=== PATIENT | female | born 1995 | race Caucasian/White ===

== ENCOUNTER → 2019-11-12 | Outpatient (REF) | payer OTHER | LOC: M SFHCLERA 16:02 | PROVIDERS: ATTEND Nurse Practitioner Family | DX: R53.81 Other malaise (principal) ==

== ENCOUNTER → 2020-08-23 | Outpatient (CLI) | payer OTHER ==
--- NOTE | 2020-08-23 16:02 | REP ---
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 TECHNIQUE: PA and lateral. FINDINGS: The mediastinum and cardiac silhouette are normal. The lung padilla are clear and without acute consolidation, effusion, or pneumothorax. The skeletal structures are intact and normal. IMPRESSION: No acute cardiopulmonary process. <Electronically signed by Arturo Cleveland > 08/23/20 [id number]
--- NOTE | 2020-08-23 16:30 | REPVR ---
PROCEDURE INFORMATION: Exam: CT Thoracic Spine Without Contrast Exam date and time: 08/23/2020 3:55 PM Age: 25 years old Clinical indication: Pain in thoracic spine; Additional info: Benign neoplasm of prph nerves and autonm nervous sys, unsp TECHNIQUE: Imaging protocol: Computed tomography images of the thoracic spine without contrast. Axial, coronal and sagittal reformatted images were created and reviewed. Radiation optimization: All CT scans at this facility use at least one of these dose optimization techniques: automated exposure control; mA and/or kV adjustment per patient size (includes targeted exams where dose is matched to clinical indication); or iterative reconstruction. COMPARISON: No relevant prior studies available. FINDINGS: Vertebrae: Normal thoracic kyphosis. Alignment anatomic. No CT evidence of acute fracture, dislocation or subluxation. Vertebral body heights maintained. Discs/Spinal canal/Neural foramina: Intervertebral disc spaces preserved. Soft tissue enlargement of the left C7-T1 neural foramen with associated osseous remodeling, suggestive of a peripheral nerve sheath tumor. Remaining neural foramina patent. No significant spinal canal stenosis. Soft tissues: Unremarkable. 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 Electronically signed by: Alex Hall On 08/23/2020 16:30:47 PM
--- NOTE | 2020-08-23 16:30 | REPVR ---
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 Axial, coronal and sagittal reformatted images were created and reviewed. Radiation optimization: All CT scans at this facility use at least one of these dose optimization techniques: automated exposure control; mA and/or kV adjustment per patient size (includes targeted exams where dose is matched to clinical indication); or iterative reconstruction. COMPARISON: No relevant prior studies available. FINDINGS: Bones/joints: Straightening of the normal cervical lordosis. No CT evidence of acute fracture, dislocation or subluxation. Alignment anatomic. Vertebral body heights maintained. Discs/Spinal canal/Neural foramina: Intervertebral disc spaces preserved. Soft tissue enlargement of the left C7-T1 neural foramen with associated osseous remodeling, suggestive of a peripheral nerve sheath tumor. Remaining neural foramina patent. No significant spinal canal stenosis. Lungs: Grossly unremarkable. Soft tissues: Grossly unremarkable. 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 Electronically signed by: Alex Hall On 08/23/2020 16:30:37 PM
== END ==
LOC: M RAD 15:40
PROVIDERS: ATTEND Neurological Surgery
DX: D36.10 Benign neoplasm of peripheral nerves and autonomic nervous system, unspecified (principal)

== ENCOUNTER → 2020-09-23 | Outpatient (CLI) | payer OTHER ==
[~2020-09-23] MED LIST: ISOVUE-370 76% 100ML VIAL As Ordered ONE
--- NOTE | 2020-09-23 08:44 | REP ---
INDICATION: SOB, RO PE COMPARISON: None. TECHNIQUE: Axial contrast enhanced images from the thoracic inlet to the upper abdomen using pulmonary embolus technique with multiplanar re-formations. 75 ml Isovue 370 intravenous contrast material administered without complication. This CT examination was performed using the following dose reduction techniques: Automated exposure control, adjustment of mA and/or kv according to the patient's size, and use of iterative reconstruction technique. FINDINGS: Satisfactory enhancement of the pulmonary vasculature is achieved and no filling defects are identified to suggest pulmonary embolus. Further evaluation of the mediastinum demonstrates normal thoracic aorta, heart and pericardium. The bilateral lung padilla are well aerated and clear without consolidation pleural effusion or pneumothorax. Tracheobronchial tree is patent. No nodule or mass lesion is identified. No adenopathy noted. Surrounding musculoskeletal structures intact IMPRESSION: No evidence for pulmonary embolus. No acute mediastinal or pleural parenchymal process. <Electronically signed by Arturo Cleveland > 09/23/20 0844
== END ==
LOC: M RAD 07:48
PROVIDERS: ATTEND Physician Assistant Medical
DX: R06.02 Shortness of breath (principal); R07.81 Pleurodynia
CPT/HCPCS: 71275; Q9967

== ENCOUNTER → 2020-11-07 | Outpatient (CLI) | payer OTHER ==
--- NOTE | 2020-11-07 11:27 | REP ---
INDICATION: SCHWANNOMA. COMPARISON: None. TECHNIQUE: AP, lateral, swimmer's views of the cervical spine. FINDINGS: Stevenson rods are identified extending from C4 caudally. There is mild reversal of normal lordosis at the C3-4 level which is nonspecific. The vertebral bodies are intact and without acute fracture/compression injury, acute subluxation, or degenerative change. IMPRESSION: As above. <Electronically signed by Arturo Cleveland > 11/07/20 [id number]
--- NOTE | 2020-11-07 11:28 | REP ---
INDICATION: SCHWANNOMA. COMPARISON: None. TECHNIQUE: AP, lateral, swimmer's views of the thoracic spine. FINDINGS: Stevenson rods are identified extending from C4 through upper thoracic level. Thoracic spine demonstrates normal alignment and kyphosis. No acute fracture/compression injury or subluxation. No significant degenerative changes. IMPRESSION: Relatively normal thoracic spine radiographs. <Electronically signed by Arturo Cleveland > 11/07/20 [id number]
== END ==
LOC: M RAD 10:49
DX: D36.10 Benign neoplasm of peripheral nerves and autonomic nervous system, unspecified (principal)

== ENCOUNTER 2021-06-24 23:33 | Emergency (ER) | payer OTHER ==
[~2021-06-24] VITALS: Ht 170.2 cm; Wt 77.3 kg
[2021-06-24 23:34] VITALS: BP 129/81
--- OUTSIDE RECORDS SUMMARY | 2021-06-24 23:40 | CCD | Summary of Care ---
Author Author [facility] Organization [facility] Address Unknown Phone Unavailable Care Team Providers Care Boiler Fireman Name Role Phone Michael Banegas MD PCP Reason for Referral * Rehabilitation (Routine) Referred By Contact Referred To Contact Status Reason Specialty Diagnoses / Procedures Fina Diana PA [address] [facility] [address] [place] [phone] Email: [email or web address] Vale James MD [address] [place] [address] Email: [email or web address] Authorized Specialty Services Physical Diagnoses Required Medicine and Schwannoma Rehabilitation Fusion of spine of cervicothoracic region Acute midline thoracic back pain Electronically signed by Fina UGALDE at * Physical Therapy (Routine) Referred By Contact Referred To Contact Status Reason Specialty Diagnoses / Procedures Fina Diana PA [address] [place] [phone] Email: [email or web address] Authorized Diagnoses Schwannoma Fusion of spine of cervicothoracic region Acute midline thoracic back pain P rocedures Physical Therapy Electronically signed by Fina UGALDE at Reason for Visit * Reason Comments Follow-up new pain mid back xrays german or Encounter Details Care Team Description Date Type Department Alex Escobar MD [address] [place] [phone] Schwannoma (Primary Dx); Fusion of spine of cervicothoracic region; Acute midline thoracic back pain; Atrophic scar 04/04/2021 Office Visit [facility] [address] [phone] Allergies Comments Active Allergy Reactions Severity Noted Date Dizziness, insomnia, exacerbation of tics Amphetamine-Dextroampheta Nausea Only 08/23/2020 mine Iodinated Diagnostic Shortness Of High 1 Agents Breath, Itching Exacerbation of tic, dizziness, insomnia and nausea Dexmethylphenidate Hcl Other (See 08/23/2020 Comments) documented as of this encounter (statuses as of 04/04/2021) Medications End Date Status Medication Sig Dispensed Refills Start Date Active Loratadine 10 MG Oral Take 10 mg by 0 Tablet (CLARITIN) mouth every morning Active Fluticasone Propionate 50 1 spray by 0 MCG/ACT Nasal Suspension Nasal route (FLONASE) as needed for Rhinitis Active Vitamin D Take 50,000 0 (Ergocalciferol) 1.25 MG Units by (96413 UT) Oral Capsule mouth every 7 (ERGOCALCIFEROL) (seven) days On tuesdays09/07/2021 Active Calcium Carbonate Antacid Chew 1 tablet 0 500 MG Oral Tablet by Mouth 1 Chewable (TUMS) Three times daily as needed Additional Information Patient not taking. Reported on 04/04/2021 09/12/2021 Active Venlafaxine HCl ER 150 MG Take 1 30 capsule 0 Oral Capsule Extended capsule by 1 Release 24 Hour mouth every (EFFEXOR-XR) morning Active Albuterol Sulfate HFA 108 Inhale 2 1 each 0 (90 Base) MCG/ACT puffs into 1 Inhalation Aerosol the lungs Solution (Ventolin HFA) every 6 (six) hours as needed for Wheezing Additional Information Patient not taking. Reported on 04/04/2021 Active Gabapentin 400 MG Oral Take 1 90 capsule 1 Capsule (Neurontin) capsule by 1 mouth Three times daily Active Lisdexamfetamine Take 40 mg by 0 Dimesylate 40 MG Oral mouth every Capsule (VYVANSE) morning documented as of this encounter (statuses as of 04/04/2021) Active Problems Problem Noted Date Other skin changes 09/05/2020 Overview: Formatting of this note might be differ ent from the original. 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 Added automatically from request for [facility] [id number] documented as of this encounter (statuses as of 04/04/2021) Social History Date Tobacco Use Types Packs/Day Years Used Never Smoker Smokeless Tobacco: Never Used Comments Alcohol Use Standard Drinks/Week infrequently Yes 0 (1 standard drink = 0.6 o z pure alcohol) Sex Assigned at Date Recorded Not on file Date Recorded COVID-19 Exposure Response 04/04/2021 2:49 PM EDT In the last month, have you been in contact with No / Unsure someone who was confirmed or suspected to have Coronavirus / COVID-19? documented as of this encounter Last Filed Vital Signs Reading Time Taken Comments Vital Sign 110/80 04/04/2021 3:30 PM EDT Blood Pressure 98 04/04/2021 3:30 PM EDT Pulse - - Temperature - - Respiratory Rate 100% 04/04/2021 3:30 PM EDT Oxygen Saturation - - Inhaled Oxygen Concentration - - Weight - - Height - - Body Mass Index documented in this encounter Progress Notes * Fina Diana PA - 04/04/2021 3:00 PM EDT Jeanne Jj presents for follow up with xrays. she is a 26 y.o. year old female, with known history of a left C7 lesion initial ly found 5 years ago. The initially experienced left arm numbness and tingling extending to her 4th and 5th digits in the C8 distribution. She was managed con servatively, but over the past year, has developed increasing left upper extremi ty weakness and proximal left lower extremity weakness that has slowly worsened. She also now complains of bowel and bladder incontinence. Dr. Escobar perform ed a C4-T3 posterior instrumentation and fusion with C6-T1 laminectomy for resec tion of intradural and extradural tumor on 09/01/2020. Pathology consistent wit h schwannoma. Patient is here alone for follow up, her mother is on speaker phone. Patient st hern[facility] she had improvement at first but has worsened. She continues to have left hand numbness primarily in the lateral aspect of the hand and into the fourth an d fifth digits. She admits to weakness and now has a tremor into the left hand. Approximately a month and a half ago she was in the car for a longer period of time and experienced a severe sharp pain through the middle of her scar. Since then she has had spontaneous episodes of this type pain not precipitated by any thing in particular. She also still has baseline upper neck and back pain where she cannot do daily activities. She denies any shooting arm pain. She also is concerned about her scar and has widened since her surgery. Current Outpatient Medications Medication Sig Dispense Refill Lisdexamfetamine Dimesylate 40 MG Oral Capsule (VYVANSE) Take 40 mg by mo uth every morning Venlafaxine HCl ER 150 MG Oral Capsule Extended Release 24 Hour (EFFEXOR- XR) Take 1 capsule by mouth every morning 30 capsule 0 Albuterol Sulfate HFA 108 (90 Base) MCG/ACT Inhalation Aerosol Solution ( Ventolin HFA) Inhale 2 puffs into the lungs every 6 (six) hours as needed for W heezing (Patient not taking: Reported on 04/04/2021) 1 each 0 Calcium Carbonate Antacid 500 MG Oral Tablet Chewable (TUMS) Chew 1 table t by Mouth Three times daily as needed (Patient not taking: Reported on 04/04/2021 ) Fluticasone Propionate 50 MCG/ACT Nasal Suspension (FLONASE) 1 spray by N kristen route as needed for Rhinitis (Patient not taking: Reported on 04/04/2021) Gabapentin 400 MG Oral Capsule (Neurontin) Take 1 capsule by mouth Three times daily 90 capsule 1 Loratadine 10 MG Oral Tablet (CLARITIN) Take 10 mg by mouth every morning (Patient not taking: Reported on 04/04/2021) Vitamin D (Ergocalciferol) 1.25 MG (15486 UT) Oral Capsule (ERGOCALCIFERO L) Take 50,000 Units by mouth every 7 (seven) days On tuesdays (Patient not taki ng: Reported on 04/04/2021) No current facility-administered medications for this visit. Past Medical History: Diagnosis Date Anxiety Asthma Depression GERD (gastroesophageal reflux disease) Low back pain Neuromuscular disorder Past Surgical History: Procedure Laterality Date WISDOM TOOTH EXTRACTION Blood pressure 110/80, pulse 98, SpO2 100 %, not currently . Physical Exam: General Appearance: well developed, well nourished female in no acute distress Wound: well approximated, dry, intact, significant widening of the scar with atr ophy in the center. There is no gross openings. HEENT: Head is normocephalic Neck and back: Tenderness along the scar as well as mid to upper thoracic spine. Ext: tremor noted in left Neurological Exam Mental status: awake, alert, and oriented x 3, thought content appropriate Speech: fluent and comprehension is excellent. 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 Schwannoma Physical Therapy Referral to Physical Medicine Rehab 2. Fusion of spine of cervicothoracic region Physical Therapy Referral to Physical Medicine Rehab 3. Acute midline thoracic back pain Physical Therapy Referral to Physical Medicine Rehab 4. Atrophic scar Unfortunately some of her left arm numbness and weakness is likely residual from the schwannoma and nerve compression. She would greatly benefit from PT. Plan: Physical therapy script written and handed to the patient. Dr. Escobar has also seen the patient and discussed above. Referral to Dr. James for pain management F/u in 12 weeks We may need to refer to plastics for her wound Fina Diana PA-C [facility] documented in this encounter Plan of Treatment Care Team Description Date Type Specialty Alex Escobar MD [address] [place] [address] 05/30/2021 Office Visit Neurosurgery Order Schedule Name Type Priority Associated Diag noses Ordered: 04/04/2021 Referral to Physical Outpatient Routine Schwannom a Medicine Rehab Referral Fusion of spine of cervicothoracic region Acute midline thoracic back pain Health Maintenance Due Date Last Done Comments MMR Vaccines (1 of - 1998 Standard series) Varicella Vaccines (1 of 1998 2 - 2-dose childhood series) DTaP,Tdap,and Td Vaccines 02/06/2004 (1 - Tdap) HPV Vaccines (1 - 2-dose 02/06/2008 series) HIV Screening 2010 Chlamydia Screening 2013 Cervical Cancer Screening 2018 3 years Influenza Vaccine 06/02/2021 Pneumococcal Vaccine: 65+ 2062 Years (1 of 1 - PPSV23) HIB Vaccines Aged Out No longer eligible based on patient's age to complete this topic Hepatitis A Vaccines Aged Out No longer eligibl e based on patient's age to complete this topic Hepatitis B Vaccines Aged Out No longer eligibl e based on patient's age to complete this topic IPV Vaccines Aged Out No longer eligible based on patient's age to complete this topic Pneumococcal Vaccine: Aged Out No longer eligib le based on patient's age to Pediatrics (0 to 5 Years) complete this topic and At-Risk Patients (6 to 64 Years) documented as of this encounter Implants Device Identifier Shelf Expiration Date Model / Serial / L ot Implanted Type Area Manufactur er 09/07/2026 [id number] / / [id number] Screw Spnl L30mm Dia5.5mm - N/A: Spine [employer] [id number] Cervical INC Implanted: Qty: 1 on 09/01/2020 by Alex Escobar MD at OR 5E 06/29/2023 [id number] / [id number] / [id number] Putty Bone Allergen 10cc - N/A: Spine [employer] [id number] Cervical INC Implanted: Qty: 1 on 09/01/2020 by Alex Escobar MD at [facility] 5E 10/05/2024 [id number] / [id number] / [id number] Bone Cancellous Crushed 30cc - N/A: Spine LIFENE T [id number] Cervical TISSUE Implanted: Qty: 1 on 09/01/2020 by Alex Luciano MD at OR [facility] [id number] / / Mateo Spnl L100mm Dia3.5mm Cocr - N/A: Spine [employer] [id number] Cervical INC Implanted: Qty: 2 on 09/01/2020 by Alex Escobar MD at OR [facility] [id number] / / Connector Spnl 10mm - [id number] N/A: Spine MEDT RONIC Implanted: Qty: 3 on 09/01/2020 by Cervical IN C Alex Escobar MD at OR 5E 09/07/2026 [id number] / / [id number] Screw Spnl L30mm Dia5.5mm - N/A: Spine [employer] [id number] Cervical INC Implanted: Qty: 1 on 09/01/2020 by Alex Escobar MD at OR [facility] [id number] / / Screw Spnl L35mm Dia5.5mm - N/A: Spine [employer] [id number] Cervical INC Implanted: Qty: 2 on 09/01/2020 by Alex Escobar MD at OR 5E [id number] / / Screw Spnl L30mm Dia4.5mm - N/A: Spine [employer] [id number] Cervical INC Implanted: Qty: 2 on 09/01/2020 by Alex Escobar MD at OR [facility] [id number] / / Screw Spnl L14mm Dia4mm - N/A: Spine [employer] [id number] Cervical INC Implanted: Qty: 6 on 09/01/2020 by Alex Escobar MD at OR 5E [id number] / / Set Scr Spnl Std - [id number] N/A: Spine [employer] IC Implanted: Qty: 12 on 09/01/2020 by Cervical I Alex Amezquita MD at OR 5E 03/01/2023 [id number] / / Graft Dural Onlay [id number] - N/A: Spine INTEGR A [id number] Cervical L[employer]CI[employer] Implanted: Qty: 1 on 09/01/2020 by ES SURG. Alex Escobar MD at OR 5E PRO 05/25/2023 [id number] / [id number] / [id number] Putty Bone Allergen 10cc - N/A: Spine [employer] [id number] Cervical INC Implanted: Qty: 1 on 09/01/2020 by Alex Escobar MD at OR 5E 06/29/2023 [id number] / [id number] / [id number] Putty Bone Allergen 10cc - N/A: Spine [employer] [id number] Cervical INC Implanted: Qty: 1 on 09/01/2020 by Alex Escobar MD at OR [facility] documented as of this encounter Results Not on filedocumented in this encounter Visit Diagnoses Diagnosis Schwannoma - Primary Other benign neoplasm of connective and other soft tissue of unspecified site Fusion of spine of cervicothoracic gisselle on Congenital fusion of spine (vertebra) Acute midline thoracic back pain Atrophic scar Scar condition and fibrosis of skin documented in this encounter
--- OUTSIDE RECORDS SUMMARY | 2021-06-24 23:42 | CCD ---
Author Author [facility] Organization [facility] Address Unknown Phone Unavailable Care Team Providers Care Marketing Admin Name Role Phone Jona Womack MD Unavailable Unavailable Jona Womack MD Unavailable Unavailable Jona Womack MD Unavailable Unavailable Jona Womack MD Unavailable Unavailable Jona Womack MD Unavailable Unavailable Jona Womack MD Unavailable Unavailable Jona Womcak MD Unavailable Unavailable Jona Womack MD Unavailable Unavailable Jona Womack MD Unavailable Unavailable Jona Womack MD Unavailable Unavailable Jona Womack MD Unavailable Unavailable Jona Womack MD Unavailable Unavailable Jona Womack MD Unavailable Unavailable Jona Womack MD Unavailable Unavailable Jona Womack MD Unavailable Unavailable Jona Womack MD Unavailable Unavailable Jona Womack MD Unavailable Unavailable Jona Womack MD Unavailable Unavailable Jona Womack MD Unavailable Jona Uribe MD Unavailable Jona Uribe MD Unavailable Unavailable Jona Womack MD Unavailable Unavailable Jona Womack MD Unavailable Unavailable Jona Womack MD Unavailable Unavailable Jona Womack MD Unavailable Unavailable Jona Womack MD Unavailable Unavailable Jona Womack MD Unavailable Unavailable Jona Womack MD Unavailable Unavailable Jona Womack MD Unavailable Unavailable Jona Womack MD Unavailable Unavailable Jona Womack MD Unavailable Unavailable Jona Womack MD Unavailable Unavailable Shanta, Jona Summers MD Unavailable Unavailable Shanta, Jona Summers MD Unavailable Unavailable Shanta, Jona Summers MD Unavailable Unavailable Shanta, Jona Summers MD Unavailable Unavailable Shanta, Jona Summers MD Unavailable Unavailable Shanta, Jona Summers MD Unavailable Unavailable Shanta, Jona Summers MD Unavailable Unavailable Shanta, Jona Summers MD Unavailable Unavailable Shanta, Jona Summers MD Unavailable Unavailable Shanta, Jona Summers MD Unavailable Unavailable Shanta, Jona Summers MD Unavailable Unavailable Shanta, Jona Summers MD Unavailable Unavailable Shanta, Jona Summers MD Unavailable Unavailable Shanta, Jona Summers MD Unavailable Unavailable Shanta, Jona Summers MD Unavailable Unavailable Shanta, Jona Summers MD Unavailable Unavailable Shanta, Jona Summers MD Unavailable Unavailable Shanta, Jona Summers MD Unavailable Unavailable Shanta, Jona Summers MD Unavailable Unavailable Shanta, Jona Summers MD Unavailable Unavailable Shanta, Jona Summers MD Unavailable Unavailable Shanta, Jona Summers MD Unavailable Unavailable Shanta, Jona Summers MD Unavailable Unavailable Shanta, Jona Summers MD Unavailable Unavailable Shanta, Jona Summers MD Unavailable Unavailable Koutalianos, Glynn Unavailable Koutalianos, Glynn Unavailable Koutalianos, Owen Unavailable Koutalianos, Owen Unavailable Koutalianos, Glynn Unavailable Koutalianos, Owen Unavailable Koutalianos, Glynn Unavailable Sin, M Jj PA Unavailable Unavailable Sin, M Jj PA Unavailable Unavailable Sin, M Jj PA Unavailable Unavailable Sin, M Jj PA Unavailable Unavailable Sin, M Jj PA Unavailable Unavailable Sin, M Jj PA Unavailable Unavailable Sin, M Jj PA Unavailable Unavailable Sin, M Jj PA Unavailable Unavailable Sin, M Jj PA Unavailable Unavailable Sin, M Jj PA Unavailable Unavailable Sin, M Jj PA Unavailable Unavailable Sin, M Jj PA Unavailable Unavailable Sin, M Jj PA Unavailable Unavailable Sin, M Jj PA Unavailable Unavailable Sin, M Jj PA Unavailable Unavailable Sin, M Jj PA Unavailable Unavailable Sin, M Jj PA Unavailable Unavailable Sin, M Jj PA Unavailable Unavailable Sin, M Jj PA Unavailable Unavailable Sin, M Jj PA Unavailable Unavailable Sin, M Jj PA Unavailable Unavailable Sin, M Jj PA Unavailable Unavailable Sin, M Jj PA Unavailable Unavailable Sin, M Jj PA Unavailable Unavailable Sin, M Jj PA Unavailable Unavailable Sin, M Jj PA Unavailable Unavailable Sin, M Jj PA Unavailable Unavailable Sin, M Jj PA Unavailable Unavailable Sin, M Jj PA Unavailable Unavailable Sin, M Jj PA Unavailable Unavailable Sin, M Jj PA Unavailable Unavailable Sin, M Jj PA Unavailable Unavailable Sin, M Jj PA Unavailable Unavailable Sin, M Jj PA Unavailable Unavailable Sin, M Jj PA Unavailable Unavailable Sin, M Jj PA Unavailable Unavailable Sin, M Jj PA Unavailable Unavailable Sin, M Jj PA Unavailable Unavailable Sin, M Jj PA Unavailable Unavailable Sin, M Jj PA Unavailable Unavailable Sin, M Jj PA Unavailable Unavailable Sin, M Jj PA Unavailable Unavailable Sin, M Jj PA Unavailable Unavailable Sin, M Jj PA Unavailable Unavailable Sin, M Jj PA Unavailable Unavailable Sin, M Jj PA Unavailable Unavailable Sin, M Jj PA Unavailable Unavailable Sin, M Jj PA Unavailable Unavailable Sin, M Jj PA Unavailable Unavailable Krish PENNY Unavailable Unavailable CIPRO, M. TANNER PA Unavailable Unavailable CIPRO, M. TANNER PA Unavailable Unavailable CIPRO, M. TANNER PA Unavailable Unavailable Zabrina Sin MD Unavailable Unavailable Zabrina Sin MD Unavailable Unavailable Zabrina Sin MD Unavailable Unavailable Zabrina Sin MD Unavailable Unavailable Zabrina Sin MD Unavailable Unavailable Zabrina Sin MD Unavailable Unavailable Zabrina Sin MD Unavailable Unavailable Zabrina Sin MD Unavailable Unavailable Zabrina Sin MD Unavailable Unavailable Zabrina Sin MD Unavailable Unavailable Zabrina Sin MD Unavailable Unavailable Maring, Tres PA Unavailable Unavailable Maring, Tres PA Unavailable Unavailable Maring, Tres PA Unavailable Unavailable Maring, Tres PA Unavailable Unavailable Maring, Tres PA Unavailable Unavailable Maring, Tres PA Unavailable Unavailable Maring, Tres PA Unavailable Unavailable Maring, Tres PA Unavailable Unavailable Maring, Tres PA Unavailable Unavailable Maring, Tres PA Unavailable Unavailable Maring, Tres PA Unavailable Unavailable Maring, Tres PA Unavailable Unavailable Maring, Tres PA Unavailable Unavailable Maring, Tres PA Unavailable Unavailable Maring, Tres PA Unavailable Unavailable Maring, Tres PA Unavailable Unavailable ESTELA ACUÑA MD Unavailable Unavailable ESTELA ACUÑA MD Unavailable Unavailable ESTELA ACUÑA MD Unavailable Unavailable ESTELA ACUÑA MD Unavailable Unavailable Zabrina ALSTON Unavailable Unavailable GALGANOFRANDY MD Unavailable Unavailable GALGANOFRANDY MD Unavailable Unavailable GALGANOFRANDY MD Unavailable Unavailable GALGANOFRANDY MD Unavailable Unavailable GALGANOFRANDY MD Unavailable Unavailable GALGANOFRANDY MD Unavailable Unavailable GALGANOFRANDY MD Unavailable Unavailable GALGANOFRANDY MD Unavailable Unavailable GALGANOFRANDY MD Unavailable Unavailable GALGANOFRANDY MD Unavailable Unavailable GALGANOFRANDY MD Unavailable Unavailable GALGANORFANDY MD Unavailable Unavailable GALGANOFRANDY MD Unavailable Unavailable GALGANOFRANDY MD Unavailable Unavailable GALGANOFRANDY MD Unavailable Unavailable GALGANOFRANDY MD Unavailable Unavailable GALGANOFRANDY MD Unavailable Unavailable GALGANO, FRANDY LUCERO Unavailable Unavailable GALGANO, FRANDY LUCERO Unavailable Unavailable GALGANO, FRANDY LUCERO Unavailable Unavailable GALGANOFRANDY MD Unavailable Unavailable GALGANOFRANDY MD Unavailable Unavailable GALGANOFRANDY MD Unavailable Unavailable GALGANOFRANDY MD Unavailable Unavailable GALGANOFRANDY MD Unavailable Unavailable GALGANOFRANDY MD Unavailable Unavailable GALGANOFRANDY MD Unavailable Unavailable GALGANOFRANDY MD Unavailable Unavailable GALGANOFRANDY MD Unavailable Unavailable GALGANOFRANDY MD Unavailable Unavailable GALGANOFRANDY MD Unavailable Unavailable GALGANOFRANDY MD Unavailable Unavailable GALGANOFRANDY MD Unavailable Unavailable GALGANOFRANDY MD Unavailable Unavailable GALGANOFRANDY MD Unavailable Unavailable GALGANFRANDY Benz MD Unavailable Unavailable GALGANFRANDY Benz MD Unavailable Unavailable GALGANFRANDY Benz MD Unavailable Unavailable GALGANFRANDY Benz MD Unavailable Unavailable GALFRANDY LAZAR MD Unavailable Unavailable Stuck, K Fina PA Unavailable Unavailable Stuck, K Fina PA Unavailable Unavailable Stuck, K Fina PA Unavailable Unavailable Stuck, K Fina PA Unavailable Unavailable Stuck, K Fina PA Unavailable Unavailable Stuck, K Fina PA Unavailable Unavailable Stuck, K Fina PA Unavailable Unavailable Stuck, K Fina PA Unavailable Unavailable Stuck, K Fnia PA Unavailable Unavailable Stuck, K Fina PA Unavailable Unavailable Stuck, K Fina PA Unavailable Unavailable Stuck, K Fina PA Unavailable Unavailable Stuck, K Fina PA Unavailable Unavailable Stuck, K Fina PA Unavailable Unavailable Stuck, K Fina PA Unavailable Unavailable Stuck, K Fina PA Unavailable Unavailable Stuck, K Fina PA Unavailable Unavailable Stuck, K Fina PA Unavailable Unavailable Stuck, K Fina PA Unavailable Unavailable Stuck, K Fina PA Unavailable Unavailable Stuck, K Fina PA Unavailable Unavailable Stuck, K Fina PA Unavailable Unavailable Stuck, K Fina PA Unavailable Unavailable Stuck, K Fina PA Unavailable Unavailable Stuck, K Fina PA Unavailable Unavailable Stuck, K Fina PA Unavailable Unavailable Stuck, K Fina PA Unavailable Unavailable Stuck, K Fina PA Unavailable Unavailable Stuck, K Fina PA Unavailable Unavailable Stuck, K Fina PA Unavailable Unavailable Stuck, K Fina PA Unavailable Unavailable Stuck, K Fina PA Unavailable Unavailable Stuck, K Fina PA Unavailable Unavailable Stuck, K Fina PA Unavailable Unavailable Stuck, K Fina PA Unavailable Unavailable Stuck, K Fina PA Unavailable Unavailable Stuck, K Fina PA Unavailable Unavailable Stuck, K Fina PA Unavailable Unavailable Stuck, K Fina PA Unavailable Unavailable Stuck, K Fina PA Unavailable Unavailable Stuck, K Fina PA Unavailable Unavailable Stuck, K Fina PA Unavailable Unavailable OWEN KING MD Unavailable Unavailable Jacquelyn Isaacs MD Unavailable Unavailable Jacquelyn Isaacs MD Unavailable Unavailable Jacquelyn Isaacs MD Unavailable Unavailable Jacquelyn Isaacs MD Unavailable Unavailable Jacquelyn Isaacs MD Unavailable Unavailable Jacquelyn Isaacs MD Unavailable Unavailable Jacquelyn Isaacs MD Unavailable Unavailable Jacquelyn Isaacs MD Unavailable Unavailable Jacquelyn Isaacs MD Unavailable Unavailable Jacquelyn Isaacs MD Unavailable Unavailable Jacquelyn Isaacs MD Unavailable Unavailable Jacquelyn Isaacs MD Unavailable Unavailable Jacquelyn Isaacs MD Unavailable Unavailable Jacquelyn Isaacs MD Unavailable Unavailable Jacquelyn Isaacs MD Unavailable Unavailable Jacquelyn Isaacs MD Unavailable Unavailable Jacquelyn Isaacs MD Unavailable Unavailable Jacquelyn Isaacs MD Unavailable Unavailable Jacquelyn Isaacs MD Unavailable Unavailable Jacquelyn Isaacs MD Unavailable Unavailable Jacquelyn Isaacs MD Unavailable Unavailable Jacquelyn Isaacs MD Unavailable Unavailable Jacquelyn Isaacs MD Unavailable Unavailable Jacquelyn Isaacs MD Unavailable Unavailable Jacquelyn Isaacs MD Unavailable Unavailable Re-disclosure Warning The records that you are about to access may contain information from federally-assisted alcohol or drug abuse programs. If such information is present, then the following federally mandated warning applies: This information has been disclosed to you from records protected by federal confidentiality rules (42 CFR part 2). The federal rules prohibit you from making any further disclosure of this information unless further disclosure is expressly permitted by the written consent of the person to whom it pertains or as otherwise permitted by 42 CFR part 2. A general authorization for the release of medical or other information is NOT sufficient for this purpose. The Federal rules restrict any use of the information to criminally investigate or prosecute any alcohol or drug abuse patient.The records that you are about to access may contain highly sensitive health information, the redisclosure of which is protected by Article 27-F of the [facility] Public Health law. If you continue you may have access to information: Regarding HIV / AIDS; Provided by facilities licensed or operated by the [facility] Office of Mental Health; or Provided by the [facility] Office for People With Developmental Disabilities. If such information is present, then the following [facility] mandated warning applies: This information has been disclosed to you from confidential records which are protected by state law. State law prohibits you from making any further disclosure of this information without the specific written consent of the person to whom it pertains, or as otherwise permitted by law. Any unauthorized further disclosure in violation of state law may result in a fine or half-way sentence or both. A general authorization for the release of medical or other information is NOT sufficient authorization for further disc losure. Allergies and Adverse Reactions Type Description Substance Reaction Status Data Source(s ) Propensity to adverse reactions IODINATED DIAGNOSTIC AGENTS IODINATED DIAGNOSTIC AGENTS [facility] Drug allergy DEXMETHYLPHENIDATE HCL DEXMETHYLPHENIDATE HCL [facility] Drug allergy AMPHETAMINE-DEXTROAMPHETAMINE AMPHETAMINE-DEXTRO AMPHETAMINE [facility] Encounters Encounter Providers Location Date Indications Data Source(s ) Outpatient Attender: FRANDY MAY MD 08/29/2021 12:00:0 0 AM [facility] Outpatient Attender: Kellee Isaacs MD 1 03:33:45 PM EDT - 06/22/2021 04:51:18 PM EDT [facility] ([facility]) Outpatient Attender: FRANDY MAY MD [id number] [facility] OWEN GARCIA MDAttender: Owen WhitlocksReferrer: Fina UGALDE [facility] Tres UGALDE 04/15/20 21 10:35:56 AM EDT - 04/15/2021 11:04:47 AM EDT [facility] ([facility] ) Outpatient Attender: FRANDY MAY MD [id number] 10/2020 12:00:00 AM EDT - [facility]04[facility] ESTELA ACUÑA MD 04/04/2021 12:0 0:00 AM [facility] Outpatient Attender: FRANDY MAY MD [id number] 09/2020 12:00:00 AM EDT - 01/31/2021 01:07:04 PM EDT Benign neoplasm of peripheral nerves and autonomic nervous system, unspecF [facility] Benign neoplasm of peripheral nerves and autonomic nervous system, unspecified Outpatient Referrer: FRANDY MAY MD 01/17/2021 1 2:00:00 AM EDT Benign neoplasm of peripheral nerves and autonomic nervous system, [facility] Benign neoplasm of peripheral nerves and autonomic nervous system, unspecified Outpatient Attender: FRANDY MAY MD [id number] 11/08/2020 1 2:00:00 AM EST Benign neoplasm of peripheral nerves and autonomic nervous system, [facility] Benign neoplasm of peripheral nerves and autonomic nervous system, unspecified Outpatient Attender: FRANDY MAY MD 11/01/2020 12:00:0 0 AM [facility] Outpatient Attender: Tres UGALDE 10/19/19 01:47:02 PM EST - 10/19/2020 02:32:57 PM EST [facility] ([facility] ) Outpatient Attender: FRANDY MAY MD 10/18/2020 12:00:0 0 AM [facility] Outpatient Attender: FRANDY MAY MD 09/27/2020 12:00:0 0 AM [facility] Outpatient Attender: Magui Sin MD 09/26/2020 12:00:00 AM [facility] Outpatient 09/26/2020 12:00:00 AM [facility] Outpatient Referrer: Fina UGALDE 09/20/2020 12:23 :43 PM EST Shortness of breath [facility] Shortness of breath Outpatient Attender: FRANDY MAY MD [id number] 12:00:00 AM EST - 09/20/2020 12:29:45 PM EST Benign neoplasm of peripheral nerves and autonomic nervous system, unspecified [facility] Benign neoplasm of peripheral nerves and autonomic nervous system, unspecified Inpatient Attender: Kristopher Womack MDAdm itter: Kristopher Womack MDConsultant: Kristopher Womack MD [id number] 09/08/2020 12:00:00 AM EST - 09/13/2020 11:57:00 AM EST Cervical Spine Tumor [facility] Cervical Spine Tumor Patient discharged. Outpatient Attender: TANNER UGALDE 09/05/2020 12:00:00 AM [facility] Outpatient 09/05/2020 12:00:00 AM [facility] In[facility] FRANDY VORA MD [id number] 09/01/2020 12:00:00 AM EST - 09/08/2020 12:00:00 AM EST Neoplasm of unspecified behavior of bone, soft tissue, and skin [facility] Neoplasm of unspecified behavior of bone , soft tissue, and skin Patient discharged. Outpatient Attender: CHON Shavererrer: FRANDY HACKETT MD [id number] 08/29/2020 12:00:00 AM [facility] Outpatient Attender: TANNER Moreiraerrer: FRANDY WHITLEY MD 08/29/2020 12:00:00 AM EST Benign neoplasm of peripheral nerves and autonomic nervous system, unspecified [facility] Benign neoplasm of peripheral nerves and autonomic nervous system, unspecified Outpatient Attender: FRANDY MAY MD [id number] 07/26/2020 1 2:00:00 AM EST Benign neoplasm of peripheral nerves and autonomic nervous system, unspecified [facility] Benign neoplasm of peripheral nerves and autonomic nervous system, unspecified Outpatient Attender: Jj UGALDE 07/18 02:05:00 PM EST - 07/18/2020 02:05:00 PM EST [facility] Outpatient Attender: VICENTE MENDEZonsultant: VICENTE PENNY 06/09/2020 01:15:00 PM EDT - 06/09/2020 02:15:00 PM EDT [facility] Immunizations Vaccine Date Status Description Data Source(s) COVID-19 VACCINE Pfizer 05/22/2021 12:00:00 AM EDT completed [facility] Vaccine Series Complete: YESThis Data wa s Submitted to [facility] Via [employer]. COVID-19 VACCINE Pfizer 04/24/2021 12:00:00 AM EDT completed [facility] Vaccine Series Complete: NOThis Data was Submitted to [facility] Via [employer]. Medications Medication Brand Name Start Date Product Form Dose Route Admi nistrative Instructions Pharmacy Instructions Status Indications Reaction Description Data Source(s) gabapentin 400 MG Oral Capsule Gabapentin 400 MG Oral Capsule (Neurontin) Gabapentin 400 MG Oral Capsule (Neurontin) 11/16/2020 12:00:00 AM EDT 400 mg Oral active Take 1 capsule by [facility] Three times daily [facility] gabapentin 400 MG Oral Capsule Gabapentin 400 MG Oral Capsule (NEURONTIN) Gabapentin 400 MG Oral Capsule (NEURONTIN) 11/08/2020 12:00:00 AM EST 400 mg Oral active Take 1 capsule by [facility] Three times daily [facility] 24 HR venlafaxine 150 MG Extended Releas e Oral Capsule Venlafaxine HCl ER 150 MG Oral Capsule Extended Release 24 Hour (EFFEXOR-XR) Venlafaxine HCl ER 150 MG Oral Capsule Extended Release 24 Hour (EFFEXOR-XR) 09/13/2020 12:00:00 AM EST 150 mg Oral active Take 1 capsule by mouth every morning [facility] Albuterol Sulfate HFA 108 (90 Base) MCG/ ACT Inhalation Aerosol Solution (Ventolin HFA) 9123-2792-68 09/13/2020 12:00:00 AM EST 2 {puff} Inhal ation active Inhale 2 puffs i nto the lungs every 6 (six) hours as needed for Wheezing [facility] Cephalexin 500 MG Oral Capsule cephALEXin (KEFLEX) cap miller 500 mg cephALEXin (KEFLEX) capsule 500 mg 09/12/2020 05:00:00 PM EST 500 mg Oral active 500 mg, Oral, Three Times Daily Standard, First dose on Sat09/12/20 at 1700, For 7 days [facility] Medication administered onsite gabapentin 400 MG Oral Capsule Gabapentin 400 MG Oral Capsule (NEURONTIN) Gabapentin 400 MG Oral Capsule (NEURONTIN) 09/12/2020 12:00:00 AM EST 400 mg Oral aborted Take 1 capsule by [facility] Three times daily [facility] Bisacodyl 10 MG Rectal Suppository Bisac odyl 10 MG Rectal Suppository (DULCOLAX) Bisacodyl 10 MG Rectal Suppository (DULCOLAX) 09/12/2020 12:00:0 0 AM EST [address] 1 grewal ppository rectally daily as needed for Constipation for up to 10 days [facility] Oxycodone Hydrochloride 5 MG Oral Tablet oxyCODONE HCl 5 MG Oral Tablet (ROXICODONE) oxyCODONE HCl 5 MG Oral Tablet (ROXICODONE) 09/12/2020 12:00:00 AM EST 5 mg Oral active Take 1 t ablet by mouth daily as needed for up to 5 days, Max Daily Dose: 5 mg [facility] Methocarbamol 500 MG Oral Tablet Methocarbamol 500 MG Oral Tablet (ROBAXIN) Methocarbamol 500 MG Oral Tablet (ROBAXIN) 09/12/2020 12:00:00 AM EST 500 mg Oral active Take 1 tablet by [facility] Three times daily as needed [facility] Magnesium Hydroxide 80 MG/ML Oral Suspen isamar Magnesium Hydroxide 400 MG/5ML Oral Suspension (MILK OF MAGNESIA) Magnesium Hydroxide 400 MG/5ML Oral Susp ension (MILK OF MAGNESIA) 09/12/2020 12:00:00 AM EST 45 mL Oral active Take 45 mLs by mouth nightly as needed for Constipation for up to 10 days [facility] Cephalexin 500 MG Oral Capsule Cephalexin 500 MG Oral Capsule (KEFLEX) Cephalexin 500 MG Oral Capsule (KEFLEX) 09/12/2020 12:00:00 AM EST 500 mg Oral active Take 1 capsule by [facility] Three times daily for 6 days [facility] Acetaminophen 325 MG Oral Tablet Acetaminophen 325 MG Oral T ablet 09/12/2020 12:00:00 AM EST 975 mg Oral active Take 3 tablets by mouth every 8 (eight) hours [facility] sennosides, MCFP 8.6 MG Oral Tablet Senna 8.6 MG Oral T ablet Senna 8.6 MG Oral Tablet 09/12/2020 12:00:00 AM EST 2 {tbl} Oral active Take 2 tablets by mouth nightly [facility] gabapentin 400 MG Oral Capsule gabapentin (NEURONTIN) capsule 400 mg gabapentin (NEURONTIN) capsule 400 mg 09/10/2020 02:00:00 PM EST 400 mg Oral active 400 mg, Oral, Three Times D aily Standard, First dose (after last modification) on 09/10/20 at 1400, For 15 doses [facility] Medication administered onsite POLYETHYLENE GLYCOL 3350 142 MG/ML Oral Solution polyethylene glycol (MIRALAX) packet 17 g polyethylene glycol (MIRALAX) packet 17 g 09/10/2020 1 1:15:00 AM EST 17 g Oral active 17 g, Or al, Daily PRN, if no BM in 2 days, Starting 09/10/20 at 1115, For 480 hours
Mix in 8 ounces of water, juice or milk. Avoid use in patients who require thickened liquids due to potential increased risk for aspiration.
[facility] Medication administered onsite Bisacodyl 10 MG Rectal Suppository bisacodyl (DULCOLAX ) suppository 10 mg bisacodyl (DULCOLAX) suppository 10 mg 09/10/2020 11:15:00 AM EST 10 mg Rectal active 10 mg, Rectal, Daily PRN, Constipation, Starting 09/10/20 at 1115, For 30 doses
Hold if patient has had BM within the past 2 days.
[facility] Medication administered onsite 24 HR venlafaxine 150 MG Extended Releas e Oral Capsule venlafaxine (EFFEXOR-XR) 24 hr capsule 150 mg venlafaxine (EFFEXOR-XR) 24 hr capsule 150 mg 09/09/19 09:00:00 AM EST 150 mg Oral active 150 mg, Oral, Every morning, First dose (after last modification) on 09/09/20 at 0900, For 23 doses
Do not crush or chew
[facility] Medication administered onsite Magnesium Hydroxide 80 MG/ML Oral Suspen isamar magnesium hydroxide (MILK OF MAGNESIA) 400 MG/5ML suspension 45 mL magnesium hydroxide (MILK OF MAGNESIA) 4 00 MG/5ML suspension 45 mL 09/09/2020 08:15:00 AM EST 45 mL Oral active 45 mL, Oral, Nightly PRN, Constipation, Starting Sat09/09/20 at 0815, For 720 hours
If serum creatinine > 2 notify provider before administering.
[facility] Medication administered onsite Bisacodyl 10 MG Rectal Suppository Bisac odyl 10 MG Rectal Suppository (DULCOLAX) Bisacodyl 10 MG Rectal Suppository (DULCOLAX) 09/09/2020 12:00:0 0 AM EST [address] 1 suppository rect ally daily for 10 days [facility] sennosides, MCFP 8.6 MG Oral Tablet senna tablet 2 tablet sen na tablet 2 tablet 09/08/2020 10:00:00 PM EST 2 {tbl} Oral active 2 tablet, Oral, Nightly, First dose (after last modification) on [facility] 09/08/20 at 2200, For 27 doses [facility] Medication administered onsite heparin (porcine) 5000 UNIT/ML injection 5,000 Units [id number] 09/08/2020 09:00:00 PM EST 5000 U Subcutaneous active 5,000 Units, Subcutaneous, 2 Times Daily, First dose (after last modification) on [facility] 09/08/20 at 2100, For 50 doses [facility] Medication administered onsite Acetaminophen 325 MG Oral Tablet acetaminophen (TYLENO L) tablet 975 mg acetaminophen (TYLENOL) tablet 975 mg 09/08/2020 08:15:00 PM EST 97 5 mg Oral active 975 mg, Oral, E very 8 hours, First dose (after last modification) on [facility] 09/08/20 at 2015, For 95 doses
Maximum daily dose of acetaminophen is 3,000 mg from all sources in 24 hours.
[facility] Medication administered onsite gabapentin 300 MG Oral Capsule gabapentin (NEURONTIN) capsule 300 mg gabapentin (NEURONTIN) capsule 300 mg 09/08/2020 05:00:00 PM EST 300 mg Oral aborted 300 mg, Oral, Three Times D aily Standard, First dose (after last modification) on [facility] 09/08/20 at 1700, For 15 doses [facility] Medication administered onsite Methocarbamol 500 MG Oral Tablet methocarbamol (ROBAXI N) tablet 500 mg methocarbamol (ROBAXIN) tablet 500 mg 09/08/2020 04:27:27 PM EST 50 0 mg Oral active 500 mg, Oral, F our Times Daily-PRN, Muscle spasms, Starting [facility] 09/08/20 at 1627, For 30 days [facility] Medication administered onsite potassium chloride (K-DUR) dissolvable tablet 40 mEq [id number] 09/08/2020 03:45:00 PM EST 40 meq Oral completed 40 mEq, Oral, 2 Times Daily, First dose on [facility] 09/08/20 at 1545, For 2 doses
May be dissolved in water for patients with a G-Tube or unable to swallow
[facility] Medication administered onsite albuterol (PROVENTIL HFA) inhaler 2 puff [id number] 09/08/2020 03:27:11 PM EST 2 {puff} Inhalation active 2 pu ff, Inhalation, Every 6 hours PRN, Wheezing, Starting [facility] 09/08/20 at 1527, For 6 days 16 hours
Shake the inhaler well before each spray.
[facility] Medication administered onsite oxyCODONE (ROXICODONE) immediate release tablet 10 mg 09/08/2020 03:26:37 PM EST 10 mg Oral active [Order 1 Start] Name: oxyCODONE (ROXICODONE) immediate release tablet 10 mg Signed Summary: 10 mg, Oral, Every 4 hours PRN, Severe Pain (Pain Scale Score 7-10), Starting [facility] 09/08/20 at 1526, For 6 days 17 hours
Oxycodone immediate release is limited to 10 mg per dose. Higher doses ([facility] only) require Pain Service consultation and approval.
[Order 1 End] [Order 2 Start] Name: oxyCODONE (ROXICODONE) immediate release tablet 5 mg Signed Summary: 5 mg, Oral, Every 4 hours PRN, Moderate Pain (Pain Scale Score 4-6), Starting [facility] 09/08/20 at 1526, For 6 days 17 hours
Oxycodone immediate release is limited to 10 mg per dose. Higher doses ([facility] only) require Pain Service consultation and approval.
[Order 2 End] [facility] Medication administered onsite Ondansetron 4 MG Oral Tablet ondansetron (ZOFRAN) tabl et 4 mg ondansetron (ZOFRAN) tablet 4 mg 09/08/2020 03:26:21 PM EST 4 mg Oral active 4 mg, Oral, Every 8 hours PRN, Nausea, Vomiting, Starting Krista 09/08/20 at 1526, For 30 days [facility] Medication administered onsite fluticasone (FLONASE) 50 MCG/ACT nasal spray 1 spray [id number] 09/08/2020 03:26:21 PM EST 1 {spray} Nasal active 1 spray, Nasal, Three Times Daily-PRN, Other, Runny nose, Starting [facility] 09/08/20 at 1526, For 6 days 16 hours
Shake well before use
[facility] Medication administered onsite alginic acid 200 MG / Calcium Carbonate 80 MG / magnesium trisilicate 20 MG / Sodium Bicarbonate 70 MG Oral Tablet calcium carbonate (TUMS) chewable tablet 500 mg calcium carbonate (TUMS) chewable tablet 500 mg 2020 03:26:20 PM EST 500 mg Oral active 500 mg, Oral, Three Times Daily-PRN, Indigestion, Heartburn, Starting [facility] 09/08/20 at 1526, For 26 days [facility] Medication administered onsite Acetaminophen 325 MG Oral Tablet Acetaminophen 325 MG Oral T ablet 09/08/2020 12:00:00 AM EST 975 mg Oral aborted Take 3 tablets by mouth every 8 (eight) hours for 10 days [facility] Calcium Carbonate 500 MG Chewable Tablet Calcium Carbonate Antacid 500 MG Oral Tablet Chewable (TUMS) Calcium Carbonate Antacid 500 MG Oral Ta blet Chewable (TUMS) 09/08/2020 12:00:00 AM EST 500 mg Oral active Chew 1 tablet by Mouth Three times daily as needed [facility] Carisoprodol 350 MG Oral Tablet Carisoprodol 350 MG Or al Tablet (SOMA) Carisoprodol 350 MG Oral Tablet (SOMA) 09/08/2020 12:00:00 AM EST 3 50 mg Oral aborted Take 1 tablet b y mouth Three times daily as needed for up to 10 days, Max Daily Dose: 1,050 mg [facility] Docusate Sodium 100 MG Oral Capsule Docu sate Sodium 100 MG Oral Capsule (COLACE) Docusate Sodium 100 MG Oral Capsule (COLACE) 09/08/2020 12:00:00 AM EST 100 mg Oral aborted Take 1 capsule by mouth Two Times Daily for 10 days [facility] gabapentin 300 MG Oral Capsule Gabapentin 300 MG Oral Capsule (NEURONTIN) Gabapentin 300 MG Oral Capsule (NEURONTIN) 09/08/2020 12:00:00 AM EST 300 mg Oral aborted Take 1 capsule by mo [facility] Three times daily [facility] Heparin Sodium (Porcine) 5000 UNIT/ML Injection Solution [id number] 09/08/2020 12:00:00 AM EST 5000 U Subcutaneous aborted Inject 1 mL into the skin Two Times Daily [facility] Oxycodone Hydrochloride 5 MG Oral Tablet oxyCODONE HCl 5 MG Oral Tablet (ROXICODONE) oxyCODONE HCl 5 MG Oral Tablet (ROXICODONE) 09/08/2020 12:00:00 AM EST 10 mg Oral aborted Take 2 t ablets by mouth every 4 (four) hours as needed for up to 3 days, Max Daily Dose: 60 mg [facility] Oxycodone Hydrochloride 5 MG Oral Tablet oxyCODONE HCl 5 MG Oral Tablet (ROXICODONE) oxyCODONE HCl 5 MG Oral Tablet (ROXICODONE) 09/08/2020 12:00:00 AM EST 5 mg Oral aborted Take 1 t ablet by mouth every 4 (four) hours as needed for up to 3 days, Max Daily Dose: 30 mg [facility] sennosides, MCFP 8.6 MG Oral Tablet Senna 8.6 MG Oral T ablet Senna 8.6 MG Oral Tablet 09/08/2020 12:00:00 AM EST 2 {tbl} Oral aborted Take 2 tablets by mouth nightly [facility] Cephalexin 250 MG Oral Capsule cephalexin (KEFLEX) cap miller 500 mg cephalexin (KEFLEX) capsule 500 mg 09/07/2020 12:00:00 PM EST 500 mg Oral aborted 500 mg, Oral, Every 6 hours Standard (4 times per day), First dose on Sat09/07/20 at 1200, For 5 days [facility] Medication administered onsite magnesium sulfate in dextrose 5 % infusion (premix) 1 g [id number] 09/06/2020 07:45:00 PM EST 1 g Intravenous completed 1 g, Intravenous, Administer over 20 Minutes, Once, 1/5/21 at 1945, For 1 dose [facility] Medication administered onsite Acetaminophen 10 MG/ML Injectable Soluti on acetaminophen (OFIRMEV) infusion 1,000 mg acetaminophen (OFIRMEV) infusion 1,000 mg 09/06/2020 07:30:00 PM EST 1000 mg Intravenous completed 1,000 mg , Intravenous, Once, Sat09/06/20 at 1930, For 1 dose
Maximum daily dose of acetaminophen from all sources 3,000 mg daily.
[facility] Medication administered onsite sodium chloride 0.9 % bolus 1,000 mL [id number] 09/06/2020 07:30: 00 PM EST 1000 mL Intravenous completed 1,000 mL , Intravenous, Once, Sat09/06/20 at 1930, For 1 dose [facility] Medication administered onsite Lactulose 667 MG/ML Oral Solution lactulose (CHRONULAC ) solution 40 mL lactulose (CHRONULAC) solution 40 mL 09/06/2020 05:15:00 PM EST 40 mL Oral completed 40 mL, Oral, Once, Sat09/06/20 at 1715, For 1 dose [facility] Medication administered onsite Bisacodyl 10 MG Rectal Suppository bisacodyl (DULCOLAX ) suppository 10 mg bisacodyl (DULCOLAX) suppository 10 mg 09/06/2020 05:15:00 PM EST 10 mg Rectal aborted 10 mg, Rectal, Daily Standard, First dose (after last modification) on Sat09/06/20 at 1715, For 5 doses
Hold if patient has had BM within the past 2 days.
[facility] Medication administered onsite morphine pediatric syringe 2 mg [id number]# 09/06/2020 08:06:30 AM EST 2 mg Intravenous aborted 2 mg, In travenous, Every 2 hours PRN, breakthrough, Starting Sat09/06/20 at 0806, For 3 days [facility] Medication administered onsite oxyCODONE (ROXICODONE) immediate release tablet 10 mg 09/06/2020 08:03:18 AM EST 10 mg Oral aborted [Order 1 Start] Name: oxyCODONE (ROXICODONE) immediate release tablet 10 mg Signed Summary: 10 mg, Oral, Every 4 hours PRN, Severe Pain (Pain Scale Score 7-10), Starting Sat09/06/20 at 0803, For 3 days
Oxycodone immediate release is limited to 10 mg per dose. Higher doses ( only) require Pain Service consultation and approval.
[Order 1 End] [Order 2 Start] Name: oxyCODONE (ROXICODONE) immediate release tablet 5 mg Signed Summ carmen: 5 mg, Oral, Every 4 hours PRN, Moderate Pain (Pain Scale Score 4-6), Starting Sat09/06/20 at 0803, For 3 days
Oxycodone immediate release is limited to 10 mg per dose. Higher doses ([facility] only) require Pain Service consultation and approval.
[Order 2 End] [facility] Medication administered onsite diphenhydrAMINE (BENADRYL) injection 25 mg [id number] 09/05/2020 11:25:18 PM EST 25 mg Intravenous aborted 25 m g, Intravenous, Nightly PRN, Other, sleep, Starting Sat09/05/20 at 2325, For 2 days 16 hours [facility] Medication administered onsite sennosides, MCFP 8.6 MG Oral Tablet senna tablet 2 tablet sen na tablet 2 tablet 09/05/2020 10:00:00 PM EST 2 {tbl} Oral aborted 2 tablet, Oral, Nightly, First dose (after last modification) on Sat09/05/20 at 2200, For 30 days [facility] Medication administered onsite POLYETHYLENE GLYCOL 3350 142 MG/ML Oral Solution polyethylene glycol (MIRALAX) packet 17 g polyethylene glycol (MIRALAX) packet 17 g 09/05/2020 0 9:00:00 PM EST 17 g Oral aborted 17 g, Or al, 2 Times Daily, First dose (after last modification) on Sat09/05/20 at 2100, For 7 days
Mix in 8 ounces of water, juice or milk. Avoid use in patients who require thickened liquids due to p otential increased risk for aspiration.
[facility] Medication administered onsite vancomycin (VANCOCIN) 1500 mg in NaCl 0.9 % 512 mL (premix) [id number] 09/05/2020 05:24:59 PM EST 1500 mg Intravenous aborted 1,500 mg, Intravenous, Administer over 90 Minutes, Every 8 hours, First dose (after last modification) on Sat09/05/20 at 1730, For 4 days [facility] Medication administered onsite Acetaminophen 325 MG Oral Tablet acetaminophen (TYLENO L) tablet 975 mg acetaminophen (TYLENOL) tablet 975 mg 09/05/2020 01:00:00 PM EST 97 5 mg Oral aborted 975 mg, Oral, E very 8 hours, First dose (after last modification) on Sat09/05/20 at 1300, For 16 doses
Maximum daily dose of acetaminophen is 3,000 mg from all sources in 24 hours.
[facility] Medication administered onsite Carisoprodol 350 MG Oral Tablet carisoprodol (SOMA) ta blet 350 mg carisoprodol (SOMA) tablet 350 mg 09/05/2020 11:45:00 AM EST 350 mg Oral aborted 350 mg, Oral, Three Times Daily-PRN, Other, muscle spasms, Starting Sat09/05/20 at 1145, For 240 hours [facility] Medication administered onsite NaCl infusion 0.9 % [id number] 09/05/2020 08:00:00 AM EST Intravenous aborted at 5 mL/hr, Intraven ous, Continuous, Starting Sat09/05/20 at 0800, For 30 days [facility] Medication administered onsite Diazepam 5 MG Oral Tablet diazePAM (VALIUM) tablet 5 m g diazePAM (VALIUM) tablet 5 mg 09/05/2020 02:15:28 AM EST 5 mg Oral aborted 5 mg, Oral, Every 6 hours PRN, Anxiety, Starting Sat09/05/20 at 0215, For 3 days [facility] Medication administered onsite morphine INFECTIOUS DISEASES PHYSICIAN 1 mg/mL 09/04/2020 12:00:00 PM EST Intraven ous aborted Intravenous, Continuous, Starting 11/20 at 1200, For 117 hours
Self administer
[facility] Medication administered onsite alginic acid 200 MG / Calcium Carbonate 80 MG / magnesium trisilicate 20 MG / Sodium Bicarbonate 70 MG Oral Tablet calcium carbonate (TUMS) chewable tablet 500 mg calcium carbonate (TUMS) chewable tablet 500 mg 2020 04:17:37 AM EST 500 mg Oral aborted 500 mg, Oral, Three Times Daily-PRN, Indigestion, Heartburn, Starting 09/04/20 at 0417, For 30 days [facility] Medication administered onsite heparin (porcine) 5000 UNIT/ML injection 5,000 Units [id number] 09/03/2020 09:00:00 PM EST 5000 U Subcutaneous aborted 5,000 Units, Subcutaneous, 2 Times Daily, First dose on 09/03/20 at 2100, For 30 days [facility] Medication administered onsite gabapentin 300 MG Oral Capsule gabapentin (NEURONTIN) capsule 300 mg gabapentin (NEURONTIN) capsule 300 mg 09/03/2020 05:00:00 PM EST 300 mg Oral aborted 300 mg, Oral, Three Times D aily Standard, First dose on 09/03/20 at 1700, For 10 days [facility] Medication administered onsite 2 ML Midazolam 1 MG/ML Injection midazolam (PF) (VERSE D) injection midazolam (PF) (VERSED) injection 09/03/2020 10:15:00 AM EST completed Code/Trauma Medication, Starting 09/03/20 at 1015 [facility] Medication administered onsite cefepime in NaCl 0.9 % 50 mL infusion 2 g 09/03/2020 08:15 :00 AM EST 2 g Intravenous aborted 2 g, Intraven ous, Administer over 30 Minutes, Every 8 hours, First dose on 09/03/20 at 0815, For 7 days [facility] Medication administered onsite vancomycin (VANCOCIN) 1500 mg in NaCl 0.9 % 512 mL (premix) [id number] 09/03/2020 08:15:00 AM EST 1500 mg Intravenous aborted 1,500 mg, Intravenous, Administer over 90 Minutes, Every 12 hours, First dose on 09/03/20 at 0815, For 7 days [facility] Medication administered onsite Prochlorperazine 5 MG/ML Injectable Solu tion prochlorperazine (COMPAZINE) injection 10 mg prochlorperazine (COMPAZINE) injection 10 mg 07:13:09 AM EST 10 mg Intravenous aborted 10 m g, Intravenous, Every 6 hours PRN, Nausea, Vomiting, Starting 09/03/20 at 0713, For 30 days
For IV use: Prepare in 50 mL NS and infuse over 15 minutes.
[facility] Medication administered onsite 2 ML Metoclopramide 5 MG/ML Prefilled Sy ringe metoclopramide (REGLAN) injection 5 mg metoclopramide (REGLAN) injection 5 mg 09/03/2020 05:26:53 AM EST 5 mg Intravenous aborted 5 mg, Intrave nous, Every 6 hours PRN, Heartburn, Nausea, Starting 09/03/20 at 0526, For 30 days [facility] Medication administered onsite morphine bolus from bag 2 mg 09/03/2020 12:20:36 AM EST 2 mg Intravenous aborted 2 mg, Intravenou s, Every 2 hours PRN, breakthrough pain, Starting 09/03/20 at 0020, For 3 days 8 hours [facility] Medication administered onsite Magnesium Hydroxide 80 MG/ML Oral Suspen isamar magnesium hydroxide (MILK OF MAGNESIA) 400 MG/5ML suspension 45 mL magnesium hydroxide (MILK OF MAGNESIA) 4 00 MG/5ML suspension 45 mL 09/02/2020 10:00:00 PM EST 45 mL Oral aborted 45 mL, Oral, Nightly, First dose on Sat09/02/20 at 2200, For 30 days
If serum creatinine > 2 notify provider before administering.
[facility] Medication administered onsite 0.4 ML Enoxaparin sodium 100 MG/ML Prefi lled Syringe enoxaparin sodium (LOVENOX) injection 40 mg enoxaparin sodium (LOVENOX) injection 40 mg 09/02/2020 09:00:00 PM EST 40 mg Subcutaneous aborted 40 mg, Subcutaneous, Every evening, First dose on Sat09/02/20 at 2100, For 30 days [facility] Medication administered onsite gadobutrol (GADAVIST) contrast injection 9 mL [id number] 12:30:00 PM EST 0.1 mL/kg Intravenous completed 9 mL (ro unded from 9.21 mL = 0.1 mL/kg 92.1 kg), Intravenous, 1 TIME IMAGING, Sat09/02/20 at 1230, For 1 dose
Do not mix or administer in the same IV line with other medications.
[facility] Medication administered onsite sodium chloride (preservative free) 0.9 % flush 3 mL [id number] 86-09/02/2020 11:15:00 AM EST 3 mL Intravenous aborted 3 mL, Intravenous, Every 8 hours, First dose on Sat09/02/20 at 1115, For 30 days, Pre-op
Saline Lock. Flush Q8H and after each use to Saline Lock.
[facility] Medication administered onsite sodium chloride (preservative free) 0.9 % flush 3 mL [id number] -09/02/2020 11:00:00 AM EST 3 mL Intravenous aborted 3 mL, Intravenous, PRN, Line Care, Starting Sat09/02/20 at 1100, For 30 days, Pre-op
Saline Lock. Flush Q8H and after each use to Saline Lock.
[facility] Medication administered onsite morphine INFECTIOUS DISEASES PHYSICIAN 1 mg/mL 09/02/2020 09:45:00 AM EST Intraven ous aborted Intravenous, Continuous, Starting 09/22 at 0945, For 7 days
Self administer
[facility] Medication administered onsite Docusate Sodium 100 MG Oral Capsule docusate sodium (C OLACE) capsule 100 mg docusate sodium (COLACE) capsule 100 mg 09/02/2020 09:00:00 AM EST 100 mg Oral aborted 100 mg, Oral, 2 Times Daily, First dose on Sat09/02/20 at 0900, For 30 days [facility] Medication administered onsite 24 HR venlafaxine 150 MG Extended Releas e Oral Capsule venlafaxine (EFFEXOR-XR) 24 hr capsule 150 mg venlafaxine (EFFEXOR-XR) 24 hr capsule 150 mg 09/02/19 09:00:00 AM EST 150 mg Oral aborted 150 mg, Oral, Every morning, First dose on Sat09/02/20 at 0900, For 30 days
Do not crush or chew
[facility] Medication administered onsite Diazepam 5 MG Oral Tablet diazePAM (VALIUM) tablet 5 m g diazePAM (VALIUM) tablet 5 mg 09/02/2020 06:00:00 AM EST 5 mg Oral completed 5 mg, Oral, Once, Sat09/02/20 at 0600, For 1 dose [facility] Medication administered onsite sodium chloride 0.9 % bolus 500 mL [id number] 09/02/2020 01:30:00 AM EST 500 mL Intravenous completed 500 mL, Intravenous, Once, Sat09/02/20 at 0145, For 1 dose [facility] Medication administered onsite Diazepam 5 MG Oral Tablet diazePAM (VALIUM) tablet 5 m g diazePAM (VALIUM) tablet 5 mg 09/02/2020 01:20:33 AM EST 5 mg Oral completed 5 mg, Oral, Every 6 hours PRN, Anxiety, Starting Sat09/02/20 at 0120, For 3 days [facility] Medication administered onsite Cefazolin 2000 MG Injection ceFAZolin (ANCEF) IVPB 2 g in dextrose (premix) ceFAZolin (ANCEF) IVPB 2 g in dextrose (premix) 09/02/2020 12:15:00 AM EST 2 g Intravenous completed 2 g, Int ravenous, Administer over 30 Minutes, Every 8 hours, First dose on Sat09/02/20 at 0015, For 16 hours
3 gram for patients weighing >/= to 120 kg
[facility] Medication administered onsite fluticasone (FLONASE) 50 MCG/ACT nasal spray 1 spray [id number] 09/01/2020 11:00:52 PM EST 1 {spray} Nasal aborted 1 spray, Nasal, Three Times Daily-PRN, Other, Runny nose, Starting Krista 09/01/20 at 2300, For 6 days 17 hours
Shake well before use
[facility] Medication administered onsite sennosides, MCFP 8.6 MG Oral Tablet senna tablet 2 tablet sen na tablet 2 tablet 09/01/2020 11:00:13 PM EST 2 {tbl} Oral aborted 2 tablet, Oral, Nightly PRN, Constipation, Starting Krista 09/01/20 at 2300, For 30 days [facility] Medication administered onsite sennosides, MCFP 35.2 MG/ML Oral Solution senna (SENOKO T) syrup 10 mL senna (SENOKOT) syrup 10 mL 09/01/2020 11:00:13 PM EST 10 mL Oral aborted 10 mL, Oral, Nightly PRN, Constipation, Starting Krista 09/01/20 at 2300, For 30 days [facility] Medication administered onsite ondansetron (ZOFRAN) injection 4 mg 09/01/2020 11:00:13 PM EST 4 mg Intravenous aborted [Order 1 Star t] Name: ondansetron (ZOFRAN) injection 4 mg Signed Summary: 4 mg, Intravenous, Every 8 hours PRN, Nausea, Vomiting, Starting Krista 09/01/20 at 2300, For 7 days
Administer if unable to tolerate PO.
[Order 1 End] [Order 2 Start] Name: ondansetron (ZOFRAN) tablet 4 mg Signed Summary: 4 mg, Oral, Every 8 hours PRN, Nausea, Vomiting, Starting Krista 09/01/20 at 2300, For 7 days
Administer if able to tolerate PO.
[Order 2 End] [facility] Medication administered onsite Oxycodone Hydrochloride 5 MG Oral Tablet oxyCODONE (ROXICODONE) immediate release tablet 10 mg oxyCODONE (ROXICODONE) immediate release tablet 10 mg 09/01/2020 11:00:13 PM EST 10 mg Oral completed 10 mg, Oral, Every 4 hours PRN, Severe Pain (Pain Scale Score 7-10), Starting Krista 09/01/20 at 2300, For 3 days
If no INFECTIOUS DISEASES PHYSICIAN or when INFECTIOUS DISEASES PHYSICIAN has been D/Cd.
Oxycodone immediate release is limited to 10 mg per dose. Higher doses ( only) require Pain Service consultation and approval.
[facility] Medication administered onsite fentaNYL (SUBLIMAZE) (PF) injection 25 mcg [id number] 09/01/2020 11:00:13 PM EST 25 ug Intravenous completed 25 mcg, Intravenous, Every 2 hours PRN, Other, breakthrough pain, Starting Krista 09/01/20 at 2300, For 3 days [facility] Medication administered onsite Bisacodyl 10 MG Rectal Suppository bisacodyl (DULCOLAX ) suppository 10 mg bisacodyl (DULCOLAX) suppository 10 mg 09/01/2020 11:00:12 PM EST 10 mg Rectal aborted 10 mg, Rectal, Every 72 hours PRN, Constipation, Starting Krista 09/01/20 at 2300, For 30 days
Hold if patient has had BM within the past 2 days.
[facility] Medication administered onsite Acetaminophen 325 MG Oral Tablet acetaminophen (TYLENO L) tablet 650 mg acetaminophen (TYLENOL) tablet 650 mg 09/01/2020 11:00:12 PM EST 65 0 mg Oral aborted 650 mg, Oral, E very 6 hours PRN, Mild Pain (Pain Scale Score 1- 3), Headaches, Fever, Starting Krista 09/01/20 at 2300, For 30 days
Maximum daily dose of acetaminophen is 3,000 mg from all sources in 24 hours.
[facility] Medication administered onsite NaCl infusion 0.9 % [id number] 09/01/2020 09:00:00 PM EST Intravenous aborted at 100 mL/hr, Intrav enous, Continuous, Starting Krista 09/01/20 at 2100, For 30 days
Hold for good PO intake.
[facility] Medication administered onsite morphine sulfate (PF) injection 2 mg [id number] 09/01/2020 07:51: 43 PM EST 2 mg Intravenous aborted 2 mg, In travenous, Every 5 min PRN, Severe Pain (Pain Scale Score 7-10), Starting Krista 09/01/20 at 195, For 5 doses, [facility] Medication administered onsite fentaNYL (SUBLIMAZE) (PF) injection 12.5 mcg [id number] 09/01/2020 07:51:43 PM EST 12.5 ug Intravenous aborted 12.5 mcg, Intravenous, Every 5 min PRN, Moderate Pain (Pain Scale Score 4-6), Starting Krista 09/01/20 at 195, For 10 doses, [facility] Medication administered onsite ondansetron (ZOFRAN) injection 4 mg [id number] 09/01/2020 07:51:4 3 PM EST 4 mg Intravenous completed 4 mg, In travenous, Once PRN, Nausea, Vomiting, Starting [facility] 09/01/20 at 195, For 1 dose, [facility] Medication administered onsite Albuterol Sulfate HFA 108 (90 Base) MCG/ ACT Inhalation Aerosol Solution (Ventolin HFA) [id number] 2 {puff} Inhalation aborted Inhale 2 puffs into the lungs every 6 (six) hours as needed for Wheezing [facility] 24 HR venlafaxine 150 MG Extended Releas e Oral Capsule Venlafaxine HCl ER 150 MG Oral Capsule Extended Release 24 Hour (EFFEXOR-XR) Venlafaxine HCl ER 150 MG Oral Capsule Extended Release 24 Hour (EFFEXOR-XR) 150 mg Oral aborted Take 150 mg by mouth every morning [facility] Insurance Providers Payer name Policy type / Coverage type Policy ID Covered libertarian ID Covered libertarian's relationship to fierro Policy [employer] Plan Information / [id number] Spouse 01 [id number] U [id number] Self [id number] U [id number] Self [id number] U [id number] [place] - O/P [id number] [place] [id number] [facility] [id number] [facility] [place] [id number] Problems, Conditions, and Diagnoses Code Display Name Description Problem Type Effective Dates Data Source(s) 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 , soft tissue, and skin Neoplasm of unspecified behavior of bone, soft tissue, and skin Diagnosis 07/27/2020 03:53:47 PM [facility] 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, unspecified Benign neoplasm of peripheral nerves and autonomic nervous system, unspecified Diagnosis 06/09/2020 01:15:00 PM EDT [facility] [id number] Spinal stenosis, cervicothoracic region Spinal stenosis, cervicothoracic region Diagnosis 06/09/2020 01:15:00 PM [facility] Surgeries/Procedures Procedure Description Date Indications Data Source(s) BASIC METABOLIC PANEL CALCIUM TOTAL <td>BASIC METABOLI C PANEL</td><td>Routine</td><td>09/09/2020 5:02 AM EST</td><td></td><td> </td> 09/09/2020 05:02:00 AM [facility] BLOOD COUNT COMPLETE AUTO&AUTO DIFRNTL WBC COUNT <td>C BC AND DIFFERENTIAL</td><td>Routine</td><td>09/09/2020 5:02 AM EST</td><td></td><td> </td> 09/09/2020 05:02:00 AM [facility] COVID-19 PCR <td>COVID-19 PCR</td><td>Rou jayla</td><td>09/08/2020 10:08 AM EST</td><td></td><td> </td> 09/08/2020 10:08:00 AM [facility] RESPIRATORY PATHOGEN PANEL <td>RESPIRATORY PATHOGEN PANEL</td><td>Routine</td><td>09/08/2020 10:08 AM EST</td><td></td><td> </td> 09/08/2020 10:08:00 AM [facility] BASIC METABOLIC PANEL CALCIUM TOTAL <td>BASIC METABOLI C PANEL</td><td>Routine</td><td>09/08/2020 4:53 AM EST</td><td></td><td> </td> 09/08/2020 04:53:00 AM [facility] BLOOD COUNT COMPLETE AUTOMATED <td>CBC</td><td>Routine </td><td>09/08/2020 4:53 AM EST</td><td></td><td> </td> 09/08/2020 04:53:00 AM [facility] RADEX SPINE THORACIC 2 VIEWS <td>XR THORACIC SPINE AP AND LATERAL</td><td>Routine</td><td>09/07/2020 1:34 PM EST</td><td></td><td> </td> 09/07/2020 01:34:33 PM [facility] RADEX SPINE CERVICAL 2/3 VIEWS <td>XR SPINE CERV 2-3 V IEWS [address]</td><td>Routine</td><td>09/07/2020 1:33 PM EST</td><td></td><td> </td> 09/07/2020 01:33:47 PM [facility] BASIC METABOLIC PANEL CALCIUM TOTAL <td>BASIC METABOLI C PANEL</td><td>Routine</td><td>09/07/2020 5:25 AM EST</td><td></td><td> </td> 09/07/2020 05:25:00 AM [facility] BLOOD COUNT COMPLETE AUTOMATED <td>CBC</td><td>Routine </td><td>09/07/2020 5:25 AM EST</td><td></td><td> </td> 09/07/2020 05:25:00 AM [facility] CT HEAD/BRAIN W/O CONTRAST MATERIAL <td>CT HEAD WITHOU T CONTRAST 46087</td><td>STAT</td><td>09/06/2020 8:53 PM EST</td><td></td><td> </td> 09/06/2020 08:53:19 PM [facility] BASIC METABOLIC PANEL CALCIUM TOTAL <td>BASIC METABOLI C PANEL</td><td>Routine</td><td>09/06/2020 5:31 AM EST</td><td></td><td> </td> 09/06/2020 05:31:00 AM [facility] BLOOD COUNT COMPLETE AUTOMATED <td>CBC</td><td>Routine </td><td>09/06/2020 5:31 AM EST</td><td></td><td> </td> 09/06/2020 05:31:00 AM [facility] GLUCOSE BODY FLUID OTHER THAN BLOOD <td>GLUCOSE, CSF</td><td>Routine</td><td>09/05/2020 11:25 AM EST</td><td></td><td> </td> 09/05/2020 11:25:00 AM [facility] PROTEIN TOTAL XCPT REFRACTOMETRY OTH SRC <td>PROTEIN, CSF</td><td>Routine</td><td>09/05/2020 11:25 AM EST</td><td></td><td> </td> 09/05/2020 11:25:00 AM [facility] CUL BACT XCPT URINE BLOOD/STOOL AEROBIC ISOL <td>BODY FLUID CULTURE AND GRAM STAIN</td><td>Routine</td><td>09/05/2020 11:25 AM EST</td><td></td><td></td> 09/05/2020 11:25:00 AM [facility] CELL COUNT, CSF <td>CELL COUNT, CSF</td><td> STAT</td><td>09/05/2020 11:25 AM EST</td><td></td><td> </td> 09/05/2020 11:25:00 AM [facility] BASIC METABOLIC PANEL CALCIUM TOTAL <td>BASIC METABOLI C PANEL</td><td>Routine</td><td>09/05/2020 9:19 AM EST</td><td></td><td> </td> 09/05/2020 09:19:00 AM [facility] DRUG SCREEN QUALITATIVE VANCOMYCIN <td>VANCOMYCIN, TROUGH</td><td>Routine</td><td>09/05/2020 9:19 AM EST</td><td></td><td> </td> 09/05/2020 09:19:00 AM [facility] BASIC METABOLIC PANEL CALCIUM TOTAL <td>BASIC METABOLI C PANEL</td><td>Routine</td><td>09/05/2020 5:49 AM EST</td><td></td><td> </td> 09/05/2020 05:49:00 AM [facility] BASIC METABOLIC PANEL CALCIUM TOTAL <td>BASIC METABOLI C PANEL</td><td>Routine</td><td>09/05/2020 4:25 AM EST</td><td></td><td> </td> 09/05/2020 04:25:00 AM [facility] BLOOD COUNT COMPLETE AUTOMATED <td>CBC</td><td>Routine </td><td>09/05/2020 4:25 AM EST</td><td></td><td> </td> 09/05/2020 04:25:00 AM [facility] BASIC METABOLIC PANEL CALCIUM TOTAL <td>BASIC METABOLI C PANEL</td><td>Routine</td><td>09/04/2020 4:12 AM EST</td><td></td><td> </td> 09/04/2020 04:12:00 AM [facility] BLOOD COUNT COMPLETE AUTOMATED <td>CBC</td><td>Routine </td><td>09/04/2020 4:12 AM EST</td><td></td><td> </td> 09/04/2020 04:12:00 AM [facility] RADEX HUMERUS MINIMUM 2 VIEWS <td>XR HUMERUS AP LATERA L 62019</td><td>Routine</td><td>09/03/2020 9:55 AM EST</td><td></td><td> </td> 09/03/2020 09:55:27 AM [facility] RADEX ELBOW 2 VIEWS <td>XR ELBOW 2 VIEWS 22586</td><td>Routine</td><td>09/03/2020 9:55 AM EST</td><td></td><td> </td> 09/03/2020 09:55:27 AM [facility] RADEX FOREARM 2 VIEWS <td>XR FOREARM 2 VIEWS 46271</td><td>Routine</td><td>09/03/2020 9:55 AM EST</td><td></td><td> </td> 09/03/2020 09:55:27 AM [facility] RADEX HAND 2 VIEWS <td>XR HAND 2 VIEWS 62943</t d><td>Routine</td><td>09/03/2020 9:55 AM EST</td><td></td><td> </td> 09/03/2020 09:55:27 AM [facility] RADEX SHOULDER COMPLETE MINIMUM 2 VIEWS <td>XR SHOULDE R COMPLETE 95022</td><td>Routine</td><td>09/03/2020 9:55 AM EST</td><td></td><td> </td> 09/03/2020 09:55:27 AM [facility] RADEX WRIST 2 VIEWS <td>XR WRIST 2 VIEWS 73843</td><td>Routine</td><td>09/03/2020 9:55 AM EST</td><td></td><td> </td> 09/03/2020 09:55:27 AM [facility] BASIC METABOLIC PANEL CALCIUM TOTAL <td>BASIC METABOLI C PANEL</td><td>Routine</td><td>09/03/2020 4:04 AM EST</td><td></td><td> </td> 09/03/2020 04:04:00 AM [facility] BLOOD COUNT COMPLETE AUTOMATED <td>CBC</td><td>Routine </td><td>09/03/2020 4:04 AM EST</td><td></td><td> </td> 09/03/2020 04:04:00 AM [facility] 3D RENDER W/INTERP CT/MRI/US/OTH JULIO W/POSTPROC <td>C T 3D RECON INDEPENDENT 15768</td><td>Routine</td><td>09/02/2020 6:00 PM EST</td><td></td><td> </td> 09/02/2020 06:00:36 PM [facility] MRI SPINAL CANAL CERVICAL W/O & W/CONTR MATRL <td>MR C ERVICAL SPINE WITH AND WITHOUT CONTRAST 07469</td><td>Routine</td><td>09/02/2020 1:00 PM EST</td><td></td><td> </td> 09/02/2020 01:00:35 [address] [facility] CT CERVICAL SPINE W/O CONTRAST MATERIAL <td>CT CERVICA L SPINE WITHOUT CONTRAST 59789</td><td>Routine</td><td>09/02/2020 11:26 AM EST</td><td></td><td> </td> 09/02/2020 11:26:33 AM [facility] CT THORACIC SPINE W/O CONTRAST MATERIAL <td>CT THORACI C SPINE WITHOUT CONTRAST 95309</td><td>Routine</td><td>09/02/2020 11:26 AM EST</td><td></td><td> </td> 09/02/2020 11:26:33 AM [facility] COVID-19 PCR <td>COVID-19 PCR</td><td>Rou jayla</td><td>09/02/2020 5:00 AM EST</td><td></td><td> </td> 09/02/2020 05:00:00 AM [facility] BASIC METABOLIC PANEL CALCIUM TOTAL <td>BASIC METABOLI C PANEL</td><td>Routine</td><td>09/02/2020 1:27 AM EST</td><td></td><td> </td> 09/02/2020 01:27:00 AM [facility] MAGNESIUM <td>MAGNESIUM LEVEL</td><td> Routine</td><td>09/02/2020 1:27 AM EST</td><td></td><td> </td> 09/02/2020 01:27:00 AM [facility] PHOSPHORUS INORGANIC <td>PHOSPHORUS LEVEL</td><td >Routine</td><td>09/02/2020 1:27 AM EST</td><td></td><td> </td> 09/02/2020 01:27:00 AM [facility] BLOOD COUNT COMPLETE AUTOMATED <td>CBC</td><td>Routine </td><td>09/02/2020 1:27 AM EST</td><td></td><td> </td> 09/02/2020 01:27:00 AM [facility] CT CERVICAL SPINE W/O CONTRAST MATERIAL <td>O-ARM CT S PINE-CERVICAL W/O IN OR</td><td>Routine</td><td>09/01/2020 7:00 PM EST</td><td> Cervical spine tumor</td><td> </td> 09/01/2020 07:00:00 PM EST Cervical spine tumor [facility] Cervical spine tumor BLOOD GASES ANY COMBINATION PH PCO2 PO2 CO2 HCO3 <td>P OCT ISTAT ARTERIAL CG8</td><td>Routine</td><td>09/01/2020 6:23 PM EST</td><td></td><td> </td> 09/01/2020 06:23:00 PM [facility] BLOOD GASES ANY COMBINATION PH PCO2 PO2 CO2 HCO3 <td>P OCT ISTAT ARTERIAL CG8</td><td>Routine</td><td>09/01/2020 1:05 PM EST</td><td></td><td> </td> 09/01/2020 01:05:00 PM [facility] BLOOD GASES ANY COMBINATION PH PCO2 PO2 CO2 HCO3 <td>P OCT ISTAT ARTERIAL CG8</td><td>Routine</td><td>09/01/2020 8:47 AM EST</td><td></td><td> </td> 09/01/2020 08:47:00 AM [facility] POSTERIOR SPINAL FUSION/INSTRUMENTATION <td>POSTERIOR SPINAL FUSION/INSTRUMENTATION</td><td></td><td>09/01/2020 7:35 AM EST</td><td> Cervical spine tumor</td><td></td> 09/01/2020 07:35:00 AM EST - 09/01/2020 08:42:00 PM EST Cervical spine tumor [facility] Cervical spine tumor GONADOTROPIN CHORIONIC QUANTITATIVE <td>POCT ISTAT BHCG</td><td>Routine</td><td>09/01/2020 6:54 AM EST</td><td></td><td> </td> 09/01/2020 06:54:00 AM [facility] GONADOTROPIN CHORIONIC QUANTITATIVE <td>POCT ISTAT BHCG</td><td>Routine</td><td>09/01/2020 6:39 AM EST</td><td></td><td> </td> 09/01/2020 06:39:00 AM [facility] NEUROSURGICAL PATHOLOGY <td>NEUROSURGICAL PATHOLOGY</td><td>Routine</td><td>09/01/2020 12:00 AM EST</td><td></td><td> </td> 09/01/2020 12:00:00 AM [facility] BLOOD TYPING ABO <td>TYPE AND SCREEN</td><td> Routine</td><td>08/29/2020 9:38 AM EST</td><td> [place]</td><td> </td> 08/29/2020 09:38:00 AM EST [facility] [place] URNLS DIP STICK/TABLET REAGENT AUTO MICROSCOPY <td>URI NALYSIS WITH MICROSCOPIC</td><td>Routine</td><td>08/29/2020 9:38 AM EST</td><td> [place]</td><td> </td> 08/29/2020 09:38:00 AM EST [facility] [place] PROTHROMBIN TIME <td>PROTIME INR</td><td>Rout ine</td><td>08/29/2020 9:37 AM EST</td><td> [place]</td><td> </td> 08/29/2020 09:37:00 AM EST [facility] [place] PARTIAL THROMBOPLASTIN TIME (PTT) <td>PARTIAL THROMBOP LASTIN TIME (PTT)</td><td>Routine</td><td>08/29/2020 9:37 AM EST</td><td> [place]</td><td> </td> 08/29/2020 09:37:00 AM EST [facility] [place] LAB RESULTS (OUTSIDE/HISTORICAL) <td>LAB RESULTS (OUTSIDE/HISTORICAL)</td><td></td><td>08/23/2020 2:50 PM EST</td><td></td><td></td> 08/23/2020 02:50:09 PM EST [facility] CARDIAC REPORT <td>CARDIAC REPORT</td><td>< /td><td>08/23/2020 2:48 PM EST</td><td></td><td></td> 08/23/2020 02:48:34 PM EST [facility] Results ID Date Data Source [id number] 05/30/2021 05:10:20 PM EDT [facility] Name Value Range Interpretation Code Description Data Nereida rce(s) Supporting Document(s) Progress Note [facility] WMQMZc4sTdLVVoVi27/OPMnpYWHlo0IlOPgoMAa1GLrcXDQfM8GwMVJ7hA8hFXA3PKeSPiAzMtHkXTX0 lbm [file] 6jDKQWPr9+AOuimBBvjZcxOPIFBuO3YJvvXJeeHZSIPu3A ID Date Data Source [id number] 04/04/2021 05:09:54 PM EDT [facility] XR SPINE CERV 2-3 VIEWS [id number] RESUL TInterpreted by:Lin Russell MDORDERING CLINICAL INFORMATION: s/p cervical fusionTECHNIQUE: Multiple views of the cervical spine were obtainedCOMPARISON: X-ray cervical spine dated 09/07/2020FINDINGS/IMPRESSION:The odontoid view and view of the lower cervical vertebral bodies are suboptimal secondary to overlying structures.Straightening of the cervical curvature is noted.There is redemonstration of posterior fusion hardware noted from C4 to T3 level. No obvious dislocation or fracture of the hardware is seen.There is no evidence of acute fracture or dislocation of the cervical spine.The prevertebral soft tissues are unremarkable.This document has been electronically signed by Lin Russell MD on 04/04/2021 5:07 PM Name Value Range Interpretation Code Description Data Nereida rce(s) Supporting Document(s) ID Date Data Source [id number] 04/04/2021 04:58:25 PM EDT [facility] Name Value Range Interpretation Code Description Data Nereida rce(s) Supporting Document(s) Progress Note [facility] DAXITi4hJxHMCoWm59/FDTmhMWDyu3YtPDdgMEz9MKjtUFYrO4ZaTBX1yY1bLYO0WIiSLyHqKmVuKXCx m [file] CiAgICAgICAgICAgICAgICAgICAgICAgICAgICAgICAgICAgICAgICAgICAgICAgICAgICAgICAgICAg ICAgICAgICAgICAgICAgICAgICAgICAgICAgICAgICAgICAgICAgICANCiAgICAgICAgICAgICAgICAg ICAgICAgICAgICAgICAgICAgICAgICAgICAgICAgIC AgICAgICAgICAgICAgICAgICAgICAgICAgICAgICAgICAgICAgICAgICAgICAgICAgICANCiAgICAgIC AgICAgICAgICAgICAgICAgICAgICAgICAgICAgICAgICAgICAgICAgICAgICAgICAgICAgICAgICAgIC AgICAgICAgICAgICAgICAgICAgICAgICAgICAgICAg ICANCiAgICAgICAgICAgICAgICAgICAgICAgICAgICAgICAgICAgICAgICAgICAgICAgICAgICAgICAg ICAgICAgICAgICAgICAgICAgICAgICAgICAgICAgICAgICAgICAgICAgICANCiAgICAgICAgICAgICAg ICAgICAgICAgICAgICAgICAgICAgICAgICAgICAgIC AgICAgICAgICAgICAgICAgICAgICAgICAgICAgICAgICAgICAgICAgICAgICAgICAgICAgICANCiAgIC AgICAgICAgICAgICAgICAgICAgICAgICAgICAgICAgICAgICAgICAgICAgICAgICAgICAgICAgICAgIC AgICAgICAgICAgICAgICAgICAgICAgICAgICAgICAg ICAgICANCiAgICAgICAgICAgICAgICAgICAgICAgICAgICAgICAgICAgICAgICAgICAgICAgICAgICAg ICAgICAgICAgICAgICAgICAgICAgICAgICAgICAgICAgICAgICAgICAgICAgICANCiAgICAgICAgICAg ICAgICAgICAgICAgICAgICAgICAgICAgICAgICAgIC AgICAgICAgICAgICAgICAgICAgICAgICAgICAgICAgICAgICAgICAgICAgICAgICAgICAgICAgICANCi AgICAgICAgICAgICAgICAgICAgICAgICAgICAgICAgICAgICAgICAgICAgICAgICAgICAgICAgICAgIC AgICAgICAgICAgICAgICAgICAgICAgICAgICAgICAg ICAgICAgICANCiAgICAgICAgICAgICAgICAgICAgICAgICAgICAgICAgICAgICAgICAgICAgICAgICAg ICAgICAgICAgICAgICAgICAgICAgICAgICAgICAgICAgICAgICAgICAgICAgICAgICANCjw/zAPhL7mr dYNxomG6Y3fsRf1FBw6LXM9zh4HoDCKmBUguhoZmJl nXTjGfRBSzUugGUyp5OAodSE6GhWEfF3AgL4TaOQjwSD9KKKKhJSHxoSOhHNGcBLNyRoI9XXYbYHvvGQ 9NcOAmRLbnYUYxBFOuYmBqBKWjBWVqNQFkQK5SGNTaC885wdYpMa2KLh7FDkOtCK1dom3LUkYtHPCgOo jUCjr0YEqeVH3BnYAqaMAcDAEpVPPLEwFtJ0alp2Zr TvExRRCAGFsdUM3Sh0DuuQJrVGg+Jc6MTC3ek0FzIJodFVCzMH4zty0SWIzFFeMxG7NfjHopHSBva2xo NLGaIW1itKGlUJU6XUA8m9HzJRzuT9B8Z3vtJHDJGFM9JOcvKf5hNHIiBEUeMfRbCWEXXQ7WTXNwNSKr oDMdQAWpBQTKUM7FYHxsUUF0NFHribWddUVjVTniMV 9QYXJlbnQgMjMgMCBSDQo+Xo6HFJ9mk0LsDYpaGAMkTL8ftq9YYThZNjMpE8D3gLHhL3F8HYtiQn4BTU GaNRKsVvQyAHYESHcdDJ9EBI7sqlH1JO0QjCKmKYUuZGMibBZxYLu3Z09tjJIlRHvrUT7VDEZ+Darío+Pg 9UVAUaOASkUAQcAgYlTBIAMfRtH5AaU7RMp5IpD3Wi XD67dWilfqEqEBelBV0IEW0aBESaTNFKTO4KaGElbW2shyLdKyZcHPOURaLhD51seDEcNWKgQQJfRDVj Df9TYMRwQ6PsboXuzZmvsfSqUUYxBQWMQN9AOLbgkbRxhNFjuQjxDS47jBdxCQ7DEa8ZVbYgCD9wuo5Q hWGsVj4WUAVwMp7GOWKtRVZuLXOeNPX2IFZqErDkKS jiNIDiLYAcUPP4EPVhPUGpKU6TDhRoTFUbZyD8YTCnFBJuJHZroz8ODOVyNKRfRmVkYAAaYRJfQBOtHO vsMUCmFZFeZWI2CKUuCIKmIA5YWjChJLIxVXDeOPocVYWkGFKqhx3JMZMzXCLdSUY3JLEoXJKfWJDnDC jzGXBeVOY8CSK5CBUcWBYpHX0JGlLeDOPtKPb9MjUa QDCtTLOmbf6LWLDwJOEtPUUtPFOvYMTxJZUbEWgnGCIfFYDxTaE6GMErOODyLZ6ZOlJtMCJoPSP8XUWb GINyECGdim6ZKXJhUIRvXNu8KNPmAMPcBJDdFGplMQReISPqZUh2QKWiBJYdYP6DZvEpVSYkCLH0GyHq ORAwVOPelw6JULHiELGhGrOeOMNtQHNzRUMnMJbaDF YvHCLnHqTnGOFqDLIcDD8DRhInGJYrOaX2QZSxMNXyYEGqvx7PTZPvWHTpRNP3JPIyEPMwHYItLKskFS AtEFH4Haj1UWOlHMNiDP6OWuItAEBcVyX2EpkhSKRlLSBtxy3QZXRhRNExPKJ1KoLpEDNfMPKvVKdpYL GjFSW8BRw8VLGdJVLtLD1VNlRvNCVaScv8EpZbWNEc JAImsk8MLIDrJBEeKoInPCUfGTOaOJNaUKfgHCYhXPE2RcKyNMAfRWXhFG8HDcAnCEawPKHOUuh9SKve S4s9BIGdBs5PW1Zjr0XlGlCrVEFVUGxjSL5vwvBcBHWyAw3HH1pVKhfrWDd6EZB7OHS2YaVgAIYkBmC5 ONr7JLu7SMExPOM5DD3qITJrVEejZbW5RPIzCPPfVd E1ILxkWsHtFmF2WBKdOcCtBvPsYG8RVw8QQrY8COB2qMYhEq0RQpp3ZFHTYxIjFA7PGIt= ID Date Data Source [id number] 01/31/2021 12:41:45 PM EDT [facility] Name Value Range Interpretation Code Description Data Nereida rce(s) Supporting Document(s) Progress Note [facility] VQYGEp7bBnHMXoBq49/LYOqsLVXig4ZfKBblKZm5YNznZSIkJ7AiHHK9gC5bGFQ0IXqMNhFsSyWrJiOu lbm [file] ICAgICAgICAgICAgICAgICAgICAgICAgICAgICAgICAgICAgICAgICAgICAgICAgICAgICAgICAgICAg ICAgICAgICAgICAgICAgICAgICAgICAgICAgICAgDQ ogICAgICAgICAgICAgICAgICAgICAgICAgICAgICAgICAgICAgICAgICAgICAgICAgICAgICAgICAgIC AgICAgICAgICAgICAgICAgICAgICAgICAgICAgICAgICAgICAgICAgDQogICAgICAgICAgICAgICAgIC AgICAgICAgICAgICAgICAgICAgICAgICAgICAgICAg ICAgICAgICAgICAgICAgICAgICAgICAgICAgICAgICAgICAgICAgICAgICAgICAgICAgDQogICAgICAg ICAgICAgICAgICAgICAgICAgICAgICAgICAgICAgICAgICAgICAgICAgICAgICAgICAgICAgICAgICAg ICAgICAgICAgICAgICAgICAgICAgICAgICAgICAgIC AgDQogICAgICAgICAgICAgICAgICAgICAgICAgICAgICAgICAgICAgICAgICAgICAgICAgICAgICAgIC AgICAgICAgICAgICAgICAgICAgICAgICAgICAgICAgICAgICAgICAgICAgDQogICAgICAgICAgICAgIC AgICAgICAgICAgICAgICAgICAgICAgICAgICAgICAg ICAgICAgICAgICAgICAgICAgICAgICAgICAgICAgICAgICAgICAgICAgICAgICAgICAgICAgDQogICAg ICAgICAgICAgICAgICAgICAgICAgICAgICAgICAgICAgICAgICAgICAgICAgICAgICAgICAgICAgICAg ICAgICAgICAgICAgICAgICAgICAgICAgICAgICAgIC AgICAgDQogICAgICAgICAgICAgICAgICAgICAgICAgICAgICAgICAgICAgICAgICAgICAgICAgICAgIC AgICAgICAgICAgICAgICAgICAgICAgICAgICAgICAgICAgICAgICAgICAgICAgDQogICAgICAgICAgIC AgICAgICAgICAgICAgICAgICAgICAgICAgICAgICAg ICAgICAgICAgICAgICAgICAgICAgICAgICAgICAgICAgICAgICAgICAgICAgICAgICAgICAgICAgDQog ICAgICAgICAgICAgICAgICAgICAgICAgICAgICAgICAgICAgICAgICAgICAgICAgICAgICAgICAgICAg ICAgICAgICAgICAgICAgICAgICAgICAgICAgICAgIC DpHHZzMLJcXXr3U4lnELQhKPAjZG4fYRt0Ii9+GGxJAjIjAMG3ecQwzI1FJW6ff2KsNHkmLSSwc3HvBN t7WS6CNBBhZMkjEE4BNYippc6RPEJcPDHcgVGVm2ckQvNsZXR3RXFwTgthXV3PYLSpE4zbubWhEEUbYO CNMYacDVOWCR8DVaJuC0UcuB90BACYNn2+DQplbmRv IheRQvV0RXPgr8AgIPx8SB1QWEQqJozse3AsFsCtXVAUZSawXK7XPLJ0MTY4DSGyTn6OEVViW097maUh IX2RZv2TGaPrND1zcv1TNkPfONDpMmiCPyq0NJinYL6RcAGdGNtTut0xptXexrQYi6SrxoEglDTEHGAn mvO5WK2hK21mdTfaUJMDJPN9NYHwXF3kFCByFASfRl EdGJAMGL7SUWVrUBSnwIVuIIIlZQPRMA2TSLolOBN7HGJzyiFwkDQfQCrfVK8LFZDvcrTpUdRuVPUUCX o+Uk8RWO0mm0PeJWqqTzEgZK5bri0DAGzTSpBrF5C0eOVeL3K4IUfrIx7TNEFaRRKrPmGpCLLUNCgyBV 7MHO7ntqY3SR5UjRBwLCLuLEBjvNFaMVo7B54tnMQi FAjyKU1BZOJ+Darío+Lc9QCXVpJTCgPHPjTjLwECWLArAcA1VpL5VMw6RjR8SsMH27cEzfyyKdYVvxPO4S OP6yVVOnPNOAQN5ZeMVucP0klcPqDJWoPLIIDtQqF40puIDxUNZuCNUnTTBzIp2XFOLqC9ZxkvSwxRco bkCjLTXjHRHYNZ0KYAdvxnLeaQTelIocGK16dCjbCN 2RLp8XXcSeSX8nvd4FwKQwTp1HYEJfVt1BWKZyTZUyGJFcOBC5ATHqRpWlCYmkMGDsLAXnVZX6TBTcAE NdEK8EOcChAJIrTiG5NuQbBAExXAToqx0EMHBqAFCeDXF3BFQaMHNuOXEnJRxuKVBbSGUwVKG9EHNnUR GrPN1XEnVaSVAePOH2MZPgXKWgABJxng3WSWYlXNXk MGCmCCMyRIQnBWSxRCztTNUmZAV4FfMcEXIiXLEvTY8FWsDkTQNqQNa9XEggMWVzTJCsap1RASJcBFBm AUHrNpReNOUvTMUyYIjrEDSgJGY0VvNiBJHwNUThJW9VXePnAMUgOYx1CCOnRRFaOROaec3HYUBjTPYr JNm0BiGoOQOcEQNrTYftCIPrZRCmAYU6DIJdSZGnQL 4BAoPcLHRpVFAfTQUbJNHlCCGhzt2EUTLlFUAdHZW6RfZoNCDlHKLhGPnsLTEhLIDrNSq9OAMpPAOpWO 2LWyByBLBgCiKiMMRqSRWzEAFger3QWESlTMEfCvJ5UlIgOEHiBLViODabEZTgNQAjHzBfBFFeONEkMM 3GDeEnYVPqNjN1DPEmLMQrAVAhnz2XLJJdUBGxUjiw DkHiKEOpQAEpXIryMAVfTFRwQEd9MNGsYDEfWD0MPjPeNASfIxFoLSQxJFXjZTDkfa2SHBQeIIZgHXf7 AYZlTZQiQVQxLProMHXjGCN2QZBtXDUjFVOsYB1JErSiUVVdSiU9TatkKZBsPUGoru0PxFYdnOvvay7G ADzFVk3GhFzrKWD2GFevHv0duNUcAyJuBRSLNu0Flz FiTNClAHTHZKcfSCUkUDNbL5CrYtAtF3CaYlHpIdU0WBNcVQMcOHC5PMK4QQYbZlE9UNHwBgWrLnG2R1 JdUAU5DNi1SKYmWnE8QASvIdDsLtG+SO6bBCf+Bf2An5BjciV8ikBlCYskRrFkIi0PGZPOO6CNSw== ID Date Data Source [id number] 01/17/2021 07:54:57 PM EDT [facility] MR CERVICAL SPINE WITHOUT CONTRAST [id number] FINAL RESULTInterpreted by:Nelson Fuchs MDEXAMINATION: MR CERVICAL SPINE WITHOUT CONTRAST [id number] INDICATION: Evaluation for recurrent schwannoma.TECHNIQUE: Axial and sagittal T1 and T2- weighted, and sagittal STIR, diffusion weighted, and apparent diffusion coefficient images of the cervical spine were obtained on our Siemens 3.0 [employer] [facility] MRI scanner at [place] [address] without intravenous contrast administration.COMPARISON: MRI of the cervical spine dated 09/02/2020.FINDINGS: Susceptibility artifact secondary to the presence of transpedicular screws and posterior spinal fusion rods post C4-T3 posterior spinal fusion with instrumentation is again shown. Laminectomy defects are present at C5-T1. Expansion of the left C7-T1 neural foramina secondary to previous presence of a large avidly enhancing mass consistent with patient's history of schwannoma shown on the comparison study dated 06/09/2020 is present. There is no discrete mass shown within the left C7-T1 neural foramen nor in the left side of the spinal canal posterior aspect of the spinal canal at the C7 level also corresponding to the region of the previously shown schwannoma. Vertebral body and disc heights and vertebral marrow signal is normal. Disc signal is normal throughout the cervical spine. There is no spondylolisthesis. C2-C3: No disc herniation, disc bulge, spinal canal or neural foraminal stenosis, nor spinal cord or nerve root impingement is present. C3-C4: No disc herniation, disc bulge, spinal canal or neural foraminal stenosis, nor spinal cord or nerve root impingement is present. C4-C5: No disc herniation, disc bulge, spinal canal or neural foraminal stenosis, nor spinal cord or nerve root impingement is present. C5-C6: No disc herniation, disc bulge, spinal canal or neural foraminal stenosis, nor spinal cord or nerve root impingement is present. C6-C7: No disc herniation, disc bulge, spinal canal or neural foraminal stenosis, nor spinal cord or nerve root impingement is present. C7-T1: No disc herniation, disc bulge, spinal canal or right neural foraminal stenosis, nor spinal cord or nerve root impingement is present. Spinal cord signal and caliber is normal. There are no discrete intradural or extradural masses from C2-C3 through C6-C7. The cerebellar tonsils are normally positioned. Postsurgical scarring related to the posterior spinal fusion and laminectomies present from C3 through T4.IMPRESSION: 1. There is no discrete evidence of schwannoma recurrence however, the examination was performed without intravenous contrast administration which limits definitive evaluation for recurrence. 2. Postsurgical changes post C4-T3 posterior spinal fusion with instrumentation and C5-T1 laminectomies.This document has been electronically signed by Nelson Fuchs MD on 01/17/2021 7:52 PM Name Value Range Interpretation Code Description Data Nereida rce(s) Supporting Document(s) ID Date Data Source [id number] 11/08/2020 09:58:14 AM EST [facility] Name Value Range Interpretation Code Description Data Nereida rce(s) Supporting Document(s) Progress Note [facility] [id number]/[id number]AnA7NgCNA3aZ4uCZM7FXpVLlYuWtOoLkW6 lbm [file] DQo= ID Date Data Source [id number] 09/21/2020 08:36:38 AM [facility] XR CHEST FRONTAL AND LATERAL [id number] RESULTInterpreted by:Jeremie Hou MDINDICATION: 25-year-old female presenting for initial radiographic evaluation of shortness of breath.TECHNIQUE: PA and lateral views of the chest were obtained.Comparison: Chest radiograph dated radiograph of thoracic spine dated 09/07/2020.FINDINGS: Lines, Devices, Tubes: Partial visualization of cervical and upper thoracic spinal fusion hardware.Heart: The cardiomediastinal silhouette is normal.Lungs: Mild left basilar subsegmental atelectasis. The lungs are otherwise clear.Pleura: No evidence of pleural disease.Bones: The visualized osseous structures are intact.IMPRESSION: No acute disease.This document has been electronically signed by Aaron Overton MD on 09/21/2020 8:34 AM Name Value Range Interpretation Code Description Data Nereida rce(s) Supporting Document(s) ID Date Data Source [id number] 09/20/2020 12:37:11 PM [facility] Name Value Range Interpretation Code Description Data Nereida rce(s) Supporting Document(s) Progress Note [facility] CULBMj1kQkRIEpIp13/XEYvoLFJqv2UkRTrjLWj3SGxuYUCcN4MnHNT6jC3yAMX7JRwYRaZuGnMgIII0 lbm [file] ICAgICAgICAgICAgICAgICAgICAgICAgICAgICAgICAgICAgICAgICAgICAgICAgICAgICAgICAgICAg ICAgICAgICAgICAgICAgICAgICAgICANCiAgICAgIC AgICAgICAgICAgICAgICAgICAgICAgICAgICAgICAgICAgICAgICAgICAgICAgICAgICAgICAgICAgIC AgICAgICAgICAgICAgICAgICAgICAgICAgICAgICAgICANCiAgICAgICAgICAgICAgICAgICAgICAgIC AgICAgICAgICAgICAgICAgICAgICAgICAgICAgICAg ICAgICAgICAgICAgICAgICAgICAgICAgICAgICAgICAgICAgICAgICAgICANCiAgICAgICAgICAgICAg ICAgICAgICAgICAgICAgICAgICAgICAgICAgICAgICAgICAgICAgICAgICAgICAgICAgICAgICAgICAg ICAgICAgICAgICAgICAgICAgICAgICAgICANCiAgIC AgICAgICAgICAgICAgICAgICAgICAgICAgICAgICAgICAgICAgICAgICAgICAgICAgICAgICAgICAgIC AgICAgICAgICAgICAgICAgICAgICAgICAgICAgICAgICAgICANCiAgICAgICAgICAgICAgICAgICAgIC AgICAgICAgICAgICAgICAgICAgICAgICAgICAgICAg ICAgICAgICAgICAgICAgICAgICAgICAgICAgICAgICAgICAgICAgICAgICAgICANCiAgICAgICAgICAg ICAgICAgICAgICAgICAgICAgICAgICAgICAgICAgICAgICAgICAgICAgICAgICAgICAgICAgICAgICAg ICAgICAgICAgICAgICAgICAgICAgICAgICAgICANCi AgICAgICAgICAgICAgICAgICAgICAgICAgICAgICAgICAgICAgICAgICAgICAgICAgICAgICAgICAgIC AgICAgICAgICAgICAgICAgICAgICAgICAgICAgICAgICAgICAgICANCiAgICAgICAgICAgICAgICAgIC AgICAgICAgICAgICAgICAgICAgICAgICAgICAgICAg ICAgICAgICAgICAgICAgICAgICAgICAgICAgICAgICAgICAgICAgICAgICAgICAgICANCiAgICAgICAg ICAgICAgICAgICAgICAgICAgICAgICAgICAgICAgICAgICAgICAgICAgICAgICAgICAgICAgICAgICAg ICAgICAgICAgICAgICAgICAgICAgICAgICAgICAgIC ANCjw/pXDjE4cflVOlliM5C8wsZg9ZQg9SBI4om5WdBXUeGNhihaMsNwpTWkBzBXCiZdcNMwo0WKyyHX 6KiVUvN1KbL6GkNSmsAQ9GDGEoJZFtyVPoSYWbDKEaYkD6QLYtJYamBC0FcATlHVpdFFDxVRObXvJeXD YuNMDpMWXnAJHcQWGCCE7DWeTqA7YicP86UHAOPb7+ EUcpoaSoGmkOAkR1AYSit8VcHQt1RB9VJSNoSssfh4QzQfSnRSKMYXytND5TCJI0MXG9HJChYf7CQSKr F365ldPoKQ0OGt6CPyBpGT1jdx7QChYfRWEcMcsGNwq8ECleWL1ViEQhROnGkd0elqCddjRMx7WjoaZn wCPLxEOixuFIVCB9bSWjVHAZYKNifPXwFqN3UoTaOg CzZCA8VTIpVG4nAKhpJB6IEBH9NGtdDJFnREBgV0bBGtMfMUUaMNCzaRayDC9HCuPhT0EwgaBbwIFaIP AwIFINCj4+MVbfyuFhNgtTDuL5JPHla8JnONm4AT8ZHZPjSApjMF1CVGYqbO7aFQwnZX1YGfQcXdSkKW RDFoTsE61ukSAqZHt1W1TaEhThNGKiPbsuHCAaKKdd TmFtZXMgWyBdDQogID4+ID4+LXuwRM7DKCjxscUxANGfUw3QPKOwISTnII5uAEVdLKJlS4D7nKzoDAGG IwQqT7ngqnjnBM1jGBHvQ621hDknwgRpPLN9YAAuZq8JAYQmJPG6QXVixHGwOeLwQWGJOFbjDU3XsPIp HLK7fS7pJNzqMRXbURXeG4dETqPsuAxsXM10tVpazz VsbCBdDQo+Nd8LRX3ho1KuEWm4ieRuAEayGTQ8YJxyLOTlYZFjDZEmUIG6WWU0CRYLNaEiSWTlYOWoZA wwFWVlRFYvwd1PBYZuQFKpOBN8DRVjUXWgPZCcXPhxKWUsATQhVZpsXKEhSJMoUN0OLzPmAGBbGQRmJR lkZBDkHNZndw9LRTQvDEOuXMJeEjGuJPDpOHGsNQtr HDSfRKD0NrUxGYVdVFPeGW8TOsBdFCZmQVsjGSUqUDGtQAPxps3CRWCdUWGzMIDsOhIxHVJhKDEfUGnv VBRyHLWlZLe7OVLxPHGlHP5RLpEaLBRuYFE1CAIuEIZtAXLeif2CLBFqIJVpKyY7FmRtHYBcJFCuLQdh XABeMZSyYMFbMYLeFIJxQI8NRmDbVANgPTZcKqVuDD CdCVOddk5EDCTdDBUdHUN1XLDnKOQzGLUfCPopOGWxHKI1JkEjRDEoXFIpHN4ISzHxVBMqJNC4EGBwWC GsBVMftm1GCTMzVJEeLApuVSGyDTAdVNUqJQugMLKsQJC6NRtlFCGkVQMbMZ3GHnDgVHAjBrn5CeUfVA NvNGSirt5LRBBdECQoBwy7LrYzWLCkCGDqDGavPEDz HJA4PMC4WJAgDFDkYZ0OUpFuTILdYxaqZVHqEIQpRJNeuh8ZUKNwIGZoSOI3TbQiNXElTWRoFBhrGKEv KCU6KLCzGOJvKZXsKD3YScYdIRGpSeMcKTNjEEWqKQNtdv9KHNHsVNYnWBS4VRMqBRRwJLSoCXkaZCOq TZQsZWX0OAJgAAEySH0HPnGgNAkaSZNFVun8SQtdE6 y8VOLlSD2SZ7Klz0ZqHufiYFHCHHskVV0vwlQsSKZmKx8CL8zTJdpeXcgyRPRqHBUuGKRvIvFsUFMhSB V5TQJeBsIrBSbkFm8yWOLwRgE6NIK0YIVtJMZjWPOcNHR5KCe5PdO0QIQ0BUTdAkDbWB7LEu2UNwW7IB W2dVSkYo1GGmZ6KnTUWhXlJQ6JSOs= ID Date Data Source [id number] 09/13/2020 02:44:34 PM EST [facility] Name Value Range Interpretation Code Description Data Nereida rce(s) Supporting Document(s) Discharge Summary [facility] ZUDTEn1tCoBWGqPn15/STTvjEIJkg5SkCIdhFQo8WLgeWBRiR7BzVVV6xU0yXPJ6TKeXTtEvXiFzOJRh lbm [file] ICAgICAgICAgICAgICAgICAgICAgICAgICAgICAgICAgICAgICAgICAgICAgICAgICAgICAgICAgICAg ICAgDQogICAgICAgICAgICAgICAgICAgICAgICAgIC AgICAgICAgICAgICAgICAgICAgICAgICAgICAgICAgICAgICAgICAgICAgICAgICAgICAgICAgICAgIC AgICAgICAgICAgICAgDQogICAgICAgICAgICAgICAgICAgICAgICAgICAgICAgICAgICAgICAgICAgIC AgICAgICAgICAgICAgICAgICAgICAgICAgICAgICAg ICAgICAgICAgICAgICAgICAgICAgICAgDQogICAgICAgICAgICAgICAgICAgICAgICAgICAgICAgICAg ICAgICAgICAgICAgICAgICAgICAgICAgICAgICAgICAgICAgICAgICAgICAgICAgICAgICAgICAgICAg ICAgICAgDQogICAgICAgICAgICAgICAgICAgICAgIC AgICAgICAgICAgICAgICAgICAgICAgICAgICAgICAgICAgICAgICAgICAgICAgICAgICAgICAgICAgIC AgICAgICAgICAgICAgICAgDQogICAgICAgICAgICAgICAgICAgICAgICAgICAgICAgICAgICAgICAgIC AgICAgICAgICAgICAgICAgICAgICAgICAgICAgICAg ICAgICAgICAgICAgICAgICAgICAgICAgICAgDQogICAgICAgICAgICAgICAgICAgICAgICAgICAgICAg ICAgICAgICAgICAgICAgICAgICAgICAgICAgICAgICAgICAgICAgICAgICAgICAgICAgICAgICAgICAg ICAgICAgICAgDQogICAgICAgICAgICAgICAgICAgIC AgICAgICAgICAgICAgICAgICAgICAgICAgICAgICAgICAgICAgICAgICAgICAgICAgICAgICAgICAgIC AgICAgICAgICAgICAgICAgICAgDQogICAgICAgICAgICAgICAgICAgICAgICAgICAgICAgICAgICAgIC AgICAgICAgICAgICAgICAgICAgICAgICAgICAgICAg ICAgICAgICAgICAgICAgICAgICAgICAgICAgICAgDQogICAgICAgICAgICAgICAgICAgICAgICAgICAg ICAgICAgICAgICAgICAgICAgICAgICAgICAgICAgICAgICAgICAgICAgICAgICAgICAgICAgICAgICAg LOBuYLGhNAThPTIkVGk6E7quLTUqANPeXU6oBCo4Lz 8+ZTxZSbWyGEH0fuLrvI6QHR6ad6LfOVnpSJTez2TnGRq3WC0AZWOpKHnzAE7CTTyzgs1PIOWiFSDhbU OTb9ovMcKfHHU4WUBbBodgZT3UWQFvH2uqeoSdHJQxANYBXVmmZMOZFSzlSNIANJJmYJSoAvRrUvYtJE RvLZIaJIWEYKI7LKOwLnStWPVfJWYpTqNxARQFOMUi WRCrVfOrTDczHO6Te2NxbPXiRQ7OMs0AWlHlXU5vnq1MVMMaQHMrMbrTSri4YYmeUA5YkOYcjPM1SpEa WSQCQuKiY8gce0XwQMzoWWBEUQwfOP0Az4UvpYKaVXr+Aj7DAN0yk6WpJHl6QaVwKP4ygi4BYXhMJjKm K5BjvPosCVJfj1JlSACsBMNKuW4lASZ6XHL7GJaeoQ hqcZ7iTvZmx7SmdLcwMF5FXLA3QPYkZFHtYwUjHDHaASq3UqQVFMnYBcSxN9Wjb4OcIqD3LESwGzPqKK tqFLYmRhS3TO25yHlxLC4QVJMvVBNhXU61CQV9MZPwVh2GIg6LKoYcHA8eun2BLTxcFAZeTvpXQsv6GN puPF0YpFYxH1MtaGEbh6bOPlKuX9RHITO3SPHzVi8V YHBkKgMzAYZqEOczYI0xONFoUNIIfRdtljL6TV3GTR0iaeFpRB9RSlJnNj5kQv4YLiMlU2BiF5LuRLVz VBOFGKzmKX8LYQqqEW6qWF5Tp0ROgHTaeD8agd1MTVTgOXJmSmrfaz3BAsskI1W4qWwlRTAfHJHaLLAD PWlhND2LSLUdENV1ZMK5OCKmZFBIAbZbX82zGM6WT2 Hhb11jAcT1AHYqEnGcAEdiSG03rZzkxeOszERxvYsoUS9HJa7+DQplbmRvYmoNCnhyZWYNCjAgNDkNCj RuOSAnHMXoSHCsFyX8SqWdMx7PNAEeNNXtLAHtZyFmCXTeMOWaWGyiKDXeEBB0FUl5NEEdSYOdNX7MVp DbIXHyIMhgEzMaXWEyVAEvzn8IHTUnEIClCBR4NbKw XGOcCEZzRUgeYUHzPLVqZGd3WBIqJPSzHT2FZpQeRXZlGLTaGBrsAMGeCNVxkn1NVCBrJLUpCnP1VxGn RZIyBQTuVVyzLHPeRXL7WlvhENBlESNqQS8HFcQdUBXxZZL6WYTgKBEjGHAymg6RZSWqDNTeTPd7WQTr KUOfMSHrQIzjCOEtURB2ALRpNNZiIALfDV8FUlYgEJ YiYCI9QmdxIFCkGTFnoj0QABZdMTYfLOJ7OePeRCEbINLsZGtoCTUjLUX7JNshZNWzJWKdXK2WJxPbNZ ZyNxGwGWVtBWKlAVRnnr8HPASmNDWcGxR5AcWtXSIaCTGbGKurKOFtLST4KEi4SEEfVYOaVD2AXgHvTK YnPhVpAAFiSMZpZZMfab0ISBKqTTZpKJqkUFVzAMQj KQHsEOjiXIYqPJK8YENwMGKpNNBxQG4VIwXrIZHwHvLbYKnpXMWeLCTyno0KOBRcAFSeGBH6NBFeDWBr RHPjFBiqLJVzXEH3DJY1LFNiKZQwFM9JQqKqBKJaAtIqYDCcZRLdMONqfh0ZTINcFQNtQYr8AdZgIQEg CESaDVmzJIXoSGF6ZPY7BLTaSOWgBE2LMcNaJGFwBd RpZOIuOUXuOYGkza5GTVIkVKMyUsOgLOOvLWTkGVOeHIrgTONvMNO6YHJpLNIjHBUxLH3BFeGwVEEnNf f3METuCIWwOYKmni9KFMZcLSSbZAM5IEQpVREvFURcHYcyDIRpEMO8QSElMZKkQYTjVS0ZCoJcUIRaDq ctEWEbRBBuBYYouj6LCWKhKOF4PCTsDHSaTSLyZCEz LXmcXSMxHVJvMyD4AHQsQVIfEU5EIxWxPGVqECGjMHHoNSRcVTUtgm0RKVLaCGA5CZX0BsCbXIUuDRGx EGudFZTjWVZ2QDI1VNLbPIVrAC8RKuXnTMPcYMJ8VfOeZUGxOKVwzk9QOQFdGIL1YvWzDcCkAHLjLHPj PIylBNQjYOK3VTJoZFIzEAIgPM1MWvGnSFVuEPmlJY xoNGBkEUWnkl2NKEDrWJC9BvF7KGIrAEQnSOVtAUptYINhWSD7HPjnBBAfLXMjOF8VOxXxAWPnBAq6St SzMNHpPDUlal3BIFNdMOF0CEWvPpEaQYDhRIJhPAalZCXnAMN1WCkmPQVcCZMlTX2BWvXjXKVuEHn7UO oeQQFqUCFqpf3RcOZohAjqjf0KOGeSPv9OzNmsMFX7 OIudNh0cnDC3NVJwIXHGBy9RohQqSMRrZVMQKKifSCTbTWt0QKJlAFrxQGQfKpuqKZlpTmZzJxh4UFHp PTOcEmA1VyM7Dog1EeN6Q6NdKIMwIXJfRJNsMBKrLkzcH3E9HHLrUoH+IE9cUPe+Jj8Jm0XfmbM2ezWf MDh9NGf4YV6OALKIF0ZSEm== ID Date Data Source [id number] 09/12/2020 01:05:41 PM [facility] Name Value Range Interpretation Code Description Data Nereida rce(s) Supporting Document(s) Consultation [facility] MWEBUh5yVjGLLtMb14/VHTkiZOYps7SuXUedFNo5HEwaRSPjZ8SrHWI4aT5aVRC1RQzNJeRgAxLvRDIi lbm [file] QL0NLSPBZ4TMJs== ID Date Data Source [id number] 09/09/2020 07:02:43 AM [facility] Name Value Range Interpretation Code Description Data Nereida rce(s) Supporting Document(s) Leukocytes [#/volume] in Blood by Automated count 10.2 10*3/uL 4-10 H [facility] Erythrocytes [#/volume] in Blood by Automated count 3.94 10*6/uL 4.1- 5.3 L [facility] Hemoglobin [Mass/volume] in Blood 12.2 g/dL 11.5-15.5 [facility] Hematocrit [Volume Fraction] of Blood by Automated count 36.6 % 3 6-45 [facility] Erythrocyte mean corpuscular volume [Entitic volume] by Auto mated count 92.8 fL 80-96 [facility] Erythrocyte mean corpuscular hemoglobin [Entitic mass] by Automated count 31.0 pg 27-33 [facility] Erythrocyte mean corpuscular hemoglobin concentration [Mass/volume] by Automated count 33.4 g/dL 32.0-36.0 [facility] E[facility]th[facility] distribution width [Ratio] by Automated count 13.3 % 11.5-14.5 [facility] Platelets [#/volume] in Blood by Automated count 306 10*3/uL 150-400 [facility] Differential cell count method - Blood [facility] Neutrophils/100 leukocytes in Blood by Automated count 69 % [facility] Lymphocytes/100 leukocytes in Blood by Automated count 20 % [facility] Monocytes/100 leukocytes in Blood by Automated count 11 % [facility] Eosinophils/100 leukocytes in Blood by Automated count 0 % [facility] Basophils/100 leukocytes in Blood by Automated count 0 % [facility] Neutrophils [#/volume] in Blood by Automated count 6.93 10*3/uL 1.8-7 .0 [facility] Lymphocytes [#/volume] in Blood by Automated count 2.07 10*3/uL 1.2-4 .0 [facility] Monocytes [#/volume] in Blood by Automated count 1.14 10*3/uL 0-0.8 H [facility] Eosinophils [#/volume] in Blood by Automated count 0.01 10*3/uL 0-0.5 [facility] Basophils [#/volume] in Blood by Automated count 0.02 10*3/uL 0-0.2 [facility] Nucleated erythrocytes/100 leukocytes [Ratio] in Blood by Automated count 0 /100{WBCs} 0-0 [facility] ID Date Data Source [id number] 09/09/2020 08:09:13 AM [facility] Name Value Range Interpretation Code Description Data Nereida rce(s) Supporting Document(s) Bicarbonate [Moles/volume] in Serum 24 mmol/L 22-29 [facility] Chloride [Moles/volume] in Serum or Plasma 105 mmol/L 98-107 [facility] Creatinine [Mass/volume] in Serum or Plasma 0.49 mg/dL 0.50-0.90 L [facility] Glucose [Mass/volume] in Serum or Plasma 75 mg/dL 70-140 [facility] Potassium [Moles/volume] in Serum or Plasma 4.1 mmol/L 3.4-5.1 [facility] Sodium [Moles/volume] in Serum or Plasma 138 mmol/L 136-145 [facility] Urea nitrogen [Mass/volume] in Serum or Plasma 8 mg/dL 6-20 [facility] Anion gap 3 in Serum or Plasma 9 mmol/L 8-15 [facility] Osmolality of Serum or Plasma by calculation 284 mosm/kg 275-300 [facility] Creatinine/Urea nitrogen [Mass Ratio] in Serum or Plasma 17 [facility] Calcium [Mass/volume] in Serum or Plasma 9.2 mg/dL 8.6-10.0 [facility] Glomerular filtration rate/1.73 sq M pre dicted among non-blacks [Volume Rate/Area] in Serum or Plasma by Creatinine-based formula (MDRD) >6 0 [facility] Glomerular filtration rate/1.73 sq M pre dicted among blacks [Volume Rate/Area] in Serum or Plasma by Creatinine-based formula (MDRD) >60 [facility] ID Date Data Source [id number] 09/08/2020 09:14:10 PM [facility] Name Value Range Interpretation Code Description Data Nereida rce(s) Supporting Document(s) History and Physical [facility] OSENFk1iUbZORgXi83/JCJyfRTOex4RxZRbrQIf3FQboMNOxC4AhNKK0aO7nRLS9HMxAGbVrIbPpJNW4 lbm [file] AgICAgICAgICAgICAgICAgICAgICAgICAgICAgICAg ICAgICAgICAgICAgICAgICAgICAgICAgICAgICAgICAgICAgICAgICAgICAgICAgICAgDQogICAgICAg ICAgICAgICAgICAgICAgICAgICAgICAgICAgICAgICAgICAgICAgICAgICAgICAgICAgICAgICAgICAg ICAgICAgICAgICAgICAgICAgICAgICAgICAgICAgIC AgDQogICAgICAgICAgICAgICAgICAgICAgICAgICAgICAgICAgICAgICAgICAgICAgICAgICAgICAgIC AgICAgICAgICAgICAgICAgICAgICAgICAgICAgICAgICAgICAgICAgICAgDQogICAgICAgICAgICAgIC AgICAgICAgICAgICAgICAgICAgICAgICAgICAgICAg ICAgICAgICAgICAgICAgICAgICAgICAgICAgICAgICAgICAgICAgICAgICAgICAgICAgICAgDQogICAg ICAgICAgICAgICAgICAgICAgICAgICAgICAgICAgICAgICAgICAgICAgICAgICAgICAgICAgICAgICAg ICAgICAgICAgICAgICAgICAgICAgICAgICAgICAgIC AgICAgDQogICAgICAgICAgICAgICAgICAgICAgICAgICAgICAgICAgICAgICAgICAgICAgICAgICAgIC AgICAgICAgICAgICAgICAgICAgICAgICAgICAgICAgICAgICAgICAgICAgICAgDQogICAgICAgICAgIC AgICAgICAgICAgICAgICAgICAgICAgICAgICAgICAg ICAgICAgICAgICAgICAgICAgICAgICAgICAgICAgICAgICAgICAgICAgICAgICAgICAgICAgICAgDQog ICAgICAgICAgICAgICAgICAgICAgICAgICAgICAgICAgICAgICAgICAgICAgICAgICAgICAgICAgICAg ICAgICAgICAgICAgICAgICAgICAgICAgICAgICAgIC AgICAgICAgDQogICAgICAgICAgICAgICAgICAgICAgICAgICAgICAgICAgICAgICAgICAgICAgICAgIC AgICAgICAgICAgICAgICAgICAgICAgICAgICAgICAgICAgICAgICAgICAgICAgICAgDQogICAgICAgIC AgICAgICAgICAgICAgICAgICAgICAgICAgICAgICAg ICAgICAgICAgICAgICAgICAgICAgICAgICAgICAgICAgICAgICAgICAgICAgICAgICAgICAgICAgICAg XZj7U4zpWLIzOKTtUL9gYNz1Kc6+RRtBStSuOUU2rsDsrL8JDP3vq1WfEOdzKXFrk2XcFIa2XV6SOPXw ZAvkYG0JEPghvi8SDBJrMZTirZMBb5svLlZsAFR2TD JyBvzoFP1GNXCpN3yhxxMwRNDaOGPOCTzpMPZWRJvjLOMLSHVzERMzGzIjWlFmZIQfCCVlYPFKAUW4UP HzUqRbEVEjCVCtWxRuKWTLWGHdFYPgBdDrQUDsYTEgLnwyMMMNVOS1BJMoScVcPHSjBQOgGC6LJPSyU8 54ewZuNWIBPi5+AEujaqYeFyqIJcNyPMZvm9RdYVt7 JT9NJMMxXkkpr7OwOAHcBNFNITayFW3GNJZ5MJR9CAFsHb4LMAGtJ670prHfHR9PKe3QMtMrEL4zuj7G QPGoSKZyLjyCIlh6RIlbRT5RdCEnUFyNRrXeAiwjBBY8eTShZLKUEG76UJViEB4FABD4QSDqQl4tMQPz VYWiRiJ6TQJBLI0ZCCGpIAAgwRMlDBQcIILEPJ2FWF dnLVI2XUEeieRgxECnBVqaEN7KCGVwspDkSTQvMLAAZXb+Wz1JNL1kn8QcQUx9ASPpOV3ufi0HZQmLCs WgB4N0sLSwM3F3BDmhCx9UECYnCOTbESXaSGZKOHhvNP4VUH2afsK2QX6MvRXwAZQeZPQzcKWzYHa2I0 3ldKFeNKquNL2XVOK+Darío+Uo2ZUJNaKAFsFISeAwMs GNGOFrTaB8ImV5KMf6EbA7VdOS55tWyemlBeGWziCI1NOD7pNFXfTPWCNV2NoPOwlV3msrL6DjXxRQTW FvKkG39xbBBrDEHwPDRgXOMwPo9CXINyP1TddhWzxLbcrqDpFNJyWOTKCS6WDKcmfgFnqOOavHxmKK59 uQkyVA9JCu4KDtUjMI3hux0ByBWtKo0BVLE8Yg7XJJ QgNPKxPEOsAKY4MTMoQnWlPCxnFQHkPBTpCYS0FUDnFGJrXQ3HWyUwDUDjGvW0AQRjQAOoJEMrax8XPR DnGIT0NIU5IxQtBTVfMWOuYZiqAAFqHTZkTLW8VNFaXNErOQ4GBgElOVIjWYPjZIAsGAMbWUMmog6ULT VxEYSyZZA4QOOzLTGyUEQuISaxPRFjWXA9HGI1HWUc YBKzZE7TQpUjODEsUMlhPcMeVBCrREQjsx1MBGKdGOMfBFJ6QmPmIKQcXXApLVtkVUJsQAOwTYI3PJKc PVQaDT6YIhIcYCPqVIX0AfZaCBEtPOSotu0GKYWaNIUkTRQuRcSmCSSiFOFqLXyrQBAtFPZ9KvP0MDYi WJKnPB9BFaUkEVSzBUh7IHVhRHBmTICifz7VADQwPT CcTZo1OFUjPYEtCMWiTGywJKYkGBWjAId3QITdGXArOW6QPxLfNXJyJtO4ShxsNTZsCRUbxq5ZYOKmFS FqEjF8LPJfUWCtTLZgSJeoTGTqSOR8PqdeLPAjURQcLT2NGjTxMLLiZds1SiAqRQNdABSmmo2IHVNfPH ApIrE7LFXtKPQiAYUrFFjpBCGdCLItIFttFVBvNWBd BT0HTpWrRMRzChG2TMUsPFBdIUErsr9CSYSxYJJrLHsaWgPtUMJwHBVrYJpdKRNlZWW2MgK4FBAyWOGx SE3UEoAcWIOjQmh2BAOgOCHoMXGcmj3YBUSgPLK8WyWwMXIjNNHcXSAcYCjhEUNwMRBwYeXpZGIeSTXy HM2KZzYsEFOlWDj0FkviWGBaEVMhkb1SFDFtGUQ2EH P3WCQqFWVwIUOpNDfoVNBrOJEiZOw4DOJcSMUoOJ5DCcAaRVXwBNT0TUSvDMOyLWKiyt9VFCEiBIM4VP q9UUVnDQBnWONmIRfiRGFzPWZxVFS7UMWgQPFfQG0YFxQyFWNqMKMnAXUdXFNhLUUfbk9XFXEoWAE6Nl L4PYFvBZNlWVZrFDwgTUDmYRGsUxJuAADcOAIvTZ9A WdOyMDAlKVO4ZWqbBFNdZTKkpz9CIOYmVOS1NRd6VJShZCTwRYDyDCzhENVyXKX4ZGmhYYLgEIOyCK5B JaLvKUUnHkO5IGCaWGApFFSvei6PFYYcEWX3UGC3MZZnDZRcZWImXCzzMTRfVGQ3Yhm6REAbDKFoIQ6M KzHqFIShRpG5TeWzUKRmCSOoib9PGSSiZWT8SqlnNB GrMUSiFXJrVXusKALzSCR5KUd3QWVoIOXrKF7KZiKoUPBaZrB2RLWrTZDmCZRbnu5JWLLuSRX9WtO1MG LpRYDpIJWuETfgVGWhJNgyJHdlCCSuFJEqZW5TQlSvXBMqXdW5MfXcHUMzXILwxe1YRXRqFRP8Xfe4IQ XnRDZlOGKuFOqpHXLnZIzpKgJtDPGoPUGwEN8PIyRa PNVeXfU6PrXfRVKtHBHejz8NGJBbHIU8UJliNFMbFDTgCLPsCBvpBGDjOZk9QUY1GSOgULAeVJ9DUyPf ZAbsAMFBVah4EXpzR9v5KQG3Dn7YV4Nzl5QaWFWoHRPUOTmrBE4hswXrDGYaHl6RV1cNMujyZwMmUxLe OvyaHJNcQFY5LuF1MWIzXRNlNgFeXHFhMX9kJPU7LQ B3WwKmGfCxIlGmGqY0CcfdPXQtIzB0JwQ9KFDoTeAqNB8TEo9CAbK1KVI6mVOhUa1YCaFxSZCIAeRfYH 9GDQo= ID Date Data Source [id number] 09/08/2020 01:18:24 PM EST [facility] Name Value Range Interpretation Code Description Data Nereida rce(s) Supporting Document(s) Discharge Summary [facility] TDBPWa1nQnYAOmVk35/GJCcfFQZsd6HsBClvTBu4EClrJWLzB6TtDCA3mP6cRYM6DXhIFqCdPpQeYZA0 lbm [file] ID Date Data Source [id number] 09/08/2020 11:24:51 AM EST [facility] Name Value Range Interpretation Code Description Data Nereida rce(s) Supporting Document(s) Consultation [facility] YHFKDo4zJyYTIdEn44/UMZmdTXTux5PhKVerDQq8FIkwOVRvW7JpOGT0qB1pBJB7AFaOTaBoQhIaGJG0 lbm [file] AgICAgICAgICAgICAgICAgICAgICAgICAgICAgICAg ICAgICAgICAgICAgICAgICAgICAgICAgICAgICAgICAgICAgICAgICAgICAgICAgICAgICAgICAgICAg ICAgICAgDQogICAgICAgICAgICAgICAgICAgICAgICAgICAgICAgICAgICAgICAgICAgICAgICAgICAg ICAgICAgICAgICAgICAgICAgICAgICAgICAgICAgIC AgICAgICAgICAgICAgICAgDQogICAgICAgICAgICAgICAgICAgICAgICAgICAgICAgICAgICAgICAgIC AgICAgICAgICAgICAgICAgICAgICAgICAgICAgICAgICAgICAgICAgICAgICAgICAgICAgICAgICAgDQ ogICAgICAgICAgICAgICAgICAgICAgICAgICAgICAg ICAgICAgICAgICAgICAgICAgICAgICAgICAgICAgICAgICAgICAgICAgICAgICAgICAgICAgICAgICAg ICAgICAgICAgDQogICAgICAgICAgICAgICAgICAgICAgICAgICAgICAgICAgICAgICAgICAgICAgICAg ICAgICAgICAgICAgICAgICAgICAgICAgICAgICAgIC AgICAgICAgICAgICAgICAgICAgDQogICAgICAgICAgICAgICAgICAgICAgICAgICAgICAgICAgICAgIC AgICAgICAgICAgICAgICAgICAgICAgICAgICAgICAgICAgICAgICAgICAgICAgICAgICAgICAgICAgIC AgDQogICAgICAgICAgICAgICAgICAgICAgICAgICAg ICAgICAgICAgICAgICAgICAgICAgICAgICAgICAgICAgICAgICAgICAgICAgICAgICAgICAgICAgICAg ICAgICAgICAgICAgDQogICAgICAgICAgICAgICAgICAgICAgICAgICAgICAgICAgICAgICAgICAgICAg ICAgICAgICAgICAgICAgICAgICAgICAgICAgICAgIC AgICAgICAgICAgICAgICAgICAgICAgDQogICAgICAgICAgICAgICAgICAgICAgICAgICAgICAgICAgIC AgICAgICAgICAgICAgICAgICAgICAgICAgICAgICAgICAgICAgICAgICAgICAgICAgICAgICAgICAgIC AgICAgDQogICAgICAgICAgICAgICAgICAgICAgICAg ICAgICAgICAgICAgICAgICAgICAgICAgICAgICAgICAgICAgICAgICAgICAgICAgICAgICAgICAgICAg PZVtMIQpLAKwBGZhVUPnMHi0H1kfMQRlKUVyAH1mLZn4Gv8+FRcQPeQoWQP3jjIcqU8LGR4ms0FtVWpf IDDod9SqUHq6MB8YFVOuWKfnUT2SDJffdl1VCBPxLA FwuIADl7doRvZwGQM5ZIQwBlitOD4JRFPuS0hrleNgBCZpYYLJMJrvMGDCPNkgRZNUKBXvFXTfYxHcIv VxIPSgHBHdCCSSNDI7LRYiKaIpYDPuEKAsMpIrDSTIJCApSXImVyEwDHJcJJFaFnxzMVYJMM0VGhHnS3 OhcG45QYXxOIg+Rb8DUT8dd6KpBZl0MgVcWG8iif1R AEjZOtXlW7XlmkB2LRHaLEYvEr4KZNMtPIDreEN8OeYxVRNMRiYeS4DfvK01UZQAVb0+DQplbmRvYmoN NiUdIOPwd0GtBOj0ZM5PTASaSMv6vJCaL77ju0LtzUIuNntzT4GwyShpzlwjYMuiPBCqIZo6xpTxQVRI AGX4CVQbRx1qDGBxXLA3AwByVHCRVU3YPJGzZENrnD YoBXJhTLEIOG2ECRwbIGP0VZPcnpHatNTkSBcfYQ2OQGIlzgDlVOYpNRQOYXm+Wc6UMX0ja2MnRMm4QK IfUB1ksa4NAKtGVrClJ6Q1xTEaA7G9NEvuEd9PKUOxMFUjKFAeRLIXKSeeAS4CPH9mnjE8DI7JxZOeYI IgEHJneVMmWVu1M26xqYCjPFyoJY2CBST+Darío+Pg0K ZJWoXFMtGAYrSvHyIHFWVsFbQ7YkR1GFp0MtT0GhRQ79cDujudZgTZuiAY8QCK3aNNEwZLWJPD7GrJKq uN3hnhX2PzWlHSSSRtNoC88paMDfJBSyKYRfWQJrUi8PPYVjT7SivuZfoYjqocVkMEOcECMXRK1VHUzl egByoAChlAncDM27iObzWN1CBy6OOyJaWG7ttg1LxW ZkHd0XAHO8TE6MHHJuHAYyWSStXSU5CALcGnHhZLwsYVStAOIaZCW0KXPnMXIwDE5LUcDwRZRjLkB1Qs JdJRLyATXjsv4GKQAiIUO7KqYsDoAbLZPbSZBqXDjpYERyYLCqQSX2USLqISJbXB7OSoPkDJOdXUVfJE ydBVZhTBCetd6VGMTxWMRgTGPlNcStIBFjXZHxMEja KTZpUUX9BCwjMFViMUSsEX7ZFhOeTNHfCJfsWCknDNRvLMYbhk4ZBYAtLUYfVcNbUMIyEMXhFUYcSGov CXUzTNNbYFF2LOXsRHAwVU1YFhHnVFKvHLB1DGZhFYLhQNLsdh7QPUOrCRQvXaHrBDHzAOMmKFVqFEkc LGGaYWCgWPG5LBSiQMMmRI9IKuAmANHjEtLwJrOkEI NkVREbmt8KHVThXYVqKMA1DtGdSXPhXCTrVKulKKZfDXB7FJpfUVBqANOxKD8HLhYyJWTpCxb8ASFxAS FpXOWkgn1BYJUxFFDgHgf5CaKcRJMgZNVhRTxmXNNdQQMvLZVxFJMcOXDeDO7FChAqWRNyXrBeFbtbHT UtHUXfel4MWGYpVDRdGXajZFYuCEDbIHLoSEigSPLw YKX6FVA3YFDrSZPbKG5MGvEwYOPyWcnuSlOiILLwXIXzcd8ZJWOxECJeUYW5DFWmJWMxBAFzSQqhPKFg XJMxTWx4ALMgLZFgCL4ZBuIlKQKnGVDyZJLkOQIsLYPmzm4GWHRjSPK5MzbfCZHkQDQlMXWjGCpsFLWr ADP8BBQ1KFNeGSOjFF5WAjLpKQYwLVw3JPFuJXKnUT Bxeo3JYVUwTGX0PBP8JbFqOXNpCCErAAsfZDElXVG3Bch2BMYuILFbAY5ATuPcQNTrHQfdAdXwFWRgDN Toig2KQJGjOFA3GKFoQeMpOOXqYJIkEKcrKLLhVTM4AmQ7MNKpTZAfFN0WUaFhTSUdEPQ6WKGhVFPzHG Wdqe5QFGCzQFP8EXs4QcBuUIZgBBBtNBzdENKnDSOp YXZ9TPEwJSIfZP1CCyLzRZZnCHR5VwEbDGSjVLQhac2DUREaCKJ0NlAxMIMgUQBtMSRlDXtmZNMuIWI5 PMRkAMNdFBRiMP8PTkOyYZTsFAD5XOItYZJgKSMktj3BSWTzDWC5JvuvFeAjDJWfJWZlVCxlXYArEOG1 QsOpPMOgMNYgST0PUqLtFRAiHdh1GLKbHZQpNNXdvq 4UULGfEJC3CXm2JEIhTVKePBFbNBwhBTRiUFI3ESg0BFMhBWQzVG6AEgMaXPHxXyrcWfYwFMRnIAQmlz 0OQCUpKHQ8ZRO2IBByHKGnIFPrUWvdHCNaMTuvPmV6KIIbYAAoSW3EVqFcHHIjIjT3FZGqWZEnVQVepd 9ZVPJkWTS4PZn2RjWwNXNlLMUaEBckDNLhXFdnOJK9 PIFoJXDpAP9EVoJgTNNwSiD3IlqtTODeZRWmgw4MBYYcFXM4XdUtAhMxBPVbYPSrCVl8qsTofEGcWFk6 LE2AJ2KlqoQkPJCAXi9Mu180FIA7INRmOc5EP9ezGv0eNSPuKAFHVr6WUOe9AiP3SgBwEKf7REUuVxF7 VUmfBKAqN4J0IEJ2LIYuPxV+YSbbETMjRRL4PkcuCt U4GKNrBPOnCKLzDKO2YjU7SFF1AL0vBZFZTu6+OPiyjMKhePowEVIFMbznRXgvNVpxDOJEAd3T ID Date Data Source [id number] 09/08/2020 11:34:43 AM [facility] Name Value Range Interpretation Code Description Data Nereida rce(s) Supporting Document(s) Specimen source [Identifier] of Unspecified specimen [facility] SARS-CoV-2 RNA 2019 nCoV Real-Time RT-PCR: NOT DETECTED [facility] Assay Performed [facility] Patients first test for [facility] 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[facility] Patient has symptoms related to [facility] When did you start to experience these symptoms [Date and time] [Phen X] [facility] Patient was hospitalized because of this condition [facility] patient was admitted to ICU for [facility] Patient resides in a congregate care setting [facility] status [facility] ID Date Data Source [id number] 09/08/2020 11:34:59 AM [facility] Service Cmnt XXX-Imp : NoneRespiratory P CR Panel : PCR ResultsMicroorganism XXX Cult : See Labs Tab for 2019 nCoV RT-PCR resultsHAdV DNA QI ENA+non-probe : Not DetectedHCoV [id number] Nph QI ENA+non-probe : Not DetectedHCoV [id number] Nph QI ENA+non-probe : Not [id number] RNA Nph QI ENA+non-probe : Not [id number] RNA Upper resp QI ENA+probe : Not DetectedhMPV RNA Nph QINAA+non-probe : Not DetectedRV+EV RNA Nph QI ENA+non-probe : Not DetectedFLUAV RNA Nph QI ENA+ non-probe : Not DetectedFLUBV RNA Nph QI ENA+non-probe : Not DetectedHPIV1 RNA NphQINAA+non-probe : Not DetectedHPIV2 RNA Nph QINAA+non-probe : Not DetectedHPVI3 RNA Nph ENA+non-probe : Not DetectedHPIV4 RNA Nph Q EAN+non-probe : Not DetectedRSV RNA Nph Q ENA+non-probe : Not DetectedB pert.PT PrmtNph Q ENA+non-probe : Not DetectedC pneum DNA Nph Q ENA+non-probe : Not DetectedM pneum DNA Nph Q NEA+non-probe : Not DetectedB [id number] DNA Nph ENA+non-probe : Not Detected Name Value Range Interpretation Code Description Data Nereida rce(s) Supporting Document(s) ID Date Data Source [id number] 09/08/2020 10:08:00 AM EST [facility] Name Value Range Interpretation Code Description Data Nereida rce(s) Supporting Document(s) SARS-CoV-2 RNA 2019 nCoV Real-Time RT-PCR: NOT DETECTED [facility] This lab was ordered by [facility] and reported by [facility]. ID Date Data Source [id number] 09/08/2020 05:34:46 AM [facility] Name Value Range Interpretation Code Description Data Nereida rce(s) Supporting Document(s) Leukocytes [#/volume] in Blood by Automated count 11.1 10*3/uL 4-10 H [facility] Erythrocytes [#/volume] in Blood by Automated count 3.81 10*6/uL 4.1- 5.3 L [facility] Hemoglobin [Mass/volume] in Blood 11.8 g/dL 11.5-15.5 [facility] Hematocrit [Volume Fraction] of Blood by Automated count 34.2 % 3 6-45 L [facility] Erythrocyte mean corpuscular volume [Entitic volume] by Auto mated count 89.9 fL 80-96 [facility] Erythrocyte mean corpuscular hemoglobin [Entitic mass] by Automated count 31.0 pg 27-33 [facility] Erythrocyte mean corpuscular hemoglobin concentration [Mass/volume] by Automated count 34.5 g/dL 32.0-36.0 [facility] [facility] Erythrocyte distribution width [Ratio] by Automated count 13.1 % 11.5-14.5 [facility] Platelets [#/volume] in Blood by Automated count 279 10*3/uL 150-400 [facility] ID Date Data Source [id number] 09/08/2020 05:54:04 AM [facility] Name Value Range Interpretation Code Description Data Nereida rce(s) Supporting Document(s) Bicarbonate [Moles/volume] in Serum 24 mmol/L 22-29 [facility] Chloride [Moles/volume] in Serum or Plasma 104 mmol/L 98-107 [facility] Creatinine [Mass/volume] in Serum or Plasma 0.42 mg/dL 0.50-0.90 L [facility] Glucose [Mass/volume] in Serum or Plasma 88 mg/dL 70-140 [facility] Potassium [Moles/volume] in Serum or Plasma 3.2 mmol/L 3.4-5.1 L [facility] Sodium [Moles/volume] in Serum or Plasma 139 mmol/L 136-145 [facility] Urea nitrogen [Mass/volume] in Serum or Plasma 5 mg/dL 6-20 L [facility] Anion gap 3 in Serum or Plasma 11 mmol/L 8-15 [facility] Osmolality of Serum or Plasma by calculation 284 mosm/kg 275-300 [facility] Creatinine/Urea nitrogen [Mass Ratio] in Serum or Plasma 13 [facility] Calcium [Mass/volume] in Serum or Plasma 8.9 mg/dL 8.6-10.0 [facility] Glomerular filtration rate/1.73 sq M pre dicted among non-blacks [Volume Rate/Area] in Serum or Plasma by Creatinine-based formula (MDRD) >6 0 [facility] Glomerular filtration rate/1.73 sq M pre dicted among blacks [Volume Rate/Area] in Serum or Plasma by Creatinine-based formula (MDRD) >60 [facility] ID Date Data Source [id number] 09/07/2020 05:47:49 PM [facility] XR SPINE CERV 2-3 VIEWS [id number] RESUL TInterpreted by:PATRICIA Sarahlinical Indication: Post fusion and resection of epidural tumor.Frontal and lateral views of the cervical spine, obtained through a hard collar, were submitted for interpretation.Comparison: CT scan dated 09/02/20Findings/Impression: Compared to the sagittal reconstructions from the recent CT scan, there is now a slight gibbus deformity at C3-4. This may however be due to slight angulation of the lateral view. Alignment is otherwise normal. Posterior fusion hardware is noted from C4 to T3. It appears intact. Disc space heights are normal. The prevertebral soft tissues are normal.This document has been electronically signed by Yanni Lenz MD on 09/07/2020 5:45 PM Name Value Range Interpretation Code Description Data Nereida rce(s) Supporting Document(s) ID Date Data Source [id number] 09/07/2020 04:03:38 PM [facility] XR THORACIC SPINE AP AND LATERALFINAL RE SULTInterpreted by:Moises Hook, Isabelle Rosales MDINDICATION: S/p surgery upright x-rays. Post resection of epidural/intradural tumor.TECHNIQUE: 2 views of the thoracic spine were obtained.COMPARISON: CT thoracic spine dated 09/02/2020.FINDINGS: Attenuation from the shoulder limits evaluation of the lower cervical and upper thoracic spine.The patient is post resection of epidural tumor with posterior decompression.Mateo and screws fixating the lower cervical and upper thoracic spine are partially visualized. There is no screw at the left T1 and C7 levels.There is no evidence of acute fracture. No significant listhesis is present. There is no significant spondylosis of the thoracic spine.There may be small bilateral pleural effusions. No large airspace disease is identified within [id number].IMPRESSION:1. Visualized hardware intact and described above.2. No evidence of acute fracture or significant listhesis. Postsurgical changes better appreciated on recent cross-sectional imaging.This document has been electronically signed by Moises Hook MD on 09/07/2020 4:01 PM Name Value Range Interpretation Code Description Data Nereida rce(s) Supporting Document(s) ID Date Data Source [id number] 09/07/2020 12:47:21 PM [facility] Name Value Range Interpretation Code Description Data [facility] rce(s) Supporting Document(s) Operative Note [facility] PYSBXa4eKwZNDvJi90/ICXaqGXZau9EoEDzeZJw4THbwUPCuX3TrQXJ8uE2lBPT7XXdNCnXfUvImWGD9 lbm [file] KAYLAN+ZQxxPYapaJk7xLRcVPEhVa6UDSFhVHSlHJUvSBUzYWYsOXEeBBLxWXIbVDCaXWRuTFFaBOPmQQOc ICAgICAgICAgICAgICAgICAgICAgICAgICAgICAgICAgICAgICAgICAgICAgICAgICAgICAgICAgICAg JV9ZIKLxLSFxRHUjLYFeWZXnTRQlAXPjQDIzJVHjXF AgICAgICAgICAgICAgICAgICAgICAgICAgICAgICAgICAgICAgICAgICAgICAgICAgICAgICAgICAgIC KcHJKaYLHdSGJlOW0XSUIuTSIbUADmRQLhEIFdWKBzGXTrXTUlRRUhNVBaOPEyZUCmPDMtUOOaKGLeUD AgICAgICAgICAgICAgICAgICAgICAgICAgICAgICAg UZBhNRInWCFbEANvKMGxCYFjUEIvBL7KYUBePHCjFBAbGZGaEIDuIQMiKXAcBKJiNYYtYXYxMZZnWJHx ICAgICAgICAgICAgICAgICAgICAgICAgICAgICAgICAgICAgICAgICAgICAgICAgICAgICAgICAgICAg IDDqNA9LAURiDBIkDTQsVEFxLADfHHUlASGkJFGsCI AgICAgICAgICAgICAgICAgICAgICAgICAgICAgICAgICAgICAgICAgICAgICAgICAgICAgICAgICAgIC TyRGMeHXEyWWEvEDFbLI6UIESyBLRmSEFxRVVcFBCpXNVwIENhRJFcHLTlTXTeSVVnVRCuQNBtEXZoDS AgICAgICAgICAgICAgICAgICAgICAgICAgICAgICAg QTNeJRMpJJNtXNPqQGIwTYCdTRRgPPDcPK7NIQXiJGCnNRKaAFSaSHWoJYQfXJZlCXLnIRIvZPMzTEJy ICAgICAgICAgICAgICAgICAgICAgICAgICAgICAgICAgICAgICAgICAgICAgICAgICAgICAgICAgICAg VDKmFKDwRG4VYVKuVQKgFVOxBLYeKZMuUNKeKYEeMU AgICAgICAgICAgICAgICAgICAgICAgICAgICAgICAgICAgICAgICAgICAgICAgICAgICAgICAgICAgIC FfYBSxJMAmJGRnYUTwDCCgAJ3IOMZqAOFhENXlMYErLPHwJEUgROIjWTZuESVjVVQvADHpYSGxODRdRC AgICAgICAgICAgICAgICAgICAgICAgICAgICAgICAg RTVwZYKfLSFsCTSdRQIwIDLmSTIoVPZvINEnLQ3BVPBdXYJeVQTsZWUeUFIlYUZzILPgCFKbFWBcYOHd ICAgICAgICAgICAgICAgICAgICAgICAgICAgICAgICAgICAgICAgICAgICAgICAgICAgICAgICAgICAg YJPzXREzQFQvQE5KGB75jORry6O4RKZhEO8mkwe/Pg 9WSHzhniNvcYEjUG5HElDmNU7yqc4BXnNwIU7prn7BMIcHCfMdN1F7kROtUIJjQKWXUlXdJ58hZRrdIo 82HGktPRMpFcDvNWn1Vd6YHhGrN8luORGvGxX2VONhPiL6URZqAbC3KDMvDkOpIMEiYHDgCSYeKXLVME T8BDJqJqCoNUuaOJ6Vn1AvgIX1WAx+He1TJH7qu1Qt SSndRhFfJF8rxb2AEWcYSpWmW9YcjgK8EWL4HDGxHj1ZRGVhXCLozSOaXJGqJGXKZxNmW4DjfZ57WDFT Cj4+UYixxhVtCaxBZzB3IESom1ZhCPp0JB2CTMRcVPy5eLSsF5GrlhS4yEOiKW1zbXZbLiwxB2ftr12b GnAbHKQPGWNzxJDeHh9bBM1lCKHsQCS3KxTyGYZBSJ 2HLVCgRGTczLEpRBJsGTGEPH2HEMbbSLD2ELLgdkGiaAIdODptYF2FQUJxitXbZykeZFYAPBw+Pg0KZW 9fp8QrHPpkLQLtYW4ons6JKQcYDbChX1A4vUFqI8O2IZzbBc9ZVENjGNQaKbFuULDQWDyiNP1KOF2out A2FH4NtTThQFJiRKLzxSFzBIy9J69loVSnPNdbWY5U ICA+Darío+Cm0WKNCpHMLrHDJgNyQxTDLQToIfF0TfX1DRe4MrO6SvUZ17dIypbeMbQFxpKO0YFB3tWVRd VHNHOS2SmCLufQ1pkpRnYgBzUECIDiUaR00aoOCbEEUfGIK5TTDbNo0IDYUdN5JelsRehKgcpuRkLCAn ENMGBV2VASeyrlEqvJDuaBnxSA25cKwtAC1FCk8RQo FyCP3ckk2KxNBnYq0MPWAuQO2ERWWgQDBbCSHwDLM3OUKkYnNlNIvwJEGcXDUmLJV6LUJnHLAzEF9JBy CjDIDwWtCmCZmbGPAvLDXmyx0TJEWmZTDnPphdWMEiJRZiOAElKClpCNKmLBJhHIA4JZApQITgEP0TRz AgTRQzXEI1SbwkDKSpDKOwhk6KZILnCNGiUtd6NWJo SQRaSERwOOkcFRXiFFX4HVR5NRAjBFEiYR4CHsPdJZIhCDM2WYChBCPmFFHmwa1LPTIoNNKzVOAcEEHi VYGhWZCwRTmhPLVlKLD1SMAnQRAzWBLkXS2INpPpRHGdPBN3THTwOCByKFPsyo0ZWCFsRMLvNQL8UUJq TTOsNYQaZNsdYYGuIWD6WpDtZVSyQGCaPT3LLdVhVU HvDXe9KIeeJCKcQBVlqc8YVETnMACpYWi2ZLLeFCCjNDEvXXrnFBVrUTYyTXT5EGCiUWRiMT9LZxBvCX OvJeKnVZByJQShPHXnce0CKFMpITUeIjBvHsYbPDSxGUOdKBnxMHWdAWVdZdq2MIWbKKUkWD1HAjJkMD BuUkNkUFZuZNUbGHVvdd3PULXoUFXkMrO5XfJyQKNu BBYeOOxzQPRzYARnXbB9AHMcJLQeRC5AMiFjUZJrYjZ2FXElYVAxRHKggk2TUUXeIUEvDDc8ThGzBUFp CYGaQGxeVLOwJQC0DRq4VTUkWYUeST5ZSbBuUCTvUyM2XHbrOKCxJWLbxy2LJNVxBCGaQal8BHSlZEIc WNBrKCkcBOUeVWN1ZTNnHJGlWAChUC7NAmPzGYJbCt hdEYDqXSFoQTDenv1PbJTkzGghrt7YTJsRDa5JxOzuKWXzZSliHz9rsBRbWJCvFVQFWp8OpoXmLYArTY SPRRafYGNdSQW4UiDsFGTlFiA7DGu1HsVpDHNkOuSgIKUpG9MlN5O2GmS5EOAuCZDjXdAaJam2LlA3ML S6PVXlKxW3ZvBlNtL7SqZ+MC6cRBa+Kf9Bv7XhmtU1wuAfIIxdTnFnET4VQLUPX3TDIj== ID Date Data Source [id number] 09/07/2020 05:41:58 AM [facility] Name Value Range Interpretation Code Description Data Nereida rce(s) Supporting Document(s) Leukocytes [#/volume] in Blood by Automated count 10.7 10*3/uL 4-10 H [facility] Erythrocytes [#/volume] in Blood by Automated count 3.71 10*6/uL 4.1- 5.3 L [facility] Hemoglobin [Mass/volume] in Blood 11.6 g/dL 11.5-15.5 [facility] Hematocrit [Volume Fraction] of Blood by Automated count 34.0 % 3 6-45 L [facility] Erythrocyte mean corpuscular volume [Entitic volume] by Auto mated count 91.6 fL 80-96 [facility] Erythrocyte mean corpuscular hemoglobin [Entitic mass] by Automated count 31.2 pg 27-33 [facility] Erythrocyte mean corpuscular hemoglobin concentration [Mass/volume] by Automated count 34.1 g/dL 32.0-36.0 [facility] Erythrocyte distribution width [Ratio] by Automated count 12.7 % 11.5-14.5 [facility] Platelets [#/volume] in Blood by Automated count 249 10*3/uL 150-400 [facility] ID Date Data Source [id number] 09/07/2020 06:08:23 AM [facility] Name Value Range Interpretation Code Description Data Nereida rce(s) Supporting Document(s) Bicarbonate [Moles/volume] in Serum 24 mmol/L 22-29 [facility] Chloride [Moles/volume] in Serum or Plasma 106 mmol/L 98-107 [facility] Creatinine [Mass/volume] in Serum or Plasma 0.42 mg/dL 0.50-0.90 L [facility] Glucose [Mass/volume] in Serum or Plasma 97 mg/dL 70-140 [facility] Potassium [Moles/volume] in Serum or Plasma 3.5 mmol/L 3.4-5.1 [facility] Sodium [Moles/volume] in Serum or Plasma 141 mmol/L 136-145 [facility] Urea nitrogen [Mass/volume] in Serum or Plasma 4 mg/dL 6-20 L [facility] Anion gap 3 in Serum or Plasma 10 mmol/L 8-15 [facility] Osmolality of Serum or Plasma by calculation 289 mosm/kg 275-300 [facility] Creatinine/Urea nitrogen [Mass Ratio] in Serum or Plasma 9 [facility] Calcium [Mass/volume] in Serum or Plasma 8.4 mg/dL 8.6-10.0 L [facility] Glomerular filtration rate/1.73 sq M pre dicted among non-blacks [Volume Rate/Area] in Serum or Plasma by Creatinine-based formula (MDRD) >6 0 [facility] Glomerular filtration rate/1.73 sq M pre dicted among blacks [Volume Rate/Area] in Serum or Plasma by Creatinine-based formula (MDRD) >60 [facility] ID Date Data Source [id number] 09/06/2020 10:25:33 PM [facility] CT HEAD WITHOUT CONTRAST [id number] RESU LTInterpreted by:Qian Daly MBBSCLINICAL INDICATION: sudden headaches. R/o overdrainage from LD TECHNIQUE: Contiguous axial CT images of the head were acquired from the base of the skull to the vertex without intravenous contrast administration. Images were viewed in brain, subdural and bone windows. Coronal and sagittal reformatted images were also obtained. Automated dose lowering techniques and/or adjustment according to patient size were utilized for this exam.COMPARISON: None available at time of dictationFINDINGS: There is no evidence of acute intracranial hemorrhage or large territorial infarct. There is no evidence of edema or midline shift. There are no extra axial fluid collections.The ventricles and cerebral sulci are normal. Basal cisterns and foramen magnum are patent.The imaged paranasal sinuses and mastoid air cells are clear. Calvaria are intact. The imaged portions of orbits are grossly normal.IMPRESSION: No acute intracranial hemorrhage, or other acute intracranial disease process.Addendum by attending: Over the left frontal region there is a dural based calcified lesion measuring approximately 0.7 5.3 cm possibly representing a small meningioma.This document has been electronically signed by Terry Escobedo MD on 09/06/2020 10:23 PM Name Value Range Interpretation Code Description Data Nereida rce(s) Supporting Document(s) ID Date Data Source [id number] 09/06/2020 05:59:04 AM [facility] Name Value Range Interpretation Code Description Data Nereida rce(s) Supporting Document(s) Leukocytes [#/volume] in Blood by Automated count 10.5 10*3/uL 4-10 H [facility] Erythrocytes [#/volume] in Blood by Automated count 3.61 10*6/uL 4.1- 5.3 L [facility] Hemoglobin [Mass/volume] in Blood 11.2 g/dL 11.5-15.5 [facility] Hematocrit [Volume Fraction] of Blood by Automated count 33.3 % 3 6-45 L [facility] Erythrocyte mean corpuscular volume [Entitic volume] by Auto mated count 92.4 fL 80-96 [facility] Erythrocyte mean corpuscular hemoglobin [Entitic mass] by Automated count 31.1 pg 27-33 [facility] Erythrocyte mean corpuscular hemoglobin concentration [Mass/volume] by Automated count 33.7 g/dL 32.0-36.0 [facility] Erythrocyte distribution width [Ratio] by Automated count 12.8 % 11.5-14.5 [facility] Platelets [#/volume] in Blood by Automated count 236 10*3/uL 150-400 [facility] ID Date Data Source [id number] 09/06/2020 06:21:42 AM [facility] Name Value Range Interpretation Code Description Data Nereida rce(s) Supporting Document(s) Bicarbonate [Moles/volume] in Serum 24 mmol/L 22-29 [facility] Chloride [Moles/volume] in Serum or Plasma 107 mmol/L 98-107 [facility] Creatinine [Mass/volume] in Serum or Plasma 0.39 mg/dL 0.50-0.90 L [facility] Glucose [Mass/volume] in Serum or Plasma 95 mg/dL 70-140 [facility] Potassium [Moles/volume] in Serum or Plasma 3.5 mmol/L 3.4-5.1 [facility] Hemolyzed Sodium [Moles/volume] in Serum or Plasma 136 mmol/L 136-145 [facility] Urea nitrogen [Mass/volume] in Serum or Plasma 4 mg/dL 6-20 L [facility] Anion gap 3 in Serum or Plasma 6 mmol/L 8-15 L [facility] Osmolality of Serum or Plasma by calculation 279 mosm/kg 275-300 [facility] Creatinine/Urea nitrogen [Mass Ratio] in Serum or Plasma 11 [facility] Calcium [Mass/volume] in Serum or Plasma 7.9 mg/dL 8.6-10.0 L [facility] Glomerular filtration rate/1.73 sq M pre dicted among non-blacks [Volume Rate/Area] in Serum or Plasma by Creatinine-based formula (MDRD) >6 0 [facility] Glomerular filtration rate/1.73 sq M pre dicted among blacks [Volume Rate/Area] in Serum or Plasma by Creatinine-based formula (MDRD) >60 [facility] ID Date Data Source [id number] 09/05/2020 04:59:36 PM [facility] Name Value Range Interpretation Code Description Data Nereida rce(s) Supporting Document(s) Consultation [facility] ZEPMRy4pReUGJiEc20/LSRlzIEVlk5CwVSvmRQl1UZraQHHlN5AbOIG4pZ0pUAV9MWsVUxEtRrCdHAB0 lbm [file] ICAgICAgICAgICAgICAgICAgICAgICAgICAgICAgIC BfMGUeUMYdBBYxCCFoNZEyXNCiTTFaSMPtTTIbNWJsEPWlFVRpGGLkMSGwXJZwSAFbPHZlSBUhAX3EKT AgICAgICAgICAgICAgICAgICAgICAgICAgICAgICAgICAgICAgICAgICAgICAgICAgICAgICAgICAgIC AgICAgICAgICAgICAgICAgICAgICAgICAgICAgICAg MPOxKIOhVY3QMXSzDXNrSFHhEQMrISTiVHHxXCHaYWIwCDFmXFQjJYClFGQpDQQfZSNzJHLlTRQmSPMz RYNyPWQxHYDqXHNdPEOmXKXcXDBhJKMsHEAbLIUbVTFcDRWrYBSaQUTiHYUfTBKyLM0ASKJpQLLcCFIb ICAgICAgICAgICAgICAgICAgICAgICAgICAgICAgIC AgICAgICAgICAgICAgICAgICAgICAgICAgICAgICAgICAgICAgICAgICAgICAgICAgICAgICAgICAgIA 0KICAgICAgICAgICAgICAgICAgICAgICAgICAgICAgICAgICAgICAgICAgICAgICAgICAgICAgICAgIC AgICAgICAgICAgICAgICAgICAgICAgICAgICAgICAg DNUsJWRwFRAiEX8NLKFlWZMgAIOgVPOxNQChHZLvNZEcPNCrSGSwAGQeJVLlFBXvOOLrPPZvNJFiIEBa LQUbMCFmHMRtXAUnUYFhZFBhYIHgQXBjKNFcPMQgMLPbNNYfWXKbISDyGHQjWUMqKXTdUQ3GZJVlISZd ICAgICAgICAgICAgICAgICAgICAgICAgICAgICAgIC AgICAgICAgICAgICAgICAgICAgICAgICAgICAgICAgICAgICAgICAgICAgICAgICAgICAgICAgICAgIC WgFG2GKFLuEQWtDLOgVOCxNWVqOJTfJBUtVLCmMZIkTGHbDRZkRTCkRDEiOPQnUBUuHMUhKOGeWRUrWC AgICAgICAgICAgICAgICAgICAgICAgICAgICAgICAg KKHwJPBeJFYcYSWcCK8ICEOpMHCmBFVpPXXyISBpNJPhXNYqPYSaPQXaWFFdCEImLMRqDLEzSQJbKYNp TGVnIMCyBKYdFUDhCGGeYWXfIXXwDCUvYRDuSEXoQLKmEHNdQPIhUKZiEMBhSYHzSJRmETOkZG5MAO47 jXJjx0U9ZEOkUD3gpbf/Ba2DXQrerbAjwIWiTZ3SMc CuAL0dae8OAmEaKB4xfm4UMJtPHoQdU3T8tNWqXSSoQNFQYpEqK16yWTszQv71VNgnMZBcApSfOQb2Or 0CRgCwZ0vqSOUjZzV3DGOoQvN0LIQwCcJ2PIDpMjCwFTKoKOBhDBJlZQXPLYF5OKJoNjYsBcOpYJNwPM xhHAASLKAsUEFoClKoAvVaXHPdXY7AGJIhU682fgKc MTANCj4+KPbjdiHsPntXWvZvIZOdg1RlQPm6PD9PMEUmLqfyj0VzUFTmTMWQBExjPQ8LAXP9HJBlRQLk Cg5UBPUfL572bmTuFS3LCl3CFvGiBE9spj2KSUOnWAXfSieZPvn6KSfdAM4XqIImNKeTi70zuHp8lnKh xCIZtWApiwO5VGoxNZScyB1dUpvhCX5xAOChIB33Zo MpXkIiYPL9FCXoBU9aGQmnMX0MBLA9PRqgXJQqNLAvJ2sCUaMvGQVzPPAlfZvjGY2EBrKqY9QmsuHjuR N8UONyIINVJg9+DVeijbPfOhxBQxIfBWRvn5ZjIEf2UJ4OYPLjYCthAZ3IYZZqhW0yPDujHJ2WEuZuYL ZvVBXXDwCdU66kpRPuKCc1E7XaJpUnZFRbRmoiPSSv PDwvTmFtZXMgWyBdDQogID4+ID4+XJxkUH6CYLuxwfPiSKVlLi6SSLRyGGEjAU8oYWLzJAYzE9W3tGws DCCSSaJnU4vomlwqFE1cELHiK869eLuifkAjGHCpWGJqFl8JUCKrOTM2FZZoiICvJyeoAIXGZHrlEZ2F bCArPWX1wM2dBOtiORZvNZLfE1oJBzQtoKhiHT62lJ wgbnVsbCBdDQo+Te2MWL8ag7CsFYy6lwLqKCdtONMbVFheCYGvNHDgSYRzSZI9ANH0PBMYZdZeGQZbIT McFNxjYKKoFGOjpt9APTFsZQC9KrN5XUDiNSHeOMVeZFlkLCUrRQY8Ffk0XPBvCKCxJK7HIkRcEGBaQB EmSWpzBEGxTENjvh5YRYDmDHNaNoutQrNmVUTvTFXy OSquVNBbPYZ8JZYvUPBaWHLzMD4JWdRfTQZpZCeoJHDbLIPyMBXwdm0ERYRrFODpVOE6IiMtWYPkPYPy RSgpBBMkLQGiZxe2AUJuSCMuIL6WUdUpTWJuOJQ8YARvQSDfBEJwry2XFLDrPYPtLIjaNuQsVDCxHIRi FJqqDCCuHVT3WJO1INKsYPFkXQ0VGtIcHUNbCKhiVZ JxBPUhFMAztw9DALSrHWNdAEGpWjUgNZViNPBcOYblFUNjASVoJHX0VOGxXHGrDF9VAeRmVACnHrP1Rd VhANHsSSMces7RRYNcHOFzSwFcNIEcTCSoUYSmMOpsYYDlFYP4KVU7EEHyQXObCM1PPxDtQOPrJlR1Sc VwEBYzABPbpo0BEEKnPHNnEHzsJTImAQUiJQPuVXtx AMGrDGE6NoewJKQjWNHdCU5CSoDeGPEfCvE1LgncWCBuRAPtin0GTBMaAIEeMsIxAbYbXUKqUAKlKCek SJFdOAD6LmFuXFSkIVYtFW5WYdCbHXPzKjypWLYrFBAzHHHobi6SFAIzUOMwDeSlQGHbIVMhPTTjSZcl IUNuCNW9FpsgINQgXEFyNI6IOcIfGQPnVos7ZLIzKY CsMIEfra1VFOGsZVUkFUs4CLOnOQTzVLOmJYktIGMvJYV9UUFgUGPiYGVgQA2BUlMcWOKrXML5HQqzJH UhYLAqxi4QBBViFVC9WWanLBCjDLXyILXgHSukBOExCJXyRTP0YZEhPIXzSS0JYfQbOZFoFHLzEYAkYP VyMUHpdd1WBWDfWTW2BVSuBTVnHTSpVBSfOIvsWYLk NPKjCjdxSCQqUGKgQE2PImYkOCGePUK4NoDdIIBtDINvju9HRTByUZC7CsDtOQWsRDPhSBDpQIfqZALv GTKwPUD1JKKvTEHjEN7OQsMcQSVxUPB8PEUyIQNbJHLuqe5RVHEpSVZ0OUTnQeTtXFCrAHFsXXfoPEHv TFG8MivpPIBfCLKkVN1EMbQqBFjtPMSEStk4XIzzS7 i4BMA3Ma3KM7Bul2ChJEViABKWYNryPF1zdwPuQRTmGr8UH8oEWjolTOA8HUKeVwYsEYPvCek9EQybEb OgXJE2GKQuWVG5It7rWVQfMsXpB7YyPMTqGsKkJde3FEQ3HAH6GqIuZUL6JpjuMtGaVX5RBv5LRnP9II C2xQGlGj0KEJTbNKHPIoTlKL7CWWs= ID Date Data Source [id number] 09/05/2020 03:20:21 PM [facility] Name Value Range Interpretation Code Description Data Nereida rce(s) Supporting Document(s) Consultation [facility] [id number]/BFXoxZYKku6XlFAmdTNu4JOlmIMUtW0NaASG4fJ0sUFZ7PSnFKaPdDvUrPIU3 lbm [file] Cg== ID Date Data Source [id number] 09/05/2020 12:38:18 PM [facility] Value Range Interpretation Code Description Data Nereida rce(s) Supporting Document(s) Glucose [Mass/volume] in Cerebral spinal fluid 61 mg/dL 40-70 [facility] ID Date Data Source [id number] 09/05/2020 12:38:18 PM [facility] Name Value Range Interpretation Code Description Data Nereida rce(s) Supporting Document(s) Protein [Mass/volume] in Cerebral spinal fluid 42 mg/dl 15-45 [facility] ID Date Data Source [id number] 09/05/2020 01:03:52 PM [facility] Value Range Interpretation Code Description Data Nereida rce(s) Supporting Document(s) Color of Cerebral spinal fluid [facility] Erythrocytes [#/volume] in Cerebral spinal fluid by Manual count 381 /uL <2 H [facility] Nucleated cells [#/volume] in Cerebral spinal fluid by Manual count 9 /uL <5 H [facility] Microscopic observation [Identifier] in Cerebral spinal fluid [facility] Cell count and Differential panel - Cerebral spinal fluid [facility] Neutrophils/100 leukocytes in Cerebral spinal fluid 14 % [facility] Monocytes+Macrophages/100 leukocytes in Cerebral spinal fluid 22 % [facility] Lymphocytes/100 leukocytes in Cerebral spinal fluid 64 % [facility] ID Date Data Source [id number] 09/10/2020 12:34:30 PM [facility] Service Cmnt XXX-Imp : NoneGram Stn XXX : 2+WBC'S Seen.No organisms seenSpecimen concentrated prior to staining.Microorganism XXX Cult : No growth 5 days Name Value Range Interpretation Code Description Data Nereida rce(s) Supporting Document(s) ID Date Data Source [id number] 09/05/2020 03:03:36 PM [facility] Value Range Interpretation Code Description Data Nereida rce(s) Supporting Document(s) Bicarbonate [Moles/volume] in Serum 23 mmol/L 22-29 [facility] Chloride [Moles/volume] in Serum or Plasma 100 mmol/L 98-107 [facility] Creatinine [Mass/volume] in Serum or Plasma 0.43 mg/dL 0.50-0.90 L [facility] Glucose [Mass/volume] in Serum or Plasma 135 mg/dL 70-140 [facility] Potassium [Moles/volume] in Serum or Plasma 3.3 mmol/L 3.4-5.1 L [facility] Sodium [Moles/volume] in Serum or Plasma 134 mmol/L 136-145 L [facility] Urea nitrogen [Mass/volume] in Serum or Plasma 4 mg/dL 6-20 L [facility] Anion gap 3 in Serum or Plasma 10 mmol/L 8-15 [facility] Osmolality of Serum or Plasma by calculation 276 mosm/kg 275-300 [facility] Creatinine/Urea nitrogen [Mass Ratio] in Serum or Plasma 8 [facility] Calcium [Mass/volume] in Serum or Plasma 7.9 mg/dL 8.6-10.0 L [facility] Glomerular filtration rate/1.73 sq M pre dicted among non-blacks [Volume Rate/Area] in Serum or Plasma by Creatinine-based formula (MDRD) >6 0 [facility] Glomerular filtration rate/1.73 sq M pre dicted among blacks [Volume Rate/Area] in Serum or Plasma by Creatinine-based formula (MDRD) >60 [facility] ID Date Data Source [id number] 09/05/2020 03:03:36 PM [facility] Name Value Range Interpretation Code Description Data Nereida rce(s) Supporting Document(s) Vancomycin [Mass/volume] in Serum or Plasma --trough 10.0- 20.0 L [facility] ID Date Data Source [id number] 09/05/2020 06:36:13 AM [facility] Name Value Range Interpretation Code Description Data Nereida rce(s) Supporting Document(s) Bicarbonate [Moles/volume] in Serum 22 mmol/L 22-29 [facility] Chloride [Moles/volume] in Serum or Plasma 102 mmol/L 98-107 [facility] Creatinine [Mass/volume] in Serum or Plasma 0.44 mg/dL 0.50-0.90 L [facility] Glucose [Mass/volume] in Serum or Plasma 85 mg/dL 70-140 [facility] Potassium [Moles/volume] in Serum or Plasma 3.7 mmol/L 3.4-5.1 [facility] Hemolyzed Sodium [Moles/volume] in Serum or Plasma 131 mmol/L 136-145 L [facility] Urea nitrogen [Mass/volume] in Serum or Plasma 3 mg/dL 6-20 L [facility] Anion gap 3 in Serum or Plasma 7 mmol/L 8-15 L [facility] Osmolality of Serum or Plasma by calculation 268 mosm/kg 275-300 L [facility] Creatinine/Urea nitrogen [Mass Ratio] in Serum or Plasma 8 [facility] Calcium [Mass/volume] in Serum or Plasma 7.9 mg/dL 8.6-10.0 L [facility] Glomerular filtration rate/1.73 sq M pre dicted among non-blacks [Volume Rate/Area] in Serum or Plasma by Creatinine-based formula (MDRD) >6 0 [facility] Glomerular filtration rate/1.73 sq M pre dicted among blacks [Volume Rate/Area] in Serum or Plasma by Creatinine-based formula (MDRD) >60 [facility] ID Date Data Source [id number] 09/05/2020 05:09:19 AM [facility] Name Value Range Interpretation Code Description Data Nereida rce(s) Supporting Document(s) Leukocytes [#/volume] in Blood by Automated count 11.6 10*3/uL 4-10 H [facility] Erythrocytes [#/volume] in Blood by Automated count 3.69 10*6/uL 4.1- 5.3 L [facility] Hemoglobin [Mass/volume] in Blood 11.6 g/dL 11.5-15.5 [facility] Hematocrit [Volume Fraction] of Blood by Automated count 33.7 % 3 6-45 L [facility] Erythrocyte mean corpuscular volume [Entitic volume] by Auto mated count 91.4 fL 80-96 [facility] Erythrocyte mean corpuscular hemoglobin [Entitic mass] by Automated count 31.4 pg 27-33 [facility] Erythrocyte mean corpuscular hemoglobin concentration [Mass/volume] by Automated count 34.3 g/dL 32.0-36.0 [facility] Erythrocyte distribution width [Ratio] by Automated count 12.7 % 11.5-14.5 [facility] Platelets [#/volume] in Blood by Automated count 291 10*3/uL 150-400 [facility] ID Date Data Source [id number] 09/05/2020 05:34:58 AM [facility] Name Value Range Interpretation Code Description Data Nereida rce(s) Supporting Document(s) Bicarbonate [Moles/volume] in Serum 22-29 [facility] TALKED TO MELANY SMITH RN ON AT 05 34 [id number] BY 1849 Chloride [Moles/volume] in Serum or Plasma 98-107 [facility] Creatinine [Mass/volume] in Serum or Plasma 0.50-0.90 [facility] Glucose [Mass/volume] in Serum or Plasma 70-140 [facility] Potassium [Moles/volume] in Serum or Plasma 3.3-5.1 [facility] Sodium [Moles/volume] in Serum or Plasma 133-145 [facility] Urea nitrogen [Mass/volume] in Serum or Plasma 6-20 [facility] Anion gap 3 in Serum or Plasma 8-15 [facility] Osmolality of Serum or Plasma by calculation 275-300 [facility] Creatinine/Urea nitrogen [Mass Ratio] in Serum or Plasma [facility] Calcium [Mass/volume] in Serum or Plasma 8.6-10.0 [facility] Glomerular filtration rate/1.73 sq M pre dicted among non-blacks [Volume Rate/Area] in Serum or Plasma by Creatinine-based formula (MDRD) >6 0 [facility] Glomerular filtration rate/1.73 sq M pre dicted among blacks [Volume Rate/Area] in Serum or Plasma by Creatinine-based formula (MDRD) >60 [facility] ID Date Data Source [id number] 09/04/2020 05:53:11 AM [facility] Name Value Range Interpretation Code Description Data Nereida rce(s) Supporting Document(s) Bicarbonate [Moles/volume] in Serum 22 mmol/L 22-29 [facility] Chloride [Moles/volume] in Serum or Plasma 106 mmol/L 98-107 [facility] Creatinine [Mass/volume] in Serum or Plasma 0.45 mg/dL 0.50-0.90 L [facility] Glucose [Mass/volume] in Serum or Plasma 66 mg/dL 70-140 L [facility] Potassium [Moles/volume] in Serum or Plasma 3.5 mmol/L 3.4-5.1 [facility] Sodium [Moles/volume] in Serum or Plasma 138 mmol/L 136-145 [facility] Urea nitrogen [Mass/volume] in Serum or Plasma 5 mg/dL 6-20 L [facility] Anion gap 3 in Serum or Plasma 10 mmol/L 8-15 [facility] Osmolality of Serum or Plasma by calculation 281 mosm/kg 275-300 [facility] Creatinine/Urea nitrogen [Mass Ratio] in Serum or Plasma 11 [facility] Calcium [Mass/volume] in Serum or Plasma 7.6 mg/dL 8.6-10.0 L [facility] Glomerular filtration rate/1.73 sq M pre dicted among non-blacks [Volume Rate/Area] in Serum or Plasma by Creatinine-based formula (MDRD) >6 0 [facility] Glomerular filtration rate/1.73 sq M pre dicted among blacks [Volume Rate/Area] in Serum or Plasma by Creatinine-based formula (MDRD) >60 [facility] ID Date Data Source [id number] 09/04/2020 06:28:42 AM [facility] Name Value Range Interpretation Code Description Data Nereida rce(s) Supporting Document(s) Leukocytes [#/volume] in Blood by Automated count 15.4 10*3/uL 4-10 H [facility] Erythrocytes [#/volume] in Blood by Automated count 3.63 10*6/uL 4.1- 5.3 L [facility] Hemoglobin [Mass/volume] in Blood 11.4 g/dL 11.5-15.5 [facility] Hematocrit [Volume Fraction] of Blood by Automated count 33.9 % 3 6-45 L [facility] Erythrocyte mean corpuscular volume [Entitic volume] by Auto mated count 93.3 fL 80-96 [facility] Erythrocyte mean corpuscular hemoglobin [Entitic mass] by Automated count 31.5 pg 27-33 [facility] Erythrocyte mean corpuscular hemoglobin concentration [Mass/volume] by Automated count 33.7 g/dL 32.0-36.0 [facility] Erythrocyte distribution width [Ratio] by Automated count 12.6 % 11.5-14.5 [facility] Platelets [#/volume] in Blood by Automated count 167 10*3/uL 150-400 [facility] Confirmed ID Date Data Source [id number] 09/03/2020 10:09:17 AM [facility] XR FOREARM 2 VIEWS [id number] RESULTInte rpreted by:Harpal Dietrich, MDPROCEDURE INFORMATION: Exam: XR Left Forearm Exam date and time: 09/03/2020 9:07 AM Age: 25 years old Clinical indication: Neoplasm of unspecified behavior of bone, soft tissue, and skin; Other: Left arm pain TECHNIQUE: Imaging protocol: XR Left forearm. Views: 2 views. COMPARISON: O-ARM CT SPINE-CERVICAL W/O IN OR 09/01/2020 8:31 AM FINDINGS: Bones/joints: Normal. Soft tissues: Normal. IMPRESSION: No acute findings. THIS DOCUMENT HAS BEEN ELECTRONICALLY SIGNED BY HARPAL DIETRICH MDThihenry document has been electronically signed by Harpal Dietrich MD on 09/03/2020 10:09 AM Name Value Range Interpretation Code Description Data Nereida rce(s) Supporting Document(s) ID Date Data Source [id number] 09/03/2020 10:08:17 AM [facility] XR HAND 2 VIEWS [id number] RESULTInterpr eted by:CABRERA Roldan INFORMATION: Exam: XR Left Hand Exam date and time: 09/03/2020 9:07 AM Age: 25 years old Clinical indication: Neoplasm of unspecified behavior of bone, soft tissue, and skin; Other: Left arm pain TECHNIQUE: Imaging protocol: XR Left hand. Views: 1 or 2 views. COMPARISON: No relevant prior studies available. FINDINGS: Bones/joints: It is difficult to tell whether an opacity dorsal to the wrist is an old triquetrum fracture or related to the hardware overlying the wrist. There is no acute bone abnormality. Soft tissues: Normal. IMPRESSION: 1. It is difficult to tell whether an opacity dorsal to the wrist is an old triquetrum fracture or related to the hardware overlying the wrist. 2. There is no acute bone abnormality. THIS DOCUMENT HAS BEEN ELECTRONICALLY SIGNED BY HARPAL DIETRICH MDThis document has been electronically signed by Harpal Dietrich MD on 09/03/2020 10:08 AM Name Value Range Interpretation Code Description Data Nereida rce(s) Supporting Document(s) ID Date Data Source [id number] 09/03/2020 10:06:52 AM [facility] XR WRIST 2 VIEWS [id number] RESULTInterp reted by:CABRERA Roldan INFORMATION: Exam: XR Left Wrist Exam date and time: 09/03/2020 9:07 AM Age: 25 years old Clinical indication: Neoplasm of unspecified behavior of bone, soft tissue, and skin; Other: Left arm pain TECHNIQUE: Imaging protocol: XR Left wrist. Views: 1 or 2 views. COMPARISON: No relevant prior studies available. FINDINGS: Bones/joints: There is no acute bone abnormality. Soft tissues: Normal. IMPRESSION: There is no acute bone abnormality. THIS DOCUMENT HAS BEEN ELECTRONICALLY SIGNED BY HARPAL DIETRICH MDThihenry document has been electronically signed by Harpal Dietrich MD on 09/03/2020 10:06 AM Name Value Range Interpretation Code Description Data Nereida rce(s) Supporting Document(s) ID Date Data Source [id number] 09/03/2020 10:06:17 AM [facility] XR ELBOW 2 VIEWS [id number] RESULTInterp reted by:CABRERA Roldan INFORMATION: Exam: XR Left Elbow Exam date and time: 09/03/2020 9:07 AM Age: 25 years old Clinical indication: Neoplasm of unspecified behavior of bone, soft tissue, and skin; Other: Left arm pain TECHNIQUE: Imaging protocol: XR Left elbow. Views: 1 or 2 views. COMPARISON: O-ARM CT SPINE-CERVICAL W/O IN OR 09/01/2020 8:31 AM FINDINGS: Bones/joints: There is no acute bone abnormality. Soft tissues: Normal. IMPRESSION: There is no acute bone abnormality. THIS DOCUMENT HAS BEEN ELECTRONICALLY SIGNED BY HARPAL DIETRICH MDThis document has been electronically signed by Harpal Dietrich MD on 09/03/2020 10:06 AM Name Value Range Interpretation Code Description Data Nereida rce(s) Supporting Document(s) ID Date Data Source [id number] 09/03/2020 10:05:47 AM [facility] XR HUMERUS AP LATERAL [id number] RESULTI nterpreted by:CABRERA Roldan INFORMATION: Exam: XR Left Humerus Exam date and time: 09/03/2020 9:07 AM Age: 25 years old Clinical indication: Neoplasm of unspecified behavior of bone, soft tissue, and skin; Other: Left arm pain TECHNIQUE: Imaging protocol: XR Left humerus Views: 2 or more views. COMPARISON: O-ARM CT SPINE-CERVICAL W/O IN OR 09/01/2020 8:31 AM FINDINGS: Bones/joints: There is no acute bone abnormality. Soft tissues: Normal. IMPRESSION: There is no acute bone abnormality. THIS DOCUMENT HAS BEEN ELECTRONICALLY SIGNED BY HARPAL DIETRICH MDThis document has been electronically signed by Harpal Dietrich MD on 09/03/2020 10:05 AM Name Value Range Interpretation Code Description Data Nereida rce(s) Supporting Document(s) ID Date Data Source [id number] 09/03/2020 10:02:32 AM [facility] XR SHOULDER COMPLETE [id number] RESULTIn terpreted by:Harpal Dietrich MDPROCEDURE INFORMATION: Exam: XR Left Shoulder Exam date and time: 09/03/2020 9:07 AM Age: 25 years old Clinical indication: Neoplasm of unspecified behavior of bone, soft tissue, and skin; Other: Shoulder pain TECHNIQUE: Imaging protocol: XR Left shoulder. Views: 2 or more views. COMPARISON: No relevant prior studies available. FINDINGS: Bones/joints: There is a spine fixation device in the cervical spine with what appears to be bone abnormality the left side of the cervical spine at the level of C7 and this should be correlated to clinical history. In the left shoulder the AC joint is slightly widened but not depressed. No acute bone abnormality in the left shoulder. Soft tissues: Normal. IMPRESSION: 1. There is a spine fixation device in the cervical spine with what appears to be bone abnormality the left side of the cervical spine at the level of C7 and this should be correlated to clinical history. 2. In the left should er the AC joint is slightly widened but not depressed. 3. No acute bone abnormality in the left shoulder. THIS DOCUMENT HAS BEEN ELECTRONICALLY SIGNED BY HARPAL DIETRICH MDThis document has been electronically signed by Harpal Dietrich MD on 09/03/2020 10:02 AM Name Value Range Interpretation Code Description Data Nereida rce(s) Supporting Document(s) ID Date Data Source [id number] 09/03/2020 04:38:33 AM [facility] Name Value Range Interpretation Code Description Data Nereida rce(s) Supporting Document(s) Leukocytes [#/volume] in Blood by Automated count 19.0 10*3/uL 4-10 H [facility] Erythrocytes [#/volume] in Blood by Automated count 4.00 10*6/uL 4.1- 5.3 L [facility] Hemoglobin [Mass/volume] in Blood 12.3 g/dL 11.5-15.5 [facility] Hematocrit [Volume Fraction] of Blood by Automated count 37.2 % 3 6-45 [facility] Erythrocyte mean corpuscular volume [Entitic volume] by Auto mated count 93.1 fL 80-96 [facility] Erythrocyte mean corpuscular hemoglobin [Entitic mass] by Automated count 30.8 pg 27-33 [facility] Erythrocyte mean corpuscular hemoglobin concentration [Mass/volume] by Automated count 33.1 g/dL 32.0-36.0 [facility] Erythrocyte distribution width [Ratio] by Automated count 12.9 % 11.5-14.5 [facility] Platelets [#/volume] in Blood by Automated count 190 10*3/uL 150-400 [facility] ID Date Data Source [id number] 09/03/2020 05:00:16 AM [facility] Name Value Range Interpretation Code Description Data Nereida rce(s) Supporting Document(s) Bicarbonate [Moles/volume] in Serum 25 mmol/L 22-29 [facility] Chloride [Moles/volume] in Serum or Plasma 106 mmol/L 98-107 [facility] Creatinine [Mass/volume] in Serum or Plasma 0.46 mg/dL 0.50-0.90 [facility] Glucose [Mass/volume] in Serum or Plasma 124 mg/dL 70-140 [facility] Potassium [Moles/volume] in Serum or Plasma 3.4 mmol/L 3.4-5.1 [facility] Hemolyzed Sodium [Moles/volume] in Serum or Plasma 140 mmol/L 136-145 [facility] Urea nitrogen [Mass/volume] in Serum or Plasma 5 mg/dL 6-20 L [facility] Anion gap 3 in Serum or Plasma 9 mmol/L 8-15 [facility] Osmolality of Serum or Plasma by calculation 288 mosm/kg 275-300 [facility] Creatinine/Urea nitrogen [Mass Ratio] in Serum or Plasma 10 [facility] Calcium [Mass/volume] in Serum or Plasma 7.5 mg/dL 8.6-10.0 [facility] Glomerular filtration rate/1.73 sq M pre dicted among non-blacks [Volume Rate/Area] in Serum or Plasma by Creatinine-based formula (MDRD) >6 0 [facility] Glomerular filtration rate/1.73 sq M pre dicted among blacks [Volume Rate/Area] in Serum or Plasma by Creatinine-based formula (MDRD) >60 [facility] ID Date Data Source [id number] 09/02/2020 06:25:[address] [facility] CT THORACIC SPINE WITHOUT CONTRAST [id number] FINAL RESULTInterpreted by:PATRICIA Sarahlinical Indication:Post resection of epidural tumor.Multiple axial images were obtained through the cervical spine and thoracic without contrast. Bone windows, and sagittal and coronal reformations were submitted for interpretation. In addition, 3-D reformations were obtained on an independent workstation and archived to PACS. Automated dose lowering techniques and/or adjustment according to patient size were utilized for this exam.Comparison:Outside CT scan dated 08/21 10/22 from [facility].CT CERVICAL AND THORACIC:Compared to the prior study, there have been laminectomies from C4 to T3. Pedicle screws are noted within the bilateral C4 to C6, right T1, and bilateral T2 to T3 vertebral bodies with intervening rods. There is remodeling of the posterior and left neural foramen at C7, unchanged. Air is noted within and around the spinal canal at the C7 level. Bone graft is noted on the left side at C7. A stimulator lead is noted within the posterior spinal canal from C5-6 to T1-T2. Please see report of the postoperative MRIs for this soft tissue findings.The height of the vertebral bodies is within normal limits. Alignment is normal within the cervical region. There is a mild rightward curvature in the midthoracic region.. Disc space height is maintained. There is no evidence of fracture. There is no evidence of spinal or foraminal stenosis. The prevertebral soft tissues are normal.3D REFORMATIONS:3-D reformations from C4 to T3 are degraded by the metallic artifact. Above and below these levels the bones appear normal.Impression: Post cervical and thoracic fusion for resection of tumor.This document has been electronically signed by Yanni Lenz MD on 09/02/2020 6:22 PM Name Value Range Interpretation Code Description Data Nereida rce(s) Supporting Document(s) ID Date Data Source [id number] 09/02/2020 06:25:00 [address] [facility] CT 3D RECON INDEPENDENT [id number] RESUL TInterpreted by:PATRICIA Sarahlinical Indication:Post resection of epidural tumor.Multiple axial images were obtained through the cervical spine and thoracic without contrast. Bone windows, and sagittal and coronal reformations were submitted for interpretation. In addition, 3-D reformations were obtained on an independent workstation and archived to PACS. Automated dose lowering techniques and/or adjustment according to patient size were utilized for this exam.Comparison:Outside CT scan dated 08/21 10/22 from [facility].CT CERVICAL AND THORACIC:Compared to the prior study, there have been laminectomies from C4 to T3. Pedicle screws are noted within the bilateral C4 to C6, right T1, and bilateral T2 to T3 vertebral bodies with intervening rods. There is remodeling of the posterior and left neural foramen at C7, unchanged. Air is noted within and around the spinal canal at the C7 level. Bone graft is noted on the left side at C7. A stimulator lead is noted within the posterior spinal canal from C5-6 to T1-T2. Please see report of the postoperative MRIs for this soft tissue findings.The height of the vertebral bodies is within normal limits. Alignment is normal within the cervical region. There is a mild rightward curvature in the midthoracic region.. Disc space height is maintained. There is no evidence of fracture. There is no evidence of spinal or foraminal stenosis. The prevertebral soft tissues are normal.3D REFORMATIONS:3-D reformations from C4 to T3 are degraded by the metallic artifact. Above and below these levels the bones appear normal.Impression: Post cervical and thoracic fusion for resection of tumor.This document has been electronically signed by Yanni Lenz MD on 09/02/2020 6:22 PM Name Value Range Interpretation Code Description Data Nereida rce(s) Supporting Document(s) ID Date Data Source [id number] 09/02/2020 06:25:[address] [facility] CT CERVICAL SPINE WITHOUT CONTRAST [id number] FINAL RESULTInterpreted by:PATRICIA Sarahlinical Indication:Post resection of epidural tumor.Multiple axial images were obtained through the cervical spine and thoracic without contrast. Bone windows, and sagittal and coronal reformations were submitted for interpretation. In addition, 3-D reformations were obtained on an independent workstation and archived to PACS. Automated dose lowering techniques and/or adjustment according to patient size were utilized for this exam.Comparison:Outside CT scan dated 08/21 10/22 from [facility].CT CERVICAL AND THORACIC:Compared to the prior study, there have been laminectomies from C4 to T3. Pedicle screws are noted within the bilateral C4 to C6, right T1, and bilateral T2 to T3 vertebral bodies with intervening rods. There is remodeling of the posterior and left neural foramen at C7, unchanged. Air is noted within and around the spinal canal at the C7 level. Bone graft is noted on the left side at C7. A stimulator lead is noted within the posterior spinal canal from C5-6 to T1-T2. Please see report of the postoperative MRIs for this soft tissue findings.The height of the vertebral bodies is within normal limits. Alignment is normal within the cervical region. There is a mild rightward curvature in the midthoracic region.. Disc space height is maintained. There is no evidence of fracture. There is no evidence of spinal or foraminal stenosis. The prevertebral soft tissues are normal.3D REFORMATIONS:3-D reformations from C4 to T3 are degraded by the metallic artifact. Above and below these levels the bones appear normal.Impression: Post cervical and thoracic fusion for resection of tumor.This document has been electronically signed by Yanni Lenz MD on 09/02/2020 6:22 PM Name Value Range Interpretation Code Description Data Nereida rce(s) Supporting Document(s) ID Date Data Source [id number] 09/02/2020 05:24:07 PM [facility] MR CERVICAL SPINE WITH AND WITHOUT CONTR AST [id number] RESULTInterpreted by:PATRICIA Sarahlinical indication:C7 tumor resection.Sagittal and axial T1 and T2 weighted images, sagittal STIR images, and post contrast sagittal and axial T1 weighted images were submitted for interpretation.Comparison: MRI of the cervical spine dated 06/09/20 from [facility].Compared to the prior study, there has been laminectomy and placement of posterior fusion hardware from C4 to T3 for resection of the epidural tumor extending from the left C7-T1 neural foramen into the spinal canal. There is no longer cord compression. There is persistent remodeling of the left side of the C7 vertebral body and the left C7-T1 neural foramen.Vertebral body height is normal. The marrow signal intensity is normal. The alignment is normal. There is no disc bulge or protrusion. The spinal canal and neural foramina are patent. The spinal cord is normal in contour and signal intensity. The intervertebral discs are normal in height. There is enhancement of the posterior spinal soft tissues and a fluid collection measuring 1.4 x 2.8 x 5.5 cm extending from C5-6 to T2.Impression:Post resection of epidural tumor with resolution of cord compression. Postoperative changes. No residual tumor identified.This document has been electronically signed by Yanni Lenz MD on 09/02/2020 5:21 PM Name Value Range Interpretation Code Description Data Nereida rce(s) Supporting Document(s) ID Date Data Source [id number] 09/02/2020 05:00:00 AM EST [facility] Name Value Range Interpretation Code Description Data Nereida rce(s) Supporting Document(s) [facility] lab was ordered by [facility] and reported by [facility]. 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[facility] Patient has symptoms related to [facility] When did you start to experience these symptoms [Date and time] [Phen X] [facility] Patient was hospitalized because of this condition [facility] patient was admitted to ICU for [facility] Patient resides in a congregate care setting [facility] status [facility] ID Date Data Source [id number] 09/02/2020 02:11:56 AM [facility] Name Value Range Interpretation Code Description Data Nereida rce(s) Supporting Document(s) Leukocytes [#/volume] in Blood by Automated count 22.9 10*3/uL 4-10 H [facility] Erythrocytes [#/volume] in Blood by Automated count 4.07 10*6/uL 4.1- 5.3 L [facility] Hemoglobin [Mass/volume] in Blood 12.4 g/dL 11.5-15.5 [facility] Hematocrit [Volume Fraction] of Blood by Automated count 37.6 % 3 6-45 [facility] Erythrocyte mean corpuscular volume [Entitic volume] by Auto mated count 92.5 fL 80-96 [facility] Erythrocyte mean corpuscular hemoglobin [Entitic mass] by Automated count 30.5 pg 27-33 [facility] Erythrocyte mean corpuscular hemoglobin concentration [Mass/volume] by Automated count 33.0 g/dL 32.0-36.0 [facility] Erythrocyte distribution width [Ratio] by Automated count 12.9 % 11.5-14.5 [facility] Platelets [#/volume] in Blood by Automated count 225 10*3/uL 150-400 [facility] ID Date Data Source [id number] 09/02/2020 02:16:38 AM [facility] Name Value Range Interpretation Code Description Data Nereida rce(s) Supporting Document(s) Bicarbonate [Moles/volume] in Serum 24 mmol/L 22-29 [facility] Chloride [Moles/volume] in Serum or Plasma 107 mmol/L 98-107 [facility] Creatinine [Mass/volume] in Serum or Plasma 0.66 mg/dL 0.50-0.90 [facility] Glucose [Mass/volume] in Serum or Plasma 139 mg/dL 70-140 [facility] Potassium [Moles/volume] in Serum or Plasma 3.5 mmol/L 3.4-5.1 [facility] Sodium [Moles/volume] in Serum or Plasma 137 mmol/L 136-145 [facility] Urea nitrogen [Mass/volume] in Serum or Plasma 5 mg/dL 6-20 L [facility] Anion gap 3 in Serum or Plasma 6 mmol/L 8-15 L [facility] Osmolality of Serum or Plasma by calculation 284 mosm/kg 275-300 [facility] Creatinine/Urea nitrogen [Mass Ratio] in Serum or Plasma 8 [facility] Calcium [Mass/volume] in Serum or Plasma 8.4 mg/dL 8.6-10.0 L [facility] Glomerular filtration rate/1.73 sq M pre dicted among non-blacks [Volume Rate/Area] in Serum or Plasma by Creatinine-based formula (MDRD) >6 0 [facility] Glomerular filtration rate/1.73 sq M pre dicted among blacks [Volume Rate/Area] in Serum or Plasma by Creatinine-based formula (MDRD) >60 [facility] ID Date Data Source [id number] 09/02/2020 02:16:38 AM [facility] Name Value Range Interpretation Code Description Data Nereida rce(s) Supporting Document(s) Phosphate [Mass/volume] in Serum or Plasma 2.9 mg/dL 2.5-4.5 [facility] ID Date Data Source [id number] 09/02/2020 02:16:38 AM [facility] Name Value Range Interpretation Code Description Data Nereida rce(s) Supporting Document(s) Magnesium [Mass/volume] in Serum or Plasma 1.9 mg/dL 1.6-2.6 [facility] ID Date Data Source [id number] 09/01/2020 07:28:21 PM [facility] O-ARM CT SPINE-CERVICAL W/O IN ORFINAL R ESULTThis statement is intended for documentation purposes only.This exam was performed in the Operating Room by the Surgeon and a Radiologist was not present. Please refer to the Operative note in EPIC. Name Value Range Interpretation Code Description Data Nereida rce(s) Supporting Document(s) ID Date Data Source [id number] 09/01/2020 06:31:04 PM [facility] Name Value Range Interpretation Code Description Data Nereida rce(s) Supporting Document(s) pH of Arterial blood 7.40 7.38-7.44 [facility] Carbon dioxide [Partial pressure] in Arterial blood 35 mmHg 35-40 [facility] Oxygen [Partial pressure] in Arterial blood 280 mmHg 95-100 H [facility] Base excess standard in Arterial blood by calculation [facility] Oxygen saturation Calculated from oxygen partial press ure in Arterial blood 100 % 94-100 [facility] Bicarbonate [Moles/volume] in Arterial blood 23 mmol/L [facility] Sodium [Moles/volume] in Blood 147 mmol/L 136-145 H [facility] Potassium [Moles/volume] in Blood 4.2 mmol/L 3.4-5.1 [facility] Calcium.ionized [Moles/volume] in Blood 1.12 mmol/L 1.13-1.32 L [facility] Glucose [Mass/volume] in Blood 98 mg/dL 70-140 [facility] Hematocrit [Volume Fraction] of Blood 31 % 36-45 L [facility] Hemoglobin [Mass/volume] in Blood by calculation 10.5 g/dL 11.5-15.5 [facility] ID Date Data Source [id number] 09/01/2020 01:10:54 PM [facility] Name Value Range Interpretation Code Description Data Nereida rce(s) Supporting Document(s) pH of Arterial blood 7.38 7.38-7.44 [facility] Carbon dioxide [Partial pressure] in Arterial blood 41 mmHg 35-40 H [facility] Oxygen [Partial pressure] in Arterial blood 288 mmHg 95-100 H [facility] Base excess standard in Arterial blood by calculation [facility] Oxygen saturation Calculated from oxygen partial press ure in Arterial blood 100 % 94-100 [facility] Bicarbonate [Moles/volume] in Arterial blood 26 mmol/L [facility] Sodium [Moles/volume] in Blood 141 mmol/L 136-145 [facility] Potassium [Moles/volume] in Blood 3.8 mmol/L 3.4-5.1 [facility] Calcium.ionized [Moles/volume] in Blood 1.20 mmol/L 1.13-1.32 [facility] Glucose [Mass/volume] in Blood 103 mg/dL 70-140 [facility] Hematocrit [Volume Fraction] of Blood 35 % 36-45 L [facility] Hemoglobin [Mass/volume] in Blood by calculation 11.9 g/dL 11.5-15.5 [facility] ID Date Data Source [id number] 09/01/2020 08:55:07 AM [facility] Name Value Range Interpretation Code Description Data Nereida rce(s) Supporting Document(s) pH of Arterial blood 7.40 7.38-7.44 [facility] Carbon dioxide [Partial pressure] in Arterial blood 36 mmHg 35-40 [facility] Oxygen [Partial pressure] in Arterial blood 215 mmHg 95-100 H [facility] Base excess standard in Arterial blood by calculation [facility] Oxygen saturation Calculated from oxygen partial press ure in Arterial blood 100 % 94-100 [facility] Bicarbonate [Moles/volume] in Arterial blood 23 mmol/L [facility] Sodium [Moles/volume] in Blood 139 mmol/L 136-145 [facility] Potassium [Moles/volume] in Blood 3.6 mmol/L 3.4-5.1 [facility] Calcium.ionized [Moles/volume] in Blood 1.17 mmol/L 1.13-1.32 [facility] Glucose [Mass/volume] in Blood 93 mg/dL 70-140 [facility] Hematocrit [Volume Fraction] of Blood 36 % 36-45 [facility] Hemoglobin [Mass/volume] in Blood by calculation 12.2 g/dL 11.5-15.5 [facility] ID Date Data Source [id number] 09/01/2020 07:33:03 AM [facility] Name Value Range Interpretation Code Description Data Nereida e(s) Supporting Document(s) History and Physical [facility] GIDWDu6dMjZGKwPe28/RCEaiUFAja7WnPLefWSz0IFimGYWrD8UuEOZ5iM2vJFN1JQeYCnDpCiWoNmWy lbm [file] ICAgICAgICAgICAgICAgICAgICAgICAgICAgICAgIC DzUKQmKKOsUSKjKUSyXRNoZRGbRTVzAHLkLJNzXSCcWFSxRT2XGLMmCYFbFHAkLYElRWKsUCReCCXwRC AgICAgICAgICAgICAgICAgICAgICAgICAgICAgICAgICAgICAgICAgICAgICAgICAgICAgICAgICAgIC MrXXXqYWKaWAEbMNLvBAOeZJ1QFGAcFZNjHZDnEWCo ICAgICAgICAgICAgICAgICAgICAgICAgICAgICAgICAgICAgICAgICAgICAgICAgICAgICAgICAgICAg BLLkCRQjBCPyPLLkKNYnQIPbAPVnHZDjISGmOJ9VNLCwIAXrEBEtDONaZQZwGDNoFUSrSHMaEMEuBKIa ICAgICAgICAgICAgICAgICAgICAgICAgICAgICAgIC DkIIYyKTRyCOEqDDKwDHSsOCHsNNRrFAMpMKAxZJCyBIZmVDZbJA2JGJGuYAUlIJFwPLYsTJDzLKVkBR AgICAgICAgICAgICAgICAgICAgICAgICAgICAgICAgICAgICAgICAgICAgICAgICAgICAgICAgICAgIC EmNKJhPTOfDISzKWSuVSPkDSAqWR7TPCFbSNZlKNSy ICAgICAgICAgICAgICAgICAgICAgICAgICAgICAgICAgICAgICAgICAgICAgICAgICAgICAgICAgICAg GTOwUZUnQMChDQBxZHSoRUXjUHWrICHoZUTtVCOyUT1TSERcAIBcUMNkDRTnKVPrLIObLEMiKXOnGOQa ICAgICAgICAgICAgICAgICAgICAgICAgICAgICAgIC KwVLPjZVXjILAtNBBjBQZyIKXoGNHpBHBcERXhTUUsETOdKHMnDDDfMA4TESZzKZHoOJYwWLSpCQIkPS AgICAgICAgICAgICAgICAgICAgICAgICAgICAgICAgICAgICAgICAgICAgICAgICAgICAgICAgICAgIC AnJGZxYRNjJVAuCBNoRNQcVADdYEQcKY1SCNIsQUVj ICAgICAgICAgICAgICAgICAgICAgICAgICAgICAgICAgICAgICAgICAgICAgICAgICAgICAgICAgICAg GJWgLUAfCWVuRHMhMGHaWPQiFQAfDOUtFGEqRCSpITCsGC5EGHTaMFFjOLShGEFdQZDqNECsTRBbCZJc ICAgICAgICAgICAgICAgICAgICAgICAgICAgICAgIC DcOHJaAJWqYTAmLGGvOZTrIMHcJBLtNPAySPMfCHChDODpXIKmKMEtMMVbSW9VXX44wLYvl1L2NMVhHY 0ndyc/Pd1SXSesqbNteRGrWO4YUzYdNL4erd9NDfMaDW6cve8POPlWDoEfF7X1xUMpCQVfZUQVZlCuL8 9eCMwiYm90IHiqAXCiCaSaSQm4Nf9OAuFoJ9chOPGa JuW6IBNqXfO1CKCxEzO7BPSjVsLrRWYmXOTaIL2PMTRuM731rtKoGJ0YTc3IHwKpHS1rdp5BRzZyAJOy AmzKIll2ISxzQM2MhYEfmJViKjRcLWGJXcZrE9msh2HrAfDeWEQYEGfxUT1Dx9MhxVNgYYn+Mt3SRZ8e d2ExUZmaUvLnIJ8lmk4GOFrROiKsB8KbdPrcYYdxTU SalMDFfjOqHA9pSR5kM6gsn2rlq29iXXVCCQMqlHTvRs5wHT1fAAHiQFL4FgEdYTJVLU5PXQPdWWAllO OtCTSuCRJRBK8HNMmyJMV1TPBmppIqrCAsCPtfSY0GFEBaypUbLqXgAVPPCCd+Ut6UDL2fz9MiOFntHo NcYG4ecr4YNNtPAeHaJ9G9jEUrN5V4OMfoGg3PRXSz OLHyLdapZOXFRVlgPF7LRR9ohsH7ZY7FhUAvWZFqHFGcjYSlQVt5L59daWUqXQhiNH2OSKP+Darío+Pg0K CBKxAETcTEKvJlOvYFZPXdRsC6LiU8EUk4QhP4NzOT76hPizdvBbVYzlUT2QSZ0jWMQhATJUUI1NvZLr jQ4gtlUwPQGhPRBIUoIzX55ymVJsDMPiOQZvPJRvPc 3EMERaA5SovgPirFwdvgCoIMCySKMATN3NVFtxljOvhSCqrRsbMB92yUclQR6NGh9TXyWgTW4dbn5LvG AsRj6GKSPsAH8ITGFoEJHdOUFlLLI0UAYvJsJjOQtxNRZcYWQwRXU4GEZkPNGlTB5ISrDpMDLoJmWrVZ GhBTUlQIAzea4XFUEpCIZsMUk9WwXnVGQaEYVvPYip WGWqKLCqNZL2FICnDQXvQL9GLfWuLJVoWBNhTtjsAGJsAMIctt2BSZBsNLNlZxO6LKCqFXVaFQMgKJwx BGAiSNR2LYofYSVbZROnMA8PEuMrEVSdPYL8DEXaEDUiLTFete9FEYZkEUGfRJX9KgCdIQEiINKwUNsh WXLjDBInBLE8SQArNDYhTR5JFyLdXIMjSRCqOtyiKC MkCPTeiw7IODHwNRMjBsS3RsRdUJXqAQKzFOgtHEGaDRTnXuNeDMCeAZCyYK4PKfGoZSNdFWI1WCSfVR XnRDMzzt7NXRKzSFMpAeQ8QnJfUXQdKDItGTqrTCChCUS7DuGuNITjPBIoQJ7QSuFbRSJxLUI2HLWgDB FiYUUhrw4GQDYjMNZbUGCrOjKvOGDhOTZdWNexTKCr IOW0VPneCBNyHCMzDE7PDwDsPVElOGYkSUknRHKrDFGnvg6AEUTmKPPoRcZ5TtHoKAFpKVYrVLtiTDEs KWO4FkN1WZVgBYZeIR8ZNxBoLJYwGrtmZcUaNNTrWRCjmg9VHWTpANHhIQB2YNAiGYYoASUlMDniFIBx WME3FWFyDRJuVCOgQH4CYgSuDCEiWts3WzopWFLrAS Hycx0ZTTWlUCAaXOYcYhDlXLMnOFYsTKerUFSqBGO8CFUuZSEaRMAwPA5ZVnTmMCZfTco5MqdyMZLcBR Lmax4HOKSmRJGxUHRrQiUrLWGmMXMvONscBYXjQKCpCGQ7IVKqQBWqPR4VMlJmZUWhQbQ8QGJiSISjJY Dsas2NWXAcUJEsPyE5ESMhXMQeGEUuKLz1hrDvcWNa PPa3EN3JT5BigdPfRjUOMk4Fp588INNgAWWoPi5HO6nsWz9bFMUzTEMISe8ZEPc5JUCkPqMuVrJwN6Dn YIReJwQjGJYdXbJ0KUM4QopvXKL+XOl6OGPkW4UdNlUwXnBoNLVlPjTuQ2HhAkemWhf5S8KnQP4rRPLO Cj4+XRqvxUHdaOrhDTOPVuZlRwF5MHirPPZKZb2E ID Date Data Source [id number] 09/01/2020 07:05:57 AM [facility] Name Value Range Interpretation Code Description Data Nereida rce(s) Supporting Document(s) Choriogonadotropin.beta subunit free [Units/volume] in Serum or Plasm a <5 [facility] (NOTE)Levels between 5 and 25 [IU]/L may indicate earlypregnancy and should be repeated after 48 hours. ID Date Data Source [id number] 09/01/2020 06:53:37 AM [facility] Name Value Range Interpretation Code Description Data Nereida rce(s) Supporting Document(s) Choriogonadotropin.beta subunit free [Units/volume] in Serum or Plasma 6 [IU]/L <5 H [facility] (NOTE)Levels between 5 and 25 [IU]/L may indicate earlypregnancy and should be repeated after 48 hours. ID Date Data Source [id number] 09/07/2020 06:54:00 PM [facility] Neuropathology ReportName: RANDI JJMRN: [id number] Number: [id number] Date: 09/01/2020 00:00Received Date: 09/01/2020 13:49Physician(s): FRANDY MAY MD GALGANO, MICHAEL A,KENDRICKpecimen(s) ReceivedA: C7 tumor FSB: C7 tumorClinical HistoryC7 tumor. DiagnosisA, B) C7 TUMOR, SPECIMENS #1 AND #2, BIOPSY AND EXCISION: SCHWANNOMA. (See Microscopic Description). /pwsElectronically Signed By Nikita Kay MD; Attending Pathologist 09/07/2020 18:54:50 Intraoperative Consultation TPA/FSA) C7 tumor: Schwannoma. Per Dr. Pierre on 09/01/20.TA/GDR/pmwThe attending pathologist named above attests that he/she has personallyexamined the frozen section preparation and rendered the diagnosis.Gross DescriptionThe specimen is received in two parts.Part A is received fresh for frozen section labeled with the patient'sname "Jeanne Jj" and "C7 tumor". It consists of a toussaint-pink softtissue specimen measuring approximately 0.4 x 0.2 x 0.1 cm. A portion ofthe specimen is used to make two touch preps and half of the specimen issubmitted for frozen section in one block and the thawed remainder issubmitted in one cassette as A1. The unfrozen remainder is submitted inanother cassette as A2.TA/pmwPart B is received in formalin labeled with the patient's name "Erica" and "C7 tumor". It consists of a 2.2 x 1.1 x 1.0 cm darkred-brown firm nodule, along with a 1.1 x 0.9 x 0.9 cm aggregate ofmultiple fragments of toussaint soft tissue. Sectioning of the larger red-brownfragment reveals a semi-solid and semi-cystic cut surface consisting oftan-white friable material surrounded by a rim of red- brown soft tissue. [employer] Technician sections are submitted as follows:B1-2 - high school admissions representative larger red-brown fragmentB3 -high school admissions representative toussaint soft tissue fragmentsKW/pmwMicroscopic DescriptionSections from both specimens show a low- grade spindle cell neoplasm withprominent Verocay bodies and occasional scattered hyalinized bloodvessels. No increased mitotic activity or necrosis is identified. Thespindle cells are positive for S-100 and SOX10 but are negative for EMAand neurofilament. A Ki-67 immunostain, a marker of proliferation,highlights 1 - 5% of the tumor cells. The overall features fit withschwannoma. This report may include one or more immunohistochemical stain results thatuse analyte specific reagents. All positive and negative controls havebeen reviewed by the attending pathologist and are satisfactory. The testswere developed and their performance characteristics determined by [facility] Pathology department. They have not been cleared or approved by the USFood and Drug Administration. The FDA has determined that such clearanceor approval is not necessary. Name Value Range Interpretation Code Description Data Nereida rce(s) Supporting Document(s) ID Date Data Source [id number] 08/29/2020 10:09:46 [facility] Name Value Range Interpretation Code Description Data [facility] rce(s) Supporting Document(s) Progress Note [facility] AFKYWd2sAqGCObIj61/GPEziZHVhz9UlLWimFJv7WCqxHGKoB5JpZCO4gH7fGBV4YSsSAlVlWxWnNeJ6 [facility] [file] AMvpKBDxNQJuZHGrVGtwRrIiHvSfVJ7OLm6VRrR6PAW6sEHoXh6BBJw9MCPMYwTzFB1MKIi= ID Date Data Source [id number] 08/29/2020 09:31:51 PM [facility] Name Value Range Interpretation Code Description Data Nereida rce(s) Supporting Document(s) Specimen source [Identifier] of Unspecified specimen [facility] SARS-CoV-2 RNA 2018 nCoV Real-Time RT-PCR: NOT DETECTED [facility] Assay Performed [facility] Patients first test for condition [facility] 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[facility] Patient has symptoms related to [facility] When did you start to experience these symptoms [Date and time] [Phen X] [facility] Patient was hospitalized because of this condition [facility] patient was admitted to ICU for condition [facility] Patient resides in a congregate care setting [facility] status [facility] ID Date Data Source [id number] 08/29/2020 10:09:00 AM EST [facility] Name Value Range Interpretation Code Description Data Nereida rce(s) Supporting Document(s) SARS-CoV-2 RNA [facility] This lab was ordered by [facility] and reported by [facility]. ID Date Data Source [id number] 08/29/2020 02:02:40 PM [facility] Name Value Range Interpretation Code Description Data Nereida rce(s) Supporting Document(s) Color of Urine [facility] Clarity of Urine [facility] Specific gravity of Urine by Refractometry automated 1.024 1.003 -1.030 [facility] pH of Urine by Automated test strip 6.0 5.0-8.0 [facility] Protein [Mass/volume] in Urine by Automated test strip Neg [facility] Glucose [Mass/volume] in Urine by Automated test strip Neg [facility] Ketones [Mass/volume] in Urine by Automated test strip Neg [facility] Bilirubin.total [Presence] in Urine by Automated test strip Negative [facility] Hemoglobin [Presence] in Urine by Automated test strip Neg [facility] Leukocyte esterase [Presence] in Urine by Automated test strip Negative [facility] Nitrite [Presence] in Urine by Automated test strip Negati [facility] Leukocytes [#/area] in Urine sediment by Automated count 4 /HPF 0 -5 [facility] Erythrocytes [#/area] in Urine sediment by Automated count 3 /HPF 0-3 [facility] Epithelial cells.squamous [#/area] in Urine sediment by Auto mated count 23 /HPF None [facility] Mucus [#/area] in Urine sediment by Microscopy low power field None [facility] ID Date Data Source [id number] 08/29/2020 03:19:46 PM [facility] Name Value Range Interpretation Code Description Data Nereida rce(s) Supporting Document(s) ABO and Rh group [Type] in Blood [facility] Blood group antibody screen [Presence] in Serum or Plasma [facility] Blood bank comment [facility] ID Date Data Source [id number] 08/29/2020 01:33:39 PM [facility] Name Value Range Interpretation Code Description Data Nereida rce(s) Supporting Document(s) Prothrombin time (PT) 13.5 s 12.5-14.9 [facility] INR in Platelet poor plasma by Coagulation assay 1.02 [facility] Routine intensity oral anticoagulation I NR is typically 2.0-3.0. Target INR must be clinically individualized. ID Date Data Source [id number] 08/29/2020 01:33:39 PM [facility] Name Value Range Interpretation Code Description Data Nereida rce(s) Supporting Document(s) aPTT in Platelet poor plasma by Coagulation assay 33.2 s 24.0-33. 0 H [facility] ID Date Data Source [id number] 07/26/2020 10:43:13 AM [facility] Name Value Range Interpretation Code Description Data Nereida rce(s) Supporting Document(s) Progress Note [facility] GHHZXd5dEyMIQyGp94/QCNapYTFba0GuDPtnFPu4OOhsJEXgZ5ReDDY9sZ1hYMV5OUsYQmSaRzMdGJK5 m [file] RiLBL4GcD5YJyfRjKrXD1LMl4QQeH5DMI9xTPqPj3IOwBpIeOMIbZrIP1ADCc= ID Date Data Source [id number] 06/24/2020 12:00:00 AM EDT [facility] Name Value Range Interpretation Code Description Data Nereida rce(s) Supporting Document(s) SARS coronavirus 2 RNA [Presence] in Res piratory specimen by ENA with probe detection [facility] This lab was ordered by [facility] and reported by [facility] [facility] [employer] ID Date Data Source [id number] 06/14/2020 11:43:00 [place] [address] PHONE: [phone] FAX: [phone] Name .................. : MESHA Warnert Number.................. : [id number] ROOM. ................. : MR Number ................... : [id number] Stay type ............. : O/P Discharge Date......... ... : 06/09/20 Admit Date ......... : 06/09/20 Admit Phys .................... : ZOHAIB LAINEZ Date of ....... : 1995 Family Phys ................... : ZOHAIB LAINEZ Phone .................. : [phone] Age ................................ : 25 Film# .................. .:[id number] Sex ................................. : F Unsigned transcriptions are preliminary reports and do not represent a medical or legal document MRI THORACIC SPINE W&W/O CON [id number] COMPLETE:06/09/20 15:26 [facility] [address] (SPINE PROC REASON: HX SPINAL SCHWANNOMA, NUMBN ESS,WEAKNESS MRI OF THE THORACIC SPINE WITH AND WITHOUT CONTRAST: INDICATION: History of cervical schwannoma, numbness and weakness left arm. TECHNIQUE: A total of 8.5 mL of Gadovist was utilized. COMPARISON: No prior examination available for comparison. FINDINGS: Multiple imaging of the thoracic spine submitted for evaluation. There is a small syrinx identified at the T8 level measuring 11 x 3 mm. Enhancing schwannoma identified on the left at C7-T1 level, as seen on the MRI cervical spine. No fracture. Normal kyphosis. Disc heights preserved. Disc signal preserved. IMPRESSION: There is an 11 x 3 mm syrinx identified at the T8 level. No evidence of any significant spinal stenosis or foraminal encroachment involving the thoracic spine. Enhancing schwannoma on the left at C7-T1 level. Normal kyphosis. Normal fracture. Electronically Reviewed and Signed By Manpreet Stapleton MD , 06/14/20 11:43, BARRY Transcribe Initials: AMARILIS , Transcribe Date: 06/09/20 23:40, Dictation Date: Page [address] [facility] [address] [place] [address] PHONE: [phone] FAX: [phone] Name .................. : MESHA Cote Acct Number.................. : [id number] ROOM. ................. : Number ................... : [id number] Stay type ............. : O/P Discharge Date......... ... : 06/09/20 Admit Date ......... : 06/09/20 Admit Phys ..... ............... : ZOHAIB LAINEZ Date of ....... : 1995 Family Phys ................... : ZOHAIB LAINEZ Phone .................. : [phone] Age ................................ : 25 Film# .................. .:[id number] Sex ................................. : F Unsigned transcriptions are preliminary reports and do not represent a medical or legal document MRI THORACIC SPINE W&W/O CON [id number] COMPLETE:06/09/20 15:26 [facility] [address] (SPINE PROC REASON: HX SPINAL SCHWANNOMA, NUMBNESS,WEAKNESS Copy for: ZOHAIB Rutherford Copy for: 710 MED REC Page 2 of 2 Name Value Range Interpretation Code Description Data Nereida rce(s) Supporting Document(s) ID Date Data Source [id number] 06/14/2020 11:41:00 AM EDT [facility] [address] [place] [address] PHONE: [phone] FAX: [phone] Name .................. : MESHA Cote Acct Number.................. : [id number] ROOM. ................. : MR Number ................... : [id number] Stay type ............. : O/P Discharge Date......... ... : 06/09/20 Admit Date ......... : 06/09/20 Admit Phys .................... : ZOHAIB LAINEZ Date of ....... : 1995 Family Phys ................... : [employer] Phone .................. : [phone] Age ................................ : 25 Film# .................. .:[id number] Sex ................................. : F Unsigned transcriptions are preliminary reports and do not represent a medical or legal document MRI CERV SPINE W&W/O CONTRAST [id number] COMPLETE:06/09/20 15:26 [facility] [address] (SPINE PROC REASON: HX SPINAL SCHWANNOMA, NUMBN ESS,WEAKNESS MRI OF THE CERVICAL SPINE WITH AND WITHOUT CONTRAST: INDICATION: Spinal schwannoma, numbness and weakness. COMPARISON: No prior examination available for comparison. TECHNIQUE: A total of 8.5 mL of Gadovist was utilized. FINDINGS: Multiple imaging of the cervical spine was acquired utilizing multiple pulses sequences. Normal cervical lordosis. No fracture to the cervical vertebral bodies. No cerebellar herniation. No abnormal cord signal. There is a left C7-T1 schwannoma measuring 2.2 x 1.6 x 2.7 cm, causing some canal stenosis and foraminal encroachment on the left. Other cervical disc levels are unremarkable. IMPRESSION: Large schwannoma involving the left C7-T1 neural foramina measuring 2.2 x 1.6 x 2.7 cm, causing spinal stenosis and left foraminal encroachment. No abnormal cord signal. Electronically Reviewed and Signed By Manpreet Stapleton MD , 06/14/20 11:41, BARRY Transcribe Initials: AMARILIS , Transcribe Date: 06/09/20 23:35, Dictation Date: Page 1 of 2 [place] [address] PHONE: [phone] FAX: [phone] Name .................. : MESHA Cote Acct Number.................. : [id number] ROOM. ................. : MR Number ................... : [id number] Stay type ............. : O/P Discharge Date......... ... : 06/09/20 Admit Date ......... : 06/09/20 Admit Phys .................... : ZOHAIB LAINEZ Date of ....... : 1995 Family Phys ................... : ZOHAIB LAINEZ Phone .................. : [phone] Age ................................ : 25 Film# .................. .:[id number] Sex ................................. : F Unsigned transcriptions are preliminary reports and do not represent a medical or legal document MRI CERV SPINE W&W/O CONTRAST [id number] COMPLETE:06/09/20 15:26 [facility] [address] (SPINE PROC REASON: HX SPINAL SCHWANNOMA, NUMBNESS,WEAKNESS Copy for: ZOHAIB Rutherford Copy for: [facility] REC Page 2 of 2 Name Value Range Interpretation Code Description Data Nereida rce(s) Supporting Document(s) Procedure Social History Code Duration Value Status Description Data Source(s ) Alcohol intake 04/04/2021 12:00:00 AM EDT Current drinker of al cohol (finding) completed Current drinker of alcohol (finding) [facility] Tobacco use and exposure 04/04/2021 12:00:00 AM EDT Never used co mpleted Never used [facility] Smoking 04/04/2021 12:00:00 AM EDT Never smoker completed Never s [facility] Alcohol intake 09/20/2020 12:00:00 AM EST Ex-drinker (finding) comp leted Ex- drinker (finding) [facility] Alcohol intake 09/01/2020 12:00:00 AM EST Ex-drinker (finding) comp leted Ex- drinker (finding) [facility] Alcohol intake 08/29/2020 12:00:00 AM EST Ex-drinker (finding) comp leted Ex- drinker (finding) [facility] Vital Signs ID Date Data Source UNK Name Value Range Interpretation Code Description Data Source(s) Body surface area Derived from formula 2.00 m2 2.00 m2 [facility] ([facility]) Body mass index (BMI) [Ratio] 30.7 kg/m2 30.7 k g/m2 [facility] Body height 67 [in_i] 67 [in_i] [facility] ([facility]) 5'7" Body weight 88.906 kg 88.906 kg [facility] ([facility]) Body weight 196.00 [lb_av] 196.00 [lb_av] [facility] T ([facility]) Oxygen saturation in Arterial blood by Pulse oximetry 97 % 97 % [facility] Respiratory rate 16 /min 16 /min [facility] ( [facility]) Body temperature 97.7 [degF] 97.7 [degF] [facility] ([facility]) Heart rate 86 /min 86 /min [facility] ([facility]) Diastolic blood pressure 80 mm[Hg] 80 mm[Hg] [facility] ([facility]) Systolic blood pressure 124 mm[Hg] 124 mm[Hg] M [facility] ([facility]) ID Date Data Source [id number] 12/09/2020 03:25:31 PM [facility] Name Value Range Interpretation Code Description Data Source(s) WEIGHT RECORDED 194 lb 194 lb [facility] Body height Measured 67.91 in 67.91 in [facility] ID Date Data Source [id number] 09/13/2020 02:44:34 PM [facility] Value Range Interpretation Code Description Data Source(s) WEIGHT RECORDED 194.9 lb 194.9 lb [facility] TRANSFER FROM [facility] ID Date Data Source [id number] 09/10/2020 12:34:38 PM [facility] Value Range Interpretation Code Description Data Source(s) WEIGHT RECORDED 203.04 lb 203.04 lb [facility] Body height Measured 67.91 in 67.91 in [facility] WEIGHT RECORDED 203 lb 203 lb [facility] ID Date Data Source [id number] 08/29/2020 03:19:56 PM [facility] Value Range Interpretation Code Description Data Source(s) WEIGHT RECORDED 200.62 lb 200.62 lb [facility] Body height Measured 67.91 in 67.91 in [facility] Patient Treatment Plan of Care Planned Activity Planned Date Details Description Data Source (s) gabapentin 400 MG Oral Capsule 11/16/2020 12:00:00 AM [facility] gabapentin 400 MG Oral Capsule 11/08/2020 12:00:00 AM [facility] Albuterol Sulfate HFA 108 (90 Base) MCG/ ACT Inhalation Aerosol Solution (Ventolin HFA) 09/13/2020 12:00:00 AM [facility] 24 HR venlafaxine 150 MG Extended Release Oral Capsule 09/13/2020 12:00:00 AM [facility] Magnesium Hydroxide 80 MG/ML Oral Suspension 09/12/2020 12:00:00 AM [facility] Methocarbamol 500 MG Oral Tablet 09/12/2020 12:00:00 AM [facility] Oxycodone Hydrochloride 5 MG Oral Tablet 09/12/2020 12:00:00 AM [facility] Cephalexin 500 MG Oral Capsule 09/12/2020 12:00:00 AM [facility] sennosides, MCFP 8.6 MG Oral Tablet 09/12/2020 12:00:00 AM [facility] Acetaminophen 325 MG Oral Tablet 09/12/2020 12:00:00 AM [facility] Bisacodyl 10 MG Rectal Suppository 09/12/2020 12:00:00 AM [facility] gabapentin 400 MG Oral Capsule 09/12/2020 12:00:00 AM [facility] POLYETHYLENE GLYCOL 3350 142 MG/ML Oral Solution 09/10/2020 11:15:0 0 AM [facility] Bisacodyl 10 MG Rectal Suppository 09/10/2020 11:15:00 AM [facility] Magnesium Hydroxide 80 MG/ML Oral Suspension 09/09/2020 08:15:00 AM [facility] Bisacodyl 10 MG Rectal Suppository 09/09/2020 12:00:00 AM [facility] heparin (porcine) 5000 UNIT/ML injection 5,000 Units 09:00:00 PM [facility] albuterol (PROVENTIL HFA) inhaler 2 puff 09/08/2020 03:27:11 PM [facility] Ondansetron 4 MG Oral Tablet 09/08/2020 03:26:21 PM [facility] fluticasone (FLONASE) 50 MCG/ACT nasal spray 1 spray 03:26:21 PM [facility] Calcium Carbonate 500 MG Chewable Tablet 09/08/2020 12:00:00 AM [facility] Acetaminophen 325 MG Oral Tablet 09/08/2020 12:00:00 AM [facility] Carisoprodol 350 MG Oral Tablet 09/08/2020 12:00:00 AM [facility] Docusate Sodium 100 MG Oral Capsule 09/08/2020 12:00:00 AM [facility] gabapentin 300 MG Oral Capsule 09/08/2020 12:00:00 AM [facility] Heparin Sodium (Porcine) 5000 UNIT/ML Injection Soluti on 09/08/2020 12:00:00 AM [facility] Oxycodone Hydrochloride 5 MG Oral Tablet 09/08/2020 12:00:00 AM [facility] Oxycodone Hydrochloride 5 MG Oral Tablet 09/08/2020 12:00:00 AM [facility] sennosides, MCFP 8.6 MG Oral Tablet 09/08/2020 12:00:00 AM [facility] Prochlorperazine 5 MG/ML Injectable Solution 09/03/2020 07:13:09 AM [facility] fluticasone (FLONASE) 50 MCG/ACT nasal spray 1 spray 020 11:00:52 PM [facility] sennosides, MCFP 35.2 MG/ML Oral Solution 09/01/2020 11:00:13 PM [facility] 24 HR venlafaxine 150 MG Extended Release Oral Capsule [facility] Albuterol Sulfate HFA 108 (90 Base) MCG/ ACT Inhalation Aerosol Solution (Ventolin HFA) [facility]
[2021-06-25] MEDS ORDERED: GABA-1171 PO (00:09)
[2021-06-25] MEDS ORDERED: EFFE75CA2 PO (00:09)
[2021-06-25] MEDS ORDERED: ALBU8.5H INH (00:09)
[2021-06-25] MEDS ORDERED: VYVA20CA PO (00:09)
--- OUTSIDE RECORDS SUMMARY | 2021-06-25 01:32 | CCD ---
Author Author [facility] Organization [facility] Address Unknown Phone Unavailable Care Team Providers Care Supervisor Fusing Room Name Role Phone Jona Womack MD Unavailable [...] Jona Summers MD Unavailable Unavailable Shanta, Jona Summres MD Unavailable Unavailable Shanta, Jona Summers MD [...] Shanta, Jona Summers MD Unavailable Unavailable Koutalianos, Osage Unavailable Koutalianos, Osage Unavailable Koutalianos, Owen Unavailable Koutalianos, Owen Unavailable Koutalianos, Osage Unavailable Koutalianos, Owen Unavailable Koutalianos, Osage Unavailable Sin, M Jj PA Unavailable Unavailable [...] is protected by Article 27-F of the [facility] Public Health law. If you continue you may have access to information: Regarding HIV / AIDS; Provided by facilities licensed or operated by the [facility] Office of Mental Health; or Provided by the [facility] Office for People With Developmental Disabilities. If such information is present, then the following [facility] mandated warning applies: This information has been [...] law may result in a fine or senior care sentence or both. A general authorization for the release of medical or other information is NOT sufficient authorization for further disc losure. Allergies and Adverse Reactions Type Description Substance Reaction Status Data Source(s ) Propensity to adverse reactions IODINATED DIAGNOSTIC AGENTS IODINATED DIAGNOSTIC AGENTS Sob High Itching [facility] Drug allergy DEXMETHYLPHENIDATE HCL DEXMETHYLPHENIDATE HCL [facility] Drug allergy AMPHETAMINE-DEXTROAMPHETAMINE AMPHETAMINE-DEXTRO AMPHETAMINE [facility] Encounters Encounter Providers Location Date Indications Data Source(s ) Outpatient Attender: FRANDY MAY MD 08/29/2021 12:00:0 0 AM [facility] Outpatient Attender: Kellee Isaacs MD 1 03:33:45 PM EDT - 06/22/2021 04:51:18 PM EDT [facility] ([facility]) Outpatient Attender: FRANDY MAY MD [id number] [facility] OWEN GARCIA MDAttender: Owen WhitlocksReferrer: Fina UGALDE [facility]02[facility] Tres UGALDE 04/15/20 21 10:35:56 AM EDT - 04/15/2021 11:04:47 AM EDT [facility] ([facility] ) Outpatient Attender: FRANDY MAY MD [id number] 10/2020 12:00:00 AM EDT - 04[facility]04[facility]2021 [facility]: ESTELA ACUÑA MD 04/04/2021 12:0 0:00 AM [facility] Outpatient Attender: FRANDY MAY MD [id number] 09/2020 12:00:00 AM EDT - 01/31/2021 01:07:04 PM EDT [facility] nerves and autonomic nervous system, unspecified Outpatient Referrer: FRANDY MAY MD 01/17/2021 1 2:00:00 AM EDT Benign neoplasm of peripheral nerves and autonomic nervous system, [facility] Benign neoplasm of peripheral nerves and autonomic nervous system, unspecified Outpatient Attender: FRANDY MAY MD [id number] 11/08/2020 1 2:00:00 AM EST Benign neoplasm of peripheral nerves and autonomic nervous system, [facility] Benign neoplasm of peripheral nerves and autonomic nervous system, unspecified Outpatient Attender: FRANDY MAY MD 11/01/2020 12:00:0 0 AM [facility] Outpatient Attender: Tres UGALDE 10/19/19 01:47:02 PM EST - 10/19/2020 02:32:57 PM EST [facility] ([facility] ) Outpatient Attender: FRANDY MAY MD 10/18/2020 12:00:0 0 AM [facility] Outpatient Attender: FRANDY MAY MD 09/27/2020 12:00:0 0 AM [facility] Outpatient Attender: Magui Sin MD 09/26/2020 12:00:00 AM [facility] Outpatient 09/26/2020 12:00:00 AM [facility] Outpatient Referrer: Fina UGALDE 09/20/2020 12:23 :43 PM EST Shortness of breath [facility] Shortness of breath Outpatient Attender: FRANDY MAY MD [id number] 12:00:00 AM EST - 09/20/2020 12:29:45 PM EST Benign neoplasm of peripheral nerves and autonomic nervous system, unspecified [facility] Benign neoplasm of peripheral nerves and autonomic nervous system, unspecified Inpatient Attender: Kristopher Womack MDAdm itter: Kristopher Womack MDConsultant: Kristopher Womack MD [id number] 09/08/2020 12:00:00 AM EST - 09/13/2020 11:57:00 AM EST Cervical Spine Tumor [facility] Cervical Spine Tumor Patient discharged. Outpatient Attender: TANNER UGALDE 09/05/2020 12:00:00 AM [facility] Outpatient 09/05/2020 12:00:00 AM [facility] Inpatient Attender: [facility]Y [facility]: FRANDY VORA MD [id number] 09/01/2020 12:00:00 AM EST - 09/08/2020 12:00:00 AM EST Neoplasm of unspecified behavior of bone, soft tissue, and skin [facility] Neoplasm of unspecified behavior of bone , soft tissue, and skin Patient discharged. Outpatient Attender: CHON Shavererrer: FRANDY HACKETT MD [id number] 08/29/2020 12:00:00 AM [facility] Outpatient Attender: TANNER Moreiraerrer: FRANDY WHITLEY MD 08/29/2020 12:00:00 AM EST Benign neoplasm of peripheral nerves and autonomic nervous system, unspecified [facility] Benign neoplasm of peripheral nerves and autonomic nervous system, unspecified Outpatient Attender: FRANDY MAY MD [id number] 07/26/2020 1 2:00:00 AM EST Benign neoplasm of peripheral nerves and autonomic nervous system, unspecified [facility] Benign neoplasm of peripheral nerves and autonomic nervous system, unspecified Outpatient Attender: Jj UGALDE 07/18 02:05:00 PM EST - 07/18/2020 02:05:00 PM EST [facility] Outpatient Attender: VICENTE MENDEZonsultant: VICENTE PENNY 06/09/2020 01:15:00 PM EDT - 06/09/2020 02:15:00 PM EDT [facility] Immunizations Vaccine Date Status Description Data Source(s) COVID-19 VACCINE Pfizer 05/22/2021 12:00:00 AM EDT completed [facility] Vaccine Series Complete: YESThis Data wa s Submitted to [facility] Via [employer]. COVID-19 VACCINE Pfizer 04/24/2021 12:00:00 AM EDT completed [facility] Vaccine Series Complete: NOThis Data was Submitted to [facility] [employer]. Medications Medication Brand Name Start Date Product Form Dose Route Admi nistrative Instructions Pharmacy Instructions Status Indications Reaction Description Data Source(s) gabapentin 400 MG Oral Capsule Gabapentin 400 MG Oral Capsule (Neurontin) Gabapentin 400 MG Oral Capsule (Neurontin) 11/16/2020 12:00:00 AM EDT 400 mg Oral active Take 1 capsule by [facility] Three times daily [facility] gabapentin 400 MG Oral Capsule Gabapentin 400 MG Oral Capsule (NEURONTIN) Gabapentin 400 MG Oral Capsule (NEURONTIN) 11/08/2020 12:00:00 AM EST 400 mg Oral active Take 1 capsule by [facility] Three times daily [facility] 24 HR venlafaxine 150 MG Extended Releas e Oral Capsule Venlafaxine HCl ER 150 MG Oral Capsule Extended Release 24 Hour (EFFEXOR-XR) Venlafaxine HCl ER 150 MG Oral Capsule Extended Release 24 Hour (EFFEXOR-XR) 09/13/2020 12:00:00 AM EST 150 mg Oral active Take 1 capsule by mouth every morning [facility] Albuterol Sulfate HFA 108 (90 Base) MCG/ ACT Inhalation Aerosol Solution (Ventolin HFA) [id number] 09/13/2020 12:00:00 AM EST 2 {puff} Inhal ation active Inhale 2 puffs i nto the lungs every 6 (six) hours as needed for Wheezing [facility] Cephalexin 500 MG Oral Capsule cephALEXin (KEFLEX) cap miller 500 mg cephALEXin (KEFLEX) capsule 500 mg 09/12/2020 05:00:00 PM EST 500 mg Oral active 500 mg, Oral, Three Times Daily Standard, First dose on Sat09/12/20 at 1700, For 7 days [facility] Medication administered onsite gabapentin 400 MG Oral Capsule Gabapentin 400 MG Oral Capsule (NEURONTIN) Gabapentin 400 MG Oral Capsule (NEURONTIN) 09/12/2020 12:00:00 AM EST 400 mg Oral aborted Take 1 capsule by [facility] Three times daily [facility] Bisacodyl 10 MG Rectal Suppository Bisac odyl 10 MG Rectal Suppository (DULCOLAX) Bisacodyl 10 MG Rectal Suppository (DULCOLAX) 09/12/2020 12:00:0 0 AM EST [address] 1 grewal ppository rectally daily as needed for Constipation for up to 10 days [facility] Oxycodone Hydrochloride 5 MG Oral Tablet oxyCODONE HCl 5 MG Oral Tablet (ROXICODONE) oxyCODONE HCl 5 MG Oral Tablet (ROXICODONE) 09/12/2020 12:00:00 AM EST 5 mg Oral active Take 1 t ablet by mouth daily as needed for up to 5 days, Max Daily Dose: 5 mg [facility] Methocarbamol 500 MG Oral Tablet Methocarbamol 500 MG Oral Tablet (ROBAXIN) Methocarbamol 500 MG Oral Tablet (ROBAXIN) 09/12/2020 12:00:00 AM EST 500 mg Oral active [facility] daily as needed [facility] Magnesium Hydroxide 80 MG/ML Oral Suspen isamar Magnesium Hydroxide 400 MG/5ML Oral Suspension (MILK OF MAGNESIA) Magnesium Hydroxide 400 MG/5ML Oral Susp ension (MILK OF MAGNESIA) 09/12/2020 12:00:00 AM EST 45 mL Oral active Take 45 mLs by mouth nightly as needed for Constipation for up to 10 days [facility] Cephalexin 500 MG Oral Capsule Cephalexin 500 MG Oral Capsule (KEFLEX) Cephalexin 500 MG Oral Capsule (KEFLEX) 09/12/2020 12:00:00 AM EST 500 mg Oral active Take 1 capsule by [facility] Three times daily for 6 days [facility] Acetaminophen 325 MG Oral Tablet Acetaminophen 325 MG Oral T ablet 09/12/2020 12:00:00 AM EST 975 mg Oral active Take 3 tablets by mouth every 8 (eight) hours [facility] sennosides, FPC 8.6 MG Oral Tablet Senna 8.6 MG Oral T ablet Senna 8.6 MG Oral Tablet 09/12/2020 12:00:00 AM EST 2 {tbl} Oral active Take 2 tablets by mouth nightly [facility] gabapentin 400 MG Oral Capsule gabapentin (NEURONTIN) capsule 400 mg gabapentin (NEURONTIN) capsule 400 mg 09/10/2020 02:00:00 PM EST 400 mg Oral active 400 mg, Oral, Three Times D aily Standard, First dose (after last modification) on 09/10/20 at 1400, For 15 doses [facility] Medication administered onsite POLYETHYLENE GLYCOL 3350 [id number] [...] due to potential increased risk for aspiration.
[facility] Medication administered onsite Bisacodyl 10 MG Rectal Suppository bisacodyl (DULCOLAX ) suppository 10 mg bisacodyl (DULCOLAX) suppository 10 mg 09/10/2020 11:15:00 AM EST 10 mg Rectal active 10 mg, Rectal, Daily PRN, Constipation, Starting 09/10/20 at 1115, For 30 doses
Hold if patient has had BM within the past 2 days.
[facility] Medication administered onsite 24 HR venlafaxine 150 MG Extended Releas e Oral Capsule venlafaxine (EFFEXOR-XR) 24 hr capsule 150 mg venlafaxine (EFFEXOR-XR) 24 hr capsule 150 mg 09/09/19 09:00:00 AM EST 150 mg Oral active 150 mg, Oral, Every morning, First dose (after last modification) on 09/09/20 at 0900, For 23 doses
Do not crush or chew
[facility] Medication administered onsite Magnesium Hydroxide 80 MG/ML Oral Suspen isamar magnesium hydroxide (MILK OF MAGNESIA) 400 MG/5ML suspension 45 mL magnesium hydroxide (MILK OF MAGNESIA) 4 00 MG/5ML suspension 45 mL 09/09/2020 08:15:00 AM EST 45 mL Oral active 45 mL, Oral, Nightly PRN, Constipation, Starting Sat09/09/20 at 0815, For 720 hours
If serum creatinine > 2 notify provider before administering.
[facility] Medication administered onsite Bisacodyl 10 MG Rectal Suppository Bisac odyl 10 MG Rectal Suppository (DULCOLAX) Bisacodyl 10 MG Rectal Suppository (DULCOLAX) 09/09/2020 12:00:0 0 AM EST [address] 1 suppository rect ally daily for 10 days [facility] sennosides, FPC 8.6 MG Oral Tablet senna tablet 2 tablet sen na tablet 2 tablet 09/08/2020 10:00:00 PM EST 2 {tbl} Oral active 2 tablet, Oral, Nightly, First dose (after last modification) on [facility] 09/08/20 at 2200, For 27 doses [facility] Medication administered onsite heparin (porcine) 5000 UNIT/ML injection 5,000 Units [id number] 09/08/2020 09:00:00 PM EST 5000 U Subcutaneous active 5,000 Units, Subcutaneous, 2 Times Daily, First dose (after last modification) on [facility] 09/08/20 at 2100, For 50 doses [facility] Medication administered onsite Acetaminophen 325 MG Oral Tablet acetaminophen (TYLENO L) tablet 975 mg acetaminophen (TYLENOL) tablet 975 mg 09/08/2020 08:15:00 PM EST 97 5 mg Oral active 975 mg, Oral, E very 8 hours, First dose (after last modification) on [facility] 09/08/20 at 2015, For 95 doses
Maximum daily dose of acetaminophen is 3,000 mg from all sources in 24 hours.
[facility] Medication administered onsite gabapentin 300 MG Oral Capsule gabapentin (NEURONTIN) capsule 300 mg gabapentin (NEURONTIN) capsule 300 mg 09/08/2020 05:00:00 PM EST 300 mg Oral aborted 300 mg, Oral, Three Times D aily Standard, First dose (after last modification) on [facility] 09/08/20 at 1700, For 15 doses [facility] Medication administered onsite Methocarbamol 500 MG Oral Tablet methocarbamol (ROBAXI N) tablet 500 mg methocarbamol (ROBAXIN) tablet 500 mg 09/08/2020 04:27:27 PM EST 50 0 mg Oral active 500 mg, Oral, F our Times Daily-PRN, Muscle spasms, Starting [facility] 09/08/20 at 1627, For 30 days [facility] Medication administered onsite potassium chloride (K-DUR) dissolvable tablet 40 mEq [id number] 09/08/2020 03:45:00 PM EST 40 meq Oral completed 40 mEq, Oral, 2 Times Daily, First dose on [facility] 09/08/20 at 1545, For 2 doses
May be dissolved in water for patients with a G-Tube or unable to swallow
[facility] Medication administered onsite albuterol (PROVENTIL HFA) inhaler 2 puff [id number] 09/08/2020 03:27:11 PM EST 2 {puff} Inhalation active 2 pu ff, Inhalation, Every 6 hours PRN, Wheezing, Starting [facility] 09/08/20 at 1527, For 6 days 16 hours
Shake the inhaler well before each spray.
[facility] Medication administered onsite oxyCODONE (ROXICODONE) immediate release tablet 10 mg 09/08/2020 03:26:37 PM EST 10 mg Oral active [Order 1 Start] Name: oxyCODONE (ROXICODONE) immediate release tablet 10 mg Signed Summary: 10 mg, Oral, Every 4 hours PRN, Severe Pain (Pain Scale Score 7-10), Starting [facility] 09/08/20 at 1526, For 6 days 17 hours
Oxycodone immediate release is limited to 10 mg per dose. Higher doses ([facility] only) require Pain Service consultation and approval.
[Order 1 End] [Order 2 Start] Name: oxyCODONE (ROXICODONE) immediate release tablet 5 mg Signed Summary: 5 mg, Oral, Every 4 hours PRN, Moderate Pain (Pain Scale Score 4-6), Starting [facility] 09/08/20 at 1526, For 6 days 17 hours
Oxycodone immediate release is limited to 10 mg per dose. Higher doses ([facility] only) require Pain Service consultation and approval.
[Order 2 End] [facility] Medication administered onsite Ondansetron 4 MG Oral Tablet ondansetron (ZOFRAN) tabl et 4 mg ondansetron (ZOFRAN) tablet 4 mg 09/08/2020 03:26:21 PM EST 4 mg Oral active 4 mg, Oral, Every 8 hours PRN, Nausea, Vomiting, Starting Krista 09/08/20 at 1526, For 30 days [facility] Medication administered onsite fluticasone (FLONASE) 50 MCG/ACT nasal spray 1 spray [id number] 09/08/2020 03:26:21 PM EST 1 {spray} Nasal active 1 spray, Nasal, Three Times Daily-PRN, Other, Runny nose, Starting [facility] 09/08/20 at 1526, For 6 days 16 hours
Shake well before use
[facility] Medication administered onsite alginic acid 200 MG / Calcium Carbonate 80 MG / magnesium trisilicate 20 MG / Sodium Bicarbonate 70 MG Oral Tablet calcium carbonate (TUMS) chewable tablet 500 mg calcium carbonate (TUMS) chewable tablet 500 mg 2020 03:26:20 PM EST 500 mg Oral active 500 mg, Oral, Three Times Daily-PRN, Indigestion, Heartburn, Starting [facility] 09/08/20 at 1526, For 26 days [facility] Medication administered onsite Acetaminophen 325 MG Oral Tablet Acetaminophen 325 MG Oral T ablet 09/08/2020 12:00:00 AM EST 975 mg Oral aborted Take 3 tablets by mouth every 8 (eight) hours for 10 days [facility] Calcium Carbonate 500 MG Chewable Tablet Calcium Carbonate Antacid 500 MG Oral Tablet Chewable (TUMS) Calcium Carbonate Antacid 500 MG Oral Ta blet Chewable (TUMS) 09/08/2020 12:00:00 AM EST 500 mg Oral active Chew 1 tablet by Mouth Three times daily as needed [facility] Carisoprodol 350 MG Oral Tablet Carisoprodol 350 MG Or al Tablet (SOMA) Carisoprodol 350 MG Oral Tablet (SOMA) 09/08/2020 12:00:00 AM EST 3 50 mg Oral aborted Take 1 tablet b y mouth Three times daily as needed for up to 10 days, Max Daily Dose: 1,050 mg [facility] Docusate Sodium 100 MG Oral Capsule Docu sate Sodium 100 MG Oral Capsule (COLACE) Docusate Sodium 100 MG Oral Capsule (COLACE) 09/08/2020 12:00:00 AM EST 100 mg Oral aborted Take 1 capsule by mouth Two Times Daily for 10 days [facility] gabapentin 300 MG Oral Capsule Gabapentin 300 MG Oral Capsule (NEURONTIN) Gabapentin 300 MG Oral Capsule (NEURONTIN) 09/08/2020 12:00:00 AM EST 300 mg Oral aborted Take [address] [facility] Three times daily [facility] Heparin Sodium (Porcine) 5000 UNIT/ML Injection Solution [id number] 09/08/2020 12:00:00 AM EST 5000 U Subcutaneous aborted Inject 1 mL into the skin Two Times Daily [facility] Oxycodone Hydrochloride 5 MG Oral Tablet oxyCODONE HCl 5 MG Oral Tablet (ROXICODONE) oxyCODONE HCl 5 MG Oral Tablet (ROXICODONE) 09/08/2020 12:00:00 AM EST 10 mg Oral aborted Take 2 t ablets by mouth every 4 (four) hours as needed for up to 3 days, Max Daily Dose: 60 mg [facility] Oxycodone Hydrochloride 5 MG Oral Tablet oxyCODONE HCl 5 MG Oral Tablet (ROXICODONE) oxyCODONE HCl 5 MG Oral Tablet (ROXICODONE) 09/08/2020 12:00:00 AM EST 5 mg Oral aborted Take 1 t ablet by mouth every 4 (four) hours as needed for up to 3 days, Max Daily Dose: 30 mg [facility] sennosides, FPC 8.6 MG Oral Tablet Senna 8.6 MG Oral T ablet Senna 8.6 MG Oral Tablet 09/08/2020 12:00:00 AM EST 2 {tbl} Oral aborted Take 2 tablets by mouth nightly [facility] Cephalexin 250 MG Oral Capsule cephalexin (KEFLEX) cap miller 500 mg cephalexin (KEFLEX) capsule 500 mg 09/07/2020 12:00:00 PM EST 500 mg Oral aborted 500 mg, Oral, Every 6 hours Standard (4 times per day), First dose on Sat09/07/20 at 1200, For 5 days [facility] Medication administered onsite magnesium sulfate in dextrose 5 % infusion (premix) 1 g [id number] 09/06/2020 07:45:00 PM EST 1 g Intravenous completed 1 g, Intravenous, Administer over 20 Minutes, Once, 1/5/21 at 1945, For 1 dose [facility] Medication administered onsite Acetaminophen 10 MG/ML Injectable Soluti on acetaminophen (OFIRMEV) infusion 1,000 mg acetaminophen (OFIRMEV) infusion 1,000 mg 09/06/2020 07:30:00 PM EST 1000 mg Intravenous completed 1,000 mg , Intravenous, Once, Sat09/06/20 at 1930, For 1 dose
Maximum daily dose of acetaminophen from all sources 3,000 mg daily.
[facility] Medication administered onsite sodium chloride 0.9 % bolus 1,000 mL [id number] 09/06/2020 07:30: 00 PM EST 1000 mL Intravenous completed 1,000 mL , Intravenous, Once, Sat09/06/20 at 1930, For 1 dose [facility] Medication administered onsite Lactulose 667 MG/ML Oral Solution lactulose (CHRONULAC ) solution 40 mL lactulose (CHRONULAC) solution 40 mL 09/06/2020 05:15:00 PM EST 40 mL Oral completed 40 mL, Oral, Once, Sat09/06/20 at 1715, For 1 dose [facility] Medication administered onsite Bisacodyl 10 MG Rectal Suppository bisacodyl (DULCOLAX ) suppository 10 mg bisacodyl (DULCOLAX) suppository 10 mg 09/06/2020 05:15:00 PM EST 10 mg Rectal aborted 10 mg, Rectal, Daily Standard, First dose (after last modification) on Sat09/06/20 at 1715, For 5 doses
Hold if patient has had BM within the past 2 days.
[facility] Medication administered onsite morphine pediatric syringe 2 mg [id number]# 09/06/2020 08:06:30 AM EST 2 mg Intravenous aborted 2 mg, In travenous, Every 2 hours PRN, breakthrough, Starting Sat09/06/20 at 0806, For 3 days [facility] Medication administered onsite oxyCODONE (ROXICODONE) immediate release [...] Service consultation and approval.
[Order 2 End] [facility] Medication administered onsite diphenhydrAMINE (BENADRYL) injection 25 mg [id number] 09/05/2020 11:25:18 PM EST 25 mg Intravenous aborted 25 m g, Intravenous, Nightly PRN, Other, sleep, Starting Sat09/05/20 at 2325, For 2 days 16 hours [facility] Medication administered onsite sennosides, FPC 8.6 MG Oral Tablet senna tablet 2 tablet sen na tablet 2 tablet 09/05/2020 10:00:00 PM EST 2 {tbl} Oral aborted 2 tablet, Oral, Nightly, First dose (after last modification) on Sat09/05/20 at 2200, For 30 days [facility] Medication administered onsite POLYETHYLENE GLYCOL 3350 142 [...] to p otential increased risk for aspiration.
[facility] Medication administered onsite vancomycin (VANCOCIN) 1500 mg in NaCl 0.9 % 512 mL (premix) [id number] 09/05/2020 05:24:59 PM EST 1500 mg Intravenous aborted 1,500 mg, Intravenous, Administer over 90 Minutes, Every 8 hours, First dose (after last modification) on Sat09/05/20 at 1730, For 4 days [facility] Medication administered onsite Acetaminophen 325 MG Oral Tablet acetaminophen (TYLENO L) tablet 975 mg acetaminophen (TYLENOL) tablet 975 mg 09/05/2020 01:00:00 PM EST 97 5 mg Oral aborted 975 mg, Oral, E very 8 hours, First dose (after last modification) on Sat09/05/20 at 1300, For 16 doses
Maximum daily dose of acetaminophen is 3,000 mg from all sources in 24 hours.
[facility] Medication administered onsite Carisoprodol 350 MG Oral Tablet carisoprodol (SOMA) ta blet 350 mg carisoprodol (SOMA) tablet 350 mg 09/05/2020 11:45:00 AM EST 350 mg Oral aborted 350 mg, Oral, Three Times Daily-PRN, Other, muscle spasms, Starting Sat09/05/20 at 1145, For 240 hours [facility] Medication administered onsite NaCl infusion 0.9 % [id number] 09/05/2020 08:00:00 AM EST Intravenous aborted at 5 mL/hr, Intraven ous, Continuous, Starting Sat09/05/20 at 0800, For 30 days [facility] Medication administered onsite Diazepam 5 MG Oral Tablet diazePAM (VALIUM) tablet 5 m g diazePAM (VALIUM) tablet 5 mg 09/05/2020 02:15:28 AM EST 5 mg Oral aborted 5 mg, Oral, Every 6 hours PRN, Anxiety, Starting Sat09/05/20 at 0215, For 3 days [facility] Medication administered onsite morphine [employer] 1 mg/mL 09/04/2020 12:00:00 PM EST Intraven ous aborted Intravenous, Continuous, Starting 11/20 at 1200, For 117 hours
Self administer
[facility] Medication administered onsite alginic acid 200 MG / Calcium Carbonate 80 MG / magnesium trisilicate 20 MG / Sodium Bicarbonate 70 MG Oral Tablet calcium carbonate (TUMS) chewable tablet 500 mg calcium carbonate (TUMS) chewable tablet 500 mg 2020 04:17:37 AM EST 500 mg Oral aborted 500 mg, Oral, Three Times Daily-PRN, Indigestion, Heartburn, Starting 09/04/20 at 0417, For 30 days [facility] Medication administered onsite heparin (porcine) 5000 UNIT/ML injection 5,000 Units [id number] 09/03/2020 09:00:00 PM EST 5000 U Subcutaneous aborted 5,000 Units, Subcutaneous, 2 Times Daily, First dose on 09/03/20 at 2100, For 30 days [facility] Medication administered onsite gabapentin 300 MG Oral Capsule gabapentin (NEURONTIN) capsule 300 mg gabapentin (NEURONTIN) capsule 300 mg 09/03/2020 05:00:00 PM EST 300 mg Oral aborted 300 mg, Oral, Three Times D aily Standard, First dose on 09/03/20 at 1700, For 10 days [facility] Medication administered onsite 2 ML Midazolam 1 MG/ML Injection midazolam (PF) (VERSE D) injection midazolam (PF) (VERSED) injection 09/03/2020 10:15:00 AM EST completed Code/Trauma Medication, Starting 09/03/20 at 1015 [facility] Medication administered onsite cefepime in NaCl 0.9 % 50 mL infusion 2 g 09/03/2020 08:15 :00 AM EST 2 g Intravenous aborted 2 g, Intraven ous, Administer over 30 Minutes, Every 8 hours, First dose on 09/03/20 at 0815, For 7 days [facility] Medication administered onsite vancomycin (VANCOCIN) 1500 mg in NaCl 0.9 % 512 mL (premix) [id number] 09/03/2020 08:15:00 AM EST 1500 mg Intravenous aborted 1,500 mg, Intravenous, Administer over 90 Minutes, Every 12 hours, First dose on 09/03/20 at 0815, For 7 days [facility] Medication administered onsite Prochlorperazine 5 MG/ML Injectable Solu tion prochlorperazine (COMPAZINE) injection 10 mg prochlorperazine (COMPAZINE) injection 10 mg 07:13:09 AM EST 10 mg Intravenous aborted 10 m g, Intravenous, Every 6 hours PRN, Nausea, Vomiting, Starting 09/03/20 at 0713, For 30 days
For IV use: Prepare in 50 mL NS and infuse over 15 minutes.
[facility] Medication administered onsite 2 ML Metoclopramide 5 MG/ML Prefilled Sy ringe metoclopramide (REGLAN) injection 5 mg metoclopramide (REGLAN) injection 5 mg 09/03/2020 05:26:53 AM EST 5 mg Intravenous aborted 5 mg, Intrave nous, Every 6 hours PRN, Heartburn, Nausea, Starting 09/03/20 at 0526, For 30 days [facility] Medication administered onsite morphine bolus from bag 2 mg 09/03/2020 12:20:36 AM EST 2 mg Intravenous aborted 2 mg, Intravenou s, Every 2 hours PRN, breakthrough pain, Starting 09/03/20 at 0020, For 3 days 8 hours [facility] Medication administered onsite Magnesium Hydroxide 80 MG/ML Oral Suspen isamar magnesium hydroxide (MILK OF MAGNESIA) 400 MG/5ML suspension 45 mL magnesium hydroxide (MILK OF MAGNESIA) 4 00 MG/5ML suspension 45 mL 09/02/2020 10:00:00 PM EST 45 mL Oral aborted 45 mL, Oral, Nightly, First dose on Sat09/02/20 at 2200, For 30 days
If serum creatinine > 2 notify provider before administering.
[facility] Medication administered onsite 0.4 ML Enoxaparin sodium 100 MG/ML Prefi lled Syringe enoxaparin sodium (LOVENOX) injection 40 mg enoxaparin sodium (LOVENOX) injection 40 mg 09/02/2020 09:00:00 PM EST 40 mg Subcutaneous aborted 40 mg, Subcutaneous, Every evening, First dose on Sat09/02/20 at 2100, For 30 days [facility] Medication administered onsite gadobutrol (GADAVIST) contrast injection 9 mL [id number] 12:30:00 PM EST 0.1 mL/kg Intravenous completed 9 mL (ro unded from 9.21 mL = 0.1 mL/kg 92.1 kg), Intravenous, 1 TIME IMAGING, Sat09/02/20 at 1230, For 1 dose
Do not mix or administer in the same IV line with other medications.
[facility] Medication administered onsite sodium chloride (preservative free) 0.9 % flush 3 mL 47203-0 86-09/02/2020 11:15:00 AM EST 3 mL Intravenous aborted 3 mL, Intravenous, Every 8 hours, First dose on Sat09/02/20 at 1115, For 30 days, Pre-op
Saline Lock. Flush Q8H and after each use to Saline Lock.
[facility] Medication administered onsite sodium chloride (preservative free) 0.9 % flush 3 mL 14815-5 -09/02/2020 11:00:00 AM EST 3 mL Intravenous aborted 3 mL, Intravenous, PRN, Line Care, Starting Sat09/02/20 at 1100, For 30 days, Pre-op
Saline Lock. Flush Q8H and after each use to Saline Lock.
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
Self administer
[facility] Medication administered onsite Docusate Sodium 100 MG Oral Capsule docusate sodium (C OLACE) capsule 100 mg docusate sodium (COLACE) capsule 100 mg 09/02/2020 09:00:00 AM EST 100 mg Oral aborted 100 mg, Oral, 2 Times Daily, First dose on Sat09/02/20 at 0900, For 30 days [facility] Medication administered onsite 24 HR venlafaxine 150 MG Extended Releas e Oral Capsule venlafaxine (EFFEXOR-XR) 24 hr capsule 150 mg venlafaxine (EFFEXOR-XR) 24 hr capsule 150 mg 09/02/19 09:00:00 AM EST 150 mg Oral aborted 150 mg, Oral, Every morning, First dose on Sat09/02/20 at 0900, For 30 days
Do not crush or chew
[facility] Medication administered onsite Diazepam 5 MG Oral Tablet diazePAM (VALIUM) tablet 5 m g diazePAM (VALIUM) tablet 5 mg 09/02/2020 06:00:00 AM EST 5 mg Oral completed 5 mg, Oral, Once, Sat09/02/20 at 0600, For 1 dose [facility] Medication administered onsite sodium chloride 0.9 % bolus 500 mL 7045-5423-03 09/02/2020 01:30:00 AM EST 500 mL Intravenous completed 500 mL, Intravenous, Once, Sat09/02/20 at 0145, For 1 dose [facility] Medication administered onsite Diazepam 5 MG Oral Tablet diazePAM (VALIUM) tablet 5 m g diazePAM (VALIUM) tablet 5 mg 09/02/2020 01:20:33 AM EST 5 mg Oral completed 5 mg, Oral, Every 6 hours PRN, Anxiety, Starting Sat09/02/20 at 0120, For 3 days [facility] Medication administered onsite Cefazolin 2000 MG Injection ceFAZolin (ANCEF) IVPB 2 g in dextrose (premix) ceFAZolin (ANCEF) IVPB 2 g in dextrose (premix) 09/02/2020 12:15:00 AM EST 2 g Intravenous completed 2 g, Int ravenous, Administer over 30 Minutes, Every 8 hours, First dose on Sat09/02/20 at 0015, For 16 hours
3 gram for patients weighing >/= to 120 kg
[facility] Medication administered onsite fluticasone (FLONASE) 50 MCG/ACT nasal spray 1 spray [id number] 09/01/2020 11:00:52 PM EST 1 {spray} Nasal aborted 1 spray, Nasal, Three Times Daily-PRN, Other, Runny nose, Starting Krista 09/01/20 at 2300, For 6 days 17 hours
Shake well before use
[facility] Medication administered onsite sennosides, FPC 8.6 MG Oral Tablet senna tablet 2 tablet sen na tablet 2 tablet 09/01/2020 11:00:13 PM EST 2 {tbl} Oral aborted 2 tablet, Oral, Nightly PRN, Constipation, Starting Krista 09/01/20 at 2300, For 30 days [facility] Medication administered onsite sennosides, FPC 35.2 MG/ML Oral Solution senna (SENOKO T) syrup 10 mL senna (SENOKOT) syrup 10 mL 09/01/2020 11:00:13 PM EST 10 mL Oral aborted 10 mL, Oral, Nightly PRN, Constipation, Starting Krista 09/01/20 at 2300, For 30 days [facility] Medication administered onsite ondansetron (ZOFRAN) injection [...] able to tolerate PO.
[Order 2 End] [facility] Medication administered onsite Oxycodone Hydrochloride 5 MG Oral Tablet oxyCODONE (ROXICODONE) immediate release tablet 10 mg oxyCODONE (ROXICODONE) immediate release tablet 10 mg 09/01/2020 11:00:13 PM EST 10 mg Oral completed 10 mg, Oral, Every 4 hours PRN, Severe Pain (Pain Scale Score 7-10), Starting Krista 09/01/20 at 2300, For 3 days
If no [employer] TECHNICIAN or when SOW FARM TECHNICIAN has been D/Cd.
Oxycodone immediate release is limited to 10 mg per dose. Higher doses ( only) require Pain Service consultation and approval.
[facility] Medication administered onsite fentaNYL (SUBLIMAZE) (PF) injection 25 mcg [id number] 09/01/2020 11:00:13 PM EST 25 ug Intravenous completed 25 mcg, Intravenous, Every 2 hours PRN, Other, breakthrough pain, Starting Krista 09/01/20 at 2300, For 3 days [facility] Medication administered onsite Bisacodyl 10 MG Rectal Suppository bisacodyl (DULCOLAX ) suppository 10 mg bisacodyl (DULCOLAX) suppository 10 mg 09/01/2020 11:00:12 PM EST 10 mg Rectal aborted 10 mg, Rectal, Every 72 hours PRN, Constipation, Starting Krista 09/01/20 at 2300, For 30 days
Hold if patient has had BM within the past 2 days.
[facility] Medication administered onsite Acetaminophen 325 MG Oral [...] mg from all sources in 24 hours.
[facility] Medication administered onsite NaCl infusion 0.9 % [id number] 09/01/2020 09:00:00 PM EST Intravenous aborted at 100 mL/hr, Intrav enous, Continuous, Starting Krista 09/01/20 at 2100, For 30 days
Hold for good PO intake.
[facility] Medication administered onsite morphine sulfate (PF) injection 2 mg [id number] 09/01/2020 07:51: 43 PM EST 2 mg Intravenous aborted 2 mg, In travenous, Every 5 min PRN, Severe Pain (Pain Scale Score 7-10), Starting Krista 09/01/20 at 195, For 5 doses, [facility] Medication administered onsite fentaNYL (SUBLIMAZE) (PF) injection 12.5 mcg [id number] 09/01/2020 07:51:43 PM EST 12.5 ug Intravenous aborted 12.5 mcg, Intravenous, Every 5 min PRN, Moderate Pain (Pain Scale Score 4-6), Starting Krista 09/01/20 at 195, For 10 doses, [facility] Medication administered onsite ondansetron (ZOFRAN) injection 4 mg [id number] 09/01/2020 07:51:4 3 PM EST 4 mg Intravenous completed 4 mg, In travenous, Once PRN, Nausea, Vomiting, Starting [facility] 09/01/20 at 195, For 1 dose, [facility] Medication administered onsite Albuterol Sulfate HFA 108 (90 Base) MCG/ ACT Inhalation Aerosol Solution (Ventolin HFA) 8353-9357-06 2 {puff} Inhalation aborted Inhale 2 puffs into the lungs every 6 (six) hours as needed for Wheezing [facility] 24 HR venlafaxine 150 MG Extended Releas e Oral Capsule Venlafaxine HCl ER 150 MG Oral Capsule Extended Release 24 Hour (EFFEXOR-XR) Venlafaxine HCl ER 150 MG Oral Capsule Extended Release 24 Hour (EFFEXOR-XR) 150 mg Oral aborted Take 150 mg by mouth every morning [facility] Insurance Providers Payer name Policy type / Coverage type Policy ID Covered green party ID Covered green party's relationship to fierro Policy [employer]ier[employer] Plan Information / [id number] Spouse 01 [id number] U [id number] Self [id number] U [id number] Self [id number] U [id number] [place] [employer] - O/P [id number] [place] [employer] [id number] [facility] [id number] [facility] [place] [id number] Problems, Conditions, and Diagnoses Code Display Name Description Problem Type Effective Dates Data Source(s) 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, unspecified Benign neoplasm of peripheral nerves and autonomic nervous system, unspecified Diagnosis 01/31/2021 07:55:31 AM [facility] Z98.1 Arthrodesis status Arthrodesis status Diagnosis 09/2020 07:55:31 AM [facility] R06.02 Shortness of breath Shortness of breath Diagnosis 0 01/17/2021 02:51:10 PM [facility] Cervical Spine Tumor Cervical Spine Tumor Diagnosis 09/08/2020 03:09:00 PM [facility] Cervical spine tumor Cervical spine tumor Diagnosis 09/08/2020 03:09:00 PM [facility] C7 tumor C7 tumor Diagnosis 09/01/2020 05:45:00 AM [facility] pretest pretest Diagnosis 08/29/2020 09:12:56 AM [facility] 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 , soft tissue, and skin Neoplasm of unspecified behavior of bone, soft tissue, and skin Diagnosis 07/27/2020 03:53:47 PM [facility] 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, unspecified Benign neoplasm of peripheral nerves and autonomic nervous system, unspecified Diagnosis 06/09/2020 01:15:00 PM EDT [facility] M4803 Spinal stenosis, cervicothoracic region Spinal stenosis, cervicothoracic region Diagnosis 06/09/2020 01:15:00 PM [facility] Surgeries/Procedures Procedure Description Date Indications Data Source(s) BASIC METABOLIC PANEL CALCIUM TOTAL <td>BASIC METABOLI C PANEL</td><td>Routine</td><td>09/09/2020 5:02 AM EST</td><td></td><td> </td> 09/09/2020 05:02:00 AM [facility] BLOOD COUNT COMPLETE AUTO&AUTO DIFRNTL WBC COUNT <td>C BC AND DIFFERENTIAL</td><td>Routine</td><td>09/09/2020 5:02 AM EST</td><td></td><td> </td> 09/09/2020 05:02:00 AM [facility] COVID-19 PCR <td>COVID-19 PCR</td><td>Rou jayla</td><td>09/08/2020 10:08 AM EST</td><td></td><td> </td> 09/08/2020 10:08:00 AM [facility] RESPIRATORY PATHOGEN PANEL <td>RESPIRATORY PATHOGEN PANEL</td><td>Routine</td><td>09/08/2020 10:08 AM EST</td><td></td><td> </td> 09/08/2020 10:08:00 AM [facility] BASIC METABOLIC PANEL CALCIUM TOTAL <td>BASIC METABOLI C PANEL</td><td>Routine</td><td>09/08/2020 4:53 AM EST</td><td></td><td> </td> 09/08/2020 04:53:00 AM [facility] BLOOD COUNT COMPLETE AUTOMATED <td>CBC</td><td>Routine </td><td>09/08/2020 4:53 AM EST</td><td></td><td> </td> 09/08/2020 04:53:00 AM [facility] RADEX SPINE THORACIC 2 VIEWS <td>XR THORACIC SPINE AP AND LATERAL</td><td>Routine</td><td>09/07/2020 1:34 PM EST</td><td></td><td> </td> 09/07/2020 01:34:33 PM [facility] RADEX SPINE CERVICAL 2/3 VIEWS <td>XR SPINE CERV 2-3 V IEWS 00289</td><td>Routine</td><td>09/07/2020 1:33 PM EST</td><td></td><td> </td> 09/07/2020 01:33:47 PM [facility] BASIC METABOLIC PANEL CALCIUM TOTAL <td>BASIC METABOLI C PANEL</td><td>Routine</td><td>09/07/2020 5:25 AM EST</td><td></td><td> </td> 09/07/2020 05:25:00 AM [facility] BLOOD COUNT COMPLETE AUTOMATED <td>CBC</td><td>Routine </td><td>09/07/2020 5:25 AM EST</td><td></td><td> </td> 09/07/2020 05:25:00 AM [facility] CT HEAD/BRAIN W/O CONTRAST MATERIAL <td>CT HEAD WITHOU T CONTRAST 12562</td><td>STAT</td><td>09/06/2020 8:53 PM EST</td><td></td><td> </td> 09/06/2020 08:53:19 PM [facility] BASIC METABOLIC PANEL CALCIUM TOTAL <td>BASIC METABOLI C PANEL</td><td>Routine</td><td>09/06/2020 5:31 AM EST</td><td></td><td> </td> 09/06/2020 05:31:00 AM [facility] BLOOD COUNT COMPLETE AUTOMATED <td>CBC</td><td>Routine </td><td>09/06/2020 5:31 AM EST</td><td></td><td> </td> 09/06/2020 05:31:00 AM [facility] GLUCOSE BODY FLUID OTHER THAN BLOOD <td>GLUCOSE, CSF</td><td>Routine</td><td>09/05/2020 11:25 AM EST</td><td></td><td> </td> 09/05/2020 11:25:00 AM [facility] PROTEIN TOTAL XCPT REFRACTOMETRY OTH SRC <td>PROTEIN, CSF</td><td>Routine</td><td>09/05/2020 11:25 AM EST</td><td></td><td> </td> 09/05/2020 11:25:00 AM [facility] CUL BACT XCPT URINE BLOOD/STOOL AEROBIC ISOL <td>BODY FLUID CULTURE AND GRAM STAIN</td><td>Routine</td><td>09/05/2020 11:25 AM EST</td><td></td><td></td> 09/05/2020 11:25:00 AM [facility] CELL COUNT, CSF <td>CELL COUNT, CSF</td><td> STAT</td><td>09/05/2020 11:25 AM EST</td><td></td><td> </td> 09/05/2020 11:25:00 AM [facility] BASIC METABOLIC PANEL CALCIUM TOTAL <td>BASIC METABOLI C PANEL</td><td>Routine</td><td>09/05/2020 9:19 AM EST</td><td></td><td> </td> 09/05/2020 09:19:00 AM [facility] DRUG SCREEN QUALITATIVE VANCOMYCIN <td>VANCOMYCIN, TROUGH</td><td>Routine</td><td>09/05/2020 9:19 AM EST</td><td></td><td> </td> 09/05/2020 09:19:00 AM [facility] BASIC METABOLIC PANEL CALCIUM TOTAL <td>BASIC METABOLI C PANEL</td><td>Routine</td><td>09/05/2020 5:49 AM EST</td><td></td><td> </td> 09/05/2020 05:49:00 AM [facility] BASIC METABOLIC PANEL CALCIUM TOTAL <td>BASIC METABOLI C PANEL</td><td>Routine</td><td>09/05/2020 4:25 AM EST</td><td></td><td> </td> 09/05/2020 04:25:00 AM [facility] BLOOD COUNT COMPLETE AUTOMATED <td>CBC</td><td>Routine </td><td>09/05/2020 4:25 AM EST</td><td></td><td> </td> 09/05/2020 04:25:00 AM [facility] BASIC METABOLIC PANEL CALCIUM TOTAL <td>BASIC METABOLI C PANEL</td><td>Routine</td><td>09/04/2020 4:12 AM EST</td><td></td><td> </td> 09/04/2020 04:12:00 AM [facility] BLOOD COUNT COMPLETE AUTOMATED <td>CBC</td><td>Routine </td><td>09/04/2020 4:12 AM EST</td><td></td><td> </td> 09/04/2020 04:12:00 AM [facility] RADEX HUMERUS MINIMUM 2 VIEWS <td>XR HUMERUS AP LATERA L 09080</td><td>Routine</td><td>09/03/2020 9:55 AM EST</td><td></td><td> </td> 09/03/2020 09:55:27 AM [facility] RADEX ELBOW 2 VIEWS <td>XR ELBOW 2 VIEWS 75831</td><td>Routine</td><td>09/03/2020 9:55 AM EST</td><td></td><td> </td> 09/03/2020 09:55:27 AM [facility] RADEX FOREARM 2 VIEWS <td>XR FOREARM 2 VIEWS 94900</td><td>Routine</td><td>09/03/2020 9:55 AM EST</td><td></td><td> </td> 09/03/2020 09:55:27 AM [facility] RADEX HAND 2 VIEWS <td>XR HAND 2 VIEWS 60483</t d><td>Routine</td><td>09/03/2020 9:55 AM EST</td><td></td><td> </td> 09/03/2020 09:55:27 AM [facility] RADEX SHOULDER COMPLETE MINIMUM 2 VIEWS <td>XR SHOULDE R COMPLETE 55664</td><td>Routine</td><td>09/03/2020 9:55 AM EST</td><td></td><td> </td> 09/03/2020 09:55:27 AM [facility] RADEX WRIST 2 VIEWS <td>XR WRIST 2 VIEWS 69728</td><td>Routine</td><td>09/03/2020 9:55 AM EST</td><td></td><td> </td> 09/03/2020 09:55:27 AM [facility] BASIC METABOLIC PANEL CALCIUM TOTAL <td>BASIC METABOLI C PANEL</td><td>Routine</td><td>09/03/2020 4:04 AM EST</td><td></td><td> </td> 09/03/2020 04:04:00 AM [facility] BLOOD COUNT COMPLETE AUTOMATED <td>CBC</td><td>Routine </td><td>09/03/2020 4:04 AM EST</td><td></td><td> </td> 09/03/2020 04:04:00 AM [facility] 3D RENDER W/INTERP CT/MRI/US/OTH JULIO W/POSTPROC <td>C T 3D RECON INDEPENDENT 94830</td><td>Routine</td><td>09/02/2020 6:00 PM EST</td><td></td><td> </td> 09/02/2020 06:00:36 PM [facility] MRI SPINAL CANAL CERVICAL W/O & W/CONTR MATRL <td>MR C ERVICAL SPINE WITH AND WITHOUT CONTRAST 37543</td><td>Routine</td><td>09/02/2020 1:00 PM EST</td><td></td><td> </td> 09/02/2020 01:00:35 PM [facility] CT CERVICAL SPINE W/O CONTRAST MATERIAL <td>CT CERVICA L SPINE WITHOUT CONTRAST 48809</td><td>Routine</td><td>09/02/2020 11:26 AM EST</td><td></td><td> </td> 09/02/2020 11:26:33 AM [facility] CT THORACIC SPINE W/O CONTRAST MATERIAL <td>CT THORACI C SPINE WITHOUT CONTRAST 10421</td><td>Routine</td><td>09/02/2020 11:26 AM EST</td><td></td><td> </td> 09/02/2020 11:26:33 AM [facility] COVID-19 PCR <td>COVID-19 PCR</td><td>Rou jayla</td><td>09/02/2020 5:00 AM EST</td><td></td><td> </td> 09/02/2020 05:00:00 AM [facility] BASIC METABOLIC PANEL CALCIUM TOTAL <td>BASIC METABOLI C PANEL</td><td>Routine</td><td>09/02/2020 1:27 AM EST</td><td></td><td> </td> 09/02/2020 01:27:00 AM [facility] MAGNESIUM <td>MAGNESIUM LEVEL</td><td> Routine</td><td>09/02/2020 1:27 AM EST</td><td></td><td> </td> 09/02/2020 01:27:00 AM [facility] PHOSPHORUS INORGANIC <td>PHOSPHORUS LEVEL</td><td >Routine</td><td>09/02/2020 1:27 AM EST</td><td></td><td> </td> 09/02/2020 01:27:00 AM [facility] BLOOD COUNT COMPLETE AUTOMATED <td>CBC</td><td>Routine </td><td>09/02/2020 1:27 AM EST</td><td></td><td> </td> 09/02/2020 01:27:00 AM [facility] CT CERVICAL SPINE W/O CONTRAST MATERIAL <td>O-ARM CT S PINE-CERVICAL W/O IN OR</td><td>Routine</td><td>09/01/2020 7:00 PM EST</td><td> Cervical spine tumor</td><td> </td> 09/01/2020 07:00:00 PM EST Cervical spine tumor [facility] Cervical spine tumor BLOOD GASES ANY COMBINATION PH PCO2 PO2 CO2 HCO3 <td>P OCT ISTAT ARTERIAL CG8</td><td>Routine</td><td>09/01/2020 6:23 PM EST</td><td></td><td> </td> 09/01/2020 06:23:00 PM [facility] BLOOD GASES ANY COMBINATION PH PCO2 PO2 CO2 HCO3 <td>P OCT ISTAT ARTERIAL CG8</td><td>Routine</td><td>09/01/2020 1:05 PM EST</td><td></td><td> </td> 09/01/2020 01:05:00 PM [facility] BLOOD GASES ANY COMBINATION PH PCO2 PO2 CO2 HCO3 <td>P OCT ISTAT ARTERIAL CG8</td><td>Routine</td><td>09/01/2020 8:47 AM EST</td><td></td><td> </td> 09/01/2020 08:47:00 AM [facility] POSTERIOR SPINAL FUSION/INSTRUMENTATION <td>POSTERIOR SPINAL FUSION/INSTRUMENTATION</td><td></td><td>09/01/2020 7:35 AM EST</td><td> Cervical spine tumor</td><td></td> 09/01/2020 07:35:00 AM EST - 09/01/2020 08:42:00 PM EST Cervical spine tumor [facility] Cervical spine tumor GONADOTROPIN CHORIONIC QUANTITATIVE <td>POCT ISTAT BHCG</td><td>Routine</td><td>09/01/2020 6:54 AM EST</td><td></td><td> </td> 09/01/2020 06:54:00 AM [facility] GONADOTROPIN CHORIONIC QUANTITATIVE <td>POCT ISTAT BHCG</td><td>Routine</td><td>09/01/2020 6:39 AM EST</td><td></td><td> </td> 09/01/2020 06:39:00 AM [facility] NEUROSURGICAL PATHOLOGY <td>NEUROSURGICAL PATHOLOGY</td><td>Routine</td><td>09/01/2020 12:00 AM EST</td><td></td><td> </td> 09/01/2020 12:00:00 AM [facility] BLOOD TYPING ABO <td>TYPE AND SCREEN</td><td> Routine</td><td>08/29/2020 9:38 AM EST</td><td> Schwannoma</td><td> </td> 08/29/2020 09:38:00 AM EST [facility] [place] URNLS DIP STICK/TABLET REAGENT AUTO MICROSCOPY <td>URI NALYSIS WITH MICROSCOPIC</td><td>Routine</td><td>08/29/2020 9:38 AM EST</td><td> [place]</td><td> </td> 08/29/2020 09:38:00 AM EST [facility] [place] PROTHROMBIN TIME <td>PROTIME INR</td><td>Rout ine</td><td>08/29/2020 9:37 AM EST</td><td> [place]</td><td> </td> 08/29/2020 09:37:00 AM EST [facility] [place] PARTIAL THROMBOPLASTIN TIME (PTT) <td>PARTIAL THROMBOP LASTIN TIME (PTT)</td><td>Routine</td><td>08/29/2020 9:37 AM EST</td><td> [place]</td><td> </td> 08/29/2020 09:37:00 AM EST [facility] [place] LAB RESULTS (OUTSIDE/HISTORICAL) <td>LAB RESULTS (OUTSIDE/HISTORICAL)</td><td></td><td>08/23/2020 2:50 PM EST</td><td></td><td></td> 08/23/2020 02:50:09 PM EST [facility] CARDIAC REPORT <td>CARDIAC REPORT</td><td>< /td><td>08/23/2020 2:48 PM EST</td><td></td><td></td> 08/23/2020 02:48:34 PM EST [facility] Results ID Date Data Source [id number] 05/30/2021 05:10:20 PM EDT [facility] Name Value Range Interpretation Code Description Data Nereida rce(s) Supporting Document(s) Progress Note [facility] [id number] lbm [file] [id number] ID Date Data Source [id number] 04/04/2021 05:09:54 PM EDT [facility] XR SPINE CERV 2-3 VIEWS [id number] RESUL TInterpreted by:Lin Russell MDORDERING CLINICAL INFORMATION: [...] rce(s) Supporting Document(s) ID Date Data Source [id number] 04/04/2021 04:58:25 PM EDT [facility] Name Value Range Interpretation Code Description Data Nereida rce(s) Supporting Document(s) Progress Note [facility] [id number]/EOHfjTJYsj8IvPDaxHNb6QAgcYLReH5FqFQJ4fR4vXSR2EGdNXtTjDuFmLRUm m [file] CiAgICAgICAgICAgICAgICAgICAgICAgICAgICAgICAgICAgICAgICAgICAgICAgICAgICAgICAgICAg ICAgICAgICAgICAgICAgICAgICAgICAgICAgICAgICAgICAgICAgICANCiAgICAgICAgICAgICAgICAg ICAgICAgICAgICAgICAgICAgICAgICAgICAgICAgIC AgICAgICAgICAgICAgICAgICAgICAgICAgICAgICAgICAgICAgICAgICAgICAgICAgICANCiAgICAgIC AgICAgICAgICAgICAgICAgICAgICAgICAgICAgICAgICAgICAgICAgICAgICAgICAgICAgICAgICAgIC AgICAgICAgICAgICAgICAgICAgICAgICAgICAgICAg ICANCiAgICAgICAgICAgICAgICAgICAgICAgICAgICAgICAgICAgICAgICAgICAgICAgICAgICAgICAg ICAgICAgICAgICAgICAgICAgICAgICAgICAgICAgICAgICAgICAgICAgICANCiAgICAgICAgICAgICAg ICAgICAgICAgICAgICAgICAgICAgICAgICAgICAgIC AgICAgICAgICAgICAgICAgICAgICAgICAgICAgICAgICAgICAgICAgICAgICAgICAgICAgICANCiAgIC AgICAgICAgICAgICAgICAgICAgICAgICAgICAgICAgICAgICAgICAgICAgICAgICAgICAgICAgICAgIC AgICAgICAgICAgICAgICAgICAgICAgICAgICAgICAg ICAgICANCiAgICAgICAgICAgICAgICAgICAgICAgICAgICAgICAgICAgICAgICAgICAgICAgICAgICAg ICAgICAgICAgICAgICAgICAgICAgICAgICAgICAgICAgICAgICAgICAgICAgICANCiAgICAgICAgICAg ICAgICAgICAgICAgICAgICAgICAgICAgICAgICAgIC AgICAgICAgICAgICAgICAgICAgICAgICAgICAgICAgICAgICAgICAgICAgICAgICAgICAgICAgICANCi AgICAgICAgICAgICAgICAgICAgICAgICAgICAgICAgICAgICAgICAgICAgICAgICAgICAgICAgICAgIC AgICAgICAgICAgICAgICAgICAgICAgICAgICAgICAg ICAgICAgICANCiAgICAgICAgICAgICAgICAgICAgICAgICAgICAgICAgICAgICAgICAgICAgICAgICAg ICAgICAgICAgICAgICAgICAgICAgICAgICAgICAgICAgICAgICAgICAgICAgICAgICANCjw/jUZdJ9dr pZWibmY3L6fsPp3NAv3BAB8zs0RiGBEnWVycshAcNv yVKkUlOUVzHagELdj5AKofXC3RxTEpM0NlD5CrGYosTZ7JLKEvPVVoaFAcISGhWCBiIkZ4IZYrSIwvOM 6NkWBjTJuhCUCzBTFqDrAvLTHcPBUpJLFaUM1KDTZzT022niDuSz4FIs8OAoBmZH5xyu1YQvQkYUCrEw pFFns3CExyKU8GzIAvuCHuTICvGLWPFsBdP0bpd4Tm RfWwFFWZXNujLM7Hc7AdtKLoKHn+Hv9YCR8pp8UgSHcgVMPxKU7bat3TTApFFeDwF0XshDgaSLDgv0oc CFFcWF5tmXMzWDB3NIE4u4HoUBjfI0L0C0udCTRBTTZ4RYekZi2qAGFtBYJsUwXdVIBQRE7HRQOjOQQb gEIkXPZmOIVOGV1BJSlvOVM2PEYqcdUniMVbQVpeXR 9QYXJlbnQgMjMgMCBSDQo+Ie7ZMT1ix6UnUTukZWKnVZ1kqi3BZIhEPdGwH8B9iZSwU8B4HXzaVz6GEY ZkSJWuTyXbCZIWCZmxTM5EMS8nlrA4HX2WhBBwFKVdTMRmtFYaAWn9G17imHHhSYqkZJ0XYCD+Darío+Pg 9DTXOlVEKuYGCiNlBrUBKQHaFhT1DxL3ZDh8QhS4Ko HP89vGhqccQxGEjlVQ1NLI3sBRMqHOPVGK6SdMQxvA8tesXnOoWyTVIYJhGmM00sxULuDLFpVUJuXXYt Fp4WUXDqZ1BvuaBaiGvplxZxVTNzOEKZEV2JIFwpjrBzjKTblQpvBA67hExsBW8VLa6UIgVeYO6djv1U kYLpKd1UOSCwFs0KUXKoVOTkFQCxFRI8XATdVsAfRJ bkOOMoNKIpWZW3ZOVyEVIdCA8PSrDbRMKuQmN5BSKwGPGnSVUbtw5ACSQxXOEfKiWdZWDbJORaXOBmPY spANNpGKWgFST8YUKkHEMgKF9HMlTuCSTkLFZdFJwqNOByLCTfrv4ADQEeNGBaIXD2LNLlWGRzAPUcJT qpDMXnYZJ2QOI6TTUtJCQoUJ7LSpGiWLUvZTe2ObPy AXWzRQQcow3HXKKsGXRxPJIyVOCaFPMaUROmNMikNUCaGBKyOnU8FSUxLNDbYJ0PPwHoIDWeQTT6WVIv AKBfCNJtwp6IMOTnHBTiGNv0QSWiCGNnRQJbQFsoTCVlPPYxNPl6ICJoGRAzGN2YZhRgSOWbASR4FbQn OBFkZNSqxn1HNHJlTQJrWoDnSKApWXNfUDPcNLvoAI VhOQCcVeQbTAXzGIBvYU0UAzDyXCXqXlG8RTKlQIOiKCRgde6XBWRmDLTiBPJ6PVViVQAoFVXbCQuvHU TcNYX1Vbu5ERWzICSeXL8DQxUnWLMwUqX9BqbeJKKiGGGsik7PXIDoSTJzLVE5XkIoUAJsHYInZKugKB WgNRZ2DNm7BKNdBTIiZU1CSyUhMGXeAwm8YgZcZSWw PAFudh7YIZKzIMSsRuUeKQCxIWXgTTZwBZekRCKgEEU1YeGcXZNeVLSsOZ3JNhReCDrcLZLWChz9DLuc Q9m8FIFoHo7EH5Zmi6QyZrXqIOWTLUltBK9lmpDsIBDtDo1VU4jTKuuaDJh6SSX1OKH8XvAdXYQaPiV4 QHn2RWd6ZPOxVMV4GB3vFZLjETekJyE1HJCsIHHsAu F5TUhkGcHqObV6KHQsZtRsGzOqFR9RVd1WYwE8CXR7lQUhNx9QVox3KZWPKwKrJU0KHJo= ID Date Data Source [id number] 01/31/2021 12:41:45 PM EDT [facility] Name Value Range Interpretation Code Description Data Nereida rce(s) Supporting Document(s) Progress Note [facility] HXOVCn2rAyYWNjJf78/SKWaqCXOiw2LnLBazMJg8ZIdeHVKnQ4ZfLOQ0lE8yOVC2XKcUTqGpQvVfSxJp lbm [file] ICAgICAgICAgICAgICAgICAgICAgICAgICAgICAgICAgICAgICAgICAgICAgICAgICAgICAgICAgICAg ICAgICAgICAgICAgICAgICAgICAgICAgICAgICAgDQ ogICAgICAgICAgICAgICAgICAgICAgICAgICAgICAgICAgICAgICAgICAgICAgICAgICAgICAgICAgIC AgICAgICAgICAgICAgICAgICAgICAgICAgICAgICAgICAgICAgICAgDQogICAgICAgICAgICAgICAgIC AgICAgICAgICAgICAgICAgICAgICAgICAgICAgICAg ICAgICAgICAgICAgICAgICAgICAgICAgICAgICAgICAgICAgICAgICAgICAgICAgICAgDQogICAgICAg ICAgICAgICAgICAgICAgICAgICAgICAgICAgICAgICAgICAgICAgICAgICAgICAgICAgICAgICAgICAg ICAgICAgICAgICAgICAgICAgICAgICAgICAgICAgIC AgDQogICAgICAgICAgICAgICAgICAgICAgICAgICAgICAgICAgICAgICAgICAgICAgICAgICAgICAgIC AgICAgICAgICAgICAgICAgICAgICAgICAgICAgICAgICAgICAgICAgICAgDQogICAgICAgICAgICAgIC AgICAgICAgICAgICAgICAgICAgICAgICAgICAgICAg ICAgICAgICAgICAgICAgICAgICAgICAgICAgICAgICAgICAgICAgICAgICAgICAgICAgICAgDQogICAg ICAgICAgICAgICAgICAgICAgICAgICAgICAgICAgICAgICAgICAgICAgICAgICAgICAgICAgICAgICAg ICAgICAgICAgICAgICAgICAgICAgICAgICAgICAgIC AgICAgDQogICAgICAgICAgICAgICAgICAgICAgICAgICAgICAgICAgICAgICAgICAgICAgICAgICAgIC AgICAgICAgICAgICAgICAgICAgICAgICAgICAgICAgICAgICAgICAgICAgICAgDQogICAgICAgICAgIC AgICAgICAgICAgICAgICAgICAgICAgICAgICAgICAg ICAgICAgICAgICAgICAgICAgICAgICAgICAgICAgICAgICAgICAgICAgICAgICAgICAgICAgICAgDQog ICAgICAgICAgICAgICAgICAgICAgICAgICAgICAgICAgICAgICAgICAgICAgICAgICAgICAgICAgICAg ICAgICAgICAgICAgICAgICAgICAgICAgICAgICAgIC ZfMCYqLIIvDBn7U8mqLRArXOWjVP4wTRi8Ci4+DPwTSoZyZUK9tqPlpD9DOF0ig1UwSIdjSQJeo6UnJR w4DH8JNEJtJQyaIC6TKRndje5BVBWpNNWvcWZYi5ibInYoOCK3NQIeCkneSV4IPUWpG4ucdtShVEMkDM WVXXlaAHFGLA9CMmNdK9MydE84WLPFIv1+DQplbmRv RqrDYjZ8CHHvy7TxQAe8CI6NRXZoGrqok0LaLaHyTBRFAJhdNY0PQJK4JSZ8PMQfAz5HGBTgN581djSe OP3EWw6YPsGbMI9iwm2CSzQlPEYvGboDFdc0UEagAT5BeHIfCJaAfq4jirLomqGOf1RtqnTuzWSOFIYv uzP2MS3tZ39cmSinHEHHBRE9YXUtGM1iMHEvOFNkDd QuMWTIAN6UQKHsZGTzhIOuVAFjGALDNY3ZFPniJNI6VNBzesCsvCWeJBboKX1VUYQbbsXhNlMjKLOKNR o+Sj5CBZ5bg3OaUUhpOsQtVH2fpp8YSGoTItUvS2D8wOVgR4S9SAbdXt9RJVYfHFIwPiZdBPQFHLztTN 6VZN6pwwQ9ZP4ZtLBqVZLaBLZidQElWUs9T62flBCc JYfmUQ0BFDG+Darío+Iy4DQNJvBUZxANXfUdEbWNFLPhEmP6LsG4TRo8QtJ3SzTJ51pLggohAqYEgkHR6D UC3pKMPoGJVSBP2UyYWlsN5efoXcSFTmFWSRIaIoT25sqVWmUGBqOXJkXOJvSh2LVFZkN2KmkdGtfFft wfNwWTFtNSCRMK2VLFjinjTwyACxjCfnKW36jAkcUZ 1CFv8DFaOcKP7quh9EvNUbZs0HUXUlUk7POALxHPGfKZYsWCX9AKTbEzHsKElrKOTyIUQpMLO4KABlZT OeFE1LBpQvPDHqZcK2DdGmHMMmURPave0YBAEeNJHaSMY2VGWtNAJkWCYqTRfsOTGsWLOxSJR4JWGiEV ZeMK7MLfAvUOBlISV9PRDiXHBwUKKvsd8VPGSfNIHj UQGeLOOhDHApYIUdSHdwKQEwSWB5YuBlSXWvMEJrXB2BMvIrBRJyWPn9GEdkLZBmPVNhrl1XYJYeWJKn RXOcWwGiBFPxNGUyTUasZAOvSOG3FnSpRRCeDUWsVZ9EXoHmKSRcUVz1UODxTPHpIKBmsp2CRYSkTOAy NBh9XgQkJGAgPHPbRPuhONPdCRCcDCO7XICwRFJdFE 7NPvBaOJMlVNVkYKDmRBUqBVRiyj0EBISxUCUwBHR0KfTfFBOsWHNeBAbzYFGiOSSqOPk8EFCbQWVoZT 4VRfOyTEUcWhIrKJYyHJUyICEzhs9ZPBVtJENeIrP3WnQyOMZxHHYhUPeqYENbZWJmCoCjCQKsDMHqUH 3RXkZeVNNlVyO1BWPaMEIrEDTnzo8VRIOoBGAwOmqc PtUsWKXzBNBeTBasELBcTUVgJPs2QXGmSNJrKE9AIiAvCRHnJrBbWJWdBXQqXGHlax6IDAWyDVPjOEv6 ZIPcHKXpUYKzHYfiOQAwZBR4ZALmMSFzHUEvKN2GGtIsSJCbXzH8HhteQWBvONGvbu6KpBHsdSxavu7G XHxSVz2AtCsgYRG7LEnyZj6bqGLnNzXiUNQRPe7Ucm VuEPNrESXCLFccTABwCXEnQ9YcPrUeE7PuKwWjRbT0QZHzYHBoLOW6QXL3NNHbTlI9AXWmUiAgDlQ8E5 AlKNU2UAt7RFIvDlN3SZPxDqYuRrU+EM2cWTq+Nx6Wi6MpuwQ4pnStDMtjIvFqLs6CSHEKS1QIQs== ID Date Data Source [id number] 01/17/2021 07:54:57 PM EDT [facility] MR CERVICAL SPINE WITHOUT CONTRAST [id number] FINAL RESULTInterpreted by:Nelson Fuchs MDEXAMINATION: MR CERVICAL SPINE WITHOUT CONTRAST [id number] INDICATION: Evaluation for recurrent schwannoma.TECHNIQUE: Axial and sagittal T1 and T2- weighted, and sagittal STIR, diffusion weighted, and apparent diffusion coefficient images of the cervical spine were obtained on our Siemens 3.0 [employer] [place] MRI scanner at [place] [address] without intravenous contrast administration.COMPARISON: MRI of the [...] rce(s) Supporting Document(s) ID Date Data Source [id number] 11/08/2020 09:58:14 AM EST [facility] Name Value Range Interpretation Code Description Data Nereida rce(s) Supporting Document(s) Progress Note [facility] GJHMVh1xIeVIXsKr75/PECdpLNXxc1AgTDctBWt1MDynRCToO5YwKVG8aU1hQKQ8ZPbSWkSbYgVqQoN4 lbm [file] DQo= ID Date Data Source [id number] 09/21/2020 08:36:38 AM [facility] XR CHEST FRONTAL AND LATERAL [id number] RESULTInterpreted by:Jeremie Hou MDINDICATION: 25-year-old female presenting [...] rce(s) Supporting Document(s) ID Date Data Source [id number] 09/20/2020 12:37:11 PM [facility] Name Value Range Interpretation Code Description Data Nereida rce(s) Supporting Document(s) Progress Note [facility] TDRNVi0zSpCOOqUo99/OHNvjDRQem6IsBGsmPAm8WNfzZZRxI8RvIVR6xD9tTBS5WArFCmOuBfLhTWD5 lbm [file] ICAgICAgICAgICAgICAgICAgICAgICAgICAgICAgICAgICAgICAgICAgICAgICAgICAgICAgICAgICAg ICAgICAgICAgICAgICAgICAgICAgICANCiAgICAgIC AgICAgICAgICAgICAgICAgICAgICAgICAgICAgICAgICAgICAgICAgICAgICAgICAgICAgICAgICAgIC AgICAgICAgICAgICAgICAgICAgICAgICAgICAgICAgICANCiAgICAgICAgICAgICAgICAgICAgICAgIC AgICAgICAgICAgICAgICAgICAgICAgICAgICAgICAg ICAgICAgICAgICAgICAgICAgICAgICAgICAgICAgICAgICAgICAgICAgICANCiAgICAgICAgICAgICAg ICAgICAgICAgICAgICAgICAgICAgICAgICAgICAgICAgICAgICAgICAgICAgICAgICAgICAgICAgICAg ICAgICAgICAgICAgICAgICAgICAgICAgICANCiAgIC AgICAgICAgICAgICAgICAgICAgICAgICAgICAgICAgICAgICAgICAgICAgICAgICAgICAgICAgICAgIC AgICAgICAgICAgICAgICAgICAgICAgICAgICAgICAgICAgICANCiAgICAgICAgICAgICAgICAgICAgIC AgICAgICAgICAgICAgICAgICAgICAgICAgICAgICAg ICAgICAgICAgICAgICAgICAgICAgICAgICAgICAgICAgICAgICAgICAgICAgICANCiAgICAgICAgICAg ICAgICAgICAgICAgICAgICAgICAgICAgICAgICAgICAgICAgICAgICAgICAgICAgICAgICAgICAgICAg ICAgICAgICAgICAgICAgICAgICAgICAgICAgICANCi AgICAgICAgICAgICAgICAgICAgICAgICAgICAgICAgICAgICAgICAgICAgICAgICAgICAgICAgICAgIC AgICAgICAgICAgICAgICAgICAgICAgICAgICAgICAgICAgICAgICANCiAgICAgICAgICAgICAgICAgIC AgICAgICAgICAgICAgICAgICAgICAgICAgICAgICAg ICAgICAgICAgICAgICAgICAgICAgICAgICAgICAgICAgICAgICAgICAgICAgICAgICANCiAgICAgICAg ICAgICAgICAgICAgICAgICAgICAgICAgICAgICAgICAgICAgICAgICAgICAgICAgICAgICAgICAgICAg ICAgICAgICAgICAgICAgICAgICAgICAgICAgICAgIC ANCjw/jWKzN9brzLRwewO5M7ijPn4PDk6VQA2om8YeOWJcVVleieAiSzyFUxJpELRmGulPExr6JTqmVQ 2XpNXzM6SnQ7LnTVmpME7EXWWgWXVusYFhWBKfPEEiVrR6ADNlMJsxQR3QhQLfLNemLDFfIQQfIhFeEX FlWLXfKEXtIZNfLNZPTH3JYiWwG4JjhB14TGMICz4+ SIzgzuAwLocPShC7HHUqw8FvEJn1US2LICVdVsfgm9SrEjScGDVCFTzsEK3NEBN0FLO2NXYdXr8SBBOo Y985lgLhQF1OTw4JEgSuCG2nbn4XWcTwPDRoMhfHUyv7QOfbBR3KnGIpDYuYkl9yojZdszMXq6VnvtCh iFSGeCTukrJUFCO5nZZqZUNTKPLfcSXwJlV4EtObIy HrFPA9RMCjJZ8vMMqnVA7NJWV3NMrdVWRgGVPrN5oILiJvCKNvSWFddCgfOE9RRlHhQ0WjqrNkuFBfDK AwIFINCj4+WKjlveRjNniBTfL6SEUwn5ToSUo3DN6POJCyIOmvRX9TVLOlhM5fQJbqMS0HTsTaMvUzUN LDYdMxQ16wdMLlAMt8U1QaQnMvPTLpLpeqPOKpFCwh TmFtZXMgWyBdDQogID4+ID4+WAdlZL5TPJftfoNvIRTpQm9DJLQmFRMcHY8hJEDkAMGxY7J2pStpJBWK ZiHyR0yeibwsSK7cYHWlO174kFmkqzGmZGC1IIPaYq0FXHWrHHP7YHFquAPdBjFzHFQJSFtkJA1OgCMx JJA4qS9aOAjjBDPgIWVfX0uUSsAekAqsYN87oTpdlw VsbCBdDQo+Am4SPY6bk9CuCOk6laDlDCmkTKJ3EKwyEGKqWXRgEXEcQSN2AAV5IYJVTlVeHICjPDTwLN ctIRSlCIUbbf3PPZSnSJYjLSQ2TRNlZDWdVROoFCeiJMDxDUXdVVxtVYMrRWLiUY0TZqBdBQOjKHXrND mlDFLpEDVznc8LSUYtNYHwQNWbOgSgIFGyGPXaPVfv GKOwADX3DfOnPJBoGAHlCD9MPzRuGWHcDYxaOQBnFJSyJCIefk4EQGSiADZdTFQeIbEoPJKtXLFbXWlq VYSqILUjJYf4RHPaNDErED5SFbMvRVKbHVT3EFSvLVXiORUeut9EFGUtJOYlIxK1MaIfAIMzNKWvXCvh FFZmCCPfLYIgBOTvGYIxLS6KOrOzHKRiPBFkXgFmVD HdNPEagn8WMGNaVWXaFOE5KMFmIZAjWTMoPInfLSNySKF2MsDxRLLhMIAfLM2GClYxPWBzYPL1OXMnDE HlRTYwid5TRJNmSDDcSJnjPDLzRBXuRXZmOObhTTQtATH4GIvcKHZuDSGmQD6TEdTeIXLfBwd4GeExXF DuBZScrx8MNIZlMMOsVul6JfNvPMThBCAfCGljUJDm CMR2ISA5ZCDcKYBgJB3NDmEkWCDqOjmySXRnKICkLMLtjq2HBVTcDGBzBPX4OdRoPTXbQLZuEFdfHEXu JTH0DOHhVQJqIADbWU9JMgYdPLFsOdXpWWQnAFDcSCUnnb9IXGAgVVJbILA0BYQpXSVoMWEpTQkeMWOc LKYiNAS1DGJvXKDlGI7SMkXjWFabVOWMDps6OXfbF5 s1NGPiJR7QW7Spk1GqGfnoPWLNFUqjCN0olzSoYVLjYs1WT6sVAmdyHicyVORnPSKeNSPtAgFiPQJmKK F8DUWqMyXqYPqjVl2lZCNxBaI1TLY7KKBzLXReWPSsWJB4FUp8VvL3QYO1TGBmTdVqXI4DGu4CDpK3SX J0vAMsKe5KKdG8FkCMLrDqKT9MBLz= ID Date Data Source [id number] 09/13/2020 02:44:34 PM EST [facility] Name Value Range Interpretation Code Description Data Nereida rce(s) Supporting Document(s) Discharge Summary [facility] XREDUw0nMsOZCvPf39/OXDguOGMcm2SdUXlrDEy6BPprYYImQ9QnYVY3nO2cBXK3UTjGWwKaEwPlCZBs lbm [file] YUu9TOl8OG2XPAAXZ7JYUq== ID Date Data Source [id number] 09/12/2020 01:05:41 PM [facility] Name Value Range Interpretation Code Description Data Nereida rce(s) Supporting Document(s) Consultation [facility] PNCAFl3uIfLSGjFj22/ECTdjHHAez2WeJEccFRk7LVgdOHToB7EiOAB5iP9tJXN9AEpVArHsDnJoUIXz lbm [file] [id number]== ID Date Data Source [id number] 09/09/2020 07:02:43 AM [facility] Name Value Range Interpretation Code Description Data Nereida rce(s) Supporting Document(s) Leukocytes [#/volume] in Blood by Automated count 10.2 10*3/uL 4-10 H [facility] Erythrocytes [#/volume] in Blood by Automated count 3.94 10*6/uL 4.1- 5.3 L [facility] Hemoglobin [Mass/volume] in Blood 12.2 g/dL 11.5-15.5 [facility] Hematocrit [Volume Fraction] of Blood by Automated count 36.6 % 3 6-45 [facility] Erythrocyte mean corpuscular volume [Entitic volume] by Auto mated count 92.8 fL 80-96 [facility] Erythrocyte mean corpuscular hemoglobin [Entitic mass] by Automated count 31.0 pg 27-33 [facility] Erythrocyte mean corpuscular hemoglobin concentration [Mass/volume] by Automated count 33.4 g/dL [facility]0-[facility] width [Ratio] by Automated count 13.3 % 11.5-14.5 [facility] Platelets [#/volume] in Blood by Automated count 306 10*3/uL 150-400 [facility] Differential cell count method - Blood [facility] Neutrophils/100 leukocytes in Blood by Automated count 69 % [facility] Lymphocytes/100 leukocytes in Blood by Automated count 20 % [facility] Monocytes/100 leukocytes in Blood by Automated count 11 % [facility] Eosinophils/100 leukocytes in Blood by Automated count 0 % [facility] Basophils/100 leukocytes in Blood by Automated count 0 % [facility] Neutrophils [#/volume] in Blood by Automated count 6.93 10*3/uL 1.8-7 .0 [facility] Lymphocytes [#/volume] in Blood by Automated count 2.07 10*3/uL 1.2-4 .0 [facility] Monocytes [#/volume] in Blood by Automated count 1.14 10*3/uL 0-0.8 H [facility] Eosinophils [#/volume] in Blood by Automated count 0.01 10*3/uL 0-0.5 [facility] Basophils [#/volume] in Blood by Automated count 0.02 10*3/uL 0-0.2 [facility] Nucleated erythrocytes/100 leukocytes [Ratio] in Blood by Automated count 0 /100{WBCs} 0-0 [facility] ID Date Data Source [id number] 09/09/2020 08:09:13 AM [facility] Name Value Range Interpretation Code Description Data Nereida rce(s) Supporting Document(s) Bicarbonate [Moles/volume] in Serum 24 mmol/L 22-29 [facility] Chloride [Moles/volume] in Serum or Plasma 105 mmol/L 98-107 [facility] Creatinine [Mass/volume] in Serum or Plasma 0.49 mg/dL 0.50-0.90 L [facility] Glucose [Mass/volume] in Serum or Plasma 75 mg/dL 70-140 [facility] Potassium [Moles/volume] in Serum or Plasma 4.1 mmol/L 3.4-5.1 [facility] Sodium [Moles/volume] in Serum or Plasma 138 mmol/L 136-145 [facility] Urea nitrogen [Mass/volume] in Serum or Plasma 8 mg/dL 6-20 [facility] Anion gap 3 in Serum or Plasma 9 mmol/L 8-15 [facility] Osmolality of Serum or Plasma by calculation 284 mosm/kg 275-300 [facility] Creatinine/Urea nitrogen [Mass Ratio] in Serum or Plasma 17 [facility] Calcium [Mass/volume] in Serum or Plasma 9.2 mg/dL 8.6-10.0 [facility] Glomerular filtration rate/1.73 sq M pre dicted among non-blacks [Volume Rate/Area] in Serum or Plasma by Creatinine-based formula (MDRD) >6 0 [facility] Glomerular filtration rate/1.73 sq M pre dicted among blacks [Volume Rate/Area] in Serum or Plasma by Creatinine-based formula (MDRD) >60 [facility] ID Date Data Source [id number] 09/08/2020 09:14:10 PM [facility] Name Value Range Interpretation Code Description Data Nereida rce(s) Supporting Document(s) History and Physical [facility] CNBUEj5nYqIXYvLe24/UWRwxCHOvf2IrJQspYGf0UYqsZCVcF3RjGFK5bQ5iXKN7IZhBHnUoPgLkVCZ4 lbm [file] AgICAgICAgICAgICAgICAgICAgICAgICAgICAgICAg ICAgICAgICAgICAgICAgICAgICAgICAgICAgICAgICAgICAgICAgICAgICAgICAgICAgDQogICAgICAg ICAgICAgICAgICAgICAgICAgICAgICAgICAgICAgICAgICAgICAgICAgICAgICAgICAgICAgICAgICAg ICAgICAgICAgICAgICAgICAgICAgICAgICAgICAgIC AgDQogICAgICAgICAgICAgICAgICAgICAgICAgICAgICAgICAgICAgICAgICAgICAgICAgICAgICAgIC AgICAgICAgICAgICAgICAgICAgICAgICAgICAgICAgICAgICAgICAgICAgDQogICAgICAgICAgICAgIC AgICAgICAgICAgICAgICAgICAgICAgICAgICAgICAg ICAgICAgICAgICAgICAgICAgICAgICAgICAgICAgICAgICAgICAgICAgICAgICAgICAgICAgDQogICAg ICAgICAgICAgICAgICAgICAgICAgICAgICAgICAgICAgICAgICAgICAgICAgICAgICAgICAgICAgICAg ICAgICAgICAgICAgICAgICAgICAgICAgICAgICAgIC AgICAgDQogICAgICAgICAgICAgICAgICAgICAgICAgICAgICAgICAgICAgICAgICAgICAgICAgICAgIC AgICAgICAgICAgICAgICAgICAgICAgICAgICAgICAgICAgICAgICAgICAgICAgDQogICAgICAgICAgIC AgICAgICAgICAgICAgICAgICAgICAgICAgICAgICAg ICAgICAgICAgICAgICAgICAgICAgICAgICAgICAgICAgICAgICAgICAgICAgICAgICAgICAgICAgDQog ICAgICAgICAgICAgICAgICAgICAgICAgICAgICAgICAgICAgICAgICAgICAgICAgICAgICAgICAgICAg ICAgICAgICAgICAgICAgICAgICAgICAgICAgICAgIC AgICAgICAgDQogICAgICAgICAgICAgICAgICAgICAgICAgICAgICAgICAgICAgICAgICAgICAgICAgIC AgICAgICAgICAgICAgICAgICAgICAgICAgICAgICAgICAgICAgICAgICAgICAgICAgDQogICAgICAgIC AgICAgICAgICAgICAgICAgICAgICAgICAgICAgICAg ICAgICAgICAgICAgICAgICAgICAgICAgICAgICAgICAgICAgICAgICAgICAgICAgICAgICAgICAgICAg GTz7P5hvWXTdVNHeKI6pXOi6Iu1+GSbISuIbDXE0qeTmiV6TFQ6tm7SkVWqqJRHhq1OeCTi3VA2LMTSz GNaaYO0GSTekzi5AMHOvBCNocUKNc8ryZtNnWMO2EC PtSiqlYB4IARClM2xeeuJyTFTcTRDNKHjvNYWAOJcbRNALBPWvSHXxBeCkMdMuDSJeATDoLOFYSZS5WE SxYyPiYKPwUVZvClGlIANLPHXdNIUsPwCyDXDnCSEeDgmfJKBMTEU0BVDhQzUeVTEqLPTnFH6TNBVpT1 60ehOnCSSIXk4+OZbcdjQrVprAEgDwDDVyg0BhRRv1 BC7FHRLzVxtnw5QoWYSjUCUCBGbqUB6TAWR2WIW2ZPPwQv6ZNTZnV719ohSnHF9ZRd8CBnXlHP0rlz8E QJEzYALpIhfHSax4UPpnLX8EnDSvJNaKFvHvByzkOPZ0eQQdUSGZWN68RVFzLJ9DFAV5TOJlXy8kISEs LEBiHeC4LGDSCL9MSMQnFLRfkLPyKSEhVDLVTE2GFO chWEK9OWTiwvIkcZOkMScdHH3OHLJnqgUoCMQmSARPYVt+Hh1QRF8nt3KgFMk1ALBxHE2pom6QRLbFUh YjE4U0zUFrQ1D0EAouEe8BZXCjQTJtZKNsJFDEJGgwKZ5UIR8jntB9PM4YcPGnTHTxINJwgASeRVd8N0 8vyMKkAOstJB8DTPB+Darío+Gq7AUKBlLPCwJHXaFhOa XWDQAdHrJ9FdH7KLc8DfW2CsAL92eBtlnhBvPToaWW4MPW6nRZUtPSBSSS7WxHAgpY2gwcV7XiHoRIYO LzSbH57irXQwDPCoUIZwPOKyNz7PYMWhL9CzdcVdtZusslInPTCuVUSSXJ2KNLovvgIjhWIrwPuxKP83 qFxqXE1GPs4TEzQtDN1zgt3WnUZxOs7MFOZ8Ma1IAQ GeAJYbRJMyUWT8TETqQjQkCKqdUZImGFFaNMK5VURuPRVtKZ3GOkXnFSEeNlU1GKIuJZEvWNQeet1HVU MvSAT1GTR2NgKrSHFhQWDhFZlcUPFzAASvZJN3PWXiIISbCL7SOiCsMPIzVJShILVbASEjLNLflv1IYI YyYJDgHQL2FMZzHZXePKAvDJefSGRyVOR3NSD9ZUOu NZKlXQ2GSkRcOZLsGVpuIcKsZHFeMGDgvr5QWPRvSNQzLEM8QxOsLCJdDPTsUEyyVYBaICGfWYZ5GGGh MROmXA8SEhHvAGTuUIU4YgQnPMBcSVGmpi9SXEMgURSrIXUbWzAdWNQkBIJdUCpvSQJiTMM9IxN4RKOq CEHsDY4RKuTjNUShYJq6LOCwFTWpZTWhfj4YGJZdRC DyQVl4ZVVpNCGmAPUyIAkvQFJmRYNfHHz6HFPuTXBjUH3EDyChRPPyHqJ1PntvADFnABQvkz0YUFDuHX XfSlF5OJFxPYEjFTQkNYncBVIjSMH1YoifDSKvCRLjNS9GDgMdIPCdFaj8PsHaHZEpOKQywh6UGCKwEA UtEiQ4EKTxYPXbSZHdIYttUANlZHUhWBpmZFHrWGCz RR0VGjFiWYUyWxU3SZFpSEBgGLZwlg3ZJUUyWSGhJYymNjOuEJLcHRJeOLcbOLJdEFM6AgI3PFFcJEDo NA3BOfDuYGYlHvd9SEArKDJmSQMmin3TMGIvAPO0KaYpMYUqWMWsOAReDTsdQRTfAGTxVfXoMRTdWRFh UR4RUxBdVQEbPXz4VstiHQLbWWSyxu2UZWYwUPQ7UF K9UMUfHTVpEXZpYUdaFYBvOXXvHHd5ATKzAPJkQY2BJhRlOGYpNOP1VDMaZHFhNHTzjg8JZSSfJPW0LC r5ZYFiVEIwJLKxISwgVBNzGULfSDD5EHAuRYBrNJ2NWlIzXOGqMDOwJJIiGRHmPNCgvt8MLKOnPUJ2Yc H3YVCnDMMbQLHsPFswATJhKFDcDhUvWOCnRCAyBD5B GpWcSVVlAXP8VLlhOOKtOPVwio5ICISmNXY5MVc4OVVsXUOsPNUuACthGWBqGAC7UVqzAHVoZELqUI8R TvFhOSVpGiJ3QIWdUWJbFLHokp2BLEEiHSL5APS4HKHpXKWuFUOyNUalKULpAVQ7Pfs1BMZwNYCuNC1K AdPnDLBaWkF7SePtNEIfCJThvv1CBGNaNAG1TntxXE EtXYCzLFHyWMdiEOQcGEW9EPj2XYWvXLKeRK2TLfHaCPXtHnM0HLHeFCSiPZCfnk5CUJKoCTU3KuN0LA IsHDRvOYQsGFwiJLYwGQuqNPwePQKoNEToGM7ODhTjLLRcDsB8YpWsYDPqUBUuiq6PVURrHVN7Pos6CB KnOZQrRKYeCZkwTDAxGBrcLpZxVNJfNNGlNE0WAdXy CFYuZuY9CbInTVRaIUYtgf4PKXOeINZ7AIgeMSBjFPSoNKWyWGvyWKJhXSp5QMF8GGIuIVCcVD5BUsEi ZFjfFJWGYwh8YWanQ6m2DIG6Tk8NS9Jbn4SvGOTjWQBQGGasJI0byjOiADPdNe2WH5eSPuveFuAtRgQc WpxwOVSjKAK5BlI6NUMoQVUrHuYnFCYhWH3wBCN3TH Y4PaKlVqWsNpJmImS7IfkyENJwTaF5CyW9YUBdFaXuEF5JTx7SIjN8MUE5kHPtEp3ALdHoPLITAgUrOV 9GDQo= ID Date Data Source [id number] 09/08/2020 01:18:24 PM EST [facility] Name Value Range Interpretation Code Description Data Nereida rce(s) Supporting Document(s) Discharge Summary [facility] QYPJJi1rRuWRNdXm73/MOZrhYFOsu2SqEEbeJAy2JBglNOKhB7QoKSH4xQ7sRBL8RJjITnKlHcIrGID6 lbm [file] ID Date Data Source [id number] 09/08/2020 11:24:51 AM EST [facility] Name Value Range Interpretation Code Description Data Nereida rce(s) Supporting Document(s) Consultation [facility] MNRFYp2cJaPRBpOs50/RGQpmILInn4OlCYgzTYz2UQwfFTIcV7SbKTA8xT3kJAP2GOqEQfYmJmCjKLQ9 lbm [file] AgICAgICAgICAgICAgICAgICAgICAgICAgICAgICAg ICAgICAgICAgICAgICAgICAgICAgICAgICAgICAgICAgICAgICAgICAgICAgICAgICAgICAgICAgICAg ICAgICAgDQogICAgICAgICAgICAgICAgICAgICAgICAgICAgICAgICAgICAgICAgICAgICAgICAgICAg ICAgICAgICAgICAgICAgICAgICAgICAgICAgICAgIC AgICAgICAgICAgICAgICAgDQogICAgICAgICAgICAgICAgICAgICAgICAgICAgICAgICAgICAgICAgIC AgICAgICAgICAgICAgICAgICAgICAgICAgICAgICAgICAgICAgICAgICAgICAgICAgICAgICAgICAgDQ ogICAgICAgICAgICAgICAgICAgICAgICAgICAgICAg ICAgICAgICAgICAgICAgICAgICAgICAgICAgICAgICAgICAgICAgICAgICAgICAgICAgICAgICAgICAg ICAgICAgICAgDQogICAgICAgICAgICAgICAgICAgICAgICAgICAgICAgICAgICAgICAgICAgICAgICAg ICAgICAgICAgICAgICAgICAgICAgICAgICAgICAgIC AgICAgICAgICAgICAgICAgICAgDQogICAgICAgICAgICAgICAgICAgICAgICAgICAgICAgICAgICAgIC AgICAgICAgICAgICAgICAgICAgICAgICAgICAgICAgICAgICAgICAgICAgICAgICAgICAgICAgICAgIC AgDQogICAgICAgICAgICAgICAgICAgICAgICAgICAg ICAgICAgICAgICAgICAgICAgICAgICAgICAgICAgICAgICAgICAgICAgICAgICAgICAgICAgICAgICAg ICAgICAgICAgICAgDQogICAgICAgICAgICAgICAgICAgICAgICAgICAgICAgICAgICAgICAgICAgICAg ICAgICAgICAgICAgICAgICAgICAgICAgICAgICAgIC AgICAgICAgICAgICAgICAgICAgICAgDQogICAgICAgICAgICAgICAgICAgICAgICAgICAgICAgICAgIC AgICAgICAgICAgICAgICAgICAgICAgICAgICAgICAgICAgICAgICAgICAgICAgICAgICAgICAgICAgIC AgICAgDQogICAgICAgICAgICAgICAgICAgICAgICAg ICAgICAgICAgICAgICAgICAgICAgICAgICAgICAgICAgICAgICAgICAgICAgICAgICAgICAgICAgICAg TKHrOUQoMBJiKWGjFDMbTZg8N3wiOFZvBFJxTV5nHJk3Ea8+TXlULxLjRZW0knVcnZ6ZJI5cq0KlWIua RESjk7VwIIq1UJ0VGSNsLNbaIB6JRJvvgi2IIWNxNS QrmDBAx3meZzDqYEU6ZYHcUnnjDV5KYEAcT0fmqvTgORNjVEUFBWrsQKOFZFyuASTLNNRzFKAjEpLnDx ZtNFVgKEIgDPBZKLY6VRHjHiSjGBOfYMHfSvRyYWXRCEIzHRGsFoBuFEEwFLReUhvxODKIKS2YLhZwN3 YlxR27SMZrCCk+Rt5QVI4zc9MmQMj6OqCgJX1xmr8S RWoSAkOaQ6ZscfD6HSWmUZLdOl9HGNQwFLQnjIO1XqNoHLOTPrZzO6PouT12SBPOJg7+DQplbmRvYmoN EbCoTFCij7EaVHi5IX1CNPOaXVv3eTEbH96xg8OcmJVsMehgZ8PjsHrngludYLjaTCRpXOd0pdApXDVN WOS7BAGbQd5rLXImALD4QdBvOKOEVL8BOPQgRWGidH GsYMVwYZNKGM9ECMnbHCN9QGHujdFeiWOaQOmhVX0EMJIusvCgIAEoUNVCFOb+Wo4ZIC5uy3HoEVj0YG DzSK5mgv1FWCrUSlZiZ5H8nASeB6O2WLvdEb4VVEJuWVIzFSAgGVMAMIplOY6DQM4gwaU5ZN8UlNUaZX YxGIHisQGxPJz9J17ltXIlUAeaAG2HKHY+Darío+Pg0K MTDkDIWiAWBbQhDfIYELBwRnH9QxI1AGw2IiW8MfAO00bZjuctRpFYnqUL5TYF9gXPAgBONAIY5JcIYp bL0ufcE7PiEzOLLSJdOrL83myGUpEDVtLKPlRZUzDi9CZSOsD7UxdzAnjBtwcbQuYSJeOABWXR9WTIgm nmYznTThpVnxQJ05bWpqSU4MSe5GWtQmRD6dez5QeQ FhHe3XMIP7UC8KQBApVPOxVLUuZHP1ZQTvUoHuIWboZVJxLMAtFRH3QHXaMBIxTX7TApMjZNYlHaS6Uf JhTLUeRYRljv7IGWPnASL0XqUoGbAfGCNyYNSyKDmlMNSkENNfOAT0AQFrAFQlBG5FJoCkABKlSVKrVE vrUVMfGKFgaq1DKTJlKNIzKYHcErSiJORoHAIdXVjw PCFwRKW6MGbdRRGoPGNpRW2OEmDeKTSfKUttPPctKFPiKHSilm1CCWKyKKSiGjIqXILrKNWfPJDbPOqx NQJuGENdETC1XNJkRGJoEB2HSzGrEMOtSTM7ODOcJSWxNBJpce9JTRJlMOYfXcBdWWOoSOZhXXZfVNom GZYzMYRbHAP6ACEcOWKxET7TYnUuVFUsOvNyRjOmAN RsAGPjjk1KWPUnQLHqCEB0XvTrLNRnCNNyCJygDHArDVG7DUgvQEOaTZMjMD5TDzAkLLDkVcj4KAHdCX MjDVEuti2LFZFxFXWoAxy9ZaTkXUVxWAWzCMupDNIgVSUoWIQyVINgPXDeAH9WNrRiRWEtTeDzKwzkPO UyUQVmdn9ANAFrCMStJZxmNPJkYCCoBTQgXPzyRQLj DFY7WCO8GNIiNIOyMR7VJaAhJTKbLrbkSzBcTLBiJXHegx5YDAXpVETsIES6NXWiGIHuPCIlDLnnUUAq JROeVTr0CKWeGIKwDZ1OIyZkNDUaHHWlFELkBPJsWYWxxh8QHFAmANY6TnolFWFfLZDzNWMzTIspNVDi NHW3AAF7IJFnZXUlTC1JScMzNQXgHGn2CUUbPQDxKY Gktx4IGWNoPVF5FQP2QgHbEQGiCZWkYTnlNBPyGJV7Xrl6ZNCtSLLoZG7ZWtHnMOYuPWxxVmZwPQElDD Yqxg2LOJFaPGR0JRQoJbGpMWNrBOXqMNokEKEdNHJ7DsI9JXDrZBGtDZ0HMjFkXEClQHL5GSDjEDOnYC Vnlq7RIRRrPCN0PMa0HvEjHLAvVJTaJQeyBMSsAKQg EOU9HPMbAUNlYN9DXdZoXRXnBTT8VoOiROLeNOKtxy1OZRJaCPG4YiAlLHVnXHPjVNVpBEobXMCtOIX0 EQNpJXMaHVOvMT5RUdXcHGYiIVE3MDThDRHtXPEzhu5SPKYrKJV8ZhymHsPhGAVyKFJkYDkuZTDhLYZ7 TcSfEFAtXKOxHE0GCgAqBNWjLod5FXRrGONuEYUqgt 9JVZCfJAT9NPq8UNTvJTTsEYBwSKfdQDYuXQM5ZKu3VDGyAYAhZW3BDxMdBTLkLsufDpUdWIMrOFYopm 8PWHQdUEC1IPH4EEAaTVOiTDBbOBbyLFCnLSfgGhQ4OCJyQRSiFE0ZWhPeQHKzIwH7VMMuLZVvGYXjia 7YLVJlOSQ9GNd4EwChAPUhFILhVUbcKJVjUUycPLX6 SADbSGAbAS6OKtKpQTRvWuM1RutdRCHzIEBxwv1OXHEtAKQ9CkPiSnUjCLSfZQCfAIz1jxYobFKrZNg1 PZ0NI1OultYzGGIIWf4Lk466GWV5RRAjJf5BA2daNr0fGXMzJQQDVv1KATf2IrY5NjWjHYo6FBKxNmD5 SFdnMUIaA0A7UHU2JDEnEiU+VVgdOOZdAEO0GanvQy H7IZHzTQWbZJYzZDI3OvE2IAB3VO9nNVGUNw8+YSubtQRudIlcERLWCbryTXnhLKtzTBJGPj9G ID Date Data Source [id number] 09/08/2020 11:34:43 AM [facility] Name Value Range Interpretation Code Description Data Nereida rce(s) Supporting Document(s) Specimen source [Identifier] of Unspecified specimen [facility] SARS-CoV-2 RNA 2019 nCoV Real-Time RT-PCR: NOT DETECTED [facility] Assay Performed [facility] Patients first test for [facility] 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[facility] Patient has symptoms related to [facility] When did you start to experience these symptoms [Date and time] [Phen X] [facility] Patient was hospitalized because of this condition [facility] patient was admitted to ICU for [facility] Patient resides in a congregate care setting [facility] status [facility] ID Date Data Source [id number] 09/08/2020 11:34:59 AM [facility] Service Cmnt XXX-Imp : NoneRespiratory P CR Panel : PCR ResultsMicroorganism XXX Cult : See Labs Tab for 2019 nCoV RT-PCR resultsHAdV DNA QI ENA+non-probe : Not DetectedHCoV 229ERNA Nph QI ENA+non-probe : Not DetectedHCoV BGK2XRP Nph QI ENA+non-probe : Not AoylnzsaCOkZFW22 RNA Nph QI ENA+non-probe : Not WvawlgjwXPzCOC58 RNA Upper resp QI ENA+probe : Not DetectedhMPV RNA Nph QINAA+non-probe : Not DetectedRV+EV RNA Nph QI ENA+non-probe : Not DetectedFLUAV RNA Nph QI ENA+ non-probe : Not DetectedFLUBV RNA Nph QI ENA+non-probe : Not DetectedHPIV1 RNA NphQINAA+non-probe : Not DetectedHPIV2 RNA Nph QINAA+non-probe : Not DetectedHPVI3 RNA Nph ENA+non-probe : Not DetectedHPIV4 RNA Nph Q ENA+non-probe : Not DetectedRSV RNA Nph Q ENA+non-probe : Not DetectedB pert.PT PrmtNph Q ENA+non-probe : Not DetectedC pneum DNA Nph Q ENA+non-probe : Not DetectedM pneum DNA Nph Q ENA+non-probe : Not DetectedB [id number] DNA Nph ENA+non-probe : Not Detected Name Value Range Interpretation Code Description Data Nereida rce(s) Supporting Document(s) ID Date Data Source [id number] 09/08/2020 10:08:00 AM EST [facility] Name Value Range Interpretation Code Description Data Nereida rce(s) Supporting Document(s) SARS-CoV-2 RNA 2019 nCoV Real-Time RT-PCR: NOT DETECTED [facility] This lab was ordered by [facility] and reported by [facility]. ID Date Data Source [id number] 09/08/2020 05:34:46 AM [facility] Name Value Range Interpretation Code Description Data Nereida rce(s) Supporting Document(s) Leukocytes [#/volume] in Blood by Automated count 11.1 10*3/uL 4-10 H [facility] Erythrocytes [#/volume] in Blood by Automated count 3.81 10*6/uL 4.1- 5.3 L [facility] Hemoglobin [Mass/volume] in Blood 11.8 g/dL 11.5-15.5 [facility] Hematocrit [Volume Fraction] of Blood by Automated count 34.2 % 3 6-45 L [facility] Erythrocyte mean corpuscular volume [Entitic volume] by Auto mated count 89.9 fL 80-96 [facility] Erythrocyte mean corpuscular hemoglobin [Entitic mass] by Automated count 31.0 pg 27-33 [facility] Erythrocyte mean corpuscular hemoglobin concentration [Mass/volume] by Automated count 34.5 g/dL 32.0-36.0 [facility] width [Ratio] by Automated count 13.1 % 11.5-14.5 [facility] Platelets [#/volume] in Blood by Automated count 279 10*3/uL 150-400 [facility] ID Date Data Source [id number] 09/08/2020 05:54:04 AM [facility] Name Value Range Interpretation Code Description Data Nereida rce(s) Supporting Document(s) Bicarbonate [Moles/volume] in Serum 24 mmol/L 22-29 [facility] Chloride [Moles/volume] in Serum or Plasma 104 mmol/L 98-107 [facility] Creatinine [Mass/volume] in Serum or Plasma 0.42 mg/dL 0.50-0.90 L [facility] Glucose [Mass/volume] in Serum or Plasma 88 mg/dL 70-140 [facility] Potassium [Moles/volume] in Serum or Plasma 3.2 mmol/L 3.4-5.1 L [facility] Sodium [Moles/volume] in Serum or Plasma 139 mmol/L 136-145 [facility] Urea nitrogen [Mass/volume] in Serum or Plasma 5 mg/dL 6-20 L [facility] Anion gap 3 in Serum or Plasma 11 mmol/L 8-15 [facility] Osmolality of Serum or Plasma by calculation 284 mosm/kg 275-300 [facility] Creatinine/Urea nitrogen [Mass Ratio] in Serum or Plasma 13 [facility] Calcium [Mass/volume] in Serum or Plasma 8.9 mg/dL 8.6-10.0 [facility] Glomerular filtration rate/1.73 sq M pre dicted among non-blacks [Volume Rate/Area] in Serum or Plasma by Creatinine-based formula (MDRD) >6 0 [facility] Glomerular filtration rate/1.73 sq M pre dicted among blacks [Volume Rate/Area] in Serum or Plasma by Creatinine-based formula (MDRD) >60 [facility] ID Date Data Source [id number] 09/07/2020 05:47:49 PM [facility] XR SPINE CERV 2-3 VIEWS [id number] RESUL TInterpreted by:PATRICIA Sarahlinical Indication: Post fusion [...] rce(s) Supporting Document(s) ID Date Data Source [id number] 09/07/2020 04:03:38 PM [facility] XR THORACIC SPINE AP AND LATERALFINAL RE [...] No large airspace disease is identified within [id number].IMPRESSION:1. Visualized hardware intact and described above.2. No evidence of acute fracture or significant listhesis. Postsurgical changes better appreciated on recent cross-sectional imaging.This document has been electronically signed by Moises Hook MD on 09/07/2020 4:01 PM Name Value Range Interpretation Code Description Data Nereida rce(s) Supporting Document(s) ID Date Data Source [id number] 09/07/2020 12:47:21 PM [facility] Name Value Range Interpretation Code Description Data [facility] rce(s) Supporting Document(s) Operative Note [facility] DBMZEp8eVnSJTrWe79/XJKxnBVKat7VeJHnqKKq4ILzrIHWyS6VbSHF7lN2bTLH9EKgCVyLrFuWeFDO1 lbm [file] KAYLAN+OCsoOFdirDu2pNNxKZAtLs8IWJQeSVHhROXjMDTnGVGlYIUuIGSaQSVvKAKiFRNpJXDiZQZaLLIh ICAgICAgICAgICAgICAgICAgICAgICAgICAgICAgICAgICAgICAgICAgICAgICAgICAgICAgICAgICAg HN4TTZZpDUFbRCVmQIQkBCCzTKOjFMZxSOZeFYNeHS AgICAgICAgICAgICAgICAgICAgICAgICAgICAgICAgICAgICAgICAgICAgICAgICAgICAgICAgICAgIC MnJIMbCXLnNHCuAK4ICXOcPMLiNNJuZZUiQRTpBDBhXNSgPMRsZNAoEMLlLKOhNMNhDVFaJGHyBQJlBS AgICAgICAgICAgICAgICAgICAgICAgICAgICAgICAg UFAbNEWqJTTkOLKbMBWtAIWqVBKrEM9CUEBoILTjLTRjYAZiERCpONOkILSwKRUnUNVtAJWcSLRkXCOl ICAgICAgICAgICAgICAgICAgICAgICAgICAgICAgICAgICAgICAgICAgICAgICAgICAgICAgICAgICAg HCRlHR7WDHVhNPFhHROvLVRlKIBqGHIoQZJwJRWjKY AgICAgICAgICAgICAgICAgICAgICAgICAgICAgICAgICAgICAgICAgICAgICAgICAgICAgICAgICAgIC PqYFUrHZKzYZMjDAScDC3UIIXrXRStPPPmAYTsDBQhZEOrHZRyFJQiJWCzSFQpLDOfXVGrVSDxPCNiTM AgICAgICAgICAgICAgICAgICAgICAgICAgICAgICAg XCCxTJByRIWdPWNcHMQmFEFcQDCgNUTmBG0CZEMhFBPzOKXeJLLpUSLdSQOjIRScUZZgEIEgJXSpQOYt ICAgICAgICAgICAgICAgICAgICAgICAgICAgICAgICAgICAgICAgICAgICAgICAgICAgICAgICAgICAg MLZhFENfXZ4TISDrTDLhTIXwMAAfIFGcQXPuDGAhER AgICAgICAgICAgICAgICAgICAgICAgICAgICAgICAgICAgICAgICAgICAgICAgICAgICAgICAgICAgIC GoBASvBGUhSCIuISAcGSHfLR0NFSEvGFUrAIErZUHiLDFqYXRlCCCaLBLaHSIzHJOaJZCmINNyLEMlTC AgICAgICAgICAgICAgICAgICAgICAgICAgICAgICAg BZDlJAYzFUYlBYEsHUQcIJApAXJsDKCxYPGnNK4NSUGaSMPxQIElZHIjLDOtGKGcPLNoZRPjQCZbFOFd ICAgICAgICAgICAgICAgICAgICAgICAgICAgICAgICAgICAgICAgICAgICAgICAgICAgICAgICAgICAg TWOwDRKuFAFhUP9PCI71dIRme7Z5PTTrYU6xslb/Pg 6SVIlbrhJghRTyVG5EQrDtKE6ljn4RZoMqQI0wek3WPLbLZpVoY1L5hUIxIMFqUADNQhCcD93aDQxyKy 58URnnIYMgKiMwNMx4Sl5OCuCxE8mkQXVyHwV7ILHtBmF0JKGxZvV1DJOkBuWtUEMbXJKkWURuZBITBO V7HMNjXuWaCMdfOT9Tc4YsbDG1MWc+Rl5EEH7ec5Ag VFliFdEtGL3nsx7HOBsRVlZuJ1GiugW6SSH1KWHpIk6TVLLkDTDnaHKnEJOoKBLMKhYaT3CucY87JDWZ Cj4+FDpquoIwJmzLWjB2QVTdn2SfMYp0GP4ZUKKxMKq8zXQhF8ScklM6qHDjTQ3roOZwDktnJ6bax96c HnSeBUWCCYEopMBgVe8kJK3lWDVpOVW4LtEeOIJXUZ 3FVFCiZFVsbULbBIApXRGUXG0AJVhiVHM4UBXgulJsqREdDDnnTO2VHXVziyTjHyxfPSUWMCp+Pg0KZW 5bm0JgSDdkFOQrHU7tbc1QKDeLCkLgO7G6wIPwW2E2MTqpDn3FHTJuFONmAtTrTARILHgqGH6MYB8ynb O0PP5PaCDdGMUyJFYelHVdZFh4U69ivBNxQSdrFV8H ICA+Darío+Oc9HZIRtWQRdVXJlUmHrRPEPNxMuM9YxU6XCn4FaO0SoAQ35zUabqvLxYLvcUU6SVN8zERYt EUSVXW4EoKTamH2tmzOeAwCwKVGGFtFbS52fyJGeTGOcAUR5OIAgOg6BOLBfF5FmhzObhRykqlWkYGGw YZMIFM4QEJkndpIprHBqgZnyGN34iWphIJ3SUa6TWf DkBK9ppv6NrLFgUc2JMDAtCJ6HEOCeBGOsFTCvOBE3NJOdLlAlOQxjUVEgSYCfKVJ6KPPnKNYsDZ1YOt WvETNnJzYzIMsgMNEaPMPruu9FQYClQLToJpaeAAQaCRBgTXGmBIirKBZvZLWfFFR6NHYkFXZpET3PEu FaKLEmAZV3MmgkVBQhMHYgfj9BYQElDGTjAuv3BAFx SMOpTVHpRIkcBQOdHHD9QBT1BLYeZQIgML2ISdPnCHXlVUQ6PIIyFIReQNEvjg9KAFLtGSQeJVAsGQQj PVBhNIZsPZchTVQsAVT0JVIbYCFaUBXrQG2OHxVeHXUaIHI3NUAaUWSkSVGuig1FKKNbXCXgHML3FMOl GRHvLOLpOKbzYNAgGEZ4QjRzANNeAXGoTZ6CXcMoBS LfNQa2XHbgOEQkNAKbuy7NPFNlDFDkHIv6FPJqFFFoKRKaNXosJEQyYJFmKSF7KPBwBAYrHE1KVtHaDC SkNcGnKIAeYWJiAKZtwd5QOTZaCJVuWcWtXuFrZHVvACBgQOcoXMYjCWQzOhv4WPPwODGiLT1AUmOfCH AvYgKxCAWcAFCnQSUtvw6JIKPcTEDvGtN4BwPfWSLo UXMnFRlcWFRvJGGuGdQ8CUXeZJTjFV3ERyTgDKXaCkD9KWUwOYJaLEAhqe4HWHNdSLKxBTu4WlBgWPPu RYEhXEkwNICuDUY3SGa4FYTcTIXrTF9TRlMoYKYdMxG4YJsvYAXlUPZnwc0JTAKeAOQlVgn2KKJeQJHc CBBtKUiwCQOcBNL2MXTiVGMsEJUzAJ9LZbLiQOWqIs iiRJYkAFRdXKIkhq2ZwISgiRwjmz8HHYqXAc1HmFihTRSeZHueVq1gqVHrHTAeWISYRz4OifYiKPVtFF VYVFkrMYZaOMK6YpIhEKOrCjL6KRk1AmNrOLTgRpZjKILlL0WhE9Y1FwU1SFYlEDVhRdByIxx1TvY4CQ K3ZZVnHnU4OxCtPgU5LbL+MF4iKWa+Ck8Vm2TzrmQ3qyMiCRwzCsDzPR3KNWAPM5BBCa== ID Date Data Source [id number] 09/07/2020 05:41:58 AM [facility] Name Value Range Interpretation Code Description Data Nereida rce(s) Supporting Document(s) Leukocytes [#/volume] in Blood by Automated count 10.7 10*3/uL 4-10 H [facility] Erythrocytes [#/volume] in Blood by Automated count 3.71 10*6/uL 4.1- 5.3 L [facility] Hemoglobin [Mass/volume] in Blood 11.6 g/dL 11.5-15.5 [facility] Hematocrit [Volume Fraction] of Blood by Automated count 34.0 % 3 6-45 L [facility] Erythrocyte mean corpuscular volume [Entitic volume] by Auto mated count 91.6 fL 80-96 [facility] Erythrocyte mean corpuscular hemoglobin [Entitic mass] by Automated count 31.2 pg 27-33 [facility] Erythrocyte mean corpuscular hemoglobin concentration [Mass/volume] by Automated count 34.1 g/dL 32.0-36.0 [facility]th[facility] distribution width [Ratio] by Automated count 12.7 % 11.5-14.5 [facility] Platelets [#/volume] in Blood by Automated count 249 10*3/uL 150-400 [facility] ID Date Data Source [id number] 09/07/2020 06:08:23 AM [facility] Name Value Range Interpretation Code Description Data Nereida rce(s) Supporting Document(s) Bicarbonate [Moles/volume] in Serum 24 mmol/L 22-29 [facility] Chloride [Moles/volume] in Serum or Plasma 106 mmol/L 98-107 [facility] Creatinine [Mass/volume] in Serum or Plasma 0.42 mg/dL 0.50-0.90 L [facility] Glucose [Mass/volume] in Serum or Plasma 97 mg/dL 70-140 [facility] Potassium [Moles/volume] in Serum or Plasma 3.5 mmol/L 3.4-5.1 [facility] Sodium [Moles/volume] in Serum or Plasma 141 mmol/L 136-145 [facility] Urea nitrogen [Mass/volume] in Serum or Plasma 4 mg/dL 6-20 L [facility] Anion gap 3 in Serum or Plasma 10 mmol/L 8-15 [facility] Osmolality of Serum or Plasma by calculation 289 mosm/kg 275-300 [facility] Creatinine/Urea nitrogen [Mass Ratio] in Serum or Plasma 9 [facility] Calcium [Mass/volume] in Serum or Plasma 8.4 mg/dL 8.6-10.0 L [facility] Glomerular filtration rate/1.73 sq M pre dicted among non-blacks [Volume Rate/Area] in Serum or Plasma by Creatinine-based formula (MDRD) >6 0 [facility] Glomerular filtration rate/1.73 sq M pre dicted among blacks [Volume Rate/Area] in Serum or Plasma by Creatinine-based formula (MDRD) >60 [facility] ID Date Data Source [id number] 09/06/2020 10:25:33 [address] [facility] CT HEAD WITHOUT CONTRAST [id number] RESU LTInterpreted by:Qian Daly MBBSCLINICAL INDICATION: sudden [...] rce(s) Supporting Document(s) ID Date Data Source [id number] 09/06/2020 05:59:04 AM [facility] Name Value Range Interpretation Code Description Data Nereida rce(s) Supporting Document(s) Leukocytes [#/volume] in Blood by Automated count 10.5 10*3/uL 4-10 H [facility] Erythrocytes [#/volume] in Blood by Automated count 3.61 10*6/uL 4.1- 5.3 L [facility] Hemoglobin [Mass/volume] in Blood 11.2 g/dL 11.5-15.5 [facility] Hematocrit [Volume Fraction] of Blood by Automated count 33.3 % 3 6-45 L [facility] Erythrocyte mean corpuscular volume [Entitic volume] by Auto mated count 92.4 fL 80-96 [facility] Erythrocyte mean corpuscular hemoglobin [Entitic mass] by Automated count 31.1 pg 27-33 [facility] Erythrocyte mean corpuscular hemoglobin concentration [Mass/volume] by Automated count 33.7 g/dL 32.0-36.0 [facility] E[facility]th[facility] distribution width [Ratio] by Automated count 12.8 % 11.5-14.5 [facility] Platelets [#/volume] in Blood by Automated count 236 10*3/uL 150-400 [facility] ID Date Data Source [id number] 09/06/2020 06:21:42 AM [facility] Name Value Range Interpretation Code Description Data Nereida rce(s) Supporting Document(s) Bicarbonate [Moles/volume] in Serum 24 mmol/L 22-29 [facility] Chloride [Moles/volume] in Serum or Plasma 107 mmol/L 98-107 [facility] Creatinine [Mass/volume] in Serum or Plasma 0.39 mg/dL 0.50-0.90 L [facility] Glucose [Mass/volume] in Serum or Plasma 95 mg/dL 70-140 [facility] Potassium [Moles/volume] in Serum or Plasma 3.5 mmol/L 3.4-5.1 [facility] Hemolyzed Sodium [Moles/volume] in Serum or Plasma 136 mmol/L 136-145 [facility] Urea nitrogen [Mass/volume] in Serum or Plasma 4 mg/dL 6-20 L [facility] Anion gap 3 in Serum or Plasma 6 mmol/L 8-15 L [facility] Osmolality of Serum or Plasma by calculation 279 mosm/kg 275-300 [facility] Creatinine/Urea nitrogen [Mass Ratio] in Serum or Plasma 11 [facility] Calcium [Mass/volume] in Serum or Plasma 7.9 mg/dL 8.6-10.0 L [facility] Glomerular filtration rate/1.73 sq M pre dicted among non-blacks [Volume Rate/Area] in Serum or Plasma by Creatinine-based formula (MDRD) >6 0 [facility] Glomerular filtration rate/1.73 sq M pre dicted among blacks [Volume Rate/Area] in Serum or Plasma by Creatinine-based formula (MDRD) >60 [facility] ID Date Data Source [id number] 09/05/2020 04:59:36 PM [facility] Name Value Range Interpretation Code Description Data Nereida rce(s) Supporting Document(s) Consultation [facility] QGWGIp0fChZGHgVz60/BJDviOIZna3EdYEkrBYe6UAbnWIZlE3BjREG6kK6kAXV6AFfCFcBdIhRsCCI6 lbm [file] ICAgICAgICAgICAgICAgICAgICAgICAgICAgICAgIC NnSIGvIYDgRKXkFRThPFIwCLYgZVMvUMKxWSZfPORtHDWyMRZaNTMqKKLsYAYyVUShPRWsFCLxPI1EMX AgICAgICAgICAgICAgICAgICAgICAgICAgICAgICAgICAgICAgICAgICAgICAgICAgICAgICAgICAgIC AgICAgICAgICAgICAgICAgICAgICAgICAgICAgICAg YULwGOZsLY7GQLMuFSLrOBQlKDWfMUEtAWXqTCImDPExJCGpCTRfCSEqGWBkVYOqOOVmEEBaPGDgHZNa OWMpIYZbKBVgQUBfBUMmRZGfQABzVQAxNIZoRXXrTXIpZSQlUOFpQQSvOLSrXFQeKV1OAGCzQSVeLRRx ICAgICAgICAgICAgICAgICAgICAgICAgICAgICAgIC AgICAgICAgICAgICAgICAgICAgICAgICAgICAgICAgICAgICAgICAgICAgICAgICAgICAgICAgICAgIA 0KICAgICAgICAgICAgICAgICAgICAgICAgICAgICAgICAgICAgICAgICAgICAgICAgICAgICAgICAgIC AgICAgICAgICAgICAgICAgICAgICAgICAgICAgICAg DYYcOYZiMCJxJT9VFCNiKSReBJQkDZLfMTWmYATqSTOlSUYrKEVtILJpDCZqDRBrSMJdGVZeXKHaBEGu UGOmYEOwHOEkARAzKUKoBMWgGLTiCSXwXYHnHNZuJRZuBBYeFOFlFIXvYXKpEHCrZAEeBY5KLKAaLQPw ICAgICAgICAgICAgICAgICAgICAgICAgICAgICAgIC AgICAgICAgICAgICAgICAgICAgICAgICAgICAgICAgICAgICAgICAgICAgICAgICAgICAgICAgICAgIC CcBS6WLGGpIGQrUPIkIBJfPPVoRMWtPYBoRMXvMTKxTJIdPVYuEAJiMZTuMFCgHOThEKYgYYUkDLSaGN AgICAgICAgICAgICAgICAgICAgICAgICAgICAgICAg IDLgEKKhYQXvZZFeIA5YPMYfDJMtAAJhWRHzKKPfUJDpHGWoBHTuVAPeMRIlCSSiJSHnHITuYRXzWYRw FZWkMDQrCMVrJQJnVSDpRMPsQJKcEEPaDQHeWFNvNMQaQPJmUVUeQTToYOYbORZzUMKzNKQbNX7CGM98 mIIwe3N7DNZgYM6rnqh/Pq3QJAvspaEnrCJgKY2XFq VwYS9yaf5GLoQmJA4zyx4KKVxUDpCdT2F8wMLfDUOnLXGPCsRlL98wVGgkNr65REzkUVKfDzTqVVl2Xc 4ZRcErJ0frRLYkEpL1XPNqJuU5HOMzWtT6ABWeUySdKEKmUKSrFZCuMJGINBQ2EUHjVgAlWxWbOXDxNR qoLIBEXGAjFGWmBtGwKqAzLSDqCI2AJRYtZ819byOh MTANCj4+CWdxevKxZekKNdCqSGOdb5EgNBp2XQ7CAXJoZhfnz4SoNFOkQQCEJArlAL9KLWL4YTRjIFGz My7DUTWtW591tvYuVG7QPp3UHxDeZV9ahq5ZDIQnRLFfBqfMDrh6YIpwJH7LsKHnOCkQx28plEr5vpZz xVKEnBCzdgK2DYucGJUurL9eOuvzJZ0zLLSvLA73Db EoPcIvADJ2MOZuFZ8fERwxMG1NWEV7FWloGTAgHAPzY2eAEdTyYCZiEXLnrYfxLC7ZUbLvD1NtxpJuzS D7SZDzJZSMJh3+TUollkAwRqbIWhQsJQNqp4WyKCc3HY4WIDOeWHdiHN3RFANavZ6pYUppJK1UUwLkQV JbMPBGWfWhL79zqDEfKLd0J3TgNlWqWPMlLaawUQVu PDwvTmFtZXMgWyBdDQogID4+ID4+FFtkFE7DCOuovtQfKOHgFm1PUBZyOGXaVL6bLVOkGZLhV7Q3uTea IPALZdTvA9ptksnvXV3rKCDyU274vMzwbgGaZYUfLRJmOp5FQXLmUIL2BIPhcIZpGntcLEBJVIzpEY7D bCByOLS8kN9oYLcrTOOaMMQuR8nXYqFygKvcDP31aI wgbnVsbCBdDQo+Fs5GUY1av4YeHDw0cdZfXIhyCCEtACafQOPoSNNyLZHnDTR2IZI3BNTTAgZwRCEvLL MgQPkwYBNuUTYask5WUAYeEHL3PoR5XJBaOGBmIXYfPMnpBPHaSIE3Cxb7CAIlHICaXB4MMgJuUATbTW ChCUosLVHtVXDtgz7DWYVvONJpZschOlIeIOUxUSLo DKiwBBEfWUE2WWDxOOIhYAWkDC9KAkMjDIXuYTqhVCOgBNRgDCKkpq6XJFSaJOKbVYQ8IuGvILQiFYFy QTnjPUFtSXSmArm8UKQlYRQdXB4DUiPbHOOiUIK7VNBwZHMuOSAlka3JYQIzSOCcZHpnJkKgFBLrHYAs APpxXHDiLDX6AFC5APJwLXGfMC9PXtOtOTLhEKtfNU AxRGMzKJUkvw5FBWGjVQOpBTNjGtPsWWEmOJRiPCxdJEEgCRKjJVM5YGExISOkDB3XOwKbRLSxBmW1Dh FjNTRhNPBtlb2HDQEdZNCpTrXvDAJvMNBjEJZrKKlxJOIxSJW4SLM4BQVsJUTpNK5TXnHiYTAePlB4Xr WlVJWkZWRnqx9BORThHDRbKRqmBPMrGICsQYQhJJqc SWWxNBF2BvqyOQEcKDOqBH2XUoSnIMWhIzB8JanuAKGrQBQypg8BKSShGGNmNvDcKmQsCLBcNWQaOAad HSUpSFL9NlCoVMKlDZWhIQ3CEzLyUPZnSsqfNPClVVRkCZHikl5KJONuOHNvOhAzIMSsAMClYXZpEGqa VBSyRXJ0LxruTTAxEUTqPM9LVmFfMKAdNqq5WYKeKG QeFRKphx4QFBZnNJUpGMo6MCWoZZSmMCSaRKmsTWFdKHE9WVGlPURnSOCcDW7KWlQxYQCyRYL9LArxSO McPPSoni1WNTUsZBJ9AAqsGXRlUZGaCVDzNMewYFFaLRLzDEC7CKXuYIEzDF7TOzSzJLDtVFJkITRqNE UnXWJsse9NFYFxRVF2ZXGuRIExTXLsBXBcOZceTGUv NWJkAckiNTHdUZMgFX9MZyBxUCWnSNE3DbZuMULcXAWlqj3QVCXuOBA2QxJlAWLrFEIhZDQbUKpnGJOb FTLtWSI0YHHrYSZpXY0QUwNsLFIgXZF0QVYbOQJoRPCiup1UZCByCFJ2PCMlRvKmNQZoLJGmEDqwLYZm HTR9LsbfSYAtTTOvRB6XZaRpBZtdPXKXMan5CFyxP5 f5WYA0Kn8SE7Rux4TtJTWlQTMSRAzjHC3ggaKpWAAbDy2KX2dYLqtoHPD4OYZvXlYrKJOwSkf0ZGnkNt TzPJD6CIAyKKD7Ae0xVMPhYfKiM2JzBCDzFdAuCdc6UWE3BUJ8FwCrGGG6EzgqJgQkSS2ZBz1HUzI1XA Q7yEShUf6IFLOwWGNIObSrMW9YPFc= ID Date Data Source [id number] 09/05/2020 03:20:21 PM [facility] Name Value Range Interpretation Code Description Data Nereida rce(s) Supporting Document(s) Consultation [facility] SFNZLs4kDjFSTmLu57/QPGsqJRTji6QmJBlvYVp9VAtwVBWtA0QcBOG9lF3jZJV9HGaJGlDyFgQdXJR3 lbm [file] Cg== ID Date Data Source [id number] 09/05/2020 12:38:18 PM [facility] Value Range Interpretation Code Description Data Nereida rce(s) Supporting Document(s) Glucose [Mass/volume] in Cerebral spinal fluid 61 mg/dL 40-70 [facility] ID Date Data Source [id number] 09/05/2020 12:38:18 PM [facility] Name Value Range Interpretation Code Description Data Nereida rce(s) Supporting Document(s) Protein [Mass/volume] in Cerebral spinal fluid 42 mg/dl 15-45 [facility] ID Date Data Source [id number] 09/05/2020 01:03:52 PM [facility] Value Range Interpretation Code Description Data Nereida rce(s) Supporting Document(s) Color of Cerebral spinal fluid [facility] Erythrocytes [#/volume] in Cerebral spinal fluid by Manual count 381 /uL <2 H [facility] Nucleated cells [#/volume] in Cerebral spinal fluid by Manual count 9 /uL <5 H [facility] Microscopic observation [Identifier] in Cerebral spinal fluid [facility] Cell count and Differential panel - Cerebral spinal fluid [facility] Neutrophils/100 leukocytes in Cerebral spinal fluid 14 % [facility] Monocytes+Macrophages/100 leukocytes in Cerebral spinal fluid 22 % [facility] Lymphocytes/100 leukocytes in Cerebral spinal fluid 64 % [facility] ID Date Data Source [id number] 09/10/2020 12:34:30 PM [facility] Service Cmnt XXX-Imp : NoneGram Stn XXX : 2+WBC'S Seen.No organisms seenSpecimen concentrated prior to staining.Microorganism XXX Cult : No growth 5 days Name Value Range Interpretation Code Description Data Nereida rce(s) Supporting Document(s) ID Date Data Source [id number] 09/05/2020 03:03:36 PM [facility] Value Range Interpretation Code Description Data Nereida rce(s) Supporting Document(s) Bicarbonate [Moles/volume] in Serum 23 mmol/L 22-29 [facility] Chloride [Moles/volume] in Serum or Plasma 100 mmol/L 98-107 [facility] Creatinine [Mass/volume] in Serum or Plasma 0.43 mg/dL 0.50-0.90 L [facility] Glucose [Mass/volume] in Serum or Plasma 135 mg/dL 70-140 [facility] Potassium [Moles/volume] in Serum or Plasma 3.3 mmol/L 3.4-5.1 L [facility] Sodium [Moles/volume] in Serum or Plasma 134 mmol/L 136-145 L [facility] Urea nitrogen [Mass/volume] in Serum or Plasma 4 mg/dL 6-20 L [facility] Anion gap 3 in Serum or Plasma 10 mmol/L 8-15 [facility] Osmolality of Serum or Plasma by calculation 276 mosm/kg 275-300 [facility] Creatinine/Urea nitrogen [Mass Ratio] in Serum or Plasma 8 [facility] Calcium [Mass/volume] in Serum or Plasma 7.9 mg/dL 8.6-10.0 L [facility] Glomerular filtration rate/1.73 sq M pre dicted among non-blacks [Volume Rate/Area] in Serum or Plasma by Creatinine-based formula (MDRD) >6 0 [facility] Glomerular filtration rate/1.73 sq M pre dicted among blacks [Volume Rate/Area] in Serum or Plasma by Creatinine-based formula (MDRD) >60 [facility] ID Date Data Source [id number] 09/05/2020 03:03:36 PM [facility] Name Value Range Interpretation Code Description Data Nereida rce(s) Supporting Document(s) Vancomycin [Mass/volume] in Serum or Plasma --trough 10.0- 20.0 L [facility] ID Date Data Source [id number] 09/05/2020 06:36:13 AM [facility] Name Value Range Interpretation Code Description Data Nereida rce(s) Supporting Document(s) Bicarbonate [Moles/volume] in Serum 22 mmol/L 22-29 [facility] Chloride [Moles/volume] in Serum or Plasma 102 mmol/L 98-107 [facility] Creatinine [Mass/volume] in Serum or Plasma 0.44 mg/dL 0.50-0.90 L [facility] Glucose [Mass/volume] in Serum or Plasma 85 mg/dL 70-140 [facility] Potassium [Moles/volume] in Serum or Plasma 3.7 mmol/L 3.4-5.1 [facility] Hemolyzed Sodium [Moles/volume] in Serum or Plasma 131 mmol/L 136-145 L [facility] Urea nitrogen [Mass/volume] in Serum or Plasma 3 mg/dL 6-20 L [facility] Anion gap 3 in Serum or Plasma 7 mmol/L 8-15 L [facility] Osmolality of Serum or Plasma by calculation 268 mosm/kg 275-300 L [facility] Creatinine/Urea nitrogen [Mass Ratio] in Serum or Plasma 8 [facility] Calcium [Mass/volume] in Serum or Plasma 7.9 mg/dL 8.6-10.0 L [facility] Glomerular filtration rate/1.73 sq M pre dicted among non-blacks [Volume Rate/Area] in Serum or Plasma by Creatinine-based formula (MDRD) >6 0 [facility] Glomerular filtration rate/1.73 sq M pre dicted among blacks [Volume Rate/Area] in Serum or Plasma by Creatinine-based formula (MDRD) >60 [facility] ID Date Data Source [id number] 09/05/2020 05:09:19 AM [facility] Name Value Range Interpretation Code Description Data Nereida rce(s) Supporting Document(s) Leukocytes [#/volume] in Blood by Automated count 11.6 10*3/uL 4-10 H [facility] Erythrocytes [#/volume] in Blood by Automated count 3.69 10*6/uL 4.1- 5.3 L [facility] Hemoglobin [Mass/volume] in Blood 11.6 g/dL 11.5-15.5 [facility] [facility] [Volume Fraction] of Blood by Automated count 33.7 % 3 6-45 L [facility] Erythrocyte mean corpuscular volume [Entitic volume] by Auto mated count 91.4 fL 80-96 [facility] Erythrocyte mean corpuscular hemoglobin [Entitic mass] by Automated count 31.4 pg 27-33 [facility] Erythrocyte mean corpuscular hemoglobin concentration [Mass/volume] by Automated count 34.3 g/dL 32.0-36.0 [facility] distribution width [Ratio] by Automated count 12.7 % 11.5-14.5 [facility] Platelets [#/volume] in Blood by Automated count 291 10*3/uL 150-400 [facility] ID Date Data Source [id number] 09/05/2020 05:34:58 AM [facility] Name Value Range Interpretation Code Description Data Nereida rce(s) Supporting Document(s) Bicarbonate [Moles/volume] in Serum 22-29 [facility] TALKED TO MELANY SMITH RN ON AT 05 [phone] [id number] BY [id number] Chloride [Moles/volume] in Serum or Plasma 98-107 [facility] Creatinine [Mass/volume] in Serum or Plasma 0.50-0.90 [facility] Glucose [Mass/volume] in Serum or Plasma 70-140 [facility] Potassium [Moles/volume] in Serum or Plasma 3.3-5.1 [facility] Sodium [Moles/volume] in Serum or Plasma 133-145 [facility] Urea nitrogen [Mass/volume] in Serum or Plasma 6-20 [facility] Anion gap 3 in Serum or Plasma 8-15 [facility] Osmolality of Serum or Plasma by calculation 275-300 [facility] Creatinine/Urea nitrogen [Mass Ratio] in Serum or Plasma [facility] Calcium [Mass/volume] in Serum or Plasma 8.6-10.0 [facility] Glomerular filtration rate/1.73 sq M pre dicted among non-blacks [Volume Rate/Area] in Serum or Plasma by Creatinine-based formula (MDRD) >6 0 [facility] Glomerular filtration rate/1.73 sq M pre dicted among blacks [Volume Rate/Area] in Serum or Plasma by Creatinine-based formula (MDRD) >60 [facility] ID Date Data Source [id number] 09/04/2020 05:53:11 AM [facility] Name Value Range Interpretation Code Description Data Nereida rce(s) Supporting Document(s) Bicarbonate [Moles/volume] in Serum 22 mmol/L 22-29 [facility] Chloride [Moles/volume] in Serum or Plasma 106 mmol/L 98-107 [facility] Creatinine [Mass/volume] in Serum or Plasma 0.45 mg/dL 0.50-0.90 L [facility] Glucose [Mass/volume] in Serum or Plasma 66 mg/dL 70-140 L [facility] Potassium [Moles/volume] in Serum or Plasma 3.5 mmol/L 3.4-5.1 [facility] Sodium [Moles/volume] in Serum or Plasma 138 mmol/L 136-145 [facility] Urea nitrogen [Mass/volume] in Serum or Plasma 5 mg/dL 6-20 L [facility] Anion gap 3 in Serum or Plasma 10 mmol/L 8-15 [facility] Osmolality of Serum or Plasma by calculation 281 mosm/kg 275-300 [facility] Creatinine/Urea nitrogen [Mass Ratio] in Serum or Plasma 11 [facility] Calcium [Mass/volume] in Serum or Plasma 7.6 mg/dL 8.6-10.0 L [facility] Glomerular filtration rate/1.73 sq M pre dicted among non-blacks [Volume Rate/Area] in Serum or Plasma by Creatinine-based formula (MDRD) >6 0 [facility] Glomerular filtration rate/1.73 sq M pre dicted among blacks [Volume Rate/Area] in Serum or Plasma by Creatinine-based formula (MDRD) >60 [facility] ID Date Data Source [id number] 09/04/2020 06:28:42 AM [facility] Name Value Range Interpretation Code Description Data Nereida rce(s) Supporting Document(s) Leukocytes [#/volume] in Blood by Automated count 15.4 10*3/uL 4-10 H [facility] Erythrocytes [#/volume] in Blood by Automated count 3.63 10*6/uL 4.1- 5.3 L [facility] Hemoglobin [Mass/volume] in Blood 11.4 g/dL 11.5-15.5 [facility] Hematocrit [Volume Fraction] of Blood by Automated count 33.9 % 3 6-45 L [facility] Erythrocyte mean corpuscular volume [Entitic volume] by Auto mated count 93.3 fL 80-96 [facility] Erythrocyte mean corpuscular hemoglobin [Entitic mass] by Automated count 31.5 pg 27-33 [facility] Erythrocyte mean corpuscular hemoglobin concentration [Mass/volume] by Automated count 33.7 g/dL 32.0-36.0 [facility] Erythrocyte distribution width [Ratio] by Automated count 12.6 % 11.5-14.5 [facility] Platelets [#/volume] in Blood by Automated count 167 10*3/uL 150-400 [facility] Confirmed ID Date Data Source [id number] 09/03/2020 10:09:17 AM [facility] XR FOREARM 2 VIEWS [id number] RESULTInte rpreted by:Harpal Dietrich, MDPROCEDURE INFORMATION: Exam: [...] rce(s) Supporting Document(s) ID Date Data Source [id number] 09/03/2020 10:08:17 AM [facility] XR HAND 2 VIEWS [id number] RESULTInterpr eted by:CABRERA Roldan INFORMATION: Exam: XR [...] rce(s) Supporting Document(s) ID Date Data Source [id number] 09/03/2020 10:06:52 AM [facility] XR WRIST 2 VIEWS [id number] RESULTInterp reted by:CABRERA Roldan INFORMATION: Exam: XR [...] rce(s) Supporting Document(s) ID Date Data Source [id number] 09/03/2020 10:06:17 AM [facility] XR ELBOW 2 VIEWS [id number] RESULTInterp reted by:CABRERA Roldan INFORMATION: Exam: XR [...] rce(s) Supporting Document(s) ID Date Data Source [id number] 09/03/2020 10:05:47 AM [facility] XR HUMERUS AP LATERAL [id number] RESULTI nterpreted by:CABRERA Roldan INFORMATION: Exam: XR [...] rce(s) Supporting Document(s) ID Date Data Source [id number] 09/03/2020 10:02:32 AM [facility] XR SHOULDER COMPLETE [id number] RESULTIn terpreted by:Harpal Dietrich MDPROCEDURE INFORMATION: Exam: [...] Date Data Source [id number] 09/03/2020 04:38:33 AM [facility] Name Value Range Interpretation Code Description Data Nereida rce(s) Supporting Document(s) Leukocytes [#/volume] in Blood by Automated count 19.0 10*3/uL 4-10 H [facility] Erythrocytes [#/volume] in Blood by Automated count 4.00 10*6/uL 4.1- 5.3 L [facility] Hemoglobin [Mass/volume] in Blood 12.3 g/dL 11.5-15.5 [facility] Hematocrit [Volume Fraction] of Blood by Automated count 37.2 % 3 6-45 [facility] Erythrocyte mean corpuscular volume [Entitic volume] by Auto mated count 93.1 fL 80-96 [facility] Erythrocyte mean corpuscular hemoglobin [Entitic mass] by Automated count 30.8 pg 27-33 [facility] Erythrocyte mean corpuscular hemoglobin concentration [Mass/volume] by Automated count 33.1 g/dL 32.0-36.0 [facility] Erythrocyte distribution width [Ratio] by Automated count 12.9 % 11.5-14.5 [facility] Platelets [#/volume] in Blood by Automated count 190 10*3/uL 150-400 [facility] ID Date Data Source [id number] 09/03/2020 05:00:16 AM [facility] Name Value Range Interpretation Code Description Data Nereida rce(s) Supporting Document(s) Bicarbonate [Moles/volume] in Serum 25 mmol/L 22-29 [facility] Chloride [Moles/volume] in Serum or Plasma 106 mmol/L 98-107 [facility] Creatinine [Mass/volume] in Serum or Plasma 0.46 mg/dL 0.50-0.90 [facility] Glucose [Mass/volume] in Serum or Plasma 124 mg/dL 70-140 [facility] Potassium [Moles/volume] in Serum or Plasma 3.4 mmol/L 3.4-5.1 [facility] Hemolyzed Sodium [Moles/volume] in Serum or Plasma 140 mmol/L 136-145 [facility] Urea nitrogen [Mass/volume] in Serum or Plasma 5 mg/dL 6-20 L [facility] Anion gap 3 in Serum or Plasma 9 mmol/L 8-15 [facility] Osmolality of Serum or Plasma by calculation 288 mosm/kg 275-300 [facility] Creatinine/Urea nitrogen [Mass Ratio] in Serum or Plasma 10 [facility] Calcium [Mass/volume] in Serum or Plasma 7.5 mg/dL 8.6-10.0 [facility] Glomerular filtration rate/1.73 sq M pre dicted among non-blacks [Volume Rate/Area] in Serum or Plasma by Creatinine-based formula (MDRD) >6 0 [facility] Glomerular filtration rate/1.73 sq M pre dicted among blacks [Volume Rate/Area] in Serum or Plasma by Creatinine-based formula (MDRD) >60 [facility] ID Date Data Source [id number] 09/02/2020 06:25:[address] [facility] CT THORACIC SPINE WITHOUT CONTRAST [id number] FINAL RESULTInterpreted by:PATRICIA Sarahlinical Indication:Post resection of [...] exam.Comparison:Outside CT scan dated 08/21 10/22 from [facility].CT CERVICAL AND THORACIC:Compared to the prior study, [...] rce(s) Supporting Document(s) ID Date Data Source [id number] 09/02/2020 06:25:[address] [facility] CT 3D RECON INDEPENDENT [id number] RESUL TInterpreted by:PATRICIA Sarahlinical Indication:Post resection of [...] exam.Comparison:Outside CT scan dated 08/21 10/22 from [facility].CT CERVICAL AND THORACIC:Compared to the prior study, [...] rce(s) Supporting Document(s) ID Date Data Source [id number] 09/02/2020 06:25:[address] [facility] CT CERVICAL SPINE WITHOUT CONTRAST [id number] FINAL RESULTInterpreted by:PATRICIA Sarahlinical Indication:Post resection of [...] exam.Comparison:Outside CT scan dated 08/21 10/22 from [facility].CT CERVICAL AND THORACIC:Compared to the prior study, [...] rce(s) Supporting Document(s) ID Date Data Source [id number] 09/02/2020 05:24:07 PM [facility] MR CERVICAL SPINE WITH AND WITHOUT CONTR AST [id number] RESULTInterpreted by:PATRICIA Sarahlinical indication:C7 tumor resection.Sagittal and axial T1 and T2 weighted images, sagittal STIR images, and post contrast sagittal and axial T1 weighted images were submitted for interpretation.Comparison: MRI of the cervical spine dated 06/09/20 from [facility].Compared to the prior study, there has [...] rce(s) Supporting Document(s) ID Date Data Source [id number] 09/02/2020 05:00:00 AM [facility] Name Value Range Interpretation Code Description Data Nereida rce(s) Supporting Document(s) [facility] lab was ordered by [facility] and reported by [facility]. 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[facility] Patient has symptoms related to [facility] When did you start to experience these symptoms [Date and time] [Phen X] [facility] Patient was hospitalized because of this condition [facility] patient was admitted to ICU for [facility] Patient resides in a congregate care setting [facility] status [facility] ID Date Data Source [id number] 09/02/2020 02:11:56 AM [facility] Name Value Range Interpretation Code Description Data Nereida rce(s) Supporting Document(s) Leukocytes [#/volume] in Blood by Automated count 22.9 10*3/uL 4-10 H [facility] Erythrocytes [#/volume] in Blood by Automated count 4.07 10*6/uL 4.1- 5.3 L [facility] Hemoglobin [Mass/volume] in Blood 12.4 g/dL 11.5-15.5 [facility] Hematocrit [Volume Fraction] of Blood by Automated count 37.6 % 3 6-45 [facility] Erythrocyte mean corpuscular volume [Entitic volume] by Auto mated count 92.5 fL 80-96 [facility] Erythrocyte mean corpuscular hemoglobin [Entitic mass] by Automated count 30.5 pg 27-33 [facility] Erythrocyte mean corpuscular hemoglobin concentration [Mass/volume] by Automated count 33.0 g/dL 32.0-36.0 [facility] Erythrocyte distribution width [Ratio] by Automated count 12.9 % 11.5-14.5 [facility] Platelets [#/volume] in Blood by Automated count 225 10*3/uL 150-400 [facility] ID Date Data Source [id number] 09/02/2020 02:16:38 AM [facility] Name Value Range Interpretation Code Description Data Nereida rce(s) Supporting Document(s) Bicarbonate [Moles/volume] in Serum 24 mmol/L 22-29 [facility] Chloride [Moles/volume] in Serum or Plasma 107 mmol/L 98-107 [facility] Creatinine [Mass/volume] in Serum or Plasma 0.66 mg/dL 0.50-0.90 [facility] Glucose [Mass/volume] in Serum or Plasma 139 mg/dL 70-140 [facility] Potassium [Moles/volume] in Serum or Plasma 3.5 mmol/L 3.4-5.1 [facility] Sodium [Moles/volume] in Serum or Plasma 137 mmol/L 136-145 [facility] Urea nitrogen [Mass/volume] in Serum or Plasma 5 mg/dL 6-20 L [facility] Anion gap 3 in Serum or Plasma 6 mmol/L 8-15 L [facility] Osmolality of Serum or Plasma by calculation 284 mosm/kg 275-300 [facility] Creatinine/Urea nitrogen [Mass Ratio] in Serum or Plasma 8 [facility] Calcium [Mass/volume] in Serum or Plasma 8.4 mg/dL 8.6-10.0 L [facility] Glomerular filtration rate/1.73 sq M pre dicted among non-blacks [Volume Rate/Area] in Serum or Plasma by Creatinine-based formula (MDRD) >6 0 [facility] Glomerular filtration rate/1.73 sq M pre dicted among blacks [Volume Rate/Area] in Serum or Plasma by Creatinine-based formula (MDRD) >60 [facility] ID Date Data Source [id number] 09/02/2020 02:16:38 AM [facility] Name Value Range Interpretation Code Description Data Nereida rce(s) Supporting Document(s) Phosphate [Mass/volume] in Serum or Plasma 2.9 mg/dL 2.5-4.5 [facility] ID Date Data Source [id number] 09/02/2020 02:16:38 AM [facility] Name Value Range Interpretation Code Description Data Nereida rce(s) Supporting Document(s) Magnesium [Mass/volume] in Serum or Plasma 1.9 mg/dL 1.6-2.6 [facility] ID Date Data Source [id number] 09/01/2020 07:28:21 PM [facility] O-ARM CT SPINE-CERVICAL W/O IN ORFINAL R ESULTThis statement is intended for documentation purposes only.This exam was performed in the Operating Room by the Surgeon and a Radiologist was not present. Please refer to the Operative note in EPIC. Name Value Range Interpretation Code Description Data Nereida rce(s) Supporting Document(s) ID Date Data Source [id number] 09/01/2020 06:31:04 PM [facility] Name Value Range Interpretation Code Description Data Nereida rce(s) Supporting Document(s) pH of Arterial blood 7.40 7.38-7.44 [facility] Carbon dioxide [Partial pressure] in Arterial blood 35 mmHg 35-40 [facility] Oxygen [Partial pressure] in Arterial blood 280 mmHg 95-100 H [facility] Base excess standard in Arterial blood by calculation [facility] Oxygen saturation Calculated from oxygen partial press ure in Arterial blood 100 % 94-100 [facility] Bicarbonate [Moles/volume] in Arterial blood 23 mmol/L [facility] Sodium [Moles/volume] in Blood 147 mmol/L 136-145 H [facility] Potassium [Moles/volume] in Blood 4.2 mmol/L 3.4-5.1 [facility] Calcium.ionized [Moles/volume] in Blood 1.12 mmol/L 1.13-1.32 L [facility] Glucose [Mass/volume] in Blood 98 mg/dL 70-140 [facility] Hematocrit [Volume Fraction] of Blood 31 % 36-45 L [facility] Hemoglobin [Mass/volume] in Blood by calculation 10.5 g/dL 11.5-15.5 [facility] ID Date Data Source [id number] 09/01/2020 01:10:54 PM [facility] Name Value Range Interpretation Code Description Data Nereida rce(s) Supporting Document(s) pH of Arterial blood 7.38 7.38-7.44 [facility] Carbon dioxide [Partial pressure] in Arterial blood 41 mmHg 35-40 H [facility] Oxygen [Partial pressure] in Arterial blood 288 mmHg 95-100 H [facility] Base excess standard in Arterial blood by calculation [facility] Oxygen saturation Calculated from oxygen partial press ure in Arterial blood 100 % 94-100 [facility] Bicarbonate [Moles/volume] in Arterial blood 26 mmol/L [facility] Sodium [Moles/volume] in Blood 141 mmol/L 136-145 [facility] Potassium [Moles/volume] in Blood 3.8 mmol/L 3.4-5.1 [facility] Calcium.ionized [Moles/volume] in Blood 1.20 mmol/L 1.13-1.32 [facility] Glucose [Mass/volume] in Blood 103 mg/dL 70-140 [facility] Hematocrit [Volume Fraction] of Blood 35 % 36-45 L [facility] Hemoglobin [Mass/volume] in Blood by calculation 11.9 g/dL 11.5-15.5 [facility] ID Date Data Source [id number] 09/01/2020 08:55:07 AM [facility] Name Value Range Interpretation Code Description Data Nereida rce(s) Supporting Document(s) pH of Arterial blood 7.40 7.38-7.44 [facility] Carbon dioxide [Partial pressure] in Arterial blood 36 mmHg 35-40 [facility] Oxygen [Partial pressure] in Arterial blood 215 mmHg 95-100 H [facility] Base excess standard in Arterial blood by calculation [facility] Oxygen saturation Calculated from oxygen partial press ure in Arterial blood 100 % 94-100 [facility] Bicarbonate [Moles/volume] in Arterial blood 23 mmol/L [facility] Sodium [Moles/volume] in Blood 139 mmol/L 136-145 [facility] Potassium [Moles/volume] in Blood 3.6 mmol/L 3.4-5.1 [facility] Calcium.ionized [Moles/volume] in Blood 1.17 mmol/L 1.13-1.32 [facility] Glucose [Mass/volume] in Blood 93 mg/dL 70-140 [facility] Hematocrit [Volume Fraction] of Blood 36 % 36-45 [facility] Hemoglobin [Mass/volume] in Blood by calculation 12.2 g/dL 11.5-15.5 [facility] ID Date Data Source [id number] 09/01/2020 07:33:03 AM [facility] Name Value Range Interpretation Code Description Data Nereida e(s) Supporting Document(s) History and Physical [facility] [id number]/SKCnkPUKsy9RnFTgeXJb6UMkuGAVhQ2ObNMP8cU4uCCJ1TVpMGxOlXcWpYmLd lbm [file] ICAgICAgICAgICAgICAgICAgICAgICAgICAgICAgIC CnMYIxWLOtBYZzNYJjHMWiYEPtDUHlINXbMLHqQBTpOWJzTU3JGYArLABnKHLjNJWzMYHsDHGpUERpWB AgICAgICAgICAgICAgICAgICAgICAgICAgICAgICAgICAgICAgICAgICAgICAgICAgICAgICAgICAgIC WfMNNgTUBnOAVlGPQxQIUaRG2MJMQyNUYmTCChMNCw ICAgICAgICAgICAgICAgICAgICAgICAgICAgICAgICAgICAgICAgICAgICAgICAgICAgICAgICAgICAg IZWfEWEsRCOfTHOtHVIpHKIbTUWxMIYtBGMlMN4MRSEdHBHwPSHeNQZxYJVzAVYeIFLiLZMkPUOdFFRl ICAgICAgICAgICAgICAgICAgICAgICAgICAgICAgIC TvQTCyQEFlKIAxKOAcXXLkXQGzYSEgWNEiRMUhXMEzTEGqZOGbNC8KKFLtYYMpSPBdJFCjGYGlMCSvVC AgICAgICAgICAgICAgICAgICAgICAgICAgICAgICAgICAgICAgICAgICAgICAgICAgICAgICAgICAgIC MzBQCbVTFoYTKbYYLsXDNqADXkAT0YIRCdQAJvNZOe ICAgICAgICAgICAgICAgICAgICAgICAgICAgICAgICAgICAgICAgICAgICAgICAgICAgICAgICAgICAg MYVzTPZpROCnQIOaEXYdCMAkIDKiZDAyVIJbYGScWZ6XWDUoPGRnEAPsVUKqDYQsDEHeMJEaUQKwOQJk ICAgICAgICAgICAgICAgICAgICAgICAgICAgICAgIC ObZLXeKFPuHZQxGKIwQNCdFQOiNFLwZKYiEKNmNLMqBHLtEYGuFQQuLJ6POOHvQMCtOAIiLBOhVXBmGJ AgICAgICAgICAgICAgICAgICAgICAgICAgICAgICAgICAgICAgICAgICAgICAgICAgICAgICAgICAgIC UhONLeWGLvIKIqAABaERVeJLDeMKLiWM4QKOVmJEDa ICAgICAgICAgICAgICAgICAgICAgICAgICAgICAgICAgICAgICAgICAgICAgICAgICAgICAgICAgICAg YXReODOgQIAeWDMsUCAuXSJpPWTuMPGxKWClZYZeOVUdKA7ATKXqUAMcOUNyMNTdYTZwTWXfSGSsBAJi ICAgICAgICAgICAgICAgICAgICAgICAgICAgICAgIC IoYTMxDXYoBCGkPFAuAPOeELScYEOrNYHlSMHyPYTlGODgJEDmZWLrZXSiQP5QXE37mCJwq4Z9WSZbGZ 0ndyc/Af7SWZmvvpGseRXgLL2YLiOoMV2uyt8FWnPdLX1vzh4IKKhDTpZqZ7V9iCOaGMWzCWZPKzZoA5 9pAPjdTq56SViiSFQdGuAdCWi5Yw1IPxGuH7kpNBXk JwS8VGEoDsU3NKDsNzN4HVJbTyUgVLUcTFAbTY5DNXZzE152mhWoXW3GDf6AXcQcQX4ysv8SSdLbWIPd SveOOyg1SIvuSI1VlLDryXOwMzRvBSAQMeElF5gsj1XiHxYmYIDNABljYP0Vc2XgiOTgXAu+Rh1CCI9k z2OxZFajOfUmPP2azz8JLIrSEaClM9EahEnbGQigMW QsiHOJqfTxXN6lKT7fP8zfa6dxw84kUTYFJATicFHtAa6bIU4aQCNrPIO7NuFyCBICAU0GFLRgAEVpqG OjRRUzKWKXIH3EWOgkEGM0PXLcteSseTHxSIdrQL1EMPCpqfLuFsVbJXMNALk+Pi8QUZ0gl0KwWMnpJo VzKC9nvw3RFSvSCgElJ6S7sHXyO3A3QNxxTj3QYVYn WTYtAqtkBSPGGXabPV9LMC9zkvA8MO1FfKGrGTDnYJNehMClJDq9H42glZNtFKqlGC9RINS+Darío+Pg0K WGKhABAeRMEwYwOzQZHFYnEkI9UyQ2SXq1OjN1KnRM53aIezkwHdETrwOV1UQB5aXDTmZAYGYU4TiNQk bO6xluDsOJBbQOZEEtXeQ58qqOMhGHLcYSTrUWIgIc 9XJYGpM5KabrSumHfdmwDzEYMbWQIGGK7GOCqipcClfIEjuGurEJ84xErpRO1AIs5LCrWtIA9ciq2BnQ YjRz0KTFJwDC3SLYIwYNEjYSVeAQG4LXCfPtSwOHmqHRBqOOLyEEK2QJLsNNMeIC0TSgAsQWBsOhWtCG OwLHGgGJZaiy5QFUNhXIXvOXe3ErJhNAKqORLvMIbx KAYaXIFvLTX1OAJwFCQnQZ3SUcCoQBDaNAVaClsbIKTiRMSsog4VDIEtDVMwHoI7TGTeUAAuYJEcQGmy OVClDNR7QXckJACjGOCxDO0BEcAgXUVkJDG7GFLmZDXoYEOdfw9CKDGbKTAfSSF0HmKmFXApSTCzJKbr ZZCxANRxZXI6JJIbDSBvTD2RUkXrIEUzIUQfKrrqWO PvCYIkoz4GBTKhXDNyDnR6QvOoZEOeQUJsXNmfOXEbPQNkGbZfYTEiONJeZW6JVnZkHUHvJXS4GSKuHF FbWGWhyb1HRLTpSDQsBuH4JmRtIEQxSZWwPAarUBTbGZU3VdEvQOXwMUIkWP1PKgMqAXYwJGF2PVMfTV IuLOAuyl7UUUIhOJDeVULzJbPhNRJxUQTxXJghNQWx TRD7ZEgkFNBgRKJuVM5EXdZyULKwGZVvKYovUDVtADCudk9FGIFcPNIkIoY3LrXsENWxNBAiYMotEAFp KXE5ByV1OFYdFAKyNM1RHyVbMQUxJpybGpOwHCCcCXJryk4WBQBpEZQfCES9QOHpWTErTMMcBYpmRRKv FSI0JNKgFRIuVNApZM7SPsKjEMJfBhb8VyamRBEkET Xzqn7VYZDzHCPpFBIkQcEpKXIdMAOyTGkuTTIaJGL7QUFgKVGxWTBxNK3OEmPySFVkNur1AqnaVFCcSX Tmar0ZLIAuYVEeCYUeErJlLWJuHLLdOMwkZIQsBBYkVAO3OCMrPGHhOH4QYiFvRZAvLmP9LESkSVDtVI Ufko5THYKaJHPkZbA5CRUwWQYmPPUeUFf6sqJoxRNb IJx2KI0AS6UxqlGqDuDIBy9Sf975AGEtQZLzGr3FI5ycDm5sSNBdKZTOZp4HKFk6OKXcHhAeDkTmL1Hu YDJnPjQdWPKhFbZ1PJJ2RdriQZJ+IGg5AACeD0FoLeBuSuBnNPVfSjGlF7GzRcnfEts4X4PcFP1uUWQU Cj4+BHkppGYhrLkcJKSZKsVjDaH6NIlgLVFLTd2O ID Date Data Source [id number] 09/01/2020 07:05:57 AM [facility] Name Value Range Interpretation Code Description Data Nereida rce(s) Supporting Document(s) Choriogonadotropin.beta subunit free [Units/volume] in Serum or Plasm a <5 [facility] (NOTE)Levels between 5 and 25 [IU]/L may indicate earlypregnancy and should be repeated after 48 hours. ID Date Data Source [id number] 09/01/2020 06:53:37 AM [facility] Name Value Range Interpretation Code Description Data Nereida rce(s) Supporting Document(s) Choriogonadotropin.beta subunit free [Units/volume] in Serum or Plasma 6 [IU]/L <5 H [facility] (NOTE)Levels between 5 and 25 [IU]/L may indicate earlypregnancy and should be repeated after 48 hours. ID Date Data Source [id number] 09/07/2020 06:54:00 PM [facility] Neuropathology ReportName: RANDI JJMRN: [id number] Number: [id number] Date: 09/01/2020 00:00Received Date: [...] a rim of red- brown soft tissue. Lmft sections are submitted as follows:B1-2 - customer sales representative larger red-brown fragmentB3 -customer sales representative toussaint soft tissue fragmentsKW/pmwMicroscopic DescriptionSections from [...] developed and their performance characteristics determined by [facility] Pathology department. They have not been cleared or approved by the USFood and Drug Administration. The FDA has determined that such clearanceor approval is not necessary. Name Value Range Interpretation Code Description Data Nereida rce(s) Supporting Document(s) ID Date Data Source [id number] 08/29/2020 10:09:46 [facility] Name Value Range Interpretation Code Description Data [facility] rce(s) Supporting Document(s) Progress Note [facility] [id number] [facility] [file] [id number]= ID Date Data Source [id number] 08/29/2020 09:31:51 PM [facility] Name Value Range Interpretation Code Description Data Nereida rce(s) Supporting Document(s) Specimen source [Identifier] of Unspecified specimen [facility] SARS-CoV-2 RNA 2018 nCoV Real-Time RT-PCR: NOT DETECTED [facility] Assay Performed [facility] Patients first test for condition [facility] 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[facility] Patient has symptoms related to [facility] When did you start to experience these symptoms [Date and time] [Phen X] [facility] Patient was hospitalized because of this condition [facility] patient was admitted to ICU for condition [facility] Patient resides in a congregate care setting [facility] status [facility] ID Date Data Source [id number] 08/29/2020 10:09:00 AM EST [facility] Name Value Range Interpretation Code Description Data Nereida rce(s) Supporting Document(s) SARS-CoV-2 RNA [facility] This lab was ordered by [facility] and reported by [facility]. ID Date Data Source [id number] 08/29/2020 02:02:40 PM [facility] Name Value Range Interpretation Code Description Data Nereida rce(s) Supporting Document(s) Color of Urine [facility] Clarity of Urine [facility] Specific gravity of Urine by Refractometry automated 1.024 1.003 -1.030 [facility] pH of Urine by Automated test strip 6.0 5.0-8.0 [facility] Protein [Mass/volume] in Urine by Automated test strip Neg [facility] Glucose [Mass/volume] in Urine by Automated test strip Neg [facility] Ketones [Mass/volume] in Urine by Automated test strip Neg [facility] Bilirubin.total [Presence] in Urine by Automated test strip Negative [facility] Hemoglobin [Presence] in Urine by Automated test strip Neg [facility] Leukocyte esterase [Presence] in Urine by Automated test strip Negative [facility] Nitrite [Presence] in Urine by Automated test strip Negati [facility] Leukocytes [#/area] in Urine sediment by Automated count 4 /HPF 0 -5 [facility] Erythrocytes [#/area] in Urine sediment by Automated count 3 /HPF 0-3 [facility] Epithelial cells.squamous [#/area] in Urine sediment by Auto mated count 23 /HPF None [facility] Mucus [#/area] in Urine sediment by Microscopy low power field None [facility] ID Date Data Source [id number] 08/29/2020 03:19:46 PM [facility] Name Value Range Interpretation Code Description Data Nereida rce(s) Supporting Document(s) ABO and Rh group [Type] in Blood [facility] Blood group antibody screen [Presence] in Serum or Plasma [facility] Blood bank comment [facility] ID Date Data Source [id number] 08/29/2020 01:33:39 PM [facility] Name Value Range Interpretation Code Description Data Nereida rce(s) Supporting Document(s) Prothrombin time (PT) 13.5 s 12.5-14.9 [facility] INR in Platelet poor plasma by Coagulation assay 1.02 [facility] Routine intensity oral anticoagulation I NR is typically 2.0-3.0. Target INR must be clinically individualized. ID Date Data Source [id number] 08/29/2020 01:33:39 PM [facility] Name Value Range Interpretation Code Description Data Nereida rce(s) Supporting Document(s) aPTT in Platelet poor plasma by Coagulation assay 33.2 s 24.0-33. 0 H [facility] ID Date Data Source [id number] 07/26/2020 10:43:13 AM [facility] Name Value Range Interpretation Code Description Data Nereida rce(s) Supporting Document(s) Progress Note [facility] [id number] m [file] [id number]= ID Date Data Source [id number] 06/24/2020 12:00:00 AM EDT [facility] Name Value Range Interpretation Code Description Data Nereida rce(s) Supporting Document(s) SARS coronavirus 2 RNA [Presence] in Res piratory specimen by ENA with probe detection [facility] This lab was ordered by [facility] and reported by [employer]. ID Date Data Source [id number] 06/14/2020 11:43:00 [place] [address] PHONE: [phone] FAX: [phone] Name .................. : MESHA Warnert Number.................. : [id number] ROOM. ................. : MR Number ................... : [id number] Stay type ............. : O/P Discharge Date......... ... : 06/09/20 Admit Date ......... : 06/09/20 Admit Phys .................... : ZOHAIB LAINEZ Date of ....... : 1995 Family Phys ................... : ZOHAIB LAINEZ Phone .................. : [phone] Age ................................ : 25 Film# .................. .:[id number] Sex ................................. : F Unsigned transcriptions are preliminary reports and do not represent a medical or legal document MRI THORACIC SPINE W&W/O CON 26448 COMPLETE:06/09/20 15:26 [facility] 90100 (SPINE PROC REASON: HX SPINAL [place], NUMBN [...] 23:40, Dictation Date: Page 1 of 2 [facility] [address] [place] [address] PHONE: [phone] FAX: [phone] Name .................. : MESHA Cote Acct Number.................. : [id number] ROOM. ................. : Number ................... : [id number] Stay type ............. : O/P Discharge Date......... ... : 06/09/20 Admit Date ......... : 06/09/20 Admit Phys ..... ............... : ZOHAIB LAINEZ Date of ....... : 1995 Family Phys ................... : ZOHAIB LAINEZ Phone .................. : [phone] Age ................................ : 25 Film# .................. .:[id number] Sex ................................. : F Unsigned transcriptions are preliminary reports and do not represent a medical or legal document MRI THORACIC SPINE W&W/O CON 06317 COMPLETE:06/09/20 15:26 [facility] 39200 (SPINE PROC REASON: HX SPINAL SCHWANNOMA, NUMBNESS,WEAKNESS Copy for: ZOHAIB Rutherford Copy for: 710 MED REC Page 2 of 2 Name Value Range Interpretation Code Description Data Nereida rce(s) Supporting Document(s) ID Date Data Source [id number] 06/14/2020 11:41:00 AM EDT [facility] [address] [place] [address] PHONE: [phone] FAX: [phone] Name .................. : MESHA Cote Acct Number.................. : [id number] ROOM. ................. : MR Number ................... : [id number] Stay type ............. : O/P Discharge Date......... ... : 06/09/20 Admit Date ......... : 06/09/20 Admit Phys .................... : ZOHAIB LAINEZ Date of ....... : 1995 Family Phys ................... : [employer] Phone .................. : [phone] Age ................................ : 25 Film# .................. .:[id number] Sex ................................. : F Unsigned transcriptions are preliminary reports and do not represent a medical or legal document MRI CERV SPINE W&W/O CONTRAST 09025 COMPLETE:06/09/20 15:26 [facility] 50464 (SPINE PROC REASON: HX SPINAL [place], NUMBN [...] 23:35, Dictation Date: Page 1 of 2 [place] [address] PHONE: [phone] FAX: [phone] Name .................. : MESHA Cote Acct Number.................. : [id number] ROOM. ................. : MR Number ................... : [id number] Stay type ............. : O/P Discharge Date......... ... : 06/09/20 Admit Date ......... : 06/09/20 Admit Phys .................... : ZOHAIB LAINEZ Date of ....... : 1995 Family Phys ................... : ZOHAIB LAINEZ Phone .................. : [phone] Age ................................ : 25 Film# .................. .:[id number] Sex ................................. : F Unsigned transcriptions are preliminary reports and do not represent a medical or legal document MRI CERV SPINE W&W/O CONTRAST [id number] COMPLETE:06/09/20 15:26 [facility] 32586 (SPINE PROC REASON: HX SPINAL SCHWANNOMA, NUMBNESS,WEAKNESS Copy for: ZOHAIB Rutherford Copy for: [facility] MED REC Page 2 of 2 Name Value Range Interpretation Code Description Data Nereida rce(s) Supporting Document(s) Procedure Social History Code Duration Value Status Description Data Source(s ) Alcohol intake 04/04/2021 12:00:00 AM EDT Current drinker of al cohol (finding) completed Current drinker of alcohol (finding) [facility] Tobacco use and exposure 04/04/2021 12:00:00 AM EDT Never used co mpleted Never used [facility] Smoking 04/04/2021 12:00:00 AM EDT Never smoker completed Never s [facility] Alcohol intake 09/20/2020 12:00:00 AM EST Ex-drinker (finding) comp leted Ex- drinker (finding) [facility] Alcohol intake 09/01/2020 12:00:00 AM EST Ex-drinker (finding) comp leted Ex- drinker (finding) [facility] Alcohol intake 08/29/2020 12:00:00 AM EST Ex-drinker (finding) comp leted Ex- drinker (finding) [facility] Vital Signs ID Date Data Source UNK Name Value Range Interpretation Code Description Data Source(s) Body surface area Derived from formula 2.00 m2 2.00 m2 [facility] Oxygen saturation in Arterial blood by Pulse oximetry 97 % 97 % [facility] ([facility]) Respiratory rate 16 /min 16 /min [facility] ( [facility]) Body temperature 97.7 [degF] 97.7 [degF] [facility] ([facility]) Heart rate 86 /min 86 /min [facility] ([facility]) Diastolic blood pressure 80 mm[Hg] 80 mm[Hg] [facility] ([facility]) Systolic blood pressure 124 mm[Hg] 124 mm[Hg] [facility] ([facility]) Body mass index (BMI) [Ratio] 30.7 kg/m2 30.7 k g/m2 [facility] Body height 67 [in_i] 67 [in_i] [facility] 5'7" Body weight 88.906 kg 88.906 kg [facility] ([facility]) Body weight 196.00 [lb_av] 196.00 [lb_av] [facility] ([facility]) ID Date Data Source [id number] 12/09/2020 03:25:31 PM [facility] Name Value Range Interpretation Code Description Data Source(s) WEIGHT RECORDED 194 lb 194 lb [facility] Body height Measured 67.[address] [facility] ID Date Data Source [id number] 09/13/2020 02:44:34 PM [facility] Value Range Interpretation Code Description Data Source(s) WEIGHT RECORDED 194.9 lb 194.9 lb [facility] TRANSFER FROM [facility] ID Date Data Source [id number] 09/10/2020 12:34:38 PM [facility] Value Range Interpretation Code Description Data Source(s) WEIGHT RECORDED 203.04 lb 203.04 lb [facility] Body height Measured 67.[address] [facility] WEIGHT RECORDED 203 lb 203 lb [facility] ID Date Data Source [id number] 08/29/2020 03:19:56 PM [facility] Value Range Interpretation Code Description Data Source(s) WEIGHT RECORDED 200.62 lb 200.62 lb [facility] Body height Measured 67.[address] [facility] Patient Treatment Plan of Care Planned Activity Planned Date Details Description Data Source (s) gabapentin 400 MG Oral Capsule 11/16/2020 12:00:00 AM [facility] gabapentin 400 MG Oral Capsule 11/08/2020 12:00:00 AM [facility] Albuterol Sulfate HFA 108 (90 Base) MCG/ ACT Inhalation Aerosol Solution (Ventolin HFA) 09/13/2020 12:00:00 AM [facility] 24 HR venlafaxine 150 MG Extended Release Oral Capsule 09/13/2020 12:00:00 AM [facility]sp[facility] Magnesium Hydroxide 80 MG/ML Oral Suspension 09/12/2020 12:00:00 AM [facility] Methocarbamol 500 MG Oral Tablet 09/12/2020 12:00:00 AM [facility] Oxycodone Hydrochloride 5 MG Oral Tablet 09/12/2020 12:00:00 AM [facility] Cephalexin 500 MG Oral Capsule 09/12/2020 12:00:00 AM [facility] sennosides, FPC 8.6 MG Oral Tablet 09/12/2020 12:00:00 AM [facility] Acetaminophen 325 MG Oral Tablet 09/12/2020 12:00:00 AM [facility] Bisacodyl 10 MG Rectal Suppository 09/12/2020 12:00:00 AM [facility] gabapentin 400 MG Oral Capsule 09/12/2020 12:00:00 AM [facility] POLYETHYLENE GLYCOL 3350 142 MG/ML Oral Solution 09/10/2020 11:15:0 0 AM [facility] Bisacodyl 10 MG Rectal Suppository 09/10/2020 11:15:00 AM [facility] Magnesium Hydroxide 80 MG/ML Oral Suspension 09/09/2020 08:15:00 AM [facility] Bisacodyl 10 MG Rectal Suppository 09/09/2020 12:00:00 AM [facility] heparin (porcine) 5000 UNIT/ML injection 5,000 Units 09:00:00 PM [facility] albuterol (PROVENTIL HFA) inhaler 2 puff 09/08/2020 03:27:11 PM [facility] Ondansetron 4 MG Oral Tablet 09/08/2020 03:26:21 PM [facility] fluticasone (FLONASE) 50 MCG/ACT nasal spray 1 spray 03:26:21 PM [facility] Calcium Carbonate 500 MG Chewable Tablet 09/08/2020 12:00:00 AM [facility] Acetaminophen 325 MG Oral Tablet 09/08/2020 12:00:00 AM [facility] Carisoprodol 350 MG Oral Tablet 09/08/2020 12:00:00 AM [facility] Docusate Sodium 100 MG Oral Capsule 09/08/2020 12:00:00 AM [facility] gabapentin 300 MG Oral Capsule 09/08/2020 12:00:00 AM [facility] Heparin Sodium (Porcine) 5000 UNIT/ML Injection Soluti on 09/08/2020 12:00:00 AM [facility] Oxycodone Hydrochloride 5 MG Oral Tablet 09/08/2020 12:00:00 AM [facility] Oxycodone Hydrochloride 5 MG Oral Tablet 09/08/2020 12:00:00 AM [facility] sennosides, FPC 8.6 MG Oral Tablet 09/08/2020 12:00:00 AM [facility] Prochlorperazine 5 MG/ML Injectable Solution 09/03/2020 07:13:09 AM [facility] fluticasone (FLONASE) 50 MCG/ACT nasal spray 1 spray 020 11:00:52 PM [facility] sennosides, FPC 35.2 MG/ML Oral Solution 09/01/2020 11:00:13 PM [facility] 24 HR venlafaxine 150 MG Extended Release Oral Capsule [facility] Albuterol Sulfate HFA 108 (90 Base) MCG/ ACT Inhalation Aerosol Solution (Ventolin HFA) [facility]
== END 2021-06-25 01:14 | disposition left against medical advice (07) ==
LOC: M ED 23:33
DX: Z53.29 Procedure and treatment not carried out because of patient's decision for other reasons (principal)

== ENCOUNTER 2022-02-08 01:06 | Emergency (ER) | payer OTHER ==
[~2022-02-08] VITALS: Ht 167.6 cm; Wt 90.9 kg
[2022-02-08 01:06] VITALS: BP 124/89
[~2022-02-08 01:06] MED LIST changes: +ALBU8.5H INH; +EFFE75CA2 PO; +GABA-1171 PO; -ISOVUE-370 76% 100ML VIAL As Ordered ONE; +VYVA20CA PO
== END 2022-02-08 04:08 | disposition left against medical advice (07) ==
LOC: M ED 01:06
DX: Z53.21 Procedure and treatment not carried out due to patient leaving prior to being seen by health care provider (principal)